=== PATIENT | female | born 1940 | race Caucasian/White ===

== ENCOUNTER 2017-09-30 07:48 | Day surgery (SDC) | payer OTHER ==
[2017-09-27 15:43] VITALS: BMI 27.0
[2017-09-30] MEDS ORDERED: MIDAZOLAM HCL 2 MG/2 ML SINGLE DOSE VIAL ONE (09:36)
[2017-09-30] MEDS ORDERED: ceFAZolin SODIUM 1 GM VIAL IVPB ONE (09:51)
[2017-09-30] MEDS ORDERED: ONABOTULINUMTOXINA 200 UNIT/VIAL VIAL IM ONE (10:00)
[2017-09-30] MEDS ORDERED: ACETAMINOPHEN 325 MG TABLET (FP) PO PRN (10:14)
[2017-09-30] MEDS ORDERED: OXYBUTYNIN CHLORIDE 5 MG TABLET PO ONE (10:15)
[2017-09-30] MEDS ORDERED: PHENAZOPYRIDINE HCL 100 MG TABLET (FP) PO ONE (10:17)
--- NOTE | 2017-09-30 10:23 | OP ---
Operative Note - Note: Operative Date: 09/30/17 Pre-Operative Diagnosis: oob.uretharel stricture, trab. bladder,atrophic vaginitis Operation: cysto, dil. of urethra bladder botox injection Findings: trabeculated bladder, urethral stricture,rectocele Post-Operative Diagnosis: Same as Pre-op Surgeon: Diego Conde Anesthesia: General, Peribulbar Specimens Removed: urine Estimated Blood Loss (mls): 0 Drains & Tubes with Location: none Drains, Volume Out (mls): 0 Blood Volume Replaced (mls): 0 Fluid Volume Replaced (mls): 0 Operative Report Dictated: Yes
[2017-09-30] MEDS ORDERED: ACETAMINOPHEN INJECTION 100 ML IVPB ONE (10:32)
[2017-09-30] MEDS ORDERED: ACETAMINOPHEN 1000 MG/100 ML VIAL (NON FORMULARY) IVPB ONE ×2 (10:35→10:57)
[2017-09-30] MEDS ORDERED: PHENAZOPYRIDINE HCL 100 MG TABLET (FP) ONE (10:44)
[2017-09-30 11:00] VITALS: TEMP 97.5
--- NOTE | 2017-09-30 11:15 | OP ---
DATE OF OPERATION: 09/30/2017 PREOPERATIVE DIAGNOSIS: Overactive bladder, urgency, incontinence. POSTOPERATIVE DIAGNOSIS: Overactive bladder, urgency, incontinence, with urethral stricture disease. OPERATIVE PROCEDURE: Cystourethroscopy, calibration dilation of meatus, Botox injection in bladder. ANESTHESIA: General. DESCRIPTION OF PROCEDURE: Under above stated anesthesia, patient was prepped and draped in the usual sterile manner. She was placed in the dorsal lithotomy position. Inspection of the external genitalia revealed atrophic vaginitis. There was a grade 1-2 rectocele. Pelvic examination revealed an atrophic uterus with no pelvic masses. The meatus appeared to be scarred and dried. Therefore, it was calibrated to 18-Lithuanian and dilated to 26-Lithuanian with Angela sounds without difficulty or bleeding. Cystoscopy was then performed. Urine was collected for culture and sensitivity. Inspection of the bladder revealed a grade 3 trabeculation throughout the bladder. Ureteral orifices were within normal limits with efflux of clear urine. No lesions were noted. No calculi were seen. Then, 200 units of Botox and 20 mL of a solute was mixed, and 1 mL injections were made in rows of 5, 1 cm above the right ureteral orifice, moving across to the left lateral wall of the bladder. A 2nd row of 5 individual mL was performed. A 3rd and a 4th row were also performed. No active bleeding was noted. No extravasation was seen. The bladder was emptied. The scope was removed. The patient tolerated the procedure well. She returned to the recovery room in good condition. Shawanda [id number]
[2017-09-30] MEDS ORDERED: ONDANSETRON 4 MG/2 ML VIAL IVPUSH PRN (11:20)
[2017-09-30] MEDS ORDERED: LACTATED RINGERS SOLUTION 1,000 ML IV SCH (11:30)
[2017-09-30 12:58] VITALS: BP 143/56; PULSE 84
--- NOTE | 2017-10-04 10:29 | HP ---
DATE OF ADMISSION: 09/30/2017 DATE OF PROCEDURE: 09/30/2017 HISTORY OF PRESENT ILLNESS: Patient is a 76-year-old female with a long history of overactive bladder including urgency, frequency, hesitancy, nocturia q.30 minutes. Patient had undergone a Botox injection 1 year earlier and had minimal improvement. She also has history of diabetes and high blood pressure. ALLERGIES: She is allergic to ASPIRIN. 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 PAST MEDICAL HISTORY: She has history of cataract and is planning to undergo cataract removal. URODYNAMIC EVALUATION: Revealed a hyperactive bladder with no evidence of sphincteric insufficiency. PHYSICAL EXAMINATION: General: Revealed a middle-aged female in no apparent distress. Abdomen: Soft. Pelvic: Is atrophic. Meatus appears dry and atrophic. Extremities: Show full range of motion with no cyanosis, clubbing, or edema. IMPRESSION: Overactive bladder. PLAN: Botox bladder injection. Shawanda [id number]
== END 2017-09-30 13:01 | disposition home or self-care (01) ==
LOC: JASU-SURG 07:48
PROVIDERS: ATTEND Urology
PROC: 0T7D8ZZ Dilation of Urethra, Via Natural or Artificial Opening Endoscopic (ICD-10-PCS; principal; 2017-09-30 09:30)
PROC: 3E0K8GC Introduction of Other Therapeutic Substance into Genitourinary Tract, Via Natural or Artificial Opening Endoscopic (ICD-10-PCS; 2017-09-30 09:30)
DX: N32.81 Overactive bladder (principal); N39.41 Urge incontinence; N35.8 Other urethral stricture
CPT/HCPCS: 52287; J0585; 87086; 94760

== ENCOUNTER 2018-11-18 12:28 | Inpatient (IN) | payer OTHER ==
--- NOTE | 2018-11-18 13:04 | PDOC ---
History of Present Illness - General Chief Complaint: Shortness of Breath Stated Complaint: CHEST PAIN Time Seen by Provider: 11/18/18 13:03 - History of Present Illness Initial Comments: 78 yo F with PMH of HTN, DM brought in by EMS presenting with shortness of breath that started this morning. Patient endorses leg swelling as well. History -taking proved to be difficult as patient is irish-speaking and hard of hearing. PCP: Dr. Dieter Quintero Past History - Past Medical History Allergies/Adverse Reactions: Allergies Allergy/AdvReac Type Severity Reaction Status Date / Time aspirin Allergy Severe Swelling Verified 07/19/17 17:29 Home Medications: Ambulatory Orders Rosuvastatin Calcium [Crestor] 10 mg PO HS 08/05/16 Acetaminophen [Tylenol .Regular Strength -] 650 mg PO Q6H PRN #0 tablet Valsartan [Diovan] 160 mg PO DAILY tablet 08/12/16 Clopidogrel Bisulfate [Plavix -] 75 mg PO HS 07/19/17 Glimepiride [Amaryl] 4 mg PO DAILY 07/19/17 Anemia: No Asthma: No Cancer: No Cardiac Disorders: No CVA: No COPD: No CHF: No Dementia: No Diabetes: Yes GI Disorders: No Disorders: No HTN: Yes Hypercholesterolemia: No Liver Disease: No Seizures: No Thyroid Disease: No - Suicide/Smoking/Psychosocial Hx Smoking History: Unknown if ever smoked Have you smoked in the past 12 months: No Hx Alcohol Use: No Drug/Substance Use Hx: No Substance Use Type: None Hx Substance Use Treatment: No Review of Systems - Review of Systems Able to Perform ROS?: No *Physical Exam - Vital Signs Last Vital Signs Temp Pulse Resp BP Pulse Ox 65 22 H 139/80 97 11/18/18 12:30 11/18/18 12:30 11/18/18 12:30 11/18/18 12:30 - Physical Exam Comments: General: Awake, alert, and fully oriented, in no acute distress Head: No signs of trauma Eyes: EOMI, sclera anicteric ENT: Dry mucus membranes Neck: Normal ROM, supple Lungs: Decreased breath sounds at the bases Cardio: Regular rhythm, S1 and S2 present Abdomen: Soft, nontender. No guarding, no rebound, no masses Extremities: Normal range of motion, Distal pulses present, 2+ pitting edema BLE SKIN: Warm, Dry, normal turgor Neurologic: Cranial nerves II through XII grossly intact. Normal speech Moderate Sedation - Procedure Monitoring Vital Signs: Procedure Monitoring Vital Signs Temperature Pulse Rate 65 11/18/18 12:30 Respiratory Rate 22 H 11/18/18 12:30 Blood Pressure 139/80 11/18/18 12:30 O2 Sat by Pulse Oximetry (%) 97 11/18/18 12:30 ED Treatment Course - LABORATORY CBC & Chemistry Diagram: 11/18/18 13:38 11/18/18 13:38 Medical Decision Making - Medical Decision Making 78 yo F with PMH of HTN, DM presenting with shortness of breath. Patient is a difficult historian: she is irish-speaking and hard of hearing. Patient endorses leg swelling. VS significant for respiratory rate of 22, patient [place] [address].8 No anemia or leukocytosis, Tpn 0.05 CXR shows new congestive changes Given 40 lasix Presentation consistent with CHF. EKG: rate 101, QTc 490, sinus tachy with premature atrial complexes with aberrant conduction Plan to admit 11/18/18 17:51 Discussed case with inpatient team who accepted patient for admission under Dr. Guallpa. *DC/Admit/Observation/Transfer Diagnosis at time of Disposition: CHF (congestive heart failure) - Discharge Dispostion Condition at time of disposition: Guarded Decision to Admit order: Yes - Referrals - Patient Instructions - Post Discharge Activity
--- NOTE | 2018-11-18 14:57 | PDOC ---
Attending Attestation - Resident Resident Name: Dariana Jay - ED Attending Attestation I have performed the following: I have examined & evaluated the patient, The case was reviewed & discussed with the resident, I agree w/resident's findings & plan, Exceptions are as noted - HPI HPI: 11/18/18 14:55 The patient is a 78 year old female, with a significant past medical history of HTN and diabetes who presents to the emergency department with chest pain and SOB, via EMS. As per EMT, the patients claimed to have called 911 by accident, but when the EMT arrived on scene he witnessed the patient clutching her chest, and brought her to the ED. The complains of chest pressure and difficulty with breathing currently. Endorses leg swelling. No recent travel/ immobilization. She denies recent fever or chills. She denies recent nausea, vomit, diarrhea or constipation. She denies recent dysuria, frequency, urgency or hematuria. Allergies: aspirin Primary Care Physician: Dr. Eddie Olivo, Phone# [phone] - Physicial Exam PE: 11/18/18 14:56 "GENERAL: Awake, alert, and fully oriented, in no acute distress. HEAD: No signs of trauma EYES: PERRLA, EOMI, sclera anicteric, conjunctiva clear ENT: Auricles normal inspection, hearing grossly normal, nares patent, oropharynx clear without exudates. Moist mucosa NECK: Nontender, no stepoffs, Normal ROM, supple, no lymphadenopathy, JVD, or masses LUNGS: Breath sounds equal, clear to auscultation bilaterally. No wheezes, and no crackles HEART: Regular rate and rhythm, normal S1 and S2, no murmurs, rubs or gallops ABDOMEN: Soft, nontender, normoactive bowel sounds. No guarding, no rebound. No masses EXTREMITIES: + PE BLE, Normal range of motion, No clubbing or cyanosis. No cords, erythema, or tenderness NEUROLOGICAL: Cranial nerves II through XII intact. 5/5 strength and sensation in all extremities, Normal speech, normal gait, normal cerebellar function SKIN: Warm, Dry, normal turgor, no rashes or lesions noted. - Medical Decision Making 11/18/18 14:56 78 F with CP and SOB. Clinically concerning for volume overload/CHF. EKG with Q waves in septal leads, otherwise no acute ischemic changes. - Labs, BNP, Trop - CXR - Lasix - Admit tele
[2018-11-18 15:04] LABS: EOS % 0.5 % (0-4.5); HEMATOCRIT 36.7 % (32.4-45.2); HEMOGLOBIN 12.3 GM/dL (10.7-15.3); LYMPH % 21.4 % (8-40); MCH 27.9 pg (25.7-33.7); MCHC 33.4 g/dl (32.0-36.0); MEAN CELL VOLUME 83.7 fl (80-96); MEAN PLT VOLUME 8.6 fl (7.5-11.1); MONO % 6.2 % (3.8-10.2); NEUT % 70.9 % (42.8-82.8); PLATELET COUNT 221 K/MM3 (134-434); RBC 4.39 M/mm3 (3.60-5.2); RDW 15.9 % (11.6-15.6); WHITE BLOOD COUNT 7.1 K/mm3 (4.0-10.0)
[2018-11-18 15:22] LABS: URINE APPEARANCE SLCLOUDY; URINE BILIRUBIN NEGATIVE (<2.0 mg/dL); URINE COLOR YELLOW; URINE GLUCOSE (UA) NEGATIVE (NEGATIVE); URINE KETONE NEGATIVE (NEGATIVE); URINE LEUK ESTERASE NEGATIVE (NEGATIVE); URINE NITRITE NEGATIVE (NEGATIVE); URINE PROTEIN 2+ (NEGATIVE); URINE UROBILINOGEN NEGATIVE mg/dL (0.2-1.0)
[2018-11-18 15:27] LABS: INR 1.29 (0.83-1.09); PROTHROMBIN TIME (PATIENT) 15.3 SEC (9.7-13.0)
[2018-11-18 15:30] LABS: ACTIVATED PTT 27.4 SECONDS (25.2-36.5)
[2018-11-18 15:38] LABS: EPI CELLS RARE /HPF (FEW)
[2018-11-18 15:46] LABS: ALBUMIN 3.8 g/dl (3.4-5.0); ALK PHOS 83 U/L (45-117); ANION GAP 7 MMOL/L (8-16); BILIRUBIN,TOTAL 0.5 mg/dL (0.2-1); BLOOD UREA NITROGEN 29 mg/dL (7-18); CALCIUM 8.8 mg/dL (8.5-10.1); CHLORIDE 107 mmol/L (98-107); CO2 26 mmol/L (21-32); CREATININE 0.9 mg/dL (0.55-1.3); GLUCOSE,RANDOM 120 mg/dL (74-106); N-TERMINAL BNP 13865.8 pg/ml (5-450); POTASSIUM 4.6 mmol/L (3.5-5.1); SGOT/AST 44 U/L (15-37); SGPT/ALT 31 U/L (13-61); SODIUM 140 mmol/L (136-145); TOT PROT 7.4 g/dl (6.4-8.2)
[2018-11-18] MEDS ORDERED: FUROSEMIDE 40 MG/4 ML INJECTABLE VIAL IVPUSH ONE (16:06)
[2018-11-18] MEDS ORDERED: FUROSEMIDE 40 MG/4 ML INJECTABLE VIAL ONE (16:59)
--- NOTE | 2018-11-18 20:30 | HP ---
Admitting History and Physical - Primary Care Physician PCP: Dieter Quintero S - Admission Chief Complaint: Chest Pain, SOB History of Present Illness: This is a 78 y/o woman with a past medical history of HTN, DM, [place]. Who presents to the ED with family for chest pain, and SOB. Patient is Persian speaking unable to provide HPI. My [employer] line used #[id number]. Due to patient's hearing loss, limited info obtained. Per ED records: As per EMT, the patients claimed to have called 911 by accident, but when the EMT arrived on scene he witnessed the patient clutching her chest, and brought her to the ED. The complains of chest pressure and difficulty with breathing currently. Endorses leg swelling. No recent travel/immobilization. She denies recent fever or chills. She denies recent nausea, vomit, diarrhea or constipation. She denies recent dysuria, frequency, urgency or hematuria. History Source: Patient, Family Member, Medical Record Limitations to Obtaining History: Language Barrier (Persian) - Past Medical History Cardiovascular: Yes: HTN, Murmur Gastrointestinal: Yes: Gastritis, GERD Renal/: Yes: Neurogenic Bladder, UTI Endocrine: Yes: Diabetes Mellitus - Smoking History Smoking history: Unknown if ever smoked Have you smoked in the past 12 months: No - Alcohol/Substance Use Hx Alcohol Use: No - Social History Usual Living Arrangement: Yes: With Spouse ADL: Independent History of Recent Travel: No Home Medications - Allergies Allergies/Adverse Reactions: Allergies Allergy/AdvReac Type Severity Reaction Status Date / Time aspirin Allergy Severe Swelling Verified 07/19/17 17:29 - Home Medications Home Medications: Ambulatory Orders Rosuvastatin Calcium [Crestor] 10 mg PO HS 08/05/16 Acetaminophen [Tylenol .Regular Strength -] 650 mg PO Q6H PRN #0 tablet Valsartan [Diovan] 160 mg PO DAILY tablet 08/12/16 Clopidogrel Bisulfate [Plavix -] 75 mg PO HS 07/19/17 Glimepiride [Amaryl] 4 mg PO DAILY 07/19/17 Family Disease History - Family Disease History Family Disease History: Diabetes: Brother Review of Systems - Review of Systems Constitutional: reports: No Symptoms Eyes: reports: No Symptoms HENT: reports: No Symptoms Neck: reports: No Symptoms Cardiovascular: reports: Chest Pain, Edema, Shortness of Breath Respiratory: reports: SOB, SOB on Exertion Gastrointestinal: reports: No Symptoms Genitourinary: reports: No Symptoms Breasts: reports: No Symptoms Reported Musculoskeletal: reports: No Symptoms Integumentary: reports: No Symptoms Neurological: reports: No Symptoms Endocrine: reports: No Symptoms Hematology/Lymphatic: reports: No Symptoms Psychiatric: reports: No Symptoms Physical Examination Vital Signs: Vital Signs Temperature Pulse Rate 68 11/18/18 18:30 Respiratory Rate 20 11/18/18 18:30 Blood Pressure 160/75 11/18/18 18:30 O2 Sat by Pulse Oximetry (%) 96 11/18/18 18:30 Constitutional: Yes: Well Nourished, Mild Distress, Obese Eyes: Yes: WNL, Conjunctiva Clear, EOM Intact, PERRL HENT: Yes: WNL, Atraumatic, Normocephalic Neck: Yes: WNL, Supple, Trachea Midline Cardiovascular: Yes: Tachycardia, Murmur, S1, S2 Respiratory: Yes: Diminished, On Nasal O2, Rales, SOB Gastrointestinal: Yes: WNL, Normal Bowel Sounds, Soft, Abdomen, Obese ...Rectal Exam: Yes: Deferred Renal/: Yes: WNL Breast(s): Yes: WNL Musculoskeletal: Yes: WNL Extremities: Yes: WNL Edema: Yes Edema: LLE: 3+, RLE: 2+ Peripheral Pulses WNL: Yes Neurological: Yes: WNL, Alert, Oriented, Cran Nerves II-XII Intact ...Motor Strength: WNL Psychiatric: Yes: WNL, Alert, Oriented Labs: CBC, BMP 11/18/18 13:38 11/18/18 13:38 Troponin, BNP 11/18/18 11/18/18 13:38 21:10 Troponin I 0.05 0.07 H B-Natriuretic Peptide 89656.8 H Intake & Output 11/16/18 11/17/18 11/18/18 11/19/18 23:59 23:59 23:59 23:59 Weight 74.843 kg Imaging - Results Chest X-ray: Report Reviewed, Image Reviewed EKG: Image Reviewed Problem List - Problems (1) New onset of congestive heart failure Assessment/Plan: Cardiac monitoring BNP 75543 Chest Xray- new congestive changes Lasix given in ED, will continue Appreciate Cardiology consult Serial Enzymes neg x1, will trend Daily weights Strict INOs EKG- ST 101 with PACs Echo O2 Code(s): I50.9 - HEART FAILURE, UNSPECIFIED (2) HTN (hypertension) Assessment/Plan: Stable Monitor BP Will continue home meds- pending verification Monitor renal function Low Na Diet Code(s): I10 - ESSENTIAL (PRIMARY) HYPERTENSION Qualifiers: Hypertension type: essential hypertension Qualified Code(s): I10 - Essential (primary) hypertension (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 Plan: See Problem List FEN Fluid Restriction 1L Replete lytes prn Low Na, Diabetic Diet DVT ppx OOB TEDs Heparin SQ Dispo: Requires Inpatient Care Visit type - Emergency Visit Emergency Visit: Yes ED Registration Date: 11/18/18 Care time: The patient presented to the Emergency Department on the above date and was hospitalized for further evaluation of their emergent condition. - New Patient This patient is new to me today: Yes Date on this admission: 11/18/18 - Critical Care Critical Care patient: No
[2018-11-18] MEDS ORDERED: HEPARIN NA (PORCINE) 5,000 UNITS/ML 1ML VIAL ONE (21:18)
[2018-11-18] MEDS: HEPARIN NA (PORCINE) 5,000 UNITS/ML 1ML VIAL SQ SCH (21:35)
[2018-11-19] MEDS ORDERED: FUROSEMIDE 40 MG/4 ML INJECTABLE VIAL ONE ×2 (03:45→14:28)
[2018-11-19] MEDS: FUROSEMIDE 40 MG/4 ML INJECTABLE VIAL IVPUSH SCH ×2 (06:33→15:00)
[2018-11-19 07:17] LABS: CHOLESTEROL 113 mg/dL (50-200); HDL CHOLESTEROL 43 mg/dL (40-60); TRIGLYCERIDES 82 mg/dL (0-150)
[2018-11-19 08:47] LABS: BASO % 0.5 % (0-2.0); EOS % 0.7 % (0-4.5); HEMATOCRIT 34.7 % (32.4-45.2); HEMOGLOBIN 11.6 GM/dL (10.7-15.3); LYMPH % 19.1 % (8-40); MCH 27.8 pg (25.7-33.7); MCHC 33.3 g/dl (32.0-36.0); MEAN CELL VOLUME 83.3 fl (80-96); MEAN PLT VOLUME 8.9 fl (7.5-11.1); MONO % 5.2 % (3.8-10.2); NEUT % 74.5 % (42.8-82.8); PLATELET COUNT 207 K/MM3 (134-434); RBC 4.17 M/mm3 (3.60-5.2); RDW 16.3 % (11.6-15.6); WHITE BLOOD COUNT 7.8 K/mm3 (4.0-10.0)
[2018-11-19 09:23] LABS: ANION GAP 8 MMOL/L (8-16); BLOOD UREA NITROGEN 25 mg/dL (7-18); CALCIUM 8.7 mg/dL (8.5-10.1); CHLORIDE 105 mmol/L (98-107); CO2 26 mmol/L (21-32); CREATININE 0.8 mg/dL (0.55-1.3); GLUCOSE,RANDOM 122 mg/dL (74-106); POTASSIUM 3.9 mmol/L (3.5-5.1); SODIUM 139 mmol/L (136-145)
[2018-11-19] MEDS: HEPARIN NA (PORCINE) 5,000 UNITS/ML 1ML VIAL SQ SCH ×2 (10:01→23:12)
[2018-11-19] MEDS: INSULIN SLIDING SCALE (NOVOLOG) 1 VIAL SQ SCH ×4 (10:11→23:13)
--- NOTE | 2018-11-19 12:57 | EKG ---
Test Reason : Blood Pressure : / mmHG Vent. Rate : 101 BPM Atrial Rate : 101 BPM P-R Int : 148 ms QRS Dur : 086 ms QT Int : 378 ms P-R-T Axes : 084 020 060 degrees QTc Int : 490 ms POOR DATA QUALITY, INTERPRETATION MAY BE ADVERSELY AFFECTED SINUS TACHYCARDIA WITH PREMATURE ATRIAL COMPLEXES WITH ABERRANT CONDUCTION ABNORMAL ECG WHEN COMPARED WITH ECG OF 04-AUG-2016 17:07, ABERRANT CONDUCTION IS NOW PRESENT NONSPECIFIC T WAVE ABNORMALITY, WORSE IN LATERAL LEADS QT HAS LENGTHENED Confirmed by LEE HERRING, LORENA ([id number]) on 11/19/2018 12:56:50 PM Referred By: Confirmed By:LORENA HOWARD MD
--- NOTE | 2018-11-19 16:02 | CON.CARD ---
Consult Consult Specialty:: Cardiology Reason for Consultation:: SÁNCHEZ. Lower extremity - History of Present Illness Chief Complaint: SÁNCHEZ. Lower extremity edema History of Present Illness: This is a 78 year old female with a PMH of HTN and diabetes. LV function was normal with LVH on an echocardiogram in 2014. She presents now with progressive SÁNCHEZ and worsening LE edema. - Past Medical History Cardio/Vascular: Yes: HTN, Murmur Gastrointestinal: Yes: Gastritis, GERD Renal/: Yes: Neurogenic Bladder, UTI Endocrine: Yes: Diabetes Mellitus - Alcohol/Substance Use Hx Alcohol Use: No - Smoking History Smoking history: Unknown if ever smoked Have you smoked in the past 12 months: No - Social History Usual Living Arrangement: With Spouse ADL: Independent History of Recent Travel: No Home Medications - Allergies Allergies/Adverse Reactions: Allergies Allergy/AdvReac Type Severity Reaction Status Date / Time aspirin Allergy Severe Swelling Verified 07/19/17 17:29 - Home Medications Home Medications: Ambulatory Orders Rosuvastatin Calcium [Crestor] 10 mg PO HS 08/05/16 Acetaminophen [Tylenol .Regular Strength -] 650 mg PO Q6H PRN #0 tablet Valsartan [Diovan] 160 mg PO DAILY tablet 08/12/16 Clopidogrel Bisulfate [Plavix -] 75 mg PO HS 07/19/17 Glimepiride [Amaryl] 4 mg PO DAILY 07/19/17 Family Disease History - Family Disease History Family Disease History: Diabetes: Brother Vital Signs: Vital Signs Temperature 98.3 F 11/19/18 08:05 Pulse Rate 90 11/19/18 08:05 Respiratory Rate 20 11/19/18 08:05 Blood Pressure 144/89 11/19/18 08:05 O2 Sat by Pulse Oximetry (%) 100 11/19/18 08:05 Constitutional: Yes: No Distress HENT: Yes: WNL Neck: Yes: WNL (Positive JVD) Respiratory: Yes: Rales (Ralesn 1/3 up bilaterally) Gastrointestinal: Yes: Normal Bowel Sounds Cardiovascular: Yes: Regular Rate and Rhythm (NL S1S2 no MRHG) JVD: Yes Edema: LLE: 1+, RLE: 1+ Neurological: Yes: Alert, Oriented - Other Data Labs, Other Data: CBC, BMP 11/19/18 06:10 11/19/18 06:10 INR, PTT INR 1.29 (0.83-1.09) H 11/18/18 13:38 Troponin, BNP 11/18/18 11/19/18 21:10 03:48 Troponin I 0.07 H 0.10 H Troponin, BNP 11/18/18 11/19/18 21:10 03:48 Troponin I 0.07 H 0.10 H Assessment/Plan 78 year old female with a PMH of HTN and diabetes. LV function was normal with LVH on an echocardiogram in 2014. She presents now with progressive SÁNCHEZ and worsening LE edema. EKG NSR without acute changes CXR consistent with CHF CHF Lasix 40 mg IVSS BID Daily I's/O's/Wt's/Lytes Obtain a repear Echocardiogram Troponin 0.10, follow trends Would benefit from a low dose beta mena Obtain a BNP level Will follow with you
[2018-11-19] MEDS ORDERED: INSULIN (NOVOLOG) ASPART 100 UNITS/ML 10ML VIAL ONE (17:38)
--- NOTE | 2018-11-19 19:26 | PN ---
Progress Note, Physician Chief Complaint: Chest pain History of Present Illness: Previous notes and events reviewed awake and alert NAD complain of mid chest pain - Current Medication List Current Medications: Active Medications Furosemide (Lasix Injection -) 40 mg IVPUSH BID@0600,1400 [facility] Last Admin: 11/19/18 15:00 Dose: 40 mg Heparin Sodium (Porcine) (Heparin -) 5,000 unit SQ BID [facility] Last Admin: 11/19/18 10:01 Dose: 5,000 unit Insulin Aspart (Novolog Vial Sliding Scale -) 1 vial SQ [facility]; Protocol Last Admin: 11/19/18 16:58 Dose: 2 units - Objective Vital Signs: Vital Signs Temperature 98.4 F 11/19/18 18:00 Pulse Rate 78 11/19/18 18:00 Respiratory Rate 18 11/19/18 18:00 Blood Pressure 128/78 11/19/18 18:00 O2 Sat by Pulse Oximetry (%) 99 11/19/18 18:00 Constitutional: Yes: Calm, Mild Distress Eyes: Yes: Conjunctiva Clear HENT: Yes: Atraumatic Neck: Yes: Supple Cardiovascular: Yes: Regular Rate and Rhythm Respiratory: Yes: Regular, On Nasal O2, Rales Gastrointestinal: Yes: Normal Bowel Sounds, Soft Musculoskeletal: Yes: Muscle Weakness Extremities: Yes: WNL Edema: Yes Edema: LLE: 1+, RLE: 1+ Neurological: Yes: Alert, Oriented Psychiatric: Yes: Alert, Oriented Labs: CBC, BMP 11/19/18 06:10 11/19/18 06:10 INR, PTT INR 1.29 (0.83-1.09) H 11/18/18 13:38 Troponin, BNP 11/18/18 11/19/18 21:10 03:48 Troponin I 0.07 H 0.10 H Problem List - Problems (1) CHF (congestive heart failure) Assessment/Plan: -cardiology on board -troponon 0.07, 0.10--repeat trop ordered -lasix IVP BID -pending echo -tele monitoring -BNP 34998.8--will monitor for down trend -daily weights -1L fluid restriction, I&Os -pulmonary consult -B/L LE edema-vascular US done R/O DVT, pending results Code(s): I50.9 - HEART FAILURE, UNSPECIFIED (2) HTN (hypertension) Assessment/Plan: -low Na diet -lasix IVP BID--monitor renal function Code(s): I10 - ESSENTIAL (PRIMARY) HYPERTENSION Qualifiers: Hypertension type: essential hypertension Qualified Code(s): I10 - Essential (primary) hypertension (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
--- NOTE | 2018-11-19 21:43 | CONSULT ---
Consult Consult Specialty:: endocrine Referred by:: lois PETERSON Reason for Consultation:: dm 2 - History of Present Illness Chief Complaint: weakness and difficulty breathing History of Present Illness: 78 y/o woman with a past medical history of DM2,HTN, [place]. Who presents to the ED with family for chest pain, and SOB. patient has had shortness of breath, chest pain,and difficulty breathing pain was severe and unrelieved with rest, she has noted legs were swollen and has been taking her water pills but swelling has gotten worse recently,she denies fever cough,nausea or vomitingt, but when the EMT arrived on scene he witnessed the patient clutching her chest, and brought her to the ED. - Past Medical History Cardio/Vascular: Yes: HTN, Murmur Gastrointestinal: Yes: Gastritis, GERD Renal/: Yes: Neurogenic Bladder, UTI Endocrine: Yes: Diabetes Mellitus - Alcohol/Substance Use Hx Alcohol Use: No - Smoking History Smoking history: Unknown if ever smoked Have you smoked in the past 12 months: No - Social History Usual Living Arrangement: With Spouse ADL: Independent History of Recent Travel: No Home Medications - Allergies Allergies/Adverse Reactions: Allergies Allergy/AdvReac Type Severity Reaction Status Date / Time aspirin Allergy Severe Swelling Verified 07/19/17 17:29 - Home Medications Home Medications: Ambulatory Orders Rosuvastatin Calcium [Crestor] 10 mg PO HS 08/05/16 Acetaminophen [Tylenol .Regular Strength -] 650 mg PO Q6H PRN #0 tablet Valsartan [Diovan] 160 mg PO DAILY tablet 08/12/16 Clopidogrel Bisulfate [Plavix -] 75 mg PO HS 07/19/17 Glimepiride [Amaryl] 4 mg PO DAILY 07/19/17 Family Disease History - Family Disease History Family Disease History: Diabetes: Brother Review of Systems - Review of Systems Constitutional: reports: Lethargy, Weakness Eyes: reports: Blurred Vision HENT: reports: No Symptoms Neck: reports: No Symptoms Cardiovascular: reports: Shortness of Breath Respiratory: reports: Exercise Intolerance, Orthopnea, SOB on Exertion Gastrointestinal: reports: Constipation Genitourinary: reports: No Symptoms Breasts: reports: No Symptoms Reported Musculoskeletal: reports: Joint Pain, Muscle Weakness Endocrine: reports: Unexplained Weight Gain Physical Exam Vital Signs: Vital Signs Temperature 98.4 F 11/19/18 18:00 Pulse Rate 78 11/19/18 18:00 Respiratory Rate 18 11/19/18 18:00 Blood Pressure 128/78 11/19/18 18:00 O2 Sat by Pulse Oximetry (%) 99 11/19/18 18:00 Constitutional: Yes: Anxious Eyes: Yes: EOM Intact HENT: Yes: Normocephalic Neck: Yes: Trachea Midline Cardiovascular: Yes: Tachycardia Respiratory: Yes: On Nasal O2, Rales, SOB Gastrointestinal: Yes: Abdomen, Obese ...Rectal Exam: Yes: Deferred Renal/: Yes: WNL Breast(s): Yes: WNL Musculoskeletal: Yes: Joint Swelling, Muscle Pain, Muscle Weakness Edema: LLE: 2+, RLE: 2+ Neurological: Yes: Alert, Oriented Labs: CBC, BMP 11/19/18 06:10 11/19/18 06:10 Problem List - Problems (1) Diabetes mellitus Code(s): E11.9 - TYPE 2 DIABETES MELLITUS WITHOUT COMPLICATIONS Qualifiers: Diabetes mellitus complication status: with circulatory complication (2) CHF (congestive heart failure) Code(s): I50.9 - HEART FAILURE, UNSPECIFIED (3) New onset of congestive heart failure Code(s): I50.9 - HEART FAILURE, UNSPECIFIED (4) COPD (chronic obstructive pulmonary disease) Code(s): J44.9 - CHRONIC OBSTRUCTIVE PULMONARY DISEASE, UNSPECIFIED (5) Change in mental state Code(s): R41.82 - ALTERED MENTAL STATUS, UNSPECIFIED (6) Compression fracture Code(s): T14.8 - OTHER INJURY OF UNSPECIFIED BODY REGION * DO NOT USE * (7) Constipation Code(s): K59.00 - CONSTIPATION, UNSPECIFIED (8) Dehydration Code(s): E86.0 - DEHYDRATION Assessment/Plan Current Active Problems CHF (congestive heart failure) (Acute) New onset of congestive heart failure (Acute) dm 2 with neuropathy htn ashd hyperlipidemia cad angina Abnormal Lab Results 11/18/18 11/19/18 11/19/18 21:10 03:48 06:10 RDW BUN 25 H Random Glucose 122 H Hemoglobin A1c % Troponin I 0.07 H 0.10 H 11/19/18 11/19/18 11/19/18 06:10 06:10 20:30 RDW 16.3 H BUN Random Glucose Hemoglobin A1c % 7.2 H Troponin I 0.08 H Laboratory Results - last 24 hr 11/18/18 11/19/18 11/19/18 21:10 03:48 06:10 WBC RBC Hgb Hct MCV MCH MCHC RDW Plt Count MPV Absolute Neuts (auto) Neutrophils % Lymphocytes % Monocytes % Eosinophils % Basophils % Nucleated RBC % Sodium 139 Potassium 3.9 Chloride 105 Carbon Dioxide 26 Anion Gap 8 BUN 25 H Creatinine 0.8 Creat Clearance w eGFR > 60 POC Glucometer Random Glucose 122 H Hemoglobin A1c % Calcium 8.7 Troponin I 0.07 H 0.10 H Triglycerides 82 Cholesterol 113 Total LDL Cholesterol 61 HDL Cholesterol 43 11/19/18 11/19/18 11/19/18 06:10 06:10 09:23 WBC 7.8 RBC 4.17 Hgb 11.6 Hct 34.7 MCV 83.3 MCH 27.8 MCHC 33.3 RDW 16.3 H Plt Count 207 MPV 8.9 Absolute Neuts (auto) 5.8 Neutrophils % 74.5 Lymphocytes % 19.1 Monocytes % 5.2 Eosinophils % 0.7 Basophils % 0.5 Nucleated RBC % 0 Sodium Potassium Chloride Carbon Dioxide Anion Gap BUN Creatinine Creat Clearance w eGFR POC Glucometer 119 Random Glucose Hemoglobin A1c % 7.2 H Calcium Troponin I Triglycerides Cholesterol Total LDL Cholesterol HDL Cholesterol 11/19/18 11/19/18 16:55 20:30 WBC RBC Hgb Hct MCV MCH MCHC RDW Plt Count MPV Absolute Neuts (auto) Neutrophils % Lymphocytes % Monocytes % Eosinophils % Basophils % Nucleated RBC % Sodium Potassium Chloride Carbon Dioxide Anion Gap BUN Creatinine Creat Clearance w eGFR POC Glucometer 173 Random Glucose Hemoglobin A1c % Calcium Troponin I 0.08 H Triglycerides Cholesterol Total LDL Cholesterol HDL Cholesterol plan bgm qid novolog insulin metformin 500mg bid cardiac monitoring atorvastatin /asa
[2018-11-19] MEDS ORDERED: INSULIN (NOVOLOG) ASPART 100 UNITS/ML 10ML VIAL SQ SCH (22:00)
[2018-11-19] MEDS ORDERED: ATORVASTATIN CA 40 MG TABLET (FP) ONE (23:06)
[2018-11-19] MEDS ORDERED: HEPARIN NA (PORCINE) 5,000 UNITS/ML 1ML VIAL ONE (23:06)
[2018-11-19] MEDS: ATORVASTATIN CA 40 MG TABLET (FP) PO SCH (23:12)
[2018-11-20 02:12] VITALS: BMI 26.3
[2018-11-20] MEDS: INSULIN SLIDING SCALE (NOVOLOG) 1 VIAL SQ SCH ×4 (06:27→22:31)
[2018-11-20] MEDS: FUROSEMIDE 40 MG/4 ML INJECTABLE VIAL IVPUSH SCH ×2 (06:28→13:31)
[2018-11-20 07:43] LABS: HEMATOCRIT 35.2 % (32.4-45.2); HEMOGLOBIN 11.4 GM/dL (10.7-15.3); MCH 26.8 pg (25.7-33.7); MCHC 32.4 g/dl (32.0-36.0); MEAN CELL VOLUME 82.6 fl (80-96); MEAN PLT VOLUME 8.7 fl (7.5-11.1); PLATELET COUNT 232 K/MM3 (134-434); RBC 4.27 M/mm3 (3.60-5.2); RDW 15.9 % (11.6-15.6); WHITE BLOOD COUNT 8.6 K/mm3 (4.0-10.0)
[2018-11-20 08:39] LABS: ALBUMIN 3.3 g/dl (3.4-5.0); ALK PHOS 76 U/L (45-117); ANION GAP 7 MMOL/L (8-16); BILIRUBIN,TOTAL 0.6 mg/dL (0.2-1); BLOOD UREA NITROGEN 27 mg/dL (7-18); CALCIUM 8.4 mg/dL (8.5-10.1); CHLORIDE 104 mmol/L (98-107); CO2 32 mmol/L (21-32); GLUCOSE,RANDOM 104 mg/dL (74-106); N-TERMINAL BNP 16032.1 pg/ml (5-450); POTASSIUM 3.6 mmol/L (3.5-5.1); SGOT/AST 27 U/L (15-37); SGPT/ALT 24 U/L (13-61); SODIUM 143 mmol/L (136-145); TOT PROT 6.4 g/dl (6.4-8.2)
--- NOTE | 2018-11-20 09:55 | PN ---
Progress Note, Physician - Current Medication List Current Medications: Active Medications Atorvastatin Calcium (Lipitor -) 40 mg PO HS [facility] Last Admin: 11/19/18 23:12 Dose: 40 mg Clopidogrel Bisulfate (Plavix -) 75 mg PO DAILY [facility] Furosemide (Lasix Injection -) 40 mg IVPUSH BID@0600,1400 [facility] Last Admin: 11/20/18 06:28 Dose: 40 mg Heparin Sodium (Porcine) (Heparin -) 5,000 unit SQ BID [facility] Last Admin: 11/19/18 23:12 Dose: 5,000 unit Insulin Aspart (Novolog Vial Sliding Scale -) 1 vial SQ ACHS [facility]; Protocol Last Admin: 11/20/18 06:27 Dose: Not Given - Objective Vital Signs: Vital Signs Temperature 98.2 F 11/20/18 05:00 Pulse Rate 97 H 11/20/18 05:00 Respiratory Rate 22 H 11/20/18 05:00 Blood Pressure 134/74 11/20/18 05:00 O2 Sat by Pulse Oximetry (%) 99 11/19/18 21:13 Labs: CBC, BMP 11/20/18 05:25 11/20/18 05:25 INR, PTT INR 1.29 (0.83-1.09) H 11/18/18 13:38 Problem List - Problems (1) CHF (congestive heart failure) Assessment/Plan: -cardiology on board -troponon 0.07, 0.10 -lasix IVP BID -pending echo -tele monitoring -BNP 42988.8--will monitor for down trend -daily weights -1L fluid restriction, I&Os -pulmonary consult -B/L LE edema-vascular US done R/O DVT, pending results Code(s): I50.9 - HEART FAILURE, UNSPECIFIED (2) Acute hypoxemic respiratory failure Code(s): J96.01 - ACUTE RESPIRATORY FAILURE WITH HYPOXIA (3) COPD (chronic obstructive pulmonary disease) Code(s): J44.9 - CHRONIC OBSTRUCTIVE PULMONARY DISEASE, UNSPECIFIED (4) Diabetes mellitus Assessment/Plan: -HgA1c 7.2% -diabetic diet -BGM ACHS, ISS -endo consult Code(s): E11.9 - TYPE 2 DIABETES MELLITUS WITHOUT COMPLICATIONS Qualifiers: Diabetes mellitus complication status: with circulatory complication (5) HTN (hypertension) Assessment/Plan: -low Na diet -lasix IVP BID--monitor renal function Code(s): I10 - ESSENTIAL (PRIMARY) HYPERTENSION Qualifiers: Hypertension type: essential hypertension Qualified Code(s): I10 - Essential (primary) hypertension
[2018-11-20] MEDS: HEPARIN NA (PORCINE) 5,000 UNITS/ML 1ML VIAL SQ SCH ×2 (09:57→21:24)
[2018-11-20] MEDS: CLOPIDOGREL BISULFATE 75 MG TABLET (FP) PO SCH (09:58)
--- NOTE | 2018-11-20 11:14 | PN ---
Progress Note (short form) - Note Progress Note: PULMONARY CONSULTATION DICTATED 11/20/18 IMP ACUTE HYPOXEMIC RESPIRATORY FAILURE ACUTE CHF + TROPONIN HTN DM PLAN IV LASIX O2 CHEST CT ECHO TREND TROPONIN F/U CHEST X-RAYS DAILY WT DR PENA Problem List - Problems (1) Diabetes Code(s): E11.9 - TYPE 2 DIABETES MELLITUS WITHOUT COMPLICATIONS (2) CHF (congestive heart failure) Code(s): I50.9 - HEART FAILURE, UNSPECIFIED (3) Diabetes mellitus Code(s): E11.9 - TYPE 2 DIABETES MELLITUS WITHOUT COMPLICATIONS Qualifiers: Diabetes mellitus complication status: with circulatory complication (4) New onset of congestive heart failure Code(s): I50.9 - HEART FAILURE, UNSPECIFIED (5) HTN (hypertension) Code(s): I10 - ESSENTIAL (PRIMARY) HYPERTENSION Qualifiers: Hypertension type: essential hypertension Qualified Code(s): I10 - Essential (primary) hypertension (6) Acute hypoxemic respiratory failure Code(s): J96.01 - ACUTE RESPIRATORY FAILURE WITH HYPOXIA (7) Troponin I above reference range Code(s): R74.8 - ABNORMAL LEVELS OF OTHER SERUM ENZYMES
--- NOTE | 2018-11-20 12:00 | CONS ---
DATE OF CONSULTATION: 11/20/2018 PULMONARY CONSULTATION REFERRING PHYSICIAN: Bernadette Guallpa MD Patient is a 78-year-old white female with a past medical history of hypertension, diabetes, nonsmoker, admitted to [facility] with complaints of shortness of breath and chest pain. Apparently, according to the EMT, patient's called 911 by accident, but when the EMT arrived, they noted that the patient was clutching her chest and complaining of shortness of breath. Pt was note to be hypoxemic by EMS,placed on O2 and give lasix iv In the emergency room, she was noted to be in CHF. She was started on Lasix with some improvement. She also complained of lower extremity edema. She denies any history of COPD or asthma in the past. There is no history of cardiac disease. Of note, according to the patient, for the past month or so she started noticing increasing shortness of breath and dyspnea on exertion. There is no fevers, weight loss, night sweats, no chronic cough, or hemoptysis. PAST MEDICAL HISTORY: Again includes hypertension, diabetes. SOCIAL HISTORY: Born in [place], moved to the [facility] many years ago. No occupational exposures. Nonsmoker. CURRENT MEDICATIONS: Include Lasix 40 IV, Plavix, Lipitor, and heparin. REVIEW OF SYSTEMS: Positive for orthopnea. Positive dyspnea. Positive chest pressure. No chest pain. No palpitations. No nausea. No vomiting. No diaphoresis. Positive lower extremity edema. PHYSICAL EXAMINATION: General: Patient is an elderly, white female, wide awake, alert, in no acute distress. Vital Signs: She is afebrile, blood pressure is 105/52, respiratory rate is 20 , and O2 saturation is 95% on 2 L. HEENT: Exam is normocephalic, atraumatic. Neck: Supple. Heart: Regular, S1, S2. Chest: Bilateral crackles. Abdomen: Soft. Bowel sounds positive. Extremities: Bilateral lower extremities edema. LABORATORIES: BUN 27, creatinine 1.0. Troponin 0.08. BNP is 16,032. WBC is 8.6, hemoglobin 11.4, hematocrit 35.2, platelet count 232,000. INR is 1.29. Chest x -ray had cardiomegaly with pulmonary vascular congestion. Duplex lower extremities no DVT noted. IMPRESSION: Acute hypoxemic respiratory failure secondary to: 1. Acute congestive heart failure. 2. Positive troponins. 3. Hypertension. 4. Diabetes. PLAN: IV Lasix. Supplemental O2. Obtain echo, CT scan of the chest. Trend troponin. Followup chest x-rays and daily weight. KATHARINE PENA M.D. MAKENNA/[id number] MTDD
--- NOTE | 2018-11-20 14:33 | PN ---
Progress Note, Physician Chief Complaint: SOB History of Present Illness: 78 year old female with a PMH of HTN and diabetes. LV function was normal with LVH on an echocardiogram in 2014. She presents now with progressive SÁNCHEZ and worsening LE edema. EKG NSR without acute changes CXR consistent with CHF - Current Medication List Current Medications: Active Medications Atorvastatin Calcium (Lipitor -) 40 mg PO HS [facility] Last Admin: 11/19/18 23:12 Dose: 40 mg Clopidogrel Bisulfate (Plavix -) 75 mg PO DAILY [facility] Last Admin: 11/20/18 09:58 Dose: 75 mg Furosemide (Lasix Injection -) 40 mg IVPUSH BID@0600,1400 [facility] Last Admin: 11/20/18 13:31 Dose: 40 mg Heparin Sodium (Porcine) (Heparin -) 5,000 unit SQ BID [facility] Last Admin: 11/20/18 09:57 Dose: 5,000 unit Insulin Aspart (Novolog Vial Sliding Scale -) 1 vial SQ [facility]; Protocol Last Admin: 11/20/18 11:37 Dose: 2 units - Objective Vital Signs: Vital Signs Temperature 98 F 11/20/18 13:59 Pulse Rate 74 11/20/18 13:59 Respiratory Rate 20 11/20/18 13:59 Blood Pressure 132/57 L 11/20/18 13:59 O2 Sat by Pulse Oximetry (%) 95 11/20/18 09:00 Constitutional: Yes: No Distress Neck: Yes: Supple Cardiovascular: Yes: Regular Rate and Rhythm, JVD, S1, S2. No: Murmur Respiratory: Yes: Rales (bibasilar) Gastrointestinal: Yes: Soft Edema: LLE: 1+, RLE: 1+ Labs: CBC, BMP 11/20/18 05:25 11/20/18 05:25 INR, PTT INR 1.29 (0.83-1.09) H 11/18/18 13:38 Assessment/Plan 78 year old female with a PMH of HTN and diabetes. LV function was normal with LVH on an echocardiogram in 2014. She presents now with progressive SÁNCHEZ and worsening LE edema. EKG NSR without acute changes CXR consistent with CHF Elevated BNP CHF Lasix 40 mg IVSS BID Daily I's/O's/Wt's/Lytes Obtain an echocardiogram Troponin 0.10 to 0.8 with normal CK likely in setting of CHF Would start low dose beta mena metoprolol 12.5mg q12. Tele sinus with frequent atrial ectopy and occasional few atrial beats in a row. Monitor for afib on tele.
[2018-11-20] MEDS: ATORVASTATIN CA 40 MG TABLET (FP) PO SCH (21:25)
[2018-11-20] MEDS: METOPROLOL TARTRATE 25 MG TABLET (FP) PO SCH (21:25)
[2018-11-21] MEDS: FUROSEMIDE 40 MG/4 ML INJECTABLE VIAL IVPUSH SCH ×2 (06:07→13:21)
[2018-11-21] MEDS: INSULIN SLIDING SCALE (NOVOLOG) 1 VIAL SQ SCH ×4 (06:24→22:01)
--- NOTE | 2018-11-21 08:38 | PN ---
Progress Note, Physician - Current Medication List Current Medications: Active Medications Atorvastatin Calcium (Lipitor -) 40 mg PO HS [facility] Last Admin: 11/20/18 21:25 Dose: 40 mg Clopidogrel Bisulfate (Plavix -) 75 mg PO DAILY [facility] Last Admin: 11/20/18 09:58 Dose: 75 mg Furosemide (Lasix Injection -) 40 mg IVPUSH BID@0600,1400 [facility] Last Admin: 11/21/18 06:07 Dose: 40 mg Heparin Sodium (Porcine) (Heparin -) 5,000 unit SQ BID [facility] Last Admin: 11/20/18 21:24 Dose: 5,000 unit Insulin Aspart (Novolog Vial Sliding Scale -) 1 vial SQ [facility]; Protocol Last Admin: 11/21/18 06:24 Dose: Not Given Metoprolol Tartrate (Lopressor -) 12.5 mg PO BID [facility] Last Admin: 11/20/18 21:25 Dose: 12.5 mg - Objective Vital Signs: Vital Signs Temperature 97.6 F 11/21/18 05:00 Pulse Rate 96 H 11/21/18 05:00 Respiratory Rate 20 11/21/18 05:00 Blood Pressure 102/45 L 11/21/18 05:00 O2 Sat by Pulse Oximetry (%) 95 11/20/18 20:45 Labs: CBC, BMP 11/20/18 05:25 11/20/18 05:25 INR, PTT INR 1.29 (0.83-1.09) H 11/18/18 13:38 Problem List - Problems (1) CHF (congestive heart failure) Code(s): I50.9 - HEART FAILURE, UNSPECIFIED (2) Acute hypoxemic respiratory failure Code(s): J96.01 - ACUTE RESPIRATORY FAILURE WITH HYPOXIA (3) COPD (chronic obstructive pulmonary disease) Code(s): J44.9 - CHRONIC OBSTRUCTIVE PULMONARY DISEASE, UNSPECIFIED (4) Diabetes mellitus Code(s): E11.9 - TYPE 2 DIABETES MELLITUS WITHOUT COMPLICATIONS Qualifiers: Diabetes mellitus complication status: with circulatory complication (5) HTN (hypertension) Code(s): I10 - ESSENTIAL (PRIMARY) HYPERTENSION Qualifiers: Hypertension type: essential hypertension Qualified Code(s): I10 - Essential (primary) hypertension
--- NOTE | 2018-11-21 10:00 | PN ---
Progress Note, Physician History of Present Illness: PULMONARY ALERT,COMFORTABLE,OOB-CHAIR,LESS DYSPNEIC,-CP - Current Medication List Current Medications: Active Medications Atorvastatin Calcium (Lipitor -) 40 mg PO HS [facility] Last Admin: 11/20/18 21:25 Dose: 40 mg Clopidogrel Bisulfate (Plavix -) 75 mg PO DAILY [facility] Last Admin: 11/20/18 09:58 Dose: 75 mg Furosemide (Lasix Injection -) 40 mg IVPUSH BID@0600,1400 [facility] Last Admin: 11/21/18 06:07 Dose: 40 mg Heparin Sodium (Porcine) (Heparin -) 5,000 unit SQ BID [facility] Last Admin: 11/20/18 21:24 Dose: 5,000 unit Insulin Aspart (Novolog Vial Sliding Scale -) 1 vial SQ [facility]; Protocol Last Admin: 11/21/18 06:24 Dose: Not Given Metoprolol Tartrate (Lopressor -) 12.5 mg PO BID [facility] Last Admin: 11/20/18 21:25 Dose: 12.5 mg - Objective Vital Signs: Vital Signs Temperature 97.6 F 11/21/18 05:00 Pulse Rate 96 H 11/21/18 05:00 Respiratory Rate 20 11/21/18 05:00 Blood Pressure 102/45 L 11/21/18 05:00 O2 Sat by Pulse Oximetry (%) 95 11/20/18 20:45 Constitutional: Yes: Well Nourished, Calm Eyes: Yes: WNL HENT: Yes: WNL Neck: Yes: WNL Cardiovascular: Yes: Regular Rate and Rhythm, S1, S2 Respiratory: Yes: Rales (BIBASILAR RALES) Gastrointestinal: Yes: Normal Bowel Sounds, Soft Extremities: Yes: WNL Edema: Yes Labs: CBC, BMP Problem List - Problems (1) Diabetes Code(s): E11.9 - TYPE 2 DIABETES MELLITUS WITHOUT COMPLICATIONS (2) CHF (congestive heart failure) Code(s): I50.9 - HEART FAILURE, UNSPECIFIED (3) Diabetes mellitus Code(s): E11.9 - TYPE 2 DIABETES MELLITUS WITHOUT COMPLICATIONS Qualifiers: Diabetes mellitus complication status: with circulatory complication (4) New onset of congestive heart failure Code(s): I50.9 - HEART FAILURE, UNSPECIFIED (5) HTN (hypertension) Code(s): I10 - ESSENTIAL (PRIMARY) HYPERTENSION Qualifiers: Hypertension type: essential hypertension Qualified Code(s): I10 - Essential (primary) hypertension (6) Acute hypoxemic respiratory failure Code(s): J96.01 - ACUTE RESPIRATORY FAILURE WITH HYPOXIA (7) Troponin I above reference range Code(s): R74.8 - ABNORMAL LEVELS OF OTHER SERUM ENZYMES Assessment/Plan IMP ACUTE HYPOXEMIC RESPIRATORY FAILURE IMPROVING ACUTE CHF + TROPONIN HTN DM PLAN IV LASIX O2 CHEST CT ECHO PENDING TREND TROPONIN F/U CHEST X-RAYS DAILY WT DR PENA Problem List - Problems (1) Diabetes Code(s): E11.9 - TYPE 2 DIABETES MELLITUS WITHOUT COMPLICATIONS (2) CHF (congestive heart failure) Code(s): I50.9 - HEART FAILURE, UNSPECIFIED (3) Diabetes mellitus Code(s): E11.9 - TYPE 2 DIABETES MELLITUS WITHOUT COMPLICATIONS Qualifiers: Diabetes mellitus complication status: with circulatory complication (4) New onset of congestive heart failure Code(s): I50.9 - HEART FAILURE, UNSPECIFIED (5) HTN (hypertension) Code(s): I10 - ESSENTIAL (PRIMARY) HYPERTENSION Qualifiers: Hypertension type: essential hypertension Qualified Code(s): I10 - Essential (primary) hypertension (6) Acute hypoxemic respiratory failure Code(s): J96.01 - ACUTE RESPIRATORY FAILURE WITH HYPOXIA (7) Troponin I above reference range Code(s): R74.8 - ABNORMAL LEVELS OF OTHER SERUM ENZYMES
[2018-11-21] MEDS: METOPROLOL TARTRATE 25 MG TABLET (FP) PO SCH ×2 (10:07→21:59)
[2018-11-21] MEDS: HEPARIN NA (PORCINE) 5,000 UNITS/ML 1ML VIAL SQ SCH ×2 (10:07→21:58)
[2018-11-21] MEDS: CLOPIDOGREL BISULFATE 75 MG TABLET (FP) PO SCH (10:07)
--- NOTE | 2018-11-21 10:07 | PN ---
Progress Note, Physician - Current Medication List Current Medications: Active Medications Atorvastatin Calcium (Lipitor -) 40 mg PO HS [facility] Last Admin: 11/20/18 21:25 Dose: 40 mg Clopidogrel Bisulfate (Plavix -) 75 mg PO DAILY [facility] Last Admin: 11/20/18 09:58 Dose: 75 mg Furosemide (Lasix Injection -) 40 mg IVPUSH BID@0600,1400 [facility] Last Admin: 11/21/18 06:07 Dose: 40 mg Heparin Sodium (Porcine) (Heparin -) 5,000 unit SQ BID [facility] Last Admin: 11/20/18 21:24 Dose: 5,000 unit Insulin Aspart (Novolog Vial Sliding Scale -) 1 vial SQ [facility]; Protocol Last Admin: 11/21/18 06:24 Dose: Not Given Metoprolol Tartrate (Lopressor -) 12.5 mg PO BID [facility] Last Admin: 11/20/18 21:25 Dose: 12.5 mg - Objective Vital Signs: Vital Signs Temperature 97.6 F 11/21/18 05:00 Pulse Rate 96 H 11/21/18 05:00 Respiratory Rate 20 11/21/18 05:00 Blood Pressure 102/45 L 11/21/18 05:00 O2 Sat by Pulse Oximetry (%) 95 11/20/18 20:45 Cardiovascular: Yes: Regular Rate and Rhythm Respiratory: Yes: Regular, CTA Bilaterally Gastrointestinal: Yes: Normal Bowel Sounds, Soft Labs: CBC, BMP 11/20/18 05:25 11/20/18 05:25 INR, PTT INR 1.29 (0.83-1.09) H 11/18/18 13:38 Problem List - Problems (1) CHF (congestive heart failure) Assessment/Plan: -cardiology on board -troponon 0.07, 0.10 -lasix IVP BID -pending echo -tele monitoring -BNP 55933.8--will monitor for down trend -daily weights -1L fluid restriction, I&Os -pulmonary consult -B/L LE edema-vascular US done R/O DVT, pending results Code(s): I50.9 - HEART FAILURE, UNSPECIFIED (2) Acute hypoxemic respiratory failure Code(s): J96.01 - ACUTE RESPIRATORY FAILURE WITH HYPOXIA (3) COPD (chronic obstructive pulmonary disease) Code(s): J44.9 - CHRONIC OBSTRUCTIVE PULMONARY DISEASE, UNSPECIFIED (4) Diabetes mellitus Assessment/Plan: -HgA1c 7.2% -diabetic diet -BGM ACHS, ISS -endo consult Code(s): E11.9 - TYPE 2 DIABETES MELLITUS WITHOUT COMPLICATIONS Qualifiers: Diabetes mellitus complication status: with circulatory complication (5) HTN (hypertension) Assessment/Plan: -low Na diet -lasix IVP BID--monitor renal function Code(s): I10 - ESSENTIAL (PRIMARY) HYPERTENSION Qualifiers: Hypertension type: essential hypertension Qualified Code(s): I10 - Essential (primary) hypertension (6) Back pain Assessment/Plan: lidoderm pt Code(s): M54.9 - DORSALGIA, UNSPECIFIED
--- NOTE | 2018-11-21 10:11 | PN ---
Progress Note, Physician Chief Complaint: The patient appears weak and complains of occasional SOB at rest. Telemetry shows baseline sinus bradycardia with runs of atrial tachycardia, MAT , possible afib and NSVT. History of Present Illness: 78 year old woman with a PMHx of HTN and diabetes. LV function was normal with LVH on an echocardiogram in 2014. She presents now with progressive SÁNCHEZ and worsening LE edema. EKG NSR without acute changes. But Telemetry shows atrial arrhythmia, possible paroxysmal atrial fibrillation. CXR consistent with CHF Elevated BNP. - Current Medication List Current Medications: Active Medications Atorvastatin Calcium (Lipitor -) 40 mg PO HS [facility] Last Admin: 11/20/18 21:25 Dose: 40 mg Clopidogrel Bisulfate (Plavix -) 75 mg PO DAILY [facility] Last Admin: 11/20/18 09:58 Dose: 75 mg Furosemide (Lasix Injection -) 40 mg IVPUSH BID@0600,1400 [facility] Last Admin: 11/21/18 06:07 Dose: 40 mg Heparin Sodium (Porcine) (Heparin -) 5,000 unit SQ BID [facility] Last Admin: 11/20/18 21:24 Dose: 5,000 unit Insulin Aspart (Novolog Vial Sliding Scale -) 1 vial SQ [facility]; Protocol Last Admin: 11/21/18 06:24 Dose: Not Given Lidocaine (Lidoderm Patch -) 1 patch TP DAILY [facility] Metoprolol Tartrate (Lopressor -) 12.5 mg PO BID [facility] Last Admin: 11/20/18 21:25 Dose: 12.5 mg Miscellaneous (Lidoderm Patch Removal) 1 each MC DAILY@2200 [facility] Neomycin/Polymyxin/Bacitracin (Neosporin Eye Ointment -) 1 applic OD Q4HWA [facility] - Objective Vital Signs: Vital Signs Temperature 97.6 F 11/21/18 05:00 Pulse Rate 96 H 11/21/18 05:00 Respiratory Rate 20 11/21/18 05:00 Blood Pressure 102/45 L 11/21/18 05:00 O2 Sat by Pulse Oximetry (%) 95 11/20/18 20:45 General: Well developed. Chronic ill. No acute distress. Head: Normocephalic. Atraumatic, Eyes: PERRLA, EOMI. Sclerae anicteric. Conjunctivae clear. Neck: Supple. No JVD. No bruits. Heart: Normal S1, S2: Regularly irregular rhythm and rate. No murmur. No gallop or rub. Lungs: Symmetrical poor air entry. No crackles. No wheezing or rhonchi. Abdomen: Soft. Bowel sound positive. Non tender. No masses. Extremities: No edema. No clubbing or cyanosis. PD 2+, equal bilaterally. . Labs: CBC, BMP 11/20/18 05:25 11/20/18 05:25 INR, PTT INR 1.29 (0.83-1.09) H 11/18/18 13:38 Assessment/Plan 78 year old woman with a PMHx of HTN and diabetes. LV function was normal with LVH on an echocardiogram in 2014. She presents now with progressive SÁNCHEZ and worsening LE edema. EKG NSR without acute changes. But Telemetry shows atrial arrhythmia, possible paroxysmal atrial fibrillation. CXR consistent with CHF Elevated BNP. 1) CHF: possible acute diastolic Continue Lasix 40 mg IVSS BID Daily I's/O's/Wt's/Lytes Obtain a repeat echocardiogram Troponin 0.10 to 0.8 with normal CK likely in setting of CHF Continue metoprolol 12.5mg q12. 2) Atrial and ventricular arrhythmia. Telemetry shows baseline sinus bradycardia with runs of atrial tachycardia, possible MAT, possible afib and NSVT. Pafib should be monitored closely and AC should be initiated if pafib can be confirmed.
[2018-11-21] MEDS: LIDOCAINE 5% TOPICAL PATCH TP SCH (12:38)
[2018-11-21] MEDS: NEOMY SULF/BACITRA/POLYMYXIN B OPHTHALMIC OINTMENT 3.5 GM OD SCH ×3 (13:21→21:59)
[2018-11-21] MEDS: ATORVASTATIN CA 40 MG TABLET (FP) PO SCH (21:58)
[2018-11-21] MEDS: LIDOCAINE PATCH REMOVAL MC SCH (22:05)
--- NOTE | 2018-11-21 23:38 | PN ---
Progress Note, Physician Chief Complaint: resting comfortable,no cp - Current Medication List Current Medications: Active Medications Atorvastatin Calcium (Lipitor -) 40 mg PO HS [facility] Last Admin: 11/21/18 21:58 Dose: 40 mg Clopidogrel Bisulfate (Plavix -) 75 mg PO DAILY [facility] Last Admin: 11/21/18 10:07 Dose: 75 mg Furosemide (Lasix Injection -) 40 mg IVPUSH BID@0600,1400 [facility] Last Admin: 11/21/18 13:21 Dose: 40 mg Heparin Sodium (Porcine) (Heparin -) 5,000 unit SQ BID [facility] Last Admin: 11/21/18 21:58 Dose: 5,000 unit Insulin Aspart (Novolog Vial Sliding Scale -) 1 vial SQ ACHS [facility]; Protocol Last Admin: 11/21/18 22:01 Dose: 2 units Lidocaine (Lidoderm Patch -) 1 patch TP DAILY [facility] Last Admin: 11/21/18 12:38 Dose: 1 patch Metoprolol Tartrate (Lopressor -) 25 mg PO BID [facility] Last Admin: 11/21/18 21:59 Dose: 25 mg Miscellaneous (Lidoderm Patch Removal) 1 each MC DAILY@2200 [facility] Last Admin: 11/21/18 22:05 Dose: 1 each Neomycin/Polymyxin/Bacitracin (Neosporin Eye Ointment -) 1 applic OD Q4HWA [facility] Last Admin: 11/21/18 21:59 Dose: 1 applic - Objective Vital Signs: Vital Signs Temperature 98.3 F 11/21/18 22:00 Pulse Rate 90 11/21/18 22:00 Respiratory Rate 18 11/21/18 22:00 Blood Pressure 111/56 L 11/21/18 22:00 O2 Sat by Pulse Oximetry (%) 100 11/21/18 21:00 Constitutional: Yes: Calm Eyes: Yes: EOM Intact HENT: Yes: Normocephalic Neck: Yes: Trachea Midline Cardiovascular: Yes: Regular Rate and Rhythm Respiratory: Yes: CTA Bilaterally Gastrointestinal: Yes: Normal Bowel Sounds ...Rectal Exam: Yes: Deferred Genitourinary: Yes: WNL Breast(s): Yes: WNL Musculoskeletal: Yes: WNL Extremities: Yes: WNL Edema: LLE: Trace, RLE: Trace Neurological: Yes: Alert, Oriented Labs: CBC, BMP 11/20/18 05:25 11/20/18 05:25 INR, PTT INR 1.29 (0.83-1.09) H 11/18/18 13:38 Problem List - Problems (1) Diabetes mellitus Code(s): E11.9 - TYPE 2 DIABETES MELLITUS WITHOUT COMPLICATIONS Qualifiers: Diabetes mellitus complication status: with circulatory complication Diabetes mellitus complication detail: with peripheral angiopathy with gangrene (2) CHF (congestive heart failure) Code(s): I50.9 - HEART FAILURE, UNSPECIFIED (3) New onset of congestive heart failure Code(s): I50.9 - HEART FAILURE, UNSPECIFIED (4) COPD (chronic obstructive pulmonary disease) Code(s): J44.9 - CHRONIC OBSTRUCTIVE PULMONARY DISEASE, UNSPECIFIED (5) Change in mental state Code(s): R41.82 - ALTERED MENTAL STATUS, UNSPECIFIED (6) Compression fracture Code(s): T14.8 - OTHER INJURY OF UNSPECIFIED BODY REGION * DO NOT USE * (7) Constipation Code(s): K59.00 - CONSTIPATION, UNSPECIFIED (8) Dehydration Code(s): E86.0 - DEHYDRATION Assessment/Plan Current Active Problems Acute hypoxemic respiratory failure (Acute) Back pain (Acute) CHF (congestive heart failure) (Acute) Diabetes (Acute) Diabetes mellitus (Acute) New onset of congestive heart failure (Acute) Troponin I above reference range (Acute) Laboratory Results - last 24 hr 11/21/18 11/21/18 11/21/18 06:17 12:25 17:07 POC Glucometer 146 158 178 11/21/18 22:00 POC Glucometer 200 plan; ck tsh free t4 continue bgm coverage metformin 500mg bid
[2018-11-22] MEDS: FUROSEMIDE 40 MG/4 ML INJECTABLE VIAL IVPUSH SCH (06:32)
[2018-11-22] MEDS: INSULIN SLIDING SCALE (NOVOLOG) 1 VIAL SQ SCH ×4 (06:32→21:29)
[2018-11-22] MEDS: NEOMY SULF/BACITRA/POLYMYXIN B OPHTHALMIC OINTMENT 3.5 GM OD SCH ×5 (06:34→21:27)
[2018-11-22] MEDS: metFORMIN HCL 500 MG TABLET (FP) PO SCH ×2 (06:34→16:56)
[2018-11-22 07:20] LABS: BASO % 0.5 % (0-2.0); EOS % 1.9 % (0-4.5); HEMATOCRIT 34.5 % (32.4-45.2); HEMOGLOBIN 11.4 GM/dL (10.7-15.3); LYMPH % 27.9 % (8-40); MCH 27.1 pg (25.7-33.7); MCHC 32.9 g/dl (32.0-36.0); MEAN CELL VOLUME 82.4 fl (80-96); MEAN PLT VOLUME 8.6 fl (7.5-11.1); MONO % 6.6 % (3.8-10.2); NEUT % 63.1 % (42.8-82.8); PLATELET COUNT 218 K/MM3 (134-434); RBC 4.19 M/mm3 (3.60-5.2); RDW 16.2 % (11.6-15.6); WHITE BLOOD COUNT 6.8 K/mm3 (4.0-10.0)
[2018-11-22 08:01] LABS: ALBUMIN 3.2 g/dl (3.4-5.0); ALK PHOS 66 U/L (45-117); ANION GAP 6 MMOL/L (8-16); BILIRUBIN,TOTAL 0.5 mg/dL (0.2-1); BLOOD UREA NITROGEN 38 mg/dL (7-18); CALCIUM 8.6 mg/dL (8.5-10.1); CHLORIDE 99 mmol/L (98-107); CO2 36 mmol/L (21-32); CREATININE 0.9 mg/dL (0.55-1.3); GLUCOSE,RANDOM 103 mg/dL (74-106); POTASSIUM 3.5 mmol/L (3.5-5.1); SGOT/AST 23 U/L (15-37); SGPT/ALT 23 U/L (13-61); SODIUM 140 mmol/L (136-145); TOT PROT 6.3 g/dl (6.4-8.2)
[2018-11-22] MEDS: HEPARIN NA (PORCINE) 5,000 UNITS/ML 1ML VIAL SQ SCH (09:47)
[2018-11-22] MEDS: METOPROLOL TARTRATE 25 MG TABLET (FP) PO SCH ×2 (09:47→21:26)
[2018-11-22] MEDS: LIDOCAINE 5% TOPICAL PATCH TP SCH (09:48)
[2018-11-22] MEDS: CLOPIDOGREL BISULFATE 75 MG TABLET (FP) PO SCH (09:48)
--- NOTE | 2018-11-22 11:49 | PN ---
Progress Note, Physician - Current Medication List Current Medications: Active Medications Atorvastatin Calcium (Lipitor -) 40 mg PO HS [facility] Last Admin: 11/21/18 21:58 Dose: 40 mg Clopidogrel Bisulfate (Plavix -) 75 mg PO DAILY [facility] Last Admin: 11/22/18 09:48 Dose: 75 mg Furosemide (Lasix -) 40 mg PO BID@0600,1400 [facility] Heparin Sodium (Porcine) (Heparin -) 5,000 unit SQ BID [facility] Last Admin: 11/22/18 09:47 Dose: 5,000 unit Insulin Aspart (Novolog Vial Sliding Scale -) 1 vial SQ ACHS [facility]; Protocol Last Admin: 11/22/18 11:47 Dose: 2 units Lidocaine (Lidoderm Patch -) 1 patch TP DAILY [facility] Last Admin: 11/22/18 09:48 Dose: 1 patch Metformin HCl (Glucophage -) 500 mg PO BID@0700,1630 [facility] Last Admin: 11/22/18 06:34 Dose: 500 mg Metoprolol Tartrate (Lopressor -) 25 mg PO BID [facility] Last Admin: 11/22/18 09:47 Dose: 25 mg Miscellaneous (Lidoderm Patch Removal) 1 each MC DAILY@2200 [facility] Last Admin: 11/21/18 22:05 Dose: 1 each Neomycin/Polymyxin/Bacitracin (Neosporin Eye Ointment -) 1 applic OD Q4HWA [facility] Last Admin: 11/22/18 09:48 Dose: 1 applic - Objective Vital Signs: Vital Signs Temperature 97.8 F 11/22/18 05:00 Pulse Rate 78 11/22/18 05:00 Respiratory Rate 18 11/22/18 05:00 Blood Pressure 102/48 L 11/22/18 05:00 O2 Sat by Pulse Oximetry (%) 100 11/21/18 21:00 Cardiovascular: Yes: Tachycardia, S1, S2 Respiratory: Yes: Regular, CTA Bilaterally Gastrointestinal: Yes: Normal Bowel Sounds, Soft Edema: LLE: Trace, RLE: Trace Labs: CBC, BMP 11/22/18 05:30 11/22/18 05:30 INR, PTT INR 1.29 (0.83-1.09) H 11/18/18 13:38 Problem List - Problems (1) CHF (congestive heart failure) Assessment/Plan: -cardiology on board -troponon 0.07, 0.10 -lasix IVP BID--to po -pending echo -tele monitoring -BNP 83196.8--will monitor for down trend -daily weights -1L fluid restriction, I&Os -pulmonary consult -B/L LE edema-vascular US done R/O DVT, pending results Code(s): I50.9 - HEART FAILURE, UNSPECIFIED (2) Acute hypoxemic respiratory failure Code(s): J96.01 - ACUTE RESPIRATORY FAILURE WITH HYPOXIA (3) COPD (chronic obstructive pulmonary disease) Code(s): J44.9 - CHRONIC OBSTRUCTIVE PULMONARY DISEASE, UNSPECIFIED (4) Diabetes mellitus Assessment/Plan: -HgA1c 7.2% -diabetic diet -BGM ACHS, ISS -endo consult Code(s): E11.9 - TYPE 2 DIABETES MELLITUS WITHOUT COMPLICATIONS Qualifiers: Diabetes mellitus complication status: with circulatory complication Diabetes mellitus complication detail: with peripheral angiopathy with gangrene (5) HTN (hypertension) Assessment/Plan: -low Na diet -lasix IVP BID--monitor renal function Code(s): I10 - ESSENTIAL (PRIMARY) HYPERTENSION Qualifiers: Hypertension type: essential hypertension Qualified Code(s): I10 - Essential (primary) hypertension (6) Back pain Assessment/Plan: lidoderm pt Code(s): M54.9 - DORSALGIA, UNSPECIFIED
--- NOTE | 2018-11-22 13:22 | PN ---
Progress Note, Physician History of Present Illness: pulmonary alert,oob-chair,less dyspneic - Current Medication List Current Medications: Active Medications Atorvastatin Calcium (Lipitor -) 40 mg PO HS [facility] Last Admin: 11/21/18 21:58 Dose: 40 mg Clopidogrel Bisulfate (Plavix -) 75 mg PO DAILY [facility] Last Admin: 11/22/18 09:48 Dose: 75 mg Furosemide (Lasix -) 40 mg PO BID@0600,1400 [facility] Heparin Sodium (Porcine) (Heparin -) 5,000 unit SQ BID [facility] Last Admin: 11/22/18 09:47 Dose: 5,000 unit Insulin Aspart (Novolog Vial Sliding Scale -) 1 vial SQ ACHS [facility]; Protocol Last Admin: 11/22/18 11:47 Dose: 2 units Lidocaine (Lidoderm Patch -) 1 patch TP DAILY [facility] Last Admin: 11/22/18 09:48 Dose: 1 patch Metformin HCl (Glucophage -) 500 mg PO BID@0700,1630 [facility] Last Admin: 11/22/18 06:34 Dose: 500 mg Metoprolol Tartrate (Lopressor -) 25 mg PO BID [facility] Last Admin: 11/22/18 09:47 Dose: 25 mg Miscellaneous (Lidoderm Patch Removal) 1 each MC DAILY@2200 [facility] Last Admin: 11/21/18 22:05 Dose: 1 each Neomycin/Polymyxin/Bacitracin (Neosporin Eye Ointment -) 1 applic OD Q4HWA [facility] Last Admin: 11/22/18 09:48 Dose: 1 applic - Objective Vital Signs: Vital Signs Temperature 97.8 F 11/22/18 09:00 Pulse Rate 89 11/22/18 09:00 Respiratory Rate 20 11/22/18 09:00 Blood Pressure 110/50 L 11/22/18 09:00 O2 Sat by Pulse Oximetry (%) 100 11/21/18 21:00 Constitutional: Yes: Well Nourished, Calm Eyes: Yes: WNL HENT: Yes: WNL, Tonsillar Exudate Cardiovascular: Yes: Regular Rate and Rhythm, S1, S2 Respiratory: Yes: Rales (bibasilar rales) Gastrointestinal: Yes: Normal Bowel Sounds, Soft Extremities: Yes: WNL Edema: No Labs: CBC, BMP 11/22/18 05:30 11/22/18 05:30 INR, PTT INR 1.29 (0.83-1.09) H 11/18/18 13:38 - ....Imaging Chest X-ray: Report Reviewed, Image Reviewed (improving congestion) Problem List - Problems (1) Diabetes Code(s): E11.9 - TYPE 2 DIABETES MELLITUS WITHOUT COMPLICATIONS (2) CHF (congestive heart failure) Code(s): I50.9 - HEART FAILURE, UNSPECIFIED (3) Diabetes mellitus Code(s): E11.9 - TYPE 2 DIABETES MELLITUS WITHOUT COMPLICATIONS Qualifiers: Diabetes mellitus complication status: with circulatory complication Diabetes mellitus complication detail: with peripheral angiopathy with gangrene (4) New onset of congestive heart failure Code(s): I50.9 - HEART FAILURE, UNSPECIFIED (5) HTN (hypertension) Code(s): I10 - ESSENTIAL (PRIMARY) HYPERTENSION Qualifiers: Hypertension type: essential hypertension Qualified Code(s): I10 - Essential (primary) hypertension (6) Acute hypoxemic respiratory failure Code(s): J96.01 - ACUTE RESPIRATORY FAILURE WITH HYPOXIA (7) Troponin I above reference range Code(s): R74.8 - ABNORMAL LEVELS OF OTHER SERUM ENZYMES Assessment/Plan IMP ACUTE HYPOXEMIC RESPIRATORY FAILURE IMPROVING ACUTE CHF improving + TROPONIN HTN DM PLAN LASIX O2 DAILY WT DR PENA Problem List - Problems (1) Diabetes Code(s): E11.9 - TYPE 2 DIABETES MELLITUS WITHOUT COMPLICATIONS (2) CHF (congestive heart failure) Code(s): I50.9 - HEART FAILURE, UNSPECIFIED (3) Diabetes mellitus Code(s): E11.9 - TYPE 2 DIABETES MELLITUS WITHOUT COMPLICATIONS Qualifiers: Diabetes mellitus complication status: with circulatory complication (4) New onset of congestive heart failure Code(s): I50.9 - HEART FAILURE, UNSPECIFIED (5) HTN (hypertension) Code(s): I10 - ESSENTIAL (PRIMARY) HYPERTENSION Qualifiers: Hypertension type: essential hypertension Qualified Code(s): I10 - Essential (primary) hypertension (6) Acute hypoxemic respiratory failure Code(s): J96.01 - ACUTE RESPIRATORY FAILURE WITH HYPOXIA (7) Troponin I above reference range Code(s): R74.8 - ABNORMAL LEVELS OF OTHER SERUM ENZYMES
--- NOTE | 2018-11-22 14:11 | PN ---
Progress Note, Physician Chief Complaint: LE edema improving Still with bibasilar crackles Afib on tele rate controlled with NSVT History of Present Illness: 78 year old woman with a PMHx of HTN and diabetes. LV function was normal with LVH on an echocardiogram in 2014. She presents now with progressive SÁNCHEZ and worsening LE edema. CXR consistent with CHF Elevated BNP. - Current Medication List Current Medications: Active Medications Atorvastatin Calcium (Lipitor -) 40 mg PO HS [facility] Last Admin: 11/21/18 21:58 Dose: 40 mg Clopidogrel Bisulfate (Plavix -) 75 mg PO DAILY [facility] Last Admin: 11/22/18 09:48 Dose: 75 mg Furosemide (Lasix -) 40 mg PO BID@0600,1400 [facility] Heparin Sodium (Porcine) (Heparin -) 5,000 unit SQ BID [facility] Last Admin: 11/22/18 09:47 Dose: 5,000 unit Insulin Aspart (Novolog Vial Sliding Scale -) 1 vial SQ [facility]; Protocol Last Admin: 11/22/18 11:47 Dose: 2 units Lidocaine (Lidoderm Patch -) 1 patch TP DAILY [facility] Last Admin: 11/22/18 09:48 Dose: 1 patch Metformin HCl (Glucophage -) 500 mg PO BID@0700,1630 [facility] Last Admin: 11/22/18 06:34 Dose: 500 mg Metoprolol Tartrate (Lopressor -) 25 mg PO BID [facility] Last Admin: 11/22/18 09:47 Dose: 25 mg Miscellaneous (Lidoderm Patch Removal) 1 each MC DAILY@2200 [facility] Last Admin: 11/21/18 22:05 Dose: 1 each Neomycin/Polymyxin/Bacitracin (Neosporin Eye Ointment -) 1 applic OD Q4HWA [facility] Last Admin: 11/22/18 09:48 Dose: 1 applic - Objective Vital Signs: Vital Signs Temperature 97.8 F 11/22/18 09:00 Pulse Rate 89 11/22/18 09:00 Respiratory Rate 20 11/22/18 09:00 Blood Pressure 110/50 L 11/22/18 09:00 O2 Sat by Pulse Oximetry (%) 100 11/21/18 21:00 Constitutional: Yes: No Distress Neck: Yes: Supple Cardiovascular: Yes: Pulse Irregular, JVD, S1, S2 Respiratory: Yes: Rales (bibasilar rales) Gastrointestinal: Yes: Soft Edema: LLE: Trace, RLE: Trace Labs: CBC, BMP 11/22/18 05:30 11/22/18 05:30 INR, PTT INR 1.29 (0.83-1.09) H 11/18/18 13:38 Problem List - Problems (1) Paroxysmal A-fib Code(s): I48.0 - PAROXYSMAL ATRIAL FIBRILLATION (2) CHF (congestive heart failure) Code(s): I50.9 - HEART FAILURE, UNSPECIFIED Assessment/Plan 78 year old woman with a PMHx of HTN and diabetes. LV function was normal with LVH on an echocardiogram in 2014. She presents now with progressive SÁNCHEZ and worsening LE edema. CXR consistent with CHF Elevated BNP. 1) CHF: acute exacerbation Continue Lasix 40 mg IVSS BID Daily I's/O's/Wt's/Lytes Obtain a repeat echocardiogram Troponin 0.10 to 0.8 with normal CK likely in setting of CHF Continue metoprolol. Will likely plan for an ischemia work up given CHF, SÁNCHEZ, NSVT but will first see echo results and will wait till patient better from volume standpoint. 2) Atrial fibrillation on tele Rate controlled on tele on low dose metoprolol Would recommend anticoagulation if no contraindication as per primary team. Consider apixaban. Unclear reason patient is on plavix. Would be helpful to know from primary team if placing on anticoagulation.
[2018-11-22] MEDS: FUROSEMIDE 40 MG TABLET (FP) PO SCH (14:13)
[2018-11-22] MEDS: APIXABAN 5 MG TABLET PO SCH (21:26)
[2018-11-22] MEDS: ATORVASTATIN CA 40 MG TABLET (FP) PO SCH (21:26)
[2018-11-22] MEDS: LIDOCAINE PATCH REMOVAL MC SCH (21:33)
--- NOTE | 2018-11-22 23:24 | ECHO ---
Version: 1 Name: LUIS PEACOCK Exam: Adult Echocardiogram Study Date: 11/22/2018, 10:52 AM Age: 78 Years MMode/2D Measurements & Calculations IVSd: 0.92 cm LVIDs: 4.1 cm LVIDd: 5.4 cm LVPWd: 0.85 cm LAV (MOD-bp): 63.4 ml LVOT diam: 1.97 cm Ao root diam: 2.46 cm LA dimension: 3.6 cm Doppler Measurements & Calculations MV E max isrrael: 127.0 cm/sec Med E/e': 29.9 MV A max isrrael: 41.2 cm/sec Med Peak E' Isrrael: 4.2 cm/sec MV E/A: 3.1 Lat E/e': 20.1 Lat Peak E' Isrrael: 6.3 cm/sec MR max P.6 mmHg AI P1/2t: 516.4 msec TR max isrrael: 306.3 cm/sec TR max P.7 mmHg Left Ventricle The left ventricle is mildly dilated. Left ventricular systolic function is severely reduced. Ejecti on Fraction = 25%. There is severe global hypokinesis of the left ventricle. Atria The left atrium is moderately dilated. The right atrium is mild to moderately dilated. Mitral Valve There is mild mitral annular calcification. There is moderate mitral valve thickening. There is wendy re mitral regurgitation. Tricuspid Valve There is moderate to severe tricuspid regurgitation. Right ventricular systolic pressure is elevated at 40- 50mmHg. There is moderate pulmonary hypertension. Aortic Valve There is moderate to severe aortic valve thickening. Moderate aortic regurgitation. Pulmonic Valve Mild to moderate pulmonic valvular regurgitation. Great Vessels The aortic root is normal size. Pericardium/Pleura There is no pericardial effusion. Summary Statements The left ventricle is mildly dilated. Left ventricular systolic function is severely reduced. Ejection Fraction = 25%. There is severe global hypokinesis of the left ventricle. The left atrium is moderately dilated. The right atrium is mild to moderately dilated. There is mild mitral annular calcification. There is moderate mitral valve thickening. There is severe mitral regurgitation. There is moderate to severe tricuspid regurgitation. Right ventricular systolic pressure is elevated at 40-50mmHg. There is moderate pulmonary hypertension. There is moderate to severe aortic valve thickening. Moderate aortic regurgitation. Mild to moderate pulmonic valvular regurgitation. The aortic root is normal size. There is no pericardial effusion. Reymundo Stanley MD 11/22/2018, 11:24 PM Ordering Physician: Radha Leonardo Performed By: Ro Greene
[2018-11-23] MEDS: metFORMIN HCL 500 MG TABLET (FP) PO SCH (06:09)
[2018-11-23] MEDS: FUROSEMIDE 40 MG TABLET (FP) PO SCH (06:09)
[2018-11-23] MEDS: NEOMY SULF/BACITRA/POLYMYXIN B OPHTHALMIC OINTMENT 3.5 GM OD SCH ×3 (06:10→13:11)
[2018-11-23] MEDS: INSULIN SLIDING SCALE (NOVOLOG) 1 VIAL SQ SCH ×2 (06:11→12:44)
[2018-11-23] MEDS ORDERED: PT OWN MED DRAWER 7, Y5N ONE ×2 (08:55→09:59)
[2018-11-23] MEDS: APIXABAN 5 MG TABLET PO SCH (09:06)
[2018-11-23] MEDS: CLOPIDOGREL BISULFATE 75 MG TABLET (FP) PO SCH (09:06)
[2018-11-23] MEDS: METOPROLOL TARTRATE 25 MG TABLET (FP) PO SCH (09:06)
[2018-11-23] MEDS: LIDOCAINE 5% TOPICAL PATCH TP SCH (09:56)
--- NOTE | 2018-11-23 10:43 | PN ---
Progress Note, Physician History of Present Illness: pulmonary alert,oob-chair,-resp distress,appears comfortable - Current Medication List Current Medications: Active Medications Apixaban (Eliquis -) 5 mg PO BID [facility] Last Admin: 11/23/18 09:06 Dose: 5 mg Atorvastatin Calcium (Lipitor -) 40 mg PO HS [facility] Last Admin: 11/22/18 21:26 Dose: 40 mg Clopidogrel Bisulfate (Plavix -) 75 mg PO DAILY [facility] Last Admin: 11/23/18 09:06 Dose: 75 mg Furosemide (Lasix -) 40 mg PO BID@0600,1400 [facility] Last Admin: 11/23/18 06:09 Dose: 40 mg Insulin Aspart (Novolog Vial Sliding Scale -) 1 vial SQ ACHS [facility]; Protocol Last Admin: 11/23/18 06:11 Dose: Not Given Lidocaine (Lidoderm Patch -) 1 patch TP DAILY [facility] Last Admin: 11/23/18 09:56 Dose: 1 patch Metformin HCl (Glucophage -) 500 mg PO BID@0700,1630 [facility] Last Admin: 11/23/18 06:09 Dose: 500 mg Metoprolol Tartrate (Lopressor -) 25 mg PO BID [facility] Last Admin: 11/23/18 09:06 Dose: 25 mg Miscellaneous (Lidoderm Patch Removal) 1 each MC DAILY@2200 [facility] Last Admin: 11/22/18 21:33 Dose: 1 each Neomycin/Polymyxin/Bacitracin (Neosporin Eye Ointment -) 1 applic OD Q4HWA [facility] Last Admin: 11/23/18 09:07 Dose: 1 applic - Objective Vital Signs: Vital Signs Temperature 97.3 F L 11/23/18 10:00 Pulse Rate 73 11/23/18 10:00 Respiratory Rate 18 11/23/18 10:00 Blood Pressure 124/56 L 11/23/18 10:00 O2 Sat by Pulse Oximetry (%) 100 11/22/18 21:00 Constitutional: Yes: Well Nourished, Calm Eyes: Yes: WNL HENT: Yes: WNL Neck: Yes: WNL Cardiovascular: Yes: Pulse Irregular, S1, S2 Respiratory: Yes: Diminished Gastrointestinal: Yes: Normal Bowel Sounds, Soft Extremities: Yes: WNL Edema: Yes Edema: LLE: Trace, RLE: Trace Labs: CBC, INR, PTT Problem List - Problems (1) Diabetes Code(s): E11.9 - TYPE 2 DIABETES MELLITUS WITHOUT COMPLICATIONS (2) CHF (congestive heart failure) Code(s): I50.9 - HEART FAILURE, UNSPECIFIED (3) Diabetes mellitus Code(s): E11.9 - TYPE 2 DIABETES MELLITUS WITHOUT COMPLICATIONS Qualifiers: Diabetes mellitus complication status: with circulatory complication Diabetes mellitus complication detail: with peripheral angiopathy with gangrene (4) New onset of congestive heart failure Code(s): I50.9 - HEART FAILURE, UNSPECIFIED (5) HTN (hypertension) Code(s): I10 - ESSENTIAL (PRIMARY) HYPERTENSION Qualifiers: Hypertension type: essential hypertension Qualified Code(s): I10 - Essential (primary) hypertension (6) Acute hypoxemic respiratory failure Code(s): J96.01 - ACUTE RESPIRATORY FAILURE WITH HYPOXIA (7) Troponin I above reference range Code(s): R74.8 - ABNORMAL LEVELS OF OTHER SERUM ENZYMES Assessment/Plan IMP ACUTE HYPOXEMIC RESPIRATORY FAILURE IMPROVING ACUTE CHF improving + TROPONIN HTN DM AFIB PLAN LASIX O2 DAILY WT ESTHELA PENA Problem List - Problems (1) Diabetes Code(s): E11.9 - TYPE 2 DIABETES MELLITUS WITHOUT COMPLICATIONS (2) CHF (congestive heart failure) Code(s): I50.9 - HEART FAILURE, UNSPECIFIED (3) Diabetes mellitus Code(s): E11.9 - TYPE 2 DIABETES MELLITUS WITHOUT COMPLICATIONS Qualifiers: Diabetes mellitus complication status: with circulatory complication (4) New onset of congestive heart failure Code(s): I50.9 - HEART FAILURE, UNSPECIFIED (5) HTN (hypertension) Code(s): I10 - ESSENTIAL (PRIMARY) HYPERTENSION Qualifiers: Hypertension type: essential hypertension Qualified Code(s): I10 - Essential (primary) hypertension (6) Acute hypoxemic respiratory failure Code(s): J96.01 - ACUTE RESPIRATORY FAILURE WITH HYPOXIA (7) Troponin I above reference range Code(s): R74.8 - ABNORMAL LEVELS OF OTHER SERUM ENZYMES
--- NOTE | 2018-11-23 12:20 | PN ---
Progress Note, Physician Chief Complaint: SOB Volume overloaded Afib with NSVT History of Present Illness: 78 year old woman with a PMHx of HTN and diabetes. LV function was normal with LVH on an echocardiogram in 2015. She presents now with progressive SÁNCHEZ and worsening LE edema. CXR consistent with CHF Elevated BNP. - Current Medication List Current Medications: Active Medications Apixaban (Eliquis -) 5 mg PO BID [facility] Last Admin: 11/23/18 09:06 Dose: 5 mg Atorvastatin Calcium (Lipitor -) 40 mg PO HS [facility] Last Admin: 11/22/18 21:26 Dose: 40 mg Clopidogrel Bisulfate (Plavix -) 75 mg PO DAILY [facility] Last Admin: 11/23/18 09:06 Dose: 75 mg Furosemide (Lasix -) 40 mg PO BID@0600,1400 [facility] Last Admin: 11/23/18 06:09 Dose: 40 mg Insulin Aspart (Novolog Vial Sliding Scale -) 1 vial SQ [facility]; Protocol Last Admin: 11/23/18 06:11 Dose: Not Given Lidocaine (Lidoderm Patch -) 1 patch TP DAILY [facility] Last Admin: 11/23/18 09:56 Dose: 1 patch Metformin HCl (Glucophage -) 500 mg PO BID@0700,1630 [facility] Last Admin: 11/23/18 06:09 Dose: 500 mg Metoprolol Tartrate (Lopressor -) 25 mg PO BID [facility] Last Admin: 11/23/18 09:06 Dose: 25 mg Miscellaneous (Lidoderm Patch Removal) 1 each MC DAILY@2200 [facility] Last Admin: 11/22/18 21:33 Dose: 1 each Neomycin/Polymyxin/Bacitracin (Neosporin Eye Ointment -) 1 applic OD Q4HWA [facility] Last Admin: 11/23/18 09:07 Dose: 1 applic - Objective Vital Signs: Vital Signs Temperature 97.3 F L 11/23/18 10:00 Pulse Rate 73 11/23/18 10:00 Respiratory Rate 18 11/23/18 10:00 Blood Pressure 124/56 L 11/23/18 10:00 O2 Sat by Pulse Oximetry (%) 96 11/23/18 09:00 Constitutional: Yes: Mild Distress Cardiovascular: Yes: Pulse Irregular, JVD, Murmur, S1, S2 Respiratory: Yes: Rales (b/l crackles 1/[address] way up) Gastrointestinal: Yes: Soft Edema: LLE: Trace, RLE: Trace Labs: CBC, BMP 11/22/18 05:30 11/22/18 05:30 INR, PTT INR 1.29 (0.83-1.09) H 11/18/18 13:38 Problem List - Problems (1) Paroxysmal A-fib Code(s): I48.0 - PAROXYSMAL ATRIAL FIBRILLATION (2) CHF (congestive heart failure) Code(s): I50.9 - HEART FAILURE, UNSPECIFIED Assessment/Plan 78 year old woman with a PMHx of HTN and diabetes. LV function was normal with LVH on an echocardiogram in 2014. She presents now with progressive SÁNCHEZ and worsening LE edema. CXR consistent with CHF Elevated BNP. 1) CHF: acute exacerbation Continue Lasix 40 mg IVSS BID Daily I's/O's/Wt's/Lytes Obtain a repeat echocardiogram Troponin 0.10 to 0.8 with normal CK likely in setting of CHF Continue metoprolol. Echo with severely decreased LVEF 25% and sev MR. Patient is still volume overloaded as with significant crackles and jvd. Please do no switch to PO diuretics. Plan to transfer to [facility] for CHF management and eventual R/L heart cath. Transfer today 2) Atrial fibrillation on tele Rate controlled on tele on low dose metoprolol On apixaban for now. Will transfer to [facility] will stop apixaban given severe valvular disease on echo and plan for IV heparin or fragmin at that time at [facility]. Unclear reason patient is on plavix please find out from patients primary team.
--- NOTE | 2018-11-23 12:57 | DS ---
Physical Examination Vital Signs: Vital Signs Temperature 97.3 F L 11/23/18 10:00 Pulse Rate 73 11/23/18 10:00 Respiratory Rate 18 11/23/18 10:00 Blood Pressure 124/56 L 11/23/18 10:00 O2 Sat by Pulse Oximetry (%) 96 11/23/18 09:00 Constitutional: Yes: Calm Cardiovascular: Yes: Regular Rate and Rhythm, S1, S2 Respiratory: Yes: Other (rales) Gastrointestinal: Yes: Normal Bowel Sounds, Soft Edema: Yes Neurological: Yes: Alert Labs: CBC, BMP 11/22/18 05:30 11/22/18 05:30 Discharge Summary Reason For Visit: CONGESTIVE HEART FAILURE Current Active Problems Acute hypoxemic respiratory failure (Acute) Back pain (Acute) CHF (congestive heart failure) (Acute) Diabetes (Acute) Diabetes mellitus (Acute) New onset of congestive heart failure (Acute) Paroxysmal A-fib (Acute) Troponin I above reference range (Acute) Hospital Course: This is a 78 y/o woman with a past medical history of HTN, DM, NUIQSUT. Who presents to the ED with family for chest pain, and SOB. Patient is Georgian speaking unable to provide HPI. [facility] line used #[id number]. Due to patient's hearing loss, limited info obtained. Per ED records: As per EMT, the patients claimed to have called 911 by accident, but when the EMT arrived on scene he witnessed the patient clutching her chest, and brought her to the ED. The complains of chest pressure and difficulty with breathing currently. Endorses leg swelling. No recent travel/immobilization. She denies recent fever or chills. She denies recent nausea, vomit, diarrhea or constipation. She denies recent dysuria, frequency, urgency or hematuria. patient getting lasix plan to trasnfer to [facility] for chf managment and cardiac cath echo severly decrease ejection fraction- syslotic heart failuire afibo n low dose metroprolol and eliquis Condition: Guarded - Instructions Diet, Activity, Other Instructions: transfer to [facility] for cardiac cath Referrals: Eddie Olivo MD [Primary Care Provider] - Disposition: TRANSFER ACUTE CARE/OTHER HOSP - Home Medications Comprehensive Discharge Medication List: Ambulatory Orders Rosuvastatin Calcium [Crestor] 10 mg PO HS 08/05/16 Acetaminophen [Tylenol .Regular Strength -] 650 mg PO Q6H PRN #0 tablet Valsartan [Diovan] 160 mg PO DAILY tablet 08/12/16 Clopidogrel Bisulfate [Plavix -] 75 mg PO HS 07/19/17 Glimepiride [Amaryl] 4 mg PO DAILY 07/19/17
[2018-11-23 13:59] VITALS: TEMP 97.9
[2018-11-23 14:00] VITALS: BP 122/67; PULSE 77
[2018-11-23] MEDS ORDERED: FUROSEMIDE 40 MG/4 ML INJECTABLE VIAL IVPUSH SCH (14:00)
== END 2018-11-23 15:31 | disposition short-term general hospital (02) | DRG 291 ==
LOC: JER 12:28 → JERBED 17:50 → J4W 11-20 00:10
PROVIDERS: ADMIT Family Medicine; ATTEND Family Medicine
DX: I11.0 Hypertensive heart disease with heart failure (principal); J96.01 Acute respiratory failure with hypoxia; I50.31 Acute diastolic (congestive) heart failure; I47.1 Supraventricular tachycardia; E11.9 Type 2 diabetes mellitus without complications; K21.9 Gastro-esophageal reflux disease without esophagitis; K29.70 Gastritis, unspecified, without bleeding; N31.9 Neuromuscular dysfunction of bladder, unspecified; H91.90 Unspecified hearing loss, unspecified ear; E11.618 Type 2 diabetes mellitus with other diabetic arthropathy; R01.1 Cardiac murmur, unspecified; K59.00 Constipation, unspecified; E86.0 Dehydration; R41.82 Altered mental status, unspecified; J44.9 Chronic obstructive pulmonary disease, unspecified; E11.40 Type 2 diabetes mellitus with diabetic neuropathy, unspecified; I25.10 Atherosclerotic heart disease of native coronary artery without angina pectoris; R74.8 Abnormal levels of other serum enzymes; M54.9 Dorsalgia, unspecified; I48.0 Paroxysmal atrial fibrillation; E66.9 Obesity, unspecified; Z68.26 Body mass index [BMI] 26.0-26.9, adult
CPT/HCPCS: 36415; 71045-TC-FY; 72100-TC-FY; 80048; 80053; 80061; 81003; 81015; 82550; 82962; 83036; 83721; 83880; 84439; 84443; 84484; 85025; 85027; 85610; 85730; 87086; 93005; 93010; 93306-TC; 93970-TC; 97116-GP; 97161-GP; 99285-25; J1644

== ENCOUNTER 2018-12-18 13:14 | Inpatient (IN) | payer OTHER ==
--- NOTE | 2018-12-18 14:38 | PDOC ---
History of Present Illness - General Chief Complaint: Chest Pain Stated Complaint: CHEST DISCOMFORT Time Seen by Provider: 12/18/18 13:49 History Source: Patient, Half-Way Records Exam Limitations: Language Barrier - History of Present Illness Initial Comments: 12/18/18 14:37 *Pt is a poor historian Pt is a 78yo F with PMH of CAD, CHF, MR, Afib, DM, COPD, HTN, HLD BIBA from [facility] for chest pain. Pt states that she has been having chest pain for one week with shortness of breath. She states she saw the club car attendant today and said that her "heart was bad". Per CO, family was insisting pt come to the hospital. Also per [place] Dr. Dawn saw pt 12/14 and everything was fine. PMD: PMH: see hpi Meds: Plavix, lasix, metoprolol, atorvastatin Allergies: ASA (swelling) Past History - Past Medical History Allergies/Adverse Reactions: Allergies Allergy/AdvReac Type Severity Reaction Status Date / Time aspirin Allergy Severe Swelling Verified 12/18/18 13:34 Home Medications: Ambulatory Orders Rosuvastatin Calcium [Crestor] 10 mg PO HS 08/05/16 Clopidogrel Bisulfate [Plavix -] 75 mg PO HS 07/19/17 Glimepiride [Amaryl] 4 mg PO DAILY 07/19/17 Furosemide [Lasix] 40 mg PO DAILY 12/18/18 Metoprolol Succinate 25 mg PO DAILY 12/18/18 Anemia: No Asthma: No Cancer: No Cardiac Disorders: Yes CVA: No COPD: No CHF: No Dementia: No Diabetes: Yes GI Disorders: Yes (GERD, gastritis) Disorders: Yes (UTI, neurogenic bladder) HTN: Yes Hypercholesterolemia: No Liver Disease: No Seizures: No Thyroid Disease: No - Immunization History Immunization Up to Date: (Unknown) - Suicide/Smoking/Psychosocial Hx Smoking History: Never smoked Have you smoked in the past 12 months: No Information on smoking cessation initiated: No Hx Alcohol Use: No Drug/Substance Use Hx: No Substance Use Type: None Hx Substance Use Treatment: No Review of Systems - Review of Systems Constitutional: No: Chills, Fever HEENTM: No: Symptoms Reported Respiratory: Yes: Shortness of Breath Cardiac (ROS): Yes: Chest Pain ABD/GI: No: Symptoms Reported Musculoskeletal: No: Symptoms Reported Integumentary: No: Symptoms Reported Neurological: No: Symptoms reported *Physical Exam - Vital Signs Last Vital Signs Temp Pulse Resp BP Pulse Ox 98.6 F 63 18 134/43 L 100 12/18/18 13:35 12/18/18 13:35 12/18/18 13:35 12/18/18 13:35 12/18/18 13:35 - Physical Exam General Appearance: Yes: Nourished, Appropriately Dressed. No: Apparent Distress HEENT: positive: EOMI, CIELO, Normal ENT Inspection Neck: positive: Trachea midline, Supple Respiratory/Chest: positive: Lungs Clear, Normal Breath Sounds Cardiovascular: positive: Regular Rhythm, Regular Rate, S1, S2. negative: Edema , JVD, Murmur Vascular Pulses: Carotid (R): 2+, Carotid (L): 2+, Dorsalis-Pedis (R): 2+, Doralis-Pedis (L): 2+ Gastrointestinal/Abdominal: positive: Normal Bowel Sounds, Soft. negative: Tender Musculoskeletal: negative: CVA Tenderness Extremity: positive: Normal Capillary Refill, Other (L calf appears larger than R calf). negative: Pedal Edema, Swelling, Calf Tenderness Integumentary: positive: Normal Color, Dry, Warm Neurologic: positive: mobile lab technician II-XII NML intact, Fully Oriented, Alert, Normal Mood/ Affect, Normal Response, Motor Strength 5/5 Moderate Sedation - Procedure Monitoring Vital Signs: Procedure Monitoring Vital Signs Temperature 98.6 F 12/18/18 13:35 Pulse Rate 63 12/18/18 13:35 Respiratory Rate 18 12/18/18 13:35 Blood Pressure 134/43 L 12/18/18 13:35 O2 Sat by Pulse Oximetry (%) 100 12/18/18 13:35 Heart Score/ECG Review - History History: Slightly suspicious - Electrocardiogram EKG: Non specific repolarization disturbance - Age Age: >/= 65 - Risk Factors Risk Factors Heart Score: Yes Hx Hypercholesterolemia, Yes Hx Hypertension, Yes Hx Diabetes Based on the list above the patient has:: >/=3 risk factors or Hx atherosclerotic disease - Troponin Troponin: </= normal limit - Score Heart Score - Total: 5 ED Treatment Course - LABORATORY CBC & Chemistry Diagram: 12/18/18 13:58 12/18/18 13:58 Medical Decision Making - Medical Decision Making 12/18/18 14:59 Pt is a 78yo F with PMH of CAD, CHF, MR, Afib, DM, COPD, HTN, HLD BIBA from [facility] for chest pain Called CO, stated that family insisted on having pt come to hospital. Stated that pt was not complaining of chest pain or having active cp. Was seen by Dr. Dawn 12/14 and everything was fine at the time ddx includes but not limited to ACS, COPD exacerbation, pe, dissection, pna, ptx , carditis, pneumonitis -cbc,cmp, trop, coag -ekg, cxr, doppler 12/19/18 00:36 Labs wnl. CXR unremarkable. EKG negative for KILEY or depressions, Afib rate controlled Pt having chest pain, unable to give ASA. Will give tylenol DVT study negative. Pt admitted obs for chest pain (HEART 4-6) 12/19/18 00:39 *DC/Admit/Observation/Transfer Diagnosis at time of Disposition: Chest pain Qualifiers: Chest pain type: unspecified Qualified Code(s): R07.9 - Chest pain, unspecified - Discharge Dispostion Decision to Admit order: Yes - Referrals - Patient Instructions - Post Discharge Activity
[2018-12-18 14:41] LABS: BASO % 1.1 % (0-2.0); EOS % 2.1 % (0-4.5); HEMATOCRIT 36.4 % (32.4-45.2); HEMOGLOBIN 12.3 GM/dL (10.7-15.3); LYMPH % 28.3 % (8-40); MCH 27.9 pg (25.7-33.7); MCHC 33.8 g/dl (32.0-36.0); MEAN CELL VOLUME 82.4 fl (80-96); MEAN PLT VOLUME 9.1 fl (7.5-11.1); MONO % 4.8 % (3.8-10.2); NEUT % 63.7 % (42.8-82.8); PLATELET COUNT 183 K/MM3 (134-434); RBC 4.42 M/mm3 (3.60-5.2); RDW 17.1 % (11.6-15.6); WHITE BLOOD COUNT 8.1 K/mm3 (4.0-10.0)
[2018-12-18 15:16] LABS: MAGNESIUM 2.4 mg/dL (1.8-2.4)
[2018-12-18 15:20] LABS: ALBUMIN 3.3 g/dl (3.4-5.0); ALK PHOS 97 U/L (45-117); ANION GAP 6 MMOL/L (8-16); BILIRUBIN,TOTAL 0.5 mg/dL (0.2-1); BLOOD UREA NITROGEN 42 mg/dL (7-18); CALCIUM 8.7 mg/dL (8.5-10.1); CHLORIDE 102 mmol/L (98-107); CO2 29 mmol/L (21-32); GLUCOSE,RANDOM 180 mg/dL (74-106); N-TERMINAL BNP 5811.5 pg/ml (5-450); POTASSIUM 5.2 mmol/L (3.5-5.1); SGOT/AST 62 U/L (15-37); SGPT/ALT 33 U/L (13-61); SODIUM 137 mmol/L (136-145); TOT PROT 7.3 g/dl (6.4-8.2)
--- NOTE | 2018-12-18 15:34 | PDOC ---
Attending Attestation - Resident Resident Name: Isadora Foreman - ED Attending Attestation I have performed the following: I have examined & evaluated the patient, The case was reviewed & discussed with the resident, I agree w/resident's findings & plan, Exceptions are as noted - HPI HPI: 12/18/18 17:41 The patient is a 78 year old female, with a significant past medical history of CAD, CHF, mitral regurgitation, Afib, DM, COPD, HTN, HLD, who presents to the emergency department via EMS with [facility], 4 weeks of chest pain and urinary frequency worsened at night. Patient notes to have seen a Dr. Dawn, heavy cleaner, today who told her she had a weak heart and to report to the ED prompting her arrival. She denies recent fevers, chills, headache or dizziness. She denies recent nausea, vomit, diarrhea or constipation. She denies recent dysuria or hematuria. She denies recent palpitations or shortness of breath. Allergies: Aspirin. Primary Care Physician: Dr. Olivo - Physicial Exam PE: 12/18/18 17:41 GENERAL: Awake, alert, and fully oriented, in no acute distress. Very pleasant HEAD: No signs of trauma EYES: PERRLA, EOMI, sclera anicteric, conjunctiva clear ENT: Oropharynx clear without exudates. Moist mucosa NECK: Normal ROM, supple, no lymphadenopathy, JVD, or masses LUNGS: Breath sounds equal, clear to auscultation bilaterally. No wheezes, and no crackles HEART: Regular rate and rhythm, normal S1 and S2, no murmurs, rubs or gallops ABDOMEN: Soft, nontender, normoactive bowel sounds. No guarding, no rebound. No masses EXTREMITIES: +Trace blt LE edema L>R. Normal range of motion. No cords, erythema , or tenderness BACK: No midline spinal tenderness in cervical/thoracic/lumbar region NEUROLOGICAL: Normal speech, cranial nerves intact, equal strength and sensation b/l SKIN: Warm, Dry, normal turgor, no rashes or lesions noted - Medical Decision Making 12/18/18 17:00 78yo F with MMP including CAD, CHF, AFib presents to the ED with CP. Vitals unremarkable. Exam with L >R calf edema. US neg for DVT. Labs unremarkable other than elevated BNP which is non specific as pt does not appear frankly fluid overloaded. Plan to admit for ACS r/o
[2018-12-18] MEDS ORDERED: ACETAMINOPHEN 500 MG TABLET (FP) PO ONE (17:11)
--- NOTE | 2018-12-18 19:34 | HP ---
Admitting History and Physical - Primary Care Physician PCP: Eddie Olivo - Admission Chief Complaint: Chest Pain History of Present Illness: This is a 78 y/o woman from [facility] with a significant medical history of CAD, CHF, Mitral Regurgitation, Afib, DM, COPD, HTN, HLD, Recent admission at [facility] 11/29/18. Who presents to the ED via EMS with 1 week of chest pain, SOB and urinary frequency worsened at night. Patient speaks Wolof, [employer] line used #[id number]. Patient describes the chest pain as an "ache" worse on inspiration. She states she saw the forder operator today and said that her "heart was bad". Per MT, family was insisting patient come to the hospital. Also per MT, Dr. Dawn saw patient 12/14 and everything was fine. Patient denies fever, chills, cough, dizziness, palpitations, AP, N/V/D, constipation. History Source: Patient, Medical Record, Transfer Record Limitations to Obtaining History: Language Barrier - Past Medical History MARKET ANALYST: Yes: Syncope, Other (AMS) Cardiovascular: Yes: CHF, HTN, Hyperlipdemia, Murmur Pulmonary: Yes: COPD, Other (Acute Respiratory Failure with Hypoxia) Gastrointestinal: Yes: Gastritis, GERD Renal/: Yes: Neurogenic Bladder, UTI Musculoskeletal: Yes: Other (Spinal Stenosis) Endocrine: Yes: Diabetes Mellitus - Smoking History Smoking history: Never smoked Have you smoked in the past 12 months: No - Alcohol/Substance Use Hx Alcohol Use: No History of Substance Use: reports: None - Social History Usual Living Arrangement: Yes: Half-Way ADL: Support Services History of Recent Travel: No Home Medications - Allergies Allergies/Adverse Reactions: Allergies Allergy/AdvReac Type Severity Reaction Status Date / Time aspirin Allergy Severe Swelling Verified 12/18/18 13:34 - Home Medications Home Medications: Ambulatory Orders Rosuvastatin Calcium [Crestor] 10 mg PO HS 08/05/16 Clopidogrel Bisulfate [Plavix -] 75 mg PO HS 07/19/17 Glimepiride [Amaryl] 4 mg PO DAILY 07/19/17 Furosemide [Lasix] 40 mg PO DAILY 12/18/18 Metoprolol Succinate 25 mg PO DAILY 12/18/18 Family Disease History - Family Disease History Family Disease History: Diabetes: Brother Review of Systems - Review of Systems Constitutional: reports: No Symptoms Eyes: reports: No Symptoms HENT: reports: No Symptoms Neck: reports: No Symptoms Cardiovascular: reports: Chest Pain Respiratory: reports: Cough, SOB Gastrointestinal: reports: No Symptoms Genitourinary: reports: No Symptoms Breasts: reports: No Symptoms Reported Musculoskeletal: reports: Joint Pain (knee pain) Integumentary: reports: No Symptoms Neurological: reports: No Symptoms Endocrine: reports: No Symptoms Hematology/Lymphatic: reports: No Symptoms Psychiatric: reports: No Symptoms Pain Intensity: 4 Physical Examination Vital Signs: Vital Signs Temperature 98.6 F 12/18/18 13:35 Pulse Rate 63 12/18/18 13:35 Respiratory Rate 18 12/18/18 13:35 Blood Pressure 134/43 L 12/18/18 13:35 O2 Sat by Pulse Oximetry (%) 100 12/18/18 13:35 Constitutional: Yes: No Distress, Calm Eyes: Yes: WNL, Conjunctiva Clear, EOM Intact, PERRL HENT: Yes: WNL, Atraumatic, Normocephalic Neck: Yes: WNL, Supple, Trachea Midline Cardiovascular: Yes: Pulse Irregular, Murmur, Other (reproducible on palpation) Respiratory: Yes: WNL, Regular, CTA Bilaterally, Cough (non-productive), On Nasal O2 Gastrointestinal: Yes: WNL, Normal Bowel Sounds, Soft ...Rectal Exam: Yes: Deferred Renal/: Yes: WNL Breast(s): Yes: WNL Musculoskeletal: Yes: WNL Extremities: Yes: WNL Edema: Yes Edema: LLE: Trace, RLE: Trace Peripheral Pulses WNL: Yes Neurological: Yes: WNL, Alert, Oriented, Cran Nerves II-XII Intact ...Motor Strength: WNL Psychiatric: Yes: WNL, Alert, Oriented Labs: CBC, BMP 12/18/18 13:58 12/18/18 13:58 Laboratory Results - last 24 hr 12/18/18 12/18/18 12/18/18 13:58 13:58 13:58 WBC 8.1 RBC 4.42 Hgb 12.3 Hct 36.4 MCV 82.4 MCH 27.9 MCHC 33.8 RDW 17.1 H Plt Count 183 MPV 9.1 Absolute Neuts (auto) 5.2 Neutrophils % 63.7 Lymphocytes % 28.3 Monocytes % 4.8 Eosinophils % 2.1 Basophils % 1.1 Nucleated RBC % 0 PTT (Actin FS) 27.9 Sodium 137 Potassium 5.2 H Chloride 102 Carbon Dioxide 29 Anion Gap 6 L BUN 42 H Creatinine 1.0 Creat Clearance w eGFR 53.48 Random Glucose 180 H Calcium 8.7 Magnesium Total Bilirubin 0.5 AST 62 H ALT 33 Alkaline Phosphatase 97 Creatine Kinase Troponin I B-Natriuretic Peptide 5811.5 H Total Protein 7.3 Albumin 3.3 L 12/18/18 12/18/18 13:58 20:00 WBC RBC Hgb Hct MCV MCH MCHC RDW Plt Count MPV Absolute Neuts (auto) Neutrophils % Lymphocytes % Monocytes % Eosinophils % Basophils % Nucleated RBC % PTT (Actin FS) Sodium Potassium Chloride Carbon Dioxide Anion Gap BUN Creatinine Creat Clearance w eGFR Random Glucose Calcium Magnesium 2.4 Total Bilirubin AST ALT Alkaline Phosphatase Creatine Kinase 40 Troponin I 0.02 0.03 B-Natriuretic Peptide Total Protein Albumin Current Medications Generic Name Dose Route Start Last Admin Trade Name Freq PRN Reason Stop Dose Admin Clopidogrel Bisulfate 75 mg 12/19/18 22:00 Plavix - PO HS CARMELINA Furosemide 40 mg 12/19/18 10:00 Lasix - PO DAILY CARMELINA Glimepiride 4 mg 12/19/18 10:00 Amaryl - PO DAILY CARMELINA Metoprolol Succinate 25 mg 12/19/18 10:00 Toprol Xl - PO DAILY CARMELINA Rosuvastatin Calcium 10 mg 12/19/18 22:00 Crestor - PO HS CARMELINA Intake & Output 12/16/18 12/17/18 12/18/18 12/19/18 23:59 23:59 23:59 23:59 Weight 53.07 kg Imaging - Results Chest X-ray: Report Reviewed (cardiomegaly, lungs clear. no acute process), Image Reviewed Ultrasound: Report Reviewed (neg DVT both legs), Image Reviewed EKG: Report Reviewed, Image Reviewed (Atrial Flutter 60bpm ST & T wave abnormality I, AVL, V5, V6) Problem List - Problems (1) Chest pain Assessment/Plan: r/o ACS Cardiac Monitoring Serial Enzymes Cardiac Consult Echo (11/22/18)- LV mildly dilated, severely reduced LVSF, EF 25% Continue Metoprolol Succinate, Plavix, Crestor Monitor CBC, BMP Code(s): R07.9 - CHEST PAIN, UNSPECIFIED Qualifiers: Chest pain type: unspecified Qualified Code(s): R07.9 - Chest pain, unspecified (2) CHF (congestive heart failure) Assessment/Plan: stable Chest Xray report- cardiomegaly, lungs clear no acute process Continue Lasix Strict INOs Daily weights Code(s): I50.9 - HEART FAILURE, UNSPECIFIED (3) COPD (chronic obstructive pulmonary disease) Assessment/Plan: stable Duonebs prn Code(s): J44.9 - CHRONIC OBSTRUCTIVE PULMONARY DISEASE, UNSPECIFIED (4) Diabetes mellitus Assessment/Plan: stable BGMs ISS Continue Glimepiride Code(s): E11.9 - TYPE 2 DIABETES MELLITUS WITHOUT COMPLICATIONS (5) HTN (hypertension) Assessment/Plan: stable Monitor BP Continue Metoprolol Succinate with parameters Monitor renal function Code(s): I10 - ESSENTIAL (PRIMARY) HYPERTENSION Qualifiers: (6) Paroxysmal A-fib Assessment/Plan: stable EKG- Aflutter rate control [id number] Continue Metoprolol Code(s): I48.0 - PAROXYSMAL ATRIAL FIBRILLATION Assessment/Plan This is a 78 y/o woman with a PMHx of: CHF, HTN, HLD, DM, Syncope, COPD, Acute Respiratory Failure with Hypoxia, AMS, Spinal Stenosis. Placed in Telemetry Observation for Chest Pain r/o ACS for further evaluation for their emergent medical condition. Plan: Will admit to Tele Obs Cardiac Monitoring Appreciate Cardiology consult Serial Enzymes neg x2, 3rd pending EKG- Atrial flutter with ST & T wave abnormality, change compared to last study Chest Xray report reviewed- cardiomegaly, lungs clear. no acute process Echo 11/22/18- LV mildly dilated, LVSF severely reduced, EF 25%, severe MR, mod- severe TR, mod pulm HTN Continue home meds O2 FEN- Fluid restriction 1L, Replete lytes prn, Low Na, Diabetic Diet DVT ppx- OOB, SCDs, Consider AC if LOS > 48hrs Code Status: Full Code Dispo: Tele Observation Visit type - Emergency Visit Emergency Visit: Yes ED Registration Date: 12/18/18 Care time: The patient presented to the Emergency Department on the above date and was hospitalized for further evaluation of their emergent condition. - New Patient This patient is new to me today: Yes Date on this admission: 12/18/18 - Critical Care Critical Care patient: No
--- NOTE | 2018-12-18 22:43 | EKG ---
Test Reason : Blood Pressure : / mmHG Vent. Rate : 060 BPM Atrial Rate : 388 BPM P-R Int : 000 ms QRS Dur : 080 ms QT Int : 448 ms P-R-T Axes : 000 -11 164 degrees QTc Int : 448 ms ATRIAL FIBRILLATION MINIMAL VOLTAGE CRITERIA FOR LVH, MAY BE NORMAL VARIANT ABNORMAL ECG WHEN COMPARED WITH ECG OF 18-NOV-2018 12:46, ATRIAL FIBRILLATION HAS REPLACED SINUS RHYTHM VENT. RATE HAS DECREASED BY 41 BPM T WAVE INVERSION NOW EVIDENT IN LATERAL LEADS Confirmed by KATY PAZ MD ([id number]) on 12/18/2018 10:43:23 PM Referred By: Confirmed By:KATY PAZ MD
[2018-12-19 06:03] LABS: BASO % 0.8 % (0-2.0); EOS % 2.5 % (0-4.5); HEMATOCRIT 35.2 % (32.4-45.2); HEMOGLOBIN 11.5 GM/dL (10.7-15.3); LYMPH % 31.4 % (8-40); MCH 27.1 pg (25.7-33.7); MCHC 32.7 g/dl (32.0-36.0); MEAN CELL VOLUME 82.7 fl (80-96); MEAN PLT VOLUME 8.8 fl (7.5-11.1); NEUT % 60.3 % (42.8-82.8); PLATELET COUNT 158 K/MM3 (134-434); RBC 4.26 M/mm3 (3.60-5.2); RDW 17.2 % (11.6-15.6)
[2018-12-19 06:29] LABS: ANION GAP 6 MMOL/L (8-16); BLOOD UREA NITROGEN 36 mg/dL (7-18); CALCIUM 8.9 mg/dL (8.5-10.1); CHLORIDE 107 mmol/L (98-107); CO2 29 mmol/L (21-32); CREATININE 0.9 mg/dL (0.55-1.3); GLUCOSE,RANDOM 121 mg/dL (74-106); SODIUM 142 mmol/L (136-145)
[2018-12-19] MEDS: GLIMEPIRIDE 4 MG TABLET (FP) PO SCH (08:47)
--- NOTE | 2018-12-19 09:35 | PN ---
Progress Note, Physician - Current Medication List Current Medications: Active Medications Clopidogrel Bisulfate (Plavix -) 75 mg PO HS CARMELINA Furosemide (Lasix -) 40 mg PO DAILY CARMELINA Glimepiride (Amaryl -) 4 mg PO DAILY@0700 CARMELINA Metoprolol Succinate (Toprol Xl -) 25 mg PO DAILY CARMELINA Rosuvastatin Calcium (Crestor -) 10 mg PO HS CARMELINA - Objective Vital Signs: Vital Signs Temperature 97.2 F L 12/19/18 06:40 Pulse Rate 80 12/19/18 06:40 Respiratory Rate 18 12/18/18 20:50 Blood Pressure 118/58 L 12/19/18 06:40 O2 Sat by Pulse Oximetry (%) 95 12/19/18 06:40 Cardiovascular: Yes: Pulse Irregular, S1, S2 Respiratory: Yes: On Nasal O2, Rales (at the bases) Edema: Yes Labs: CBC, BMP 12/19/18 05:30 12/19/18 06:00 Assessment/Plan - Problems (1) Chest pain Assessment/Plan: r/o ACS--had cath single vessel ds d/w dr moya Cardiac Monitoring Serial Enzymes Cardiac Consult Echo (11/22/18)- LV mildly dilated, severely reduced LVSF, EF 25% Continue Metoprolol Succinate, Plavix, Crestor Monitor CBC, BMP Code(s): R07.9 - CHEST PAIN, UNSPECIFIED Qualifiers: Chest pain type: unspecified Qualified Code(s): R07.9 - Chest pain, unspecified (2) CHF (congestive heart failure) Assessment/Plan: stable Chest Xray report- cardiomegaly, lungs clear no acute process Continue Lasix Strict INOs Daily weights Code(s): I50.9 - HEART FAILURE, UNSPECIFIED (3) COPD (chronic obstructive pulmonary disease) Assessment/Plan: stable Duonebs prn Code(s): J44.9 - CHRONIC OBSTRUCTIVE PULMONARY DISEASE, UNSPECIFIED (4) Diabetes mellitus Assessment/Plan: stable BGMs ISS Continue Glimepiride Code(s): E11.9 - TYPE 2 DIABETES MELLITUS WITHOUT COMPLICATIONS (5) HTN (hypertension) Assessment/Plan: stable Monitor BP Continue Metoprolol Succinate with parameters Monitor renal function Code(s): I10 - ESSENTIAL (PRIMARY) HYPERTENSION Qualifiers: (6) Paroxysmal A-fib Assessment/Plan: stable EKG- Aflutter rate control [id number] 6 Continue Metoprolol Code(s): I48.0 - PAROXYSMAL ATRIAL FIBRILLATION
[2018-12-19] MEDS ORDERED: FUROSEMIDE 40 MG TABLET (FP) PO SCH (10:00)
--- NOTE | 2018-12-19 10:33 | CON.CARD ---
Consult Consult Specialty:: Cardiology Referred by:: Cisco Reason for Consultation:: CHF - History of Present Illness Chief Complaint: SOB History of Present Illness: (hx taken with Dr Peck as interventional pain physician) She is a 78 year old woman history of HTN, chol, NIDDM, PAF, chronic systolic CHF due to nonischemic cardiomyopathy recently admitted to [facility] for CHF found with EF 25% and severe MR, PAP 40-50, transferred to [facility] for cath 11/29/17 showing severe mid RCA disease otherwise nonobstructive. MR was only mild to moderate after diuresis. Now presents with SÁNCHEZ and orthopnea, chest heaviness. No palpitations, dizziness or syncope. 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) Cardio/Vascular: Yes: CHF, HTN, Hyperlipdemia, Murmur Pulmonary: Yes: COPD, Other (Acute Respiratory Failure with Hypoxia) Gastrointestinal: Yes: Gastritis, GERD Renal/: Yes: Neurogenic Bladder, UTI Musculoskeletal: Yes: Other (Spinal Stenosis) Endocrine: Yes: Diabetes Mellitus - Alcohol/Substance Use Hx Alcohol Use: No History of Substance Use: reports: None - Smoking History Smoking history: Never smoked Have you smoked in the past 12 months: No - Social History Usual Living Arrangement: With Spouse ADL: Support Services History of Recent Travel: No Home Medications - Allergies Allergies/Adverse Reactions: Allergies Allergy/AdvReac Type Severity Reaction Status Date / Time aspirin Allergy Severe Swelling Verified 12/18/18 13:34 - Home Medications Home Medications: Ambulatory Orders Rosuvastatin Calcium [Crestor] 10 mg PO HS 08/05/16 Clopidogrel Bisulfate [Plavix -] 75 mg PO HS 07/19/17 Glimepiride [Amaryl] 4 mg PO DAILY 07/19/17 Furosemide [Lasix] 40 mg PO DAILY 12/18/18 Metoprolol Succinate 25 mg PO DAILY 12/18/18 Family Disease History - Family Disease History Family Disease History: Diabetes: Brother Vital Signs: Vital Signs Temperature 97.2 F L 12/19/18 06:40 Pulse Rate 80 12/19/18 06:40 Respiratory Rate 18 12/18/18 20:50 Blood Pressure 118/58 L 12/19/18 06:40 O2 Sat by Pulse Oximetry (%) 95 12/19/18 06:40 Constitutional: Yes: No Distress, Calm Eyes: Yes: Conjunctiva Clear, EOM Intact HENT: Yes: Normocephalic Neck: Yes: Trachea Midline Respiratory: Yes: Rales (bilat bases) Gastrointestinal: Yes: Normal Bowel Sounds, Soft Cardiovascular: Yes: Regular Rate and Rhythm JVD: Yes Carotid Bruit: No PMI: Displaced Heart Sounds: Yes: S1, S2 Murmur: Yes: Systolic Murmur (soft hsm) Edema: No Peripheral Pulses WNL: Yes - Other Data Labs, Other Data: CBC, BMP 12/19/18 05:30 12/19/18 06:00 Troponin, BNP 12/18/18 12/18/18 12/18/18 13:58 13:58 20:00 Troponin I 0.02 0.03 B-Natriuretic Peptide 5811.5 H Troponin, BNP 12/18/18 12/18/18 12/18/18 13:58 13:58 20:00 Troponin I 0.02 0.03 B-Natriuretic Peptide 5811.5 H Imaging - Results Chest X-ray: Report Reviewed EKG: Report Reviewed Assessment/Plan She is a 78 year old woman history of HTN, chol, NIDDM, PAF, chronic systolic CHF due to nonischemic cardiomyopathy recently admitted to [facility] for CHF found with EF 25% and severe MR, PAP 40-50, transferred to [facility] for cath 11/29/17 showing severe mid RCA disease otherwise nonobstructive. MR was only mild to moderate after diuresis. Now presents with SÁNCHEZ and orthopnea, chest heaviness. No palpitations, dizziness or syncope. Echo 11/27/18 [facility] diffuse LVHK mild to moderate MR. Acute on chronic systolic CHF -needs IV lasix for diuresis -2gm NA, 2 liter fluid restriction -daily weights. PAF -seen on telemetry at last admission -would start AC with Eliquis 5 mg bid if no contraindications. -tele x 1 day. -stop plavix. no role in afib stroke prevention. CAD -severe mid RCA disease, medical management.
[2018-12-19] MEDS: metoPROLOL SUCCINATE 25 MG TAB.SR.24H (FP) PO SCH (10:47)
[2018-12-19] MEDS ORDERED: APIXABAN 5 MG TABLET PO ONE ×2 (10:51→22:08)
[2018-12-19] MEDS: FUROSEMIDE 40 MG/4 ML INJECTABLE VIAL IVPUSH SCH (11:09)
[2018-12-19] MEDS: APIXABAN 5 MG TABLET PO SCH ×2 (11:09→22:11)
--- NOTE | 2018-12-19 21:50 | CONSULT ---
Consult Consult Specialty:: endocrine Referred by:: dr.annabi fraser Reason for Consultation:: diabetes mellitus type2 - History of Present Illness Chief Complaint: weak difficulty breathing History of Present Illness: 78 y/o woman from [facility] with a significant medical history ofdm2, CAD, CHF, Mitral Regurgitation, Afib, COPD, HTN, HLD, Recent admission at [facility] 11/29/18. Who presents to the ED with shortness of breath at rest, chest heaviness,cough,weakness,no fever chills nausea or vomiting. 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) Cardio/Vascular: Yes: CHF, HTN, Hyperlipdemia, Murmur Pulmonary: Yes: COPD, Other (Acute Respiratory Failure with Hypoxia) Gastrointestinal: Yes: Gastritis, GERD Renal/: Yes: Neurogenic Bladder, UTI Musculoskeletal: Yes: Other (Spinal Stenosis) Endocrine: Yes: Diabetes Mellitus - Alcohol/Substance Use Hx Alcohol Use: No History of Substance Use: reports: None - Smoking History Smoking history: Never smoked Have you smoked in the past 12 months: No - Social History Usual Living Arrangement: With Spouse ADL: Support Services History of Recent Travel: No Home Medications - Allergies Allergies/Adverse Reactions: Allergies Allergy/AdvReac Type Severity Reaction Status Date / Time aspirin Allergy Severe Swelling Verified 12/18/18 13:34 - Home Medications Home Medications: Ambulatory Orders Rosuvastatin Calcium [Crestor] 10 mg PO HS 08/05/16 Clopidogrel Bisulfate [Plavix -] 75 mg PO HS 07/19/17 Glimepiride [Amaryl] 4 mg PO DAILY 07/19/17 Furosemide [Lasix] 40 mg PO DAILY 12/18/18 Metoprolol Succinate 25 mg PO DAILY 12/18/18 Family Disease History - Family Disease History Family Disease History: Diabetes: Brother Review of Systems - Review of Systems Constitutional: reports: Lethargy Eyes: reports: No Symptoms HENT: reports: No Symptoms Neck: reports: No Symptoms Cardiovascular: reports: Palpitations, Shortness of Breath Respiratory: reports: Exercise Intolerance, Orthopnea, SOB on Exertion Gastrointestinal: reports: Constipation, Indigestion Genitourinary: reports: No Symptoms Breasts: reports: No Symptoms Reported Musculoskeletal: reports: Decreased ROM, Muscle Cramps Integumentary: reports: No Symptoms Neurological: reports: Unsteady Gait, Weakness Endocrine: reports: Unexplained Weight Gain Physical Exam Vital Signs: Vital Signs Temperature 74 F L 12/19/18 18:00 Pulse Rate 80 12/19/18 14:00 Respiratory Rate 17 12/19/18 18:00 Blood Pressure 138/79 12/19/18 18:00 O2 Sat by Pulse Oximetry (%) 95 12/19/18 06:40 Constitutional: Yes: Calm Eyes: Yes: EOM Intact HENT: Yes: Normocephalic Neck: Yes: Trachea Midline Cardiovascular: Yes: Tachycardia, S3 Respiratory: Yes: Rales, SOB on Exertion Gastrointestinal: Yes: Normal Bowel Sounds ...Rectal Exam: Yes: Deferred Renal/: Yes: WNL Musculoskeletal: Yes: Back Pain, Muscle Pain, Muscle Weakness Extremities: Yes: WNL Edema: No Peripheral Pulses WNL: Yes Neurological: Yes: Alert, Oriented Labs: CBC, BMP 12/19/18 05:30 12/19/18 06:00 Problem List - Problems (1) Acute hypoxemic respiratory failure Code(s): J96.01 - ACUTE RESPIRATORY FAILURE WITH HYPOXIA (2) Back pain Code(s): M54.9 - DORSALGIA, UNSPECIFIED (3) CHF (congestive heart failure) Code(s): I50.9 - HEART FAILURE, UNSPECIFIED (4) COPD (chronic obstructive pulmonary disease) Code(s): J44.9 - CHRONIC OBSTRUCTIVE PULMONARY DISEASE, UNSPECIFIED (5) Change in mental state Code(s): R41.82 - ALTERED MENTAL STATUS, UNSPECIFIED (6) Constipation Code(s): K59.00 - CONSTIPATION, UNSPECIFIED (7) Diabetes 1.5, managed as type 2 Code(s): E13.9 - OTHER SPECIFIED DIABETES MELLITUS WITHOUT COMPLICATIONS Assessment/Plan Current Active Problems Chest pain (Acute) Diabetes 1.5, managed as type 2 (Acute) chf,cad ashd, hyperlipidemia Abnormal Lab Results 12/19/18 12/19/18 05:30 06:00 RDW 17.2 H Anion Gap 6 L BUN 36 H Random Glucose 121 H Laboratory Results - last 24 hr 12/19/18 12/19/18 12/19/18 05:30 06:00 11:07 WBC 8.0 RBC 4.26 Hgb 11.5 Hct 35.2 MCV 82.7 MCH 27.1 MCHC 32.7 RDW 17.2 H Plt Count 158 MPV 8.8 Absolute Neuts (auto) 4.8 Neutrophils % 60.3 Lymphocytes % 31.4 Monocytes % 5.0 Eosinophils % 2.5 Basophils % 0.8 Nucleated RBC % 0 Sodium 142 Potassium 4.0 Chloride 107 Carbon Dioxide 29 Anion Gap 6 L BUN 36 H Creatinine 0.9 Creat Clearance w eGFR 60.40 POC Glucometer 99 Random Glucose 121 H Calcium 8.9 plan; bgm achs novolog scale ck hbaic tsh,free t4
[2018-12-19] MEDS ORDERED: CLOPIDOGREL BISULFATE 75 MG TABLET (FP) PO SCH (22:00)
[2018-12-19] MEDS: ROSUVASTATIN CA 10 MG TABLET (FP) PO SCH (22:11)
[2018-12-20] MEDS: GLIMEPIRIDE 4 MG TABLET (FP) PO SCH (06:11)
[2018-12-20] MEDS: APIXABAN 5 MG TABLET PO SCH ×2 (11:15→21:13)
[2018-12-20] MEDS: FUROSEMIDE 40 MG/4 ML INJECTABLE VIAL IVPUSH SCH (11:15)
[2018-12-20] MEDS: metoPROLOL SUCCINATE 25 MG TAB.SR.24H (FP) PO SCH (11:15)
[2018-12-20] MEDS ORDERED: ALBUTEROL SO4 2.5/IPRATROPIUM 0.5 INH SOL 3 ML VIAL.NEB. NEB PRN (11:53)
--- NOTE | 2018-12-20 11:55 | PN ---
Progress Note, Physician Chief Complaint: Chest pain History of Present Illness: Seen by cardiology trops negative Echo 11/27/18 [facility] diffuse LVHK mild to moderate MR, EF-25% with moderate MR NAD sitting in chair - Current Medication List Current Medications: Active Medications Apixaban (Eliquis -) 5 mg PO BID [facility] Last Admin: 12/20/18 11:15 Dose: 5 mg Furosemide (Lasix Injection -) 40 mg IVPUSH DAILY [facility] Last Admin: 12/20/18 11:15 Dose: 40 mg Glimepiride (Amaryl -) 4 mg PO DAILY@0700 [facility] Last Admin: 12/20/18 06:11 Dose: 4 mg Metoprolol Succinate (Toprol Xl -) 25 mg PO DAILY [facility] Last Admin: 12/20/18 11:15 Dose: 25 mg Rosuvastatin Calcium (Crestor -) 10 mg PO HS [facility] Last Admin: 12/19/18 22:11 Dose: Not Given - Objective Vital Signs: Vital Signs Temperature 97.9 F 12/20/18 06:00 Pulse Rate 76 12/20/18 06:00 Respiratory Rate 20 12/20/18 06:00 Blood Pressure 127/51 L 12/20/18 06:00 O2 Sat by Pulse Oximetry (%) 96 12/20/18 03:00 Constitutional: Yes: Well Nourished, No Distress, Calm, Obese Cardiovascular: Yes: Regular Rate and Rhythm Respiratory: Yes: Regular Gastrointestinal: Yes: WNL Musculoskeletal: Yes: WNL Extremities: Yes: WNL Edema: No Peripheral Pulses WNL: Yes Neurological: Yes: Alert, Oriented Psychiatric: Yes: Alert, Oriented Labs: CBC, BMP 12/19/18 05:30 12/19/18 06:00 Problem List - Problems (1) Chest pain Assessment/Plan: -cardiology consult appreciated -Tele monitor -Serial Trops negative -Echo 11/27/18 [facility] diffuse LVHK mild to moderate MR, EF-25% with severe MR -CP resolved -On IV furosemide Code(s): R07.9 - CHEST PAIN, UNSPECIFIED Qualifiers: Chest pain type: unspecified Qualified Code(s): R07.9 - Chest pain, unspecified (2) CHF (congestive heart failure) Assessment/Plan: -cardiology consult appreciated -Tele monitor -Serial Trops negative -Echo 11/27/18 [facility] diffuse LVHK mild to moderate MR, EF-25% with severe MR -CP resolved -On IV furosemide Code(s): I50.9 - HEART FAILURE, UNSPECIFIED (3) COPD (chronic obstructive pulmonary disease) Assessment/Plan: -Nasal O2 PRN -Bronchodilators PRN Code(s): J44.9 - CHRONIC OBSTRUCTIVE PULMONARY DISEASE, UNSPECIFIED (4) Diabetes mellitus Assessment/Plan: -Last A1c in 11/2018-7.2% -BGM AC HS -Diabetic low sodium diet -On glimepiride-would continue -RD consult Code(s): E11.9 - TYPE 2 DIABETES MELLITUS WITHOUT COMPLICATIONS (5) Paroxysmal A-fib Assessment/Plan: -On Eliquis 5 mg po bid -Seen by cardiology -Tele monitor Code(s): I48.0 - PAROXYSMAL ATRIAL FIBRILLATION Assessment/Plan see problem list Physical therapy
--- NOTE | 2018-12-20 12:09 | EKG ---
Test Reason : Blood Pressure : / mmHG Vent. Rate : 075 BPM Atrial Rate : 050 BPM P-R Int : 000 ms QRS Dur : 086 ms QT Int : 414 ms P-R-T Axes : 000 -09 142 degrees QTc Int : 462 ms ATRIAL FIBRILLATION NONSPECIFIC T WAVE ABNORMALITY ABNORMAL ECG WHEN COMPARED WITH ECG OF 18-DEC-2018 13:18, ATRIAL FIBRILLATION HAS REPLACED ATRIAL FLUTTER Confirmed by CHUN HERRING, GRACE ([id number]) on 12/20/2018 12:08:50 PM Referred By: Confirmed By:GRACE MCCOLLUM MD
--- NOTE | 2018-12-20 17:16 | PN ---
Progress Note, Physician History of Present Illness: seen and examined today in [facility]. states she is feeling better, still sob at times. - Current Medication List Current Medications: Active Medications Albuterol/Ipratropium (Duoneb -) 1 amp NEB Q6H PRN PRN Reason: SHORT OF BREATH/WHEEZING Apixaban (Eliquis -) 5 mg PO BID [facility] Last Admin: 12/20/18 11:15 Dose: 5 mg Furosemide (Lasix Injection -) 40 mg IVPUSH DAILY [facility] Last Admin: 12/20/18 11:15 Dose: 40 mg Glimepiride (Amaryl -) 4 mg PO DAILY@0700 [facility] Last Admin: 12/20/18 06:11 Dose: 4 mg Metoprolol Succinate (Toprol Xl -) 25 mg PO DAILY [facility] Last Admin: 12/20/18 11:15 Dose: 25 mg Rosuvastatin Calcium (Crestor -) 10 mg PO HS [facility] Last Admin: 12/19/18 22:11 Dose: Not Given - Objective Vital Signs: Vital Signs Temperature 98.1 F 12/20/18 14:00 Pulse Rate 77 12/20/18 14:00 Respiratory Rate 18 12/20/18 10:00 Blood Pressure 110/60 12/20/18 14:00 O2 Sat by Pulse Oximetry (%) 96 12/20/18 03:00 Constitutional: Yes: No Distress, Calm Eyes: Yes: Conjunctiva Clear, EOM Intact HENT: Yes: Atraumatic, Normocephalic Neck: Yes: Supple, Trachea Midline Cardiovascular: Yes: Regular Rate and Rhythm. No: Bradycardia, Tachycardia Respiratory: Yes: Regular, Diminished. No: Rales, Rhonchi, Wheezes Gastrointestinal: Yes: Normal Bowel Sounds, Soft Extremities: Yes: WNL Neurological: Yes: Alert Psychiatric: Yes: Alert Labs: CBC, BMP 12/19/18 05:30 12/19/18 06:00 - ....Imaging Chest X-ray: Report Reviewed, Image Reviewed EKG: Report Reviewed, Image Reviewed Other: Report Reviewed, Image Reviewed (tele-AF hr adequate, pvcs) Assessment/Plan She is a 78 year old woman history of HTN, chol, NIDDM, PAF, chronic systolic CHF due to nonischemic cardiomyopathy recently admitted to [facility] for CHF found with EF 25% and severe MR, PAP 40-50, transferred to [facility] for cath 2/27/18 showing severe mid RCA disease otherwise nonobstructive. MR was only mild to moderate after diuresis. Now presents with SÁNCHEZ and orthopnea, chest heaviness. No palpitations, dizziness or syncope. Echo 11/27/18 [facility] diffuse LVHK mild to moderate MR. Acute on chronic systolic CHF -improving -cont IV lasix -2gm NA, 2 liter fluid restriction -daily weights. PAF -seen on telemetry at last admission -on toprol -now on Eliquis 5 mg bid cont if no contraindications. -ok to dc tele CAD -severe mid RCA disease, medical management.
[2018-12-20] MEDS: ROSUVASTATIN CA 10 MG TABLET (FP) PO SCH (21:12)
[2018-12-21] MEDS: GLIMEPIRIDE 4 MG TABLET (FP) PO SCH (06:08)
[2018-12-21] MEDS: FUROSEMIDE 40 MG/4 ML INJECTABLE VIAL IVPUSH SCH (09:00)
[2018-12-21] MEDS: APIXABAN 5 MG TABLET PO SCH ×2 (09:00→22:03)
[2018-12-21] MEDS: metoPROLOL SUCCINATE 25 MG TAB.SR.24H (FP) PO SCH (09:00)
--- NOTE | 2018-12-21 12:02 | PN ---
Progress Note, Physician Chief Complaint: Chest pain History of Present Illness: Seen by cardiology trops negative Echo 11/27/18 [facility] diffuse LVHK mild to moderate MR, EF-25% with moderate MR NAD - Current Medication List Current Medications: Active Medications Albuterol/Ipratropium (Duoneb -) 1 amp NEB Q6H PRN PRN Reason: SHORT OF BREATH/WHEEZING Apixaban (Eliquis -) 5 mg PO BID [facility] Last Admin: 12/21/18 09:00 Dose: 5 mg Furosemide (Lasix Injection -) 40 mg IVPUSH DAILY [facility] Last Admin: 12/21/18 09:00 Dose: 40 mg Glimepiride (Amaryl -) 4 mg PO DAILY@0700 [facility] Last Admin: 12/21/18 06:08 Dose: 4 mg Metoprolol Succinate (Toprol Xl -) 25 mg PO DAILY [facility] Last Admin: 12/21/18 09:00 Dose: 25 mg Rosuvastatin Calcium (Crestor -) 10 mg PO HS [facility] Last Admin: 12/20/18 21:12 Dose: 10 mg - Objective Vital Signs: Vital Signs Temperature 98 F 12/21/18 10:00 Pulse Rate 65 12/21/18 10:00 Respiratory Rate 20 12/21/18 10:00 Blood Pressure 124/55 L 12/21/18 10:00 O2 Sat by Pulse Oximetry (%) 94 L 12/21/18 11:00 Constitutional: Yes: Well Nourished, No Distress, Calm Cardiovascular: Yes: Regular Rate and Rhythm Respiratory: Yes: Regular Gastrointestinal: Yes: Normal Bowel Sounds, Soft Genitourinary: Yes: WNL Musculoskeletal: Yes: Muscle Weakness Extremities: Yes: WNL Edema: No Peripheral Pulses WNL: Yes Neurological: Yes: Alert, Oriented Psychiatric: Yes: Alert, Oriented Labs: CBC, BMP 12/19/18 05:30 12/19/18 06:00 Problem List - Problems (1) Chest pain Assessment/Plan: -cardiology consult appreciated -DC Tele monitor -Serial Trops negative -Echo 11/27/18 [facility] diffuse LVHK mild to moderate MR, EF-25% with severe MR -CP resolved -On IV furosemide Code(s): R07.9 - CHEST PAIN, UNSPECIFIED Qualifiers: Chest pain type: unspecified Qualified Code(s): R07.9 - Chest pain, unspecified (2) CHF (congestive heart failure) Assessment/Plan: -cardiology consult appreciated -DC Tele monitor -Serial Trops negative -Echo 11/27/18 [facility] diffuse LVHK mild to moderate MR, EF-25% with severe MR -CP resolved -On IV furosemide Code(s): I50.9 - HEART FAILURE, UNSPECIFIED (3) COPD (chronic obstructive pulmonary disease) Assessment/Plan: -Nasal O2 PRN -Bronchodilators PRN Code(s): J44.9 - CHRONIC OBSTRUCTIVE PULMONARY DISEASE, UNSPECIFIED (4) Diabetes mellitus Assessment/Plan: -Last A1c in 11/2018-7.2% -BGM AC HS -Diabetic low sodium diet -On glimepiride-would continue -RD consult Code(s): E11.9 - TYPE 2 DIABETES MELLITUS WITHOUT COMPLICATIONS (5) Paroxysmal A-fib Assessment/Plan: -On Eliquis 5 mg po bid -rate controlled -Seen by cardiology -DC Tele monitor Code(s): I48.0 - PAROXYSMAL ATRIAL FIBRILLATION Assessment/Plan see problem list Physical therapy
[2018-12-21 16:20] VITALS: BMI 35.1
--- NOTE | 2018-12-21 17:02 | PN ---
Progress Note, Physician History of Present Illness: seen and examined today sitting in chair in [facility]. states she is feeling better. no new complaints. - Current Medication List Current Medications: Active Medications Albuterol/Ipratropium (Duoneb -) 1 amp NEB Q6H PRN PRN Reason: SHORT OF BREATH/WHEEZING Apixaban (Eliquis -) 5 mg PO BID [facility] Last Admin: 12/21/18 09:00 Dose: 5 mg Furosemide (Lasix Injection -) 40 mg IVPUSH DAILY [facility] Last Admin: 12/21/18 09:00 Dose: 40 mg Glimepiride (Amaryl -) 4 mg PO DAILY@0700 [facility] Last Admin: 12/21/18 06:08 Dose: 4 mg Metoprolol Succinate (Toprol Xl -) 25 mg PO DAILY [facility] Last Admin: 12/21/18 09:00 Dose: 25 mg Rosuvastatin Calcium (Crestor -) 10 mg PO HS [facility] Last Admin: 12/20/18 21:12 Dose: 10 mg - Objective Vital Signs: Vital Signs Temperature 97.5 F L 12/21/18 14:09 Pulse Rate 75 12/21/18 14:09 Respiratory Rate 20 12/21/18 16:21 Blood Pressure 116/53 L 12/21/18 14:09 O2 Sat by Pulse Oximetry (%) 94 L 12/21/18 16:21 Constitutional: Yes: No Distress, Calm HENT: Yes: Atraumatic, Normocephalic Neck: Yes: Supple, Trachea Midline Cardiovascular: Yes: Pulse Irregular, Murmur, S1, S2. No: Regular Rate and Rhythm, Bradycardia, Tachycardia, Bruit, JVD, Gallop, Rub, S3, S4, Other Respiratory: Yes: Regular, Diminished. No: Rales, Rhonchi, SOB, Wheezes Gastrointestinal: Yes: Normal Bowel Sounds Labs: CBC, BMP 12/19/18 05:30 12/19/18 06:00 - ....Imaging Chest X-ray: Report Reviewed, Image Reviewed EKG: Report Reviewed, Image Reviewed Other: Report Reviewed, Image Reviewed Assessment/Plan She is a 78 year old woman history of HTN, chol, NIDDM, PAF, chronic systolic CHF due to nonischemic cardiomyopathy recently admitted to [facility] for CHF found with EF 25% and severe MR, PAP 40-50, transferred to [facility] for cath 11/29/17 showing severe mid RCA disease otherwise nonobstructive. MR was only mild to moderate after diuresis. Now presents with SÁNCHEZ and orthopnea, chest heaviness. No palpitations, dizziness or syncope. Echo 11/27/18 [facility] diffuse LVHK mild to moderate MR. Acute on chronic systolic CHF -improving -change lasix to po -2gm NA, 2 liter fluid restriction -daily weights. -check labs PAF -on toprol -now on Eliquis 5 mg bid cont if no contraindications. -dc tele CAD -severe mid RCA disease - medical management. No further inpatient cardiac work up planned at this time. Please call with any additional questions.
[2018-12-21] MEDS ORDERED: ALBUTEROL SO4 2.5/IPRATROPIUM 0.5 INH SOL 3 ML VIAL.NEB. NEB PRN (17:40)
[2018-12-21] MEDS ORDERED: ROSUVASTATIN CA 10 MG TABLET (FP) PO SCH (22:00)
[2018-12-22] MEDS ORDERED: GLIMEPIRIDE 4 MG TABLET (FP) PO SCH (07:00)
[2018-12-22] MEDS ORDERED: PT OWN MED DRAWER 7, Y5N ONE (09:04)
[2018-12-22] MEDS: APIXABAN 5 MG TABLET PO SCH (09:17)
[2018-12-22] MEDS ORDERED: metoPROLOL SUCCINATE 25 MG TAB.SR.24H (FP) PO SCH (10:00)
[2018-12-22] MEDS ORDERED: FUROSEMIDE 40 MG/4 ML INJECTABLE VIAL IVPUSH SCH (10:00)
--- NOTE | 2018-12-22 15:15 | DS ---
Physical Examination Vital Signs: Vital Signs Temperature 98.1 F 12/22/18 10:00 Pulse Rate 66 12/22/18 10:00 Respiratory Rate 18 12/22/18 11:00 Blood Pressure 128/69 12/22/18 10:00 O2 Sat by Pulse Oximetry (%) 94 L 12/22/18 11:00 Constitutional: Yes: No Distress Eyes: Yes: WNL HENT: Yes: WNL Neck: Yes: WNL Cardiovascular: Yes: Pulse Irregular Respiratory: Yes: On Nasal O2 Gastrointestinal: Yes: WNL Renal/: Yes: WNL Musculoskeletal: Yes: Muscle Weakness Extremities: Yes: WNL Labs: CBC, BMP 12/19/18 05:30 12/19/18 06:00 Discharge Summary Reason For Visit: CHEST PAIN Current Active Problems Chest pain (Acute) Diabetes 1.5, managed as type 2 (Acute) Procedures: Principal: echoct Hospital Course: admitted for systolic heart failure, sob, needing diuresis with iv lasix and cardiac workup Condition: Good - Instructions Diet, Activity, Other Instructions: weekly bmp/cbc daily weights respiratory consult CHF protocol Disposition: [facility] - Home Medications Comprehensive Discharge Medication List: Ambulatory Orders Rosuvastatin Calcium [Crestor] 10 mg PO HS 08/05/16 Clopidogrel Bisulfate [Plavix -] 75 mg PO HS 07/19/17 Glimepiride [Amaryl] 4 mg PO DAILY 07/19/17 Furosemide [Lasix] 40 mg PO DAILY 12/18/18 Metoprolol Succinate 25 mg PO DAILY 12/18/18 Albuterol 2.5/Ipratropium 0.5 [Duoneb -] 1 amp NEB Q6H PRN amp 12/22/18 Apixaban [Eliquis -] 5 mg PO BID tablet 12/22/18
[2018-12-22 15:25] VITALS: BP 117/61; PULSE 64; TEMP 97.3
== END 2018-12-22 17:43 | DRG 292 ==
LOC: SUPCPDRO 13:14 → JER 13:14 → JERBED 17:11 → J4W 12-20 00:36 → OBSVTOIN 12-20 12:41 → J7W 12-21 18:00
PROVIDERS: ADMIT Family Medicine; ATTEND Family Medicine
DX: I11.0 Hypertensive heart disease with heart failure (principal); I48.92 Unspecified atrial flutter; I50.23 Acute on chronic systolic (congestive) heart failure; I42.9 Cardiomyopathy, unspecified; I34.0 Nonrheumatic mitral (valve) insufficiency; J44.9 Chronic obstructive pulmonary disease, unspecified; I48.0 Paroxysmal atrial fibrillation; I25.10 Atherosclerotic heart disease of native coronary artery without angina pectoris; E66.9 Obesity, unspecified; Z68.35 Body mass index [BMI] 35.0-35.9, adult; E78.5 Hyperlipidemia, unspecified; R07.9 Chest pain, unspecified; E11.9 Type 2 diabetes mellitus without complications
CPT/HCPCS: 36415; 71045-TC-FY; 80048; 80053; 82550; 82962; 83735; 83880; 84484; 85025; 85730; 93005; 93010; 93971-TC; 97116-GP; 97161-GP; 99284-25; G0378

== ENCOUNTER 2019-12-04 17:27 | Inpatient (IN) | payer OTHER ==
[2019-12-04 17:32] VITALS: BMI 27.3
--- NOTE | 2019-12-04 17:36 | PDOC ---
History of Present Illness - General Chief Complaint: Rectal Bleed Stated Complaint: RECTAL BLEED Time Seen by Provider: 12/04/19 17:35 History Source: Patient - History of Present Illness Initial Comments: 12/04/19 19:02 Ms. Quintero is an 79 y/o Uzbek speaking woman w/hx HTN, HLD, CHF, DM p/w two weeks of brbpr that worsened today. She reports that for the last two weeks she has noted bright red blood alongside diarrhea. Over the last two days she reports clots with the rectal bleeding. Today she reports changing 7x diapers soaked with blood. She denies active bleeding at this time. She endorses mild diffuse abdominal pain. She denies prior surgery, nor history of constipation. Past History - Past Medical History Allergies/Adverse Reactions: Allergies Allergy/AdvReac Type Severity Reaction Status Date / Time aspirin Allergy Severe Swelling Verified 12/04/19 17:30 Home Medications: Ambulatory Orders Glimepiride [Amaryl] 4 mg PO DAILY 07/19/17 Furosemide [Lasix] 40 mg PO DAILY 12/18/18 Carvedilol 6.25 mg PO DAILY 12/04/19 Hydralazine HCl 25 mg PO TID 12/04/19 Isosorbide Mononitrate [Isosorbide Mononitrate ER] 30 mg PO DAILY 12/04/19 Mirabegron [Myrbetriq] 50 mg PO DAILY 12/04/19 Pantoprazole Sodium 40 mg PO DAILY 12/04/19 Simvastatin 20 mg PO DAILY 12/04/19 Spironolactone 25 mg PO DAILY 12/04/19 Trospium Chloride [Trospium Chloride ER] 20 mg PO BID 12/04/19 Anemia: No Asthma: No Cancer: No Cardiac Disorders: Yes (PAF, NON ISCHEMIC CARDIOMYOPATHY) CVA: No COPD: Yes CHF: Yes Dementia: No Diabetes: Yes GI Disorders: Yes (GERD, gastritis) Disorders: Yes (UTI, neurogenic bladder) HTN: Yes Hypercholesterolemia: Yes Liver Disease: No Seizures: No Thyroid Disease: No - Surgical History Orthopedic Surgery: Yes (SHOULDER) - Immunization History Immunization Up to Date: (Unknown) - Psycho Social/Smoking Cessation Hx Smoking History: Never smoked Have you smoked in the past 12 months: No Information on smoking cessation initiated: No Hx Alcohol Use: No Drug/Substance Use Hx: No Substance Use Type: None Hx Substance Use Treatment: No Review of Systems - Review of Systems Able to Perform ROS?: Yes Comments:: 12/04/19 21:23 ROS: GENERAL/CONSTITUTIONAL: No fever or chills. No weakness. HEAD, EYES, EARS, NOSE AND THROAT: No change in vision. No ear pain or discharge. No sore throat. CARDIOVASCULAR: No chest pain or shortness of breath RESPIRATORY: No cough, wheezing, or hemoptysis. GASTROINTESTINAL: Diarrhea, hematochezia. No nausea, vomiting, or constipation. GENITOURINARY: No dysuria, frequency, or change in urination. MUSCULOSKELETAL: No joint or muscle swelling or pain. No neck or back pain. SKIN: No rash NEUROLOGIC: No headache, vertigo, loss of consciousness, or change in strength/ sensation. ENDOCRINE: No increased thirst. No abnormal weight change HEMATOLOGIC/LYMPHATIC: No anemia, easy bleeding, or history of blood clots. ALLERGIC/IMMUNOLOGIC: No hives or skin allergy. *Physical Exam - Vital Signs Last Vital Signs Temp Pulse Resp BP Pulse Ox 97.9 F 76 18 132/66 99 12/04/19 17:30 12/04/19 17:30 12/04/19 17:30 12/04/19 17:30 12/04/19 17:30 - Physical Exam 12/04/19 21:25 PE: GENERAL: Awake, alert, and fully oriented, in no acute distress HEAD: No signs of trauma, normocephalic, atraumatic EYES: PERRLA, EOMI, sclera anicteric, conjunctiva clear ENT: Auricles normal inspection, hearing grossly normal, nares patent, oropharynx clear without exudates. Moist mucosa NECK: Normal ROM, supple, no lymphadenopathy, JVD, or masses LUNGS: No distress, speaks full sentences, clear to auscultation bilaterally HEART: Regular rate and rhythm, normal S1 and S2, no murmurs, rubs or gallops, peripheral pulses normal and equal bilaterally. ABDOMEN: Diffuse mild tenderness. Soft, normoactive bowel sounds. No guarding, no rebound. No masses EXTREMITIES : Normal inspection, Normal range of motion, no edema. No clubbing or cyanosis NEUROLOGICAL: Cranial nerves II through XII grossly intact. Normal speech, normal gait, no focal sensorimotor deficits SKIN: Warm, Dry, normal turgor, no rashes or lesions noted Rectal: Skin tags. No external lesions or ulcerations, no active bleeding, no external hemorrhoids appreciated. ED Treatment Course - LABORATORY CBC & Chemistry Diagram: 12/04/19 18:10 12/04/19 18:10 Medical Decision Making - Medical Decision Making 12/04/19 21:26 79F w/hx HTN, HLD, DM, CHF p/w two weeks of brbpr, worse today. Ddx includes diverticulosis, hemorrhoids, CA. Plan: CBC CMP EKG CXR Cardiac profile Type and screen PT/INR and APTT FOBT C Diff UA Urine culture Dispo: Admit --- Cr - 1.5 1L LR ordered for SHAW Troponin - negative CBC - wnl CMP - wnl FOBT - positive --- Dispo pending CT read 12/04/19 22:42 CT abdomen/pelvis - no acute process. Diverticulosis. Chronic compression fractures. Plan for admission for SHAW. Discharge - Discharge Information Problems reviewed: Yes Clinical Impression/Diagnosis: Rectal bleeding, SHAW (acute kidney injury) Condition: Stable - Admission Yes - Follow up/Referral Referrals: Dieter Quintero MD [Primary Care Provider] - - Patient Discharge Instructions - Post Discharge Activity
[2019-12-04 18:58] LABS: BASO % 0.4 % (0-2.0); EOS % 1.3 % (0-4.5); HEMATOCRIT 39.8 % (32.4-45.2); HEMOGLOBIN 12.7 GM/dL (10.7-15.3); LYMPH % 26.5 % (8-40); MCH 28.9 pg (25.7-33.7); MEAN CELL VOLUME 90.4 fl (80-96); MEAN PLT VOLUME 9.3 fl (7.5-11.1); MONO % 6.4 % (3.8-10.2); NEUT % 65.4 % (42.8-82.8); PLATELET COUNT 213 K/MM3 (134-434); WHITE BLOOD COUNT 8.1 K/mm3 (4.0-10.0)
--- NOTE | 2019-12-04 19:06 | PDOC ---
Documentation entered by Shaylee Eduardo SCRIBE, acting as scribe for Radha River MD. Radha River MD: This documentation has been prepared by the Jayce thompson Xhesika, SCRIBE, under my direction and personally reviewed by me in its entirety. I confirm that the documentation accurately reflects all work, treatment, procedures, and medical decision making performed by me. Attending Attestation - Resident Resident Name: Armando Enamorado - ED Attending Attestation I have performed the following: I have examined & evaluated the patient, The case was reviewed & discussed with the resident, I agree w/resident's findings & plan, Exceptions are as noted - HPI HPI: 12/04/19 18:09 The patient is a 78 year old female, with a significant past medical history of CAD, CHF, mitral regurgitation, Afib, DM, COPD, HTN, HLD, who presents to the emergency department via EMS with home health aide for loose stools x 6 episodes per day since the end of November. Pt states as of recently, her stools have been with blood, persistently all day. pt reports generalized abdominal cramping. She denies recent fevers, chills, headache or dizziness. She denies recent nausea, vomit, or constipation. She denies recent dysuria or hematuria. She denies recent palpitations or shortness of breath. Allergies: Aspirin. Primary Care Physician: Dr. Olivo - Physicial Exam PE: 12/04/19 18:13 GENERAL: Awake, alert, and oriented, in no acute distress HEAD: No signs of trauma NECK: Normal ROM, supple, no lymphadenopathy, JVD, or masses LUNGS: Breath sounds equal, clear to auscultation bilaterally. No wheezes, and no crackles HEART: Regular rate and rhythm, normal S1 and S2, no murmurs, rubs or gallops ABDOMEN: +lower quadrant tenderness to palpation. Soft, normoactive bowel sounds. No guarding, no rebound. No masses RECTAL: done by Dr. Enamorado, please refer to his chart. EXTREMITIES: Normal range of motion, no edema. No clubbing or cyanosis. No cords, erythema, or tenderness SKIN: Warm, Dry, normal turgor, no rashes or lesions noted. - Medical Decision Making 12/04/19 19:05 Concern for C. difficile, diverticulitis, colitis, Plan stool cultures for C. difficile, CAT scan to rule out diverticulitis colitis, CBC, chemistries, reassess 12/04/19 20:27 Hemoccult positive from below CBC does not show any significant anemia BUN and creatinine are slightly elevated creatinine 1.5 12/04/19 22:19 Patient has SHAW, positive Hemoccult CAT scan of the abdomen pelvis did not show any evidence of colitis or diverticulitis There is a chronic calcified splenic artery aneurysm
[2019-12-04 19:09] LABS: INR 1.1 (0.83-1.09)
[2019-12-04 19:26] LABS: ALBUMIN 3.8 g/dl (3.4-5.0); BILIRUBIN,TOTAL 0.3 mg/dL (0.2-1); BLOOD UREA NITROGEN 53.8 mg/dL (7-18); CALCIUM 8.9 mg/dL (8.5-10.1); CREATININE 1.5 mg/dL (0.55-1.3); TOT PROT 7.7 g/dl (6.4-8.2)
[2019-12-04] MEDS ORDERED: PANTOPRAZOLE SODIUM 40 MG VIAL IVPUSH ONE (19:47)
[2019-12-04] MEDS ORDERED: LACTATED RINGERS SOLUTION 1000 ML INFUS.BAG IV ONE (19:47)
[2019-12-04] MEDS ORDERED: PANTOPRAZOLE SODIUM 40 MG VIAL ONE (19:50)
[2019-12-04 22:46] LABS: EPI CELLS 0.9 /HPF (0-5/HPF); HYALINE CASTS 3 /lpf (0-8); URINE APPEARANCE CLEAR; URINE BILIRUBIN NEGATIVE (NEGATIVE); URINE COLOR YELLOW; URINE GLUCOSE (UA) NEGATIVE (NEGATIVE); URINE KETONE NEGATIVE (NEGATIVE); URINE LEUK ESTERASE TRACE (NEGATIVE); URINE NITRITE NEGATIVE (NEGATIVE); URINE PROTEIN NEGATIVE (NEGATIVE); URINE RBC 1 /hpf (0-4); URINE UROBILINOGEN 0.2 mg/dL (0.2-1.0); URINE WBC 1 /hpf (0-5)
--- NOTE | 2019-12-04 23:52 | HP ---
Admitting History and Physical - Admission Chief Complaint: Diarrhea, Blood in Stool History of Present Illness: This is an 79 y/o female with a PMHx of HTN, HLD, CHF, DM. Who presents to the ED with two weeks of brbpr that worsened today. [place] [employer] used - limited info- hearing impairment w/hearing aids. Per ED records: She reports that for the last two weeks she has noted bright red blood alongside diarrhea. Over the last two days she reports clots with the rectal bleeding. Today she reports changing 7x diapers soaked with blood. She denies active bleeding at this time. She endorses mild diffuse abdominal pain. She denies prior surgery, nor history of constipation. 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) Cardiovascular: Yes: CHF, HTN, Hyperlipdemia, Murmur Pulmonary: Yes: COPD, Other (Acute Respiratory Failure with Hypoxia) Gastrointestinal: Yes: Gastritis, GERD Renal/: Yes: Neurogenic Bladder, UTI Musculoskeletal: Yes: Other (Spinal Stenosis) Endocrine: Yes: Diabetes Mellitus - Smoking History Smoking history: Never smoked Have you smoked in the past 12 months: No - Alcohol/Substance Use Hx Alcohol Use: No History of Substance Use: reports: None - Social History Usual Living Arrangement: Yes: With Spouse ADL: Support Services (HOUSETRAIL[employer]IC[employer]) History of Recent Travel: No Home Medications - Allergies Allergies/Adverse Reactions: Allergies Allergy/AdvReac Type Severity Reaction Status Date / Time aspirin Allergy Severe Swelling Verified 12/04/19 17:30 - Home Medications Home Medications: Ambulatory Orders Glimepiride [Amaryl] 4 mg PO DAILY 07/19/17 Furosemide [Lasix] 40 mg PO DAILY 12/18/18 Carvedilol 6.25 mg PO DAILY 12/04/19 Hydralazine HCl 25 mg PO TID 12/04/19 Isosorbide Mononitrate [Isosorbide Mononitrate ER] 30 mg PO DAILY 12/04/19 Mirabegron [Myrbetriq] 50 mg PO DAILY 12/04/19 Pantoprazole Sodium 40 mg PO DAILY 12/04/19 Simvastatin 20 mg PO DAILY 12/04/19 Spironolactone 25 mg PO DAILY 12/04/19 Trospium Chloride [Trospium Chloride ER] 20 mg PO BID 12/04/19 Family Medical History Family History: Unable to Obtain Review of Systems - Review of Systems Constitutional: reports: No Symptoms Eyes: reports: No Symptoms HENT: reports: No Symptoms Neck: reports: No Symptoms Cardiovascular: reports: No Symptoms Respiratory: reports: No Symptoms Gastrointestinal: reports: Rectal Bleeding Genitourinary: reports: No Symptoms Breasts: reports: No Symptoms Reported Musculoskeletal: reports: No Symptoms Integumentary: reports: No Symptoms Neurological: reports: No Symptoms Endocrine: reports: No Symptoms Hematology/Lymphatic: reports: No Symptoms Psychiatric: reports: No Symptoms Physical Examination Vital Signs: Vital Signs Temperature 98 F 12/04/19 18:00 Pulse Rate 84 12/04/19 19:30 Respiratory Rate 18 12/04/19 19:30 Blood Pressure 138/70 12/04/19 19:30 O2 Sat by Pulse Oximetry (%) 98 12/04/19 19:30 Constitutional: Yes: Anxious, Mild Distress Eyes: Yes: WNL, Conjunctiva Clear, EOM Intact, PERRL HENT: Yes: WNL, Atraumatic, Normocephalic Neck: Yes: WNL, Supple, Trachea Midline Cardiovascular: Yes: Regular Rate and Rhythm, S1, S2 Respiratory: Yes: WNL, Regular, CTA Bilaterally Gastrointestinal: Yes: Soft, Rectal Bleeding, Tenderness ...Rectal Exam: Yes: Guaiac Positive, Sphincter Tone Normal Renal/: Yes: Valle Present (yellow urine in tubing, drainage bag) Breast(s): Yes: WNL Musculoskeletal: Yes: WNL Extremities: Yes: WNL Edema: No Peripheral Pulses WNL: Yes Integumentary: Yes: WNL Neurological: Yes: WNL, Alert, Oriented, Cran Nerves II-XII Intact ...Motor Strength: WNL Psychiatric: Yes: WNL, Alert, Oriented Labs: CBC, BMP 12/04/19 18:10 12/04/19 18:10 Laboratory Results - last 24 hr 12/04/19 12/04/19 12/04/19 18:00 18:10 18:10 WBC RBC Hgb Hct MCV MCH MCHC RDW Plt Count MPV Absolute Neuts (auto) Neutrophils % Lymphocytes % Monocytes % Eosinophils % Basophils % Nucleated RBC % PT with INR 13.00 INR 1.10 H PTT (Actin FS) 30.0 Sodium Potassium Chloride Carbon Dioxide Anion Gap BUN Creatinine Est GFR (CKD-EPI)AfAm Est GFR (CKD-EPI)NonAf Random Glucose Calcium Total Bilirubin AST ALT Alkaline Phosphatase Creatine Kinase 54 Troponin I < 0.02 Total Protein Albumin Urine Color Urine Appearance Urine pH Ur Specific Cade Urine Protein Urine Glucose (UA) Urine Ketones Urine Blood Urine Nitrite Urine Bilirubin Urine Urobilinogen Ur Leukocyte Esterase Urine WBC (Auto) Urine RBC (Auto) Urine Casts (Auto) U Epithel Cells (Auto) Urine Bacteria (Auto) Stool Occult Blood Positive Blood Type Antibody Screen 12/04/19 12/04/19 12/04/19 18:10 18:10 18:10 WBC 8.1 RBC 4.40 Hgb 12.7 Hct 39.8 MCV 90.4 MCH 28.9 MCHC 32.0 RDW 14.0 D Plt Count 213 D MPV 9.3 Absolute Neuts (auto) 5.3 Neutrophils % 65.4 Lymphocytes % 26.5 Monocytes % 6.4 Eosinophils % 1.3 Basophils % 0.4 Nucleated RBC % 0 PT with INR INR PTT (Actin FS) Sodium 138 Potassium 5.0 Chloride 102 Carbon Dioxide 27 Anion Gap 8 BUN 53.8 H Creatinine 1.5 H Est GFR (CKD-EPI)AfAm 37.74 Est GFR (CKD-EPI)NonAf 32.56 Random Glucose 183 H Calcium 8.9 Total Bilirubin 0.3 AST 24 ALT 21 Alkaline Phosphatase 111 Creatine Kinase Troponin I Total Protein 7.7 Albumin 3.8 Urine Color Urine Appearance Urine pH Ur Specific Cade Urine Protein Urine Glucose (UA) Urine Ketones Urine Blood Urine Nitrite Urine Bilirubin Urine Urobilinogen Ur Leukocyte Esterase Urine WBC (Auto) Urine RBC (Auto) Urine Casts (Auto) U Epithel Cells (Auto) Urine Bacteria (Auto) Stool Occult Blood Blood Type O POSITIVE Antibody Screen Negative 12/04/19 21:15 WBC RBC Hgb Hct MCV MCH MCHC RDW Plt Count MPV Absolute Neuts (auto) Neutrophils % Lymphocytes % Monocytes % Eosinophils % Basophils % Nucleated RBC % PT with INR INR PTT (Actin FS) Sodium Potassium Chloride Carbon Dioxide Anion Gap BUN Creatinine Est GFR (CKD-EPI)AfAm Est GFR (CKD-EPI)NonAf Random Glucose Calcium Total Bilirubin AST ALT Alkaline Phosphatase Creatine Kinase Troponin I Total Protein Albumin Urine Color Yellow Urine Appearance Clear Urine pH 5.0 Ur Specific Cade 1.010 Urine Protein Negative Urine Glucose (UA) Negative Urine Ketones Negative Urine Blood Negative Urine Nitrite Negative Urine Bilirubin Negative Urine Urobilinogen 0.2 Ur Leukocyte Esterase Trace Urine WBC (Auto) 1 Urine RBC (Auto) 1 Urine Casts (Auto) 3 U Epithel Cells (Auto) 0.9 Urine Bacteria (Auto) 15.0 Stool Occult Blood Blood Type Antibody Screen Intake & Output 12/02/19 12/03/19 12/04/19 12/05/19 23:59 23:59 23:59 23:59 Weight 63.503 kg Current Medications Generic Name Dose Route Start Last Admin Trade Name Freq PRN Reason Stop Dose Admin Dextrose/Sodium Chloride 1,000 mls @ 60 mls/hr 12/05/19 03:45 D5-1/2ns - IV ASDIR CARMELINA Pantoprazole Sodium 40 mg 12/05/19 10:00 Protonix Iv IVPUSH DAILY CARMELINA Imaging - Results Chest X-ray: Image Reviewed Cat Scan: Report Reviewed, Image Reviewed Problem List - Problems (1) Rectal bleeding Code(s): K62.5 - HEMORRHAGE OF ANUS AND RECTUM (2) SHAW (acute kidney injury) Code(s): N17.9 - ACUTE KIDNEY FAILURE, UNSPECIFIED (3) Diabetes mellitus Code(s): E11.9 - TYPE 2 DIABETES MELLITUS WITHOUT COMPLICATIONS (4) HTN (hypertension) Code(s): I10 - ESSENTIAL (PRIMARY) HYPERTENSION Qualifiers: (5) IBS (irritable bowel syndrome) Code(s): K58.9 - IRRITABLE BOWEL SYNDROME WITHOUT DIARRHEA (6) Paroxysmal A-fib Code(s): I48.0 - PAROXYSMAL ATRIAL FIBRILLATION (7) Spinal stenosis Code(s): M48.00 - SPINAL STENOSIS, SITE UNSPECIFIED Assessment/Plan This is an 79 y/o female with a PMHx of HTN, HLD, CHF, DM. Admitted to Telemetry for GI Bleed, SHAW for further evaluation of their emergent condition. Plan: Admit Cardiac monitoring Appreciate GI consult Appreciate Nephrology consult NPO Monitor CBC, BMP Maintain MAP > 65 Continue gentle IVF Neurochecks Fall Precautions PPI FEN- replete lytes DVT ppx- SCDs, Hold ACs secondary to GIB Dispo: Requires Inpatient Care Visit type - Emergency Visit Emergency Visit: Yes ED Registration Date: 12/04/19 Care time: The patient presented to the Emergency Department on the above date and was hospitalized for further evaluation of their emergent condition. - New Patient This patient is new to me today: Yes Date on this admission: 12/04/19 - Critical Care Critical Care patient: No
[2019-12-05] MEDS ORDERED: DEXTROSE 5%-0.45% SALINE 1,000 ML IV SCH (03:45)
[2019-12-05 06:43] LABS: BASO % 0.5 % (0-2.0); EOS % 1.9 % (0-4.5); HEMOGLOBIN 11.5 GM/dL (10.7-15.3); LYMPH % 26.3 % (8-40); MCH 29.8 pg (25.7-33.7); MCHC 33.7 g/dl (32.0-36.0); MEAN CELL VOLUME 88.2 fl (80-96); MEAN PLT VOLUME 8.8 fl (7.5-11.1); NEUT % 65.3 % (42.8-82.8); PLATELET COUNT 182 K/MM3 (134-434); RBC 3.85 M/mm3 (3.60-5.2); RDW 13.2 % (11.6-15.6); WHITE BLOOD COUNT 8.8 K/mm3 (4.0-10.0)
[2019-12-05 07:12] LABS: ALBUMIN 3.3 g/dl (3.4-5.0); BILIRUBIN,TOTAL 0.3 mg/dL (0.2-1); BLOOD UREA NITROGEN 43.1 mg/dL (7-18); CALCIUM 8.5 mg/dL (8.5-10.1); CREATININE 1.4 mg/dL (0.55-1.3); POTASSIUM 4.1 mmol/L (3.5-5.1); TOT PROT 6.7 g/dl (6.4-8.2)
--- NOTE | 2019-12-05 08:44 | EKG ---
Test Reason : Blood Pressure : / mmHG Vent. Rate : 079 BPM Atrial Rate : 300 BPM P-R Int : 000 ms QRS Dur : 084 ms QT Int : 412 ms P-R-T Axes : 000 -02 071 degrees QTc Int : 472 ms ATRIAL FIBRILLATION WITH PREMATURE VENTRICULAR OR ABERRANTLY CONDUCTED COMPLEXES ABNORMAL ECG WHEN COMPARED WITH ECG OF 19-DEC-2018 14:54, NONSPECIFIC T WAVE ABNORMALITY HAS REPLACED INVERTED T WAVES IN LATERAL LEADS Confirmed by MD ANTONELLA, JONNATHAN ([id number]) on 12/05/2019 8:44:01 AM Referred By: Confirmed By:JONNATHAN BERMAN MD
--- NOTE | 2019-12-05 09:13 | CON.GI ---
Consult Consult Specialty:: GI Referred by:: Radha Leonardo NP Reason for Consultation:: GI bleed - History of Present Illness History of Present Illness: Patient is an 79 y/o female with past medical history of CHF, HTN, HLD, DM. Consult was placed for GI bleed. She states having bright red blood per rectum accompanied with diarrhea and diffuse abdominal pain x 2 weeks. SHe states vomiting 3 days ago but no further episodes. On admission labs show stable Hg 11.5 but positive Stool OB. Her last Colonoscopy was in 2005 which showed normal colon and EGD in 2007 which showed chronic gastritis. 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) Cardio/Vascular: Yes: CHF, HTN, Hyperlipdemia, Murmur Pulmonary: Yes: COPD, Other (Acute Respiratory Failure with Hypoxia) Gastrointestinal: Yes: Gastritis, GERD Renal/: Yes: Neurogenic Bladder, UTI Musculoskeletal: Yes: Other (Spinal Stenosis) Endocrine: Yes: Diabetes Mellitus - Alcohol/Substance Use Hx Alcohol Use: No History of Substance Use: reports: None - Smoking History Smoking history: Never smoked Have you smoked in the past 12 months: No - Social History Usual Living Arrangement: With Spouse ADL: Support Services History of Recent Travel: No Home Medications - Allergies Allergies/Adverse Reactions: Allergies Allergy/AdvReac Type Severity Reaction Status Date / Time aspirin Allergy Severe Swelling Verified 12/04/19 17:30 - Home Medications Home Medications: Ambulatory Orders Glimepiride [Amaryl] 4 mg PO DAILY 07/19/17 Furosemide [Lasix] 40 mg PO DAILY 12/18/18 Carvedilol 6.25 mg PO DAILY 12/04/19 Hydralazine HCl 25 mg PO TID 12/04/19 Isosorbide Mononitrate [Isosorbide Mononitrate ER] 30 mg PO DAILY 12/04/19 Mirabegron [Myrbetriq] 50 mg PO DAILY 12/04/19 Pantoprazole Sodium 40 mg PO DAILY 12/04/19 Simvastatin 20 mg PO DAILY 12/04/19 Spironolactone 25 mg PO DAILY 12/04/19 Trospium Chloride [Trospium Chloride ER] 20 mg PO BID 12/04/19 Review of Systems - Review of Systems Constitutional: reports: No Symptoms Eyes: reports: No Symptoms HENT: reports: No Symptoms Neck: reports: No Symptoms Cardiovascular: reports: No Symptoms Respiratory: reports: No Symptoms Gastrointestinal: reports: Abdominal Pain, Diarrhea, Rectal Bleeding, Vomiting Genitourinary: reports: No Symptoms Breasts: reports: No Symptoms Reported Musculoskeletal: reports: No Symptoms Integumentary: reports: No Symptoms Neurological: reports: No Symptoms Endocrine: reports: No Symptoms Hematology/Lymphatic: reports: No Symptoms Psychiatric: reports: No Symptoms Physical Exam-GI Vital Signs: Vital Signs Temperature 97.8 F 12/05/19 02:02 Pulse Rate 82 12/05/19 06:54 Respiratory Rate 18 12/05/19 06:54 Blood Pressure 122/91 12/05/19 06:54 O2 Sat by Pulse Oximetry (%) 97 12/05/19 06:54 Constitutional: Yes: No Distress, Calm Eyes: Yes: Conjunctiva Clear HENT: Yes: Atraumatic Cardiovascular: Yes: Pulse Irregular Respiratory: Yes: Regular, CTA Bilaterally Gastrointestinal Inspection: Yes: WNL. No: Ascites, Distention, Hernia, Scars, Other ...Auscultate: Yes: Normoactive Bowel Sounds. No: Hyperactive Bowel Sounds, Hypoactive Bowel Sounds, No Bowel Sounds, Other ...Palpate: Yes: Soft, Tenderness (diffuse). No: Firm/Rigid, Guarding, Hepatomegaly, Mass, Pulsatile Mass, Splenomegaly, Tenderness, Epigastium, Tenderness, Rebound, Other ...Percussion: Yes: Tympanitic. No: Dullness, Fluid Wave, Other Neurological: Yes: Alert, Oriented Psychiatric: Yes: Alert, Oriented Labs: CBC, BMP 12/05/19 06:10 12/05/19 06:10 INR, PTT INR 1.10 (0.83-1.09) H 12/04/19 18:10 Active Medications Generic Name Dose Route Start Last Admin Trade Name Freq PRN Reason Stop Dose Admin Dextrose/Sodium Chloride 1,000 mls @ 60 mls/hr 12/05/19 03:45 12/05/19 05:43 D5-1/2ns - IV 60 mls/hr ASDIR CARMELINA Administration Pantoprazole Sodium 40 mg 12/05/19 10:00 Protonix Iv IVPUSH DAILY CARMELINA Problem List - Problems (1) Bloody diarrhea Assessment/Plan: Possibly infectious vs secondary to ischemia R>IV hydration Ceftriaxone 1g IVPB qd and Flagyl 500mg IVPB q8h Stool culture, O&P, Calpoprectin, WBC, C-diff clear liquid diet, advance to low fiber, lactose free diet if tolerated Code(s): R19.7 - DIARRHEA, UNSPECIFIED
[2019-12-05] MEDS: PANTOPRAZOLE SODIUM 40 MG VIAL IVPUSH SCH (09:29)
[2019-12-05] MEDS ORDERED: PANTOPRAZOLE SODIUM 40 MG/100 ML BAG IVPB ONE (09:30)
[2019-12-05] MEDS: CEFTRIAXONE 1 GM in DEXTROSE 5%-WATER - 100 ML IVPB SCH (10:58)
[2019-12-05] MEDS ORDERED: CEFTRIAXONE 1 GM/50 ML BAG ONE (10:59)
--- NOTE | 2019-12-05 13:01 | CONSULT ---
Consult Consult Specialty:: Nephrology Reason for Consultation:: SHAW - History of Present Illness Chief Complaint: blood per rectum History of Present Illness: Pt is an 79 year old female with pmhx of htn, hld, chf, and dm who presents to the ER with blood per rectum. She has had these symptoms for the last few weeks. She denies abdominal pain. SHe denies having constipation and complains of loose stools. 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 She. denies hematuria or dysuria. She denies shortness of breath. 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 [employer] PRODUCTION: Yes: Syncope, Other (AMS) Cardio/Vascular: Yes: CHF, HTN, Hyperlipdemia, Murmur Pulmonary: Yes: COPD, Other (Acute Respiratory Failure with Hypoxia) Gastrointestinal: Yes: Gastritis, GERD Renal/: Yes: Neurogenic Bladder, UTI Musculoskeletal: Yes: Other (Spinal Stenosis) Endocrine: Yes: Diabetes Mellitus - Alcohol/Substance Use Hx Alcohol Use: No History of Substance Use: reports: None - Smoking History Smoking history: Never smoked Have you smoked in the past 12 months: No - Social History Usual Living Arrangement: With Spouse ADL: Support Services ([facility]) History of Recent Travel: No Home Medications - Allergies Allergies/Adverse Reactions: Allergies Allergy/AdvReac Type Severity Reaction Status Date / Time aspirin Allergy Severe Swelling Verified 12/04/19 17:30 - Home Medications Home Medications: Ambulatory Orders Glimepiride [Amaryl] 4 mg PO DAILY 07/19/17 Furosemide [Lasix] 40 mg PO DAILY 12/18/18 Carvedilol 6.25 mg PO DAILY 12/04/19 Hydralazine HCl 25 mg PO TID 12/04/19 Isosorbide Mononitrate [Isosorbide Mononitrate ER] 30 mg PO DAILY 12/04/19 Mirabegron [Myrbetriq] 50 mg PO DAILY 12/04/19 Pantoprazole Sodium 40 mg PO DAILY 12/04/19 Simvastatin 20 mg PO DAILY 12/04/19 Spironolactone 25 mg PO DAILY 12/04/19 Trospium Chloride [Trospium Chloride ER] 20 mg PO BID 12/04/19 Family Medical History Family History: Denies Review of Systems - Review of Systems Constitutional: reports: Malaise Eyes: reports: No Symptoms HENT: reports: No Symptoms Neck: reports: No Symptoms Cardiovascular: reports: No Symptoms Respiratory: reports: No Symptoms Gastrointestinal: reports: Diarrhea, Rectal Bleeding Genitourinary: reports: No Symptoms Musculoskeletal: reports: Joint Pain Integumentary: reports: No Symptoms Neurological: reports: No Symptoms Endocrine: reports: No Symptoms Hematology/Lymphatic: reports: No Symptoms Psychiatric: reports: No Symptoms Physical Exam Vital Signs: Vital Signs Temperature 97.8 F 12/05/19 02:02 Pulse Rate 82 12/05/19 06:54 Respiratory Rate 18 12/05/19 06:54 Blood Pressure 122/91 12/05/19 06:54 O2 Sat by Pulse Oximetry (%) 97 12/05/19 06:54 Constitutional: Yes: Calm Eyes: Yes: Conjunctiva Clear HENT: Yes: Atraumatic Neck: Yes: Supple Cardiovascular: Yes: S1, S2 Respiratory: Yes: CTA Bilaterally Gastrointestinal: Yes: Soft Renal/: Yes: WNL Musculoskeletal: Yes: WNL Edema: LLE: Trace, RLE: Trace Neurological: Yes: Oriented Psychiatric: Yes: Oriented Labs: CBC, BMP 12/05/19 06:10 12/05/19 06:10 Laboratory Tests 12/19/18 12/04/19 12/05/19 06:00 18:10 06:10 Hgb 11.5 Creatinine 0.9 1.5 H 12/05/19 06:10 Hgb Creatinine 1.4 H Imaging - Results Cat Scan: Report Reviewed Problem List - Problems (1) SHAW (acute kidney injury) Code(s): N17.9 - ACUTE KIDNEY FAILURE, UNSPECIFIED (2) Bloody diarrhea Code(s): R19.7 - DIARRHEA, UNSPECIFIED (3) Rectal bleeding Code(s): K62.5 - HEMORRHAGE OF ANUS AND RECTUM Assessment/Plan Current Medications Generic Name Dose Route Start Last Admin Trade Name Freq PRN Reason Stop Dose Admin Dextrose/Sodium Chloride 1,000 mls @ 60 mls/hr 12/05/19 03:45 12/05/19 05:43 D5-1/2ns - IV 60 mls/hr ASDIR CARMELINA Administration Ceftriaxone Sodium 1 gm/ 100 mls @ 200 mls/hr 12/05/19 10:00 12/05/19 10:58 Dextrose IVPB 200 mls/hr DAILY CARMELINA Administration Protocol Metronidazole 500 mg in 100 mls @ 100 mls/hr 12/05/19 10:00 12/05/19 10:58 Flagyl 500mg Premixed Ivpb - IVPB 100 mls/hr Q8H-IV CARM[facility]INA Administration Pantoprazole Sodium 40 mg 12/05/19 10:00 12/05/19 09:29 Protonix Iv IVPUSH 40 mg DAILY CARMELINA Administration Impression 1. SHAW 2. rectal bleeding 3. chf 4. htn 5. hld 6. 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
--- NOTE | 2019-12-05 14:51 | PN ---
Progress Note, Physician Chief Complaint: BRBPR History of Present Illness: 79 year old upper sorbian speaking female with PMH HTN, HLD, CHF, DM, LAC COURTE OREILLES presents to the ED with multiple episodes of BRBPR x2 weeks, she has been evaluated by GI and nephrology. - Current Medication List Current Medications: Active Medications Carvedilol (Coreg -) 6.25 mg PO DAILY [facility] Hydralazine HCl (Apresoline -) 25 mg PO TID CARMELINA Dextrose/Sodium Chloride (D5-1/2ns -) 1,000 mls @ 60 mls/hr IV ASDIR CARMELINA Last Admin: 12/05/19 05:43 Dose: 60 mls/hr Ceftriaxone Sodium 1 gm/ (Dextrose) 100 mls @ 200 mls/hr IVPB DAILY [facility]; Protocol Last Admin: 12/05/19 10:58 Dose: 200 mls/hr Metronidazole (Flagyl 500mg Premixed Ivpb -) 500 mg in 100 mls @ 100 mls/hr IVPB Q8H-IV [facility] Last Admin: 12/05/19 10:58 Dose: 100 mls/hr Isosorbide Mononitrate (Imdur -) 30 mg PO DAILY [facility] Non-Formulary Medication (Mirabegron [Myrbetriq]) 50 mg PO DAILY [facility] Non-Formulary Medication (Simvastatin [Simvastatin]) 20 mg PO DAILY [facility] Non-Formulary Medication (Trospium Chloride [Trospium Chloride Er]) 20 mg PO BID [facility] Pantoprazole Sodium (Protonix Iv) 40 mg IVPUSH DAILY [facility] Last Admin: 12/05/19 09:29 Dose: 40 mg Spironolactone (Aldactone -) 25 mg PO DAILY [facility] - Objective Vital Signs: Vital Signs Temperature 97.8 F 12/05/19 02:02 Pulse Rate 82 12/05/19 06:54 Respiratory Rate 18 12/05/19 06:54 Blood Pressure 122/91 12/05/19 06:54 O2 Sat by Pulse Oximetry (%) 97 12/05/19 06:54 Constitutional: Yes: Well Nourished HENT: Yes: Atraumatic, Normocephalic Neck: Yes: Supple Cardiovascular: Yes: Regular Rate and Rhythm Respiratory: Yes: Regular, CTA Bilaterally Gastrointestinal: Yes: Normal Bowel Sounds, Soft, Rectal Bleeding Genitourinary: Yes: WNL Musculoskeletal: Yes: WNL Extremities: Yes: WNL Integumentary: Yes: WNL Neurological: Yes: Alert, Oriented Labs: CBC, BMP 12/05/19 06:10 12/05/19 06:10 INR, PTT INR 1.10 (0.83-1.09) H 12/04/19 18:10 Problem List - Problems (1) Bloody diarrhea Assessment/Plan: GI eval IV antbx IVF check stool occult, o&p, wbc, c.diff advance to clear liquids monitor stools Code(s): R19.7 - DIARRHEA, UNSPECIFIED (2) Urinary retention Assessment/Plan: johnson placed monitor output continue home myrbeq Code(s): R33.9 - RETENTION OF URINE, UNSPECIFIED (3) SHAW (acute kidney injury) Assessment/Plan: nephrology eval monitor bun/creat Code(s): N17.9 - ACUTE KIDNEY FAILURE, UNSPECIFIED (4) CHF (congestive heart failure) Assessment/Plan: continue home meds tomorrow hold lasix, risk for dehydration Code(s): I50.9 - HEART FAILURE, UNSPECIFIED (5) Diabetes Assessment/Plan: monitor sugars IVF d5 @ 60, maintain while on clear liquids. when eating dc monitor glucose hold glimperide Code(s): E11.9 - TYPE 2 DIABETES MELLITUS WITHOUT COMPLICATIONS (6) HTN (hypertension) Assessment/Plan: cont home meds hold for sbp <120 Code(s): I10 - ESSENTIAL (PRIMARY) HYPERTENSION Qualifiers:
[2019-12-05 19:16] LABS: EPI CELLS 0.3 /HPF (0-5/HPF); HYALINE CASTS 0 /lpf (0-8); URINE APPEARANCE CLEAR; URINE BACTERIA 0 /hpf (NEGATIVE); URINE BILIRUBIN NEGATIVE (NEGATIVE); URINE COLOR YELLOW; URINE GLUCOSE (UA) NEGATIVE (NEGATIVE); URINE KETONE NEGATIVE (NEGATIVE); URINE LEUK ESTERASE NEGATIVE (NEGATIVE); URINE NITRITE NEGATIVE (NEGATIVE); URINE PROTEIN NEGATIVE (NEGATIVE); URINE RBC 2 /hpf (0-4); URINE UROBILINOGEN 0.2 mg/dL (0.2-1.0); URINE WBC 1 /hpf (0-5)
[2019-12-05 20:26] LABS: BASO % 0.5 % (0-2.0); EOS % 2.3 % (0-4.5); HEMATOCRIT 36.9 % (32.4-45.2); HEMOGLOBIN 12.2 GM/dL (10.7-15.3); MCH 29.4 pg (25.7-33.7); MCHC 33.1 g/dl (32.0-36.0); MEAN CELL VOLUME 88.7 fl (80-96); MEAN PLT VOLUME 8.9 fl (7.5-11.1); MONO % 5.7 % (3.8-10.2); NEUT % 68.5 % (42.8-82.8); PLATELET COUNT 186 K/MM3 (134-434); RBC 4.16 M/mm3 (3.60-5.2); RDW 13.6 % (11.6-15.6)
[2019-12-05] MEDS: hydrALAZINE HCL 25 MG TABLET (FP) PO SCH (23:29)
[2019-12-05] MEDS: ATORVASTATIN CA 10 MG TABLET (FP) PO SCH (23:29)
[2019-12-06 07:07] LABS: ALBUMIN 3.2 g/dl (3.4-5.0); BILIRUBIN,TOTAL 0.7 mg/dL (0.2-1); CALCIUM 8.6 mg/dL (8.5-10.1); POTASSIUM 3.9 mmol/L (3.5-5.1); TOT PROT 6.3 g/dl (6.4-8.2)
--- NOTE | 2019-12-06 07:12 | PN ---
Progress Note, Physician - Current Medication List Current Medications: Active Medications Atorvastatin Calcium (Lipitor -) 10 mg PO HS [facility] Last Admin: 12/05/19 23:29 Dose: 10 mg Documented by: Carvedilol (Coreg -) 6.25 mg PO DAILY [facility] Hydralazine HCl (Apresoline -) 25 mg PO TID [facility] Last Admin: 12/05/19 23:29 Dose: 25 mg Documented by: Ceftriaxone Sodium 1 gm/ (Dextrose) 100 mls @ 200 mls/hr IVPB DAILY [facility]; Protocol Last Admin: 12/05/19 10:58 Dose: 200 mls/hr Documented by: Metronidazole (Flagyl 500mg Premixed Ivpb -) 500 mg in 100 mls @ 100 mls/hr IVPB Q8H-IV [facility] Last Admin: 12/06/19 01:32 Dose: 100 mls/hr Documented by: Influenza Virus Vaccine Quadrival (Flulaval Quad [id number]) 60 mcg IM .ONCE ONE Stop: 12/05/19 23:29 Isosorbide Mononitrate (Imdur -) 30 mg PO DAILY [facility] Non-Formulary Medication (Mirabegron [Myrbetriq]) 50 mg PO DAILY [facility] Non-Formulary Medication (Trospium Chloride [Trospium Chloride Er]) 20 mg PO BID [facility] Pantoprazole Sodium (Protonix Iv) 40 mg IVPUSH DAILY [facility] Last Admin: 12/05/19 09:29 Dose: 40 mg Documented by: Pneumococcal 13-Valent Conj Vacc (Prevnar 13 Syringe -) 0.5 ml IM .ONCE ONE Stop: 12/05/19 23:29 - Objective Vital Signs: Vital Signs Temperature 98.2 F 12/06/19 02:00 Pulse Rate 97 H 12/06/19 02:00 Respiratory Rate 19 12/06/19 02:00 Blood Pressure 115/51 L 12/06/19 02:00 O2 Sat by Pulse Oximetry (%) 98 12/05/19 22:11 Cardiovascular: Yes: Tachycardia, Pulse Irregular, S1, S2 Respiratory: Yes: CTA Bilaterally Gastrointestinal: Yes: Normal Bowel Sounds, Soft, Tenderness (mild) Labs: CBC, BMP 12/05/19 19:45 12/05/19 06:10 INR, PTT INR 1.10 (0.83-1.09) H 12/04/19 18:10 Assessment/Plan - Problems (1) Bloody diarrhea Assessment/Plan: GI eval IV antbx IVF check stool occult, o&p, wbc, c.diff advance to clear liquids monitor stools Code(s): R19.7 - DIARRHEA, UNSPECIFIED (2) Urinary retention Assessment/Plan: johnson placed monitor output continue home myrbeq Code(s): R33.9 - RETENTION OF URINE, UNSPECIFIED (3) SHAW (acute kidney injury) Assessment/Plan: nephrology eval monitor bun/creat Code(s): N17.9 - ACUTE KIDNEY FAILURE, UNSPECIFIED (4) CHF (congestive heart failure) Assessment/Plan: continue home meds tomorrow hold lasix, risk for dehydration Code(s): I50.9 - HEART FAILURE, UNSPECIFIED (5) Diabetes Assessment/Plan: monitor sugars IVF d5 @ 60, maintain while on clear liquids. when eating dc monitor glucose hold glimperide Code(s): E11.9 - TYPE 2 DIABETES MELLITUS WITHOUT COMPLICATIONS (6) HTN (hypertension) Assessment/Plan: cont home meds hold for sbp <120 Code(s): I10 - ESSENTIAL (PRIMARY) HYPERTENSION Qualifiers: (7) Afib Assessment/Plan: check previous work up no on ac
--- NOTE | 2019-12-06 09:05 | PN.GI ---
GI Progress Note Subjective: Patient states having 2 episodes of bloody diarrhea during the night, no reports of abdominal pain. Hg is stable at 12.2. Denies nausea, vomiting, abdominal pain, diarrhea, constipation. - Objective Vital Signs: Vital Signs Temperature 98.2 F 12/06/19 02:00 Pulse Rate 97 H 12/06/19 02:00 Respiratory Rate 19 12/06/19 02:00 Blood Pressure 115/51 L 12/06/19 02:00 O2 Sat by Pulse Oximetry (%) 98 12/05/19 22:11 Constitutional: No Distress, Calm, Obese Eyes: Yes: Conjunctiva Clear HENT: Yes: Atraumatic Cardiovascular: Yes: Pulse Irregular Respiratory: Yes: Regular, Diminished Gastrointestinal Inspection: Yes: WNL. No: Ascites, Distention, Hernia, Scars, Other ...Auscultate: Yes: Normoactive Bowel Sounds. No: Hyperactive Bowel Sounds, Hypoactive Bowel Sounds, No Bowel Sounds, Other ...Palpate: Yes: Soft. No: Firm/Rigid, Guarding, Hepatomegaly, Mass, Pulsatile Mass, Splenomegaly, Tenderness, Tenderness, Epigastium, Tenderness, Rebound, Other ...Percussion: Yes: Tympanitic. No: Dullness, Fluid Wave, Other Neurological: Yes: Alert Psychiatric: Yes: Alert Labs: CBC, BMP 12/05/19 19:45 12/06/19 06:00 INR, PTT INR 1.10 (0.83-1.09) H 12/04/19 18:10 Active Medications Generic Name Dose Route Start Last Admin Trade Name Freq PRN Reason Stop Dose Admin Atorvastatin Calcium 10 mg 12/05/19 22:00 12/05/19 23:29 Lipitor - PO 10 mg HS CARMELINA Administration Carvedilol 6.25 mg 12/06/19 10:00 Coreg - PO DAILY [facility] Hydralazine HCl 25 mg 12/05/19 22:00 12/05/19 23:29 Apresoline - PO 25 mg TID CARMELINA Administration Ceftriaxone Sodium 1 gm/ 100 mls @ 200 mls/hr 12/05/19 10:00 12/05/19 10:58 Dextrose IVPB 200 mls/hr DAILY [facility] Administration Protocol Metronidazole 500 mg in 100 mls @ 100 mls/hr 12/05/19 10:00 12/06/19 01:32 Flagyl 500mg Premixed Ivpb - IVPB 100 mls/hr Q8H-IV [facility] Administration Influenza Virus Vaccine Quadrival 60 mcg 12/06/19 10:00 Flulaval Quad [id number] IM 12/06/19 10:01 .ONCE ONE Isosorbide Mononitrate 30 mg 12/06/19 10:00 Imdur - PO DAILY [facility] Non-Formulary Medication 50 mg 12/06/19 10:00 Mirabegron [Myrbetriq] PO DAILY [facility] Non-Formulary Medication 20 mg 12/05/19 22:00 Trospium Chloride [Trospium Chloride Er] PO BID [facility] Pantoprazole Sodium 40 mg 12/05/19 10:00 12/05/19 09:29 Protonix Iv IVPUSH 40 mg DAILY [facility] Administration Pneumococcal 13-Valent Conj Vacc 0.5 ml 12/06/19 10:00 Prevnar 13 Syringe - IM 12/06/19 10:01 .ONCE ONE Problem List - Problems (1) Bloody diarrhea Assessment/Plan: r. await stool culture and calpoprectin advance diet as tolerated Code(s): R19.7 - DIARRHEA, UNSPECIFIED
[2019-12-06] MEDS ORDERED: PNEUMOC 13-VAL CONJ-DIP CRM/PF 0.5 ML DISP.SYRIN IM ONE (10:00)
[2019-12-06] MEDS ORDERED: SPIRONOLACTONE 25 MG TABLET (FP) PO SCH (10:00)
[2019-12-06] MEDS ORDERED: PATIENT'S OWN MEDICATION (NON-FORMULARY) (Mirabegron [Myrbetriq] 50 MG) PO SCH (10:00)
[2019-12-06] MEDS ORDERED: FLU VACCINE QUAD 60 MCG/0.5 ML (MDV 19-20) IM ONE (10:00)
[2019-12-06] MEDS ORDERED: CARVEDILOL 6.25 MG TABLET (FP) PO SCH (10:00)
[2019-12-06] MEDS: PANTOPRAZOLE SODIUM 40 MG VIAL IVPUSH SCH (10:05)
[2019-12-06] MEDS: ISOSORBIDE MONONITRATE 30 MG TAB.SR.24H (FP) PO SCH (10:05)
[2019-12-06] MEDS ORDERED: PT OWN MED DRAWER 7, Y5N ONE (10:08)
[2019-12-06] MEDS: CEFTRIAXONE 1 GM in DEXTROSE 5%-WATER - 100 ML IVPB SCH (10:30)
[2019-12-06 10:43] LABS: BASO % 0.9 % (0-2.0); EOS % 2.9 % (0-4.5); HEMATOCRIT 36.7 % (32.4-45.2); HEMOGLOBIN 12.1 GM/dL (10.7-15.3); LYMPH % 25.2 % (8-40); MCH 29.6 pg (25.7-33.7); MEAN CELL VOLUME 89.7 fl (80-96); MEAN PLT VOLUME 9.5 fl (7.5-11.1); MONO % 6.7 % (3.8-10.2); NEUT % 64.3 % (42.8-82.8); PLATELET COUNT 184 K/MM3 (134-434); RBC 4.09 M/mm3 (3.60-5.2); WHITE BLOOD COUNT 10.4 K/mm3 (4.0-10.0)
[2019-12-06 11:20] LABS: PLATELET ESTIMATE ADEQUATE
[2019-12-06] MEDS ORDERED: cefTRIAXone SODIUM 1 GM VIAL ONE (11:49)
[2019-12-06] MEDS ORDERED: DEXTROSE 5%-WATER - 50 ML IVPB ONE (11:49)
--- NOTE | 2019-12-06 13:54 | PN ---
Progress Note, Physician History of Present Illness: Pt seen and examined at bedside. She is awake and alert. She denies shortness of breath. - Current Medication List Current Medications: Active Medications Atorvastatin Calcium (Lipitor -) 10 mg PO HS [facility] Last Admin: 12/05/19 23:29 Dose: 10 mg Documented by: Carvedilol (Coreg -) 6.25 mg PO DAILY [facility] Last Admin: 12/06/19 10:05 Dose: 6.25 mg Documented by: Hydralazine HCl (Apresoline -) 25 mg PO TID [facility] Last Admin: 12/05/19 23:29 Dose: 25 mg Documented by: Metronidazole (Flagyl 500mg Premixed Ivpb -) 500 mg in 100 mls @ 100 mls/hr IVPB Q8H-IV [facility] Last Admin: 12/06/19 10:06 Dose: 100 mls/hr Documented by: Ceftriaxone Sodium 1 gm/ (Dextrose) 50 mls @ 200 mls/hr IVPB DAILY [facility]; Protocol Isosorbide Mononitrate (Imdur -) 30 mg PO DAILY [facility] Last Admin: 12/06/19 10:05 Dose: 30 mg Documented by: Non-Formulary Medication (Mirabegron [Myrbetriq]) 50 mg PO DAILY [facility] Non-Formulary Medication (Trospium Chloride [Trospium Chloride Er]) 20 mg PO BID [facility] Pantoprazole Sodium (Protonix Iv) 40 mg IVPUSH DAILY [facility] Last Admin: 12/06/19 10:05 Dose: 40 mg Documented by: - Objective Vital Signs: Vital Signs Temperature 98.4 F 12/06/19 10:00 Pulse Rate 82 12/06/19 10:00 Respiratory Rate 16 12/06/19 10:00 Blood Pressure 129/50 L 12/06/19 10:00 O2 Sat by Pulse Oximetry (%) 98 12/06/19 09:00 Constitutional: Yes: Calm Eyes: Yes: Conjunctiva Clear HENT: Yes: Atraumatic Neck: Yes: Supple Cardiovascular: Yes: S1, S2 Gastrointestinal: Yes: Normal Bowel Sounds, Soft Genitourinary: Yes: WNL Musculoskeletal: Yes: WNL Edema: No Integumentary: Yes: WNL Neurological: Yes: Oriented Psychiatric: Yes: Oriented Labs: CBC, BMP 12/06/19 05:20 12/06/19 06:00 INR, PTT INR 1.10 (0.83-1.09) H 12/04/19 18:10 Problem List - Problems (1) SHAW (acute kidney injury) Code(s): N17.9 - ACUTE KIDNEY FAILURE, UNSPECIFIED (2) Bloody diarrhea Code(s): R19.7 - DIARRHEA, UNSPECIFIED (3) Rectal bleeding Code(s): K62.5 - HEMORRHAGE OF ANUS AND RECTUM Assessment/Plan Current Medications Generic Name Dose Route Start Last Admin Trade Name Edita PRN Reason Stop Dose Admin Atorvastatin Calcium 10 mg 12/05/19 22:00 12/05/19 23:29 Lipitor - PO 10 mg HS [facility] Administration Carvedilol 6.25 mg 12/06/19 10:00 12/06/19 10:05 Coreg - PO 6.25 mg DAILY [facility] Administration Hydralazine HCl 25 mg 12/05/19 22:00 12/05/19 23:29 Apresoline - PO 25 mg TID [facility] Administration Metronidazole 500 mg in 100 mls @ 100 mls/hr 12/05/19 10:00 12/06/19 10:06 Flagyl 500mg Premixed Ivpb - IVPB 100 mls/hr Q8H-IV [facility] Administration Ceftriaxone Sodium 1 gm/ 50 mls @ 200 mls/hr 12/06/19 11:19 Dextrose IVPB DAILY [facility] Protocol Isosorbide Mononitrate 30 mg 12/06/19 10:00 12/06/19 10:05 Imdur - PO 30 mg DAILY [facility] Administration Non-Formulary Medication 50 mg 12/06/19 10:00 Mirabegron [Myrbetriq] PO DAILY [facility] Non-Formulary Medication 20 mg 12/05/19 22:00 Trospium Chloride [Trospium Chloride Er] PO BID [facility] Pantoprazole Sodium 40 mg 12/05/19 10:00 12/06/19 10:05 Protonix Iv IVPUSH 40 mg DAILY [facility] Administration Impression 1. SHAW 2. rectal bleeding 3. chf 4. htn 5. hld 6. dm Plan - renal function is improved - stable off of fluids - lasix on hold for now - monitor volume status - GI follow up - SHAW likely from prerenal disease as she did respond to fluids
[2019-12-06] MEDS: hydrALAZINE HCL 25 MG TABLET (FP) PO SCH ×3 (15:29→21:20)
[2019-12-06] MEDS: ATORVASTATIN CA 10 MG TABLET (FP) PO SCH (21:20)
[2019-12-07] MEDS: hydrALAZINE HCL 25 MG TABLET (FP) PO SCH ×3 (06:56→21:03)
--- NOTE | 2019-12-07 08:22 | DS ---
Physical Examination Vital Signs: Vital Signs Temperature 98.9 F 12/07/19 06:00 Pulse Rate 77 12/07/19 06:00 Respiratory Rate 20 12/07/19 06:00 Blood Pressure 105/46 L 12/07/19 06:00 O2 Sat by Pulse Oximetry (%) 99 12/06/19 21:00 Cardiovascular: Yes: Pulse Irregular, S1, S2 Respiratory: Yes: Regular, CTA Bilaterally Gastrointestinal: Yes: Normal Bowel Sounds, Soft Labs: CBC, BMP 12/06/19 05:20 12/06/19 06:00 Discharge Summary Problems reviewed: Yes Reason For Visit: RECTAL BLEEDACUTE KIDNEY INJURY Current Active Problems SHAW (acute kidney injury) (Acute) Bloody diarrhea (Acute) Rectal bleeding (Acute) Urinary retention (Acute) Hospital Course: - Problems (1) Bloody diarrhea Assessment/Plan: no blood in stool per pt GI eval noted IV antbx--ID consult IVF check stool occult, o&p, wbc, c.diff advance to regular monitor stools Code(s): R19.7 - DIARRHEA, UNSPECIFIED (2) Urinary retention Assessment/Plan: johnson placed monitor output continue home myrbeq Code(s): R33.9 - RETENTION OF URINE, UNSPECIFIED (3) SHAW (acute kidney injury) Assessment/Plan: nephrology eval monitor bun/creat Code(s): N17.9 - ACUTE KIDNEY FAILURE, UNSPECIFIED (4) CHF (congestive heart failure) Assessment/Plan: continue home meds tomorrow hold lasix, risk for dehydration Code(s): I50.9 - HEART FAILURE, UNSPECIFIED (5) Diabetes Assessment/Plan: monitor sugars IVF d5 @ 60, maintain while on clear liquids. when eating dc monitor glucose hold glimperide Code(s): E11.9 - TYPE 2 DIABETES MELLITUS WITHOUT COMPLICATIONS (6) HTN (hypertension) Assessment/Plan: cont home meds hold for sbp <120 Code(s): I10 - ESSENTIAL (PRIMARY) HYPERTENSION Qualifiers: (7) Afib Assessment/Plan: check previous work up no on ac cardio consult PT EVALUATION IF TOLERATING DIET AND CLEARED BY GI AND ID WILL CONSIDER DC HOME Condition: Stable - Instructions Referrals: Dieter Quintero MD [Primary Care Provider] - Disposition: HOME - Home Medications Comprehensive Discharge Medication List: Ambulatory Orders Glimepiride [Amaryl] 4 mg PO DAILY 07/19/17 Furosemide [Lasix] 40 mg PO DAILY 12/18/18 Carvedilol 6.25 mg PO DAILY 12/04/19 Hydralazine HCl 25 mg PO TID 12/04/19 Isosorbide Mononitrate [Isosorbide Mononitrate ER] 30 mg PO DAILY 12/04/19 Mirabegron [Myrbetriq] 50 mg PO DAILY 12/04/19 Pantoprazole Sodium 40 mg PO DAILY 12/04/19 Simvastatin 20 mg PO DAILY 12/04/19 Spironolactone 25 mg PO DAILY 12/04/19 Trospium Chloride [Trospium Chloride ER] 20 mg PO BID 12/04/19
[2019-12-07] MEDS ORDERED: DEXTROSE 5%-WATER - 50 ML IVPB ONE (08:35)
[2019-12-07] MEDS ORDERED: cefTRIAXone SODIUM 1 GM VIAL ONE (08:35)
[2019-12-07] MEDS: CEFTRIAXONE 1 GM in DEXTROSE 5%-WATER - 50 ML IVPB SCH (09:24)
[2019-12-07] MEDS: ISOSORBIDE MONONITRATE 30 MG TAB.SR.24H (FP) PO SCH (09:25)
[2019-12-07] MEDS: PANTOPRAZOLE SODIUM 40 MG VIAL IVPUSH SCH (09:25)
[2019-12-07 09:45] LABS: BASO % 0.3 % (0-2.0); EOS % 2.1 % (0-4.5); HEMATOCRIT 36.1 % (32.4-45.2); HEMOGLOBIN 12.1 GM/dL (10.7-15.3); LYMPH % 18.6 % (8-40); MCH 29.4 pg (25.7-33.7); MCHC 33.6 g/dl (32.0-36.0); MEAN CELL VOLUME 87.7 fl (80-96); MEAN PLT VOLUME 8.6 fl (7.5-11.1); MONO % 5.4 % (3.8-10.2); NEUT % 73.6 % (42.8-82.8); PLATELET COUNT 186 K/MM3 (134-434); RBC 4.12 M/mm3 (3.60-5.2); RDW 13.6 % (11.6-15.6); WHITE BLOOD COUNT 9.8 K/mm3 (4.0-10.0)
--- NOTE | 2019-12-07 09:49 | PN ---
Progress Note (short form) - Note Progress Note: ID consult dictated imp/reccd 79 yo female admitted with 2 weeks of BRBPR no fevers, +abdominal pain ?afib on EKG CAD with nonobstructive RCA disease she was admitted on 12/03 ct scan no acute changes noted suspect ischemic colitis as stool studies are unremarkable and she is afebrile with normal WBC making infectious colitis unlikely still had blood on toilet paper yesterday still with some bilateral LQ pain on exam would continue ceftriaxone and flagyl will f/u cultures (negative at 24 hours) further management per GI cardiology evaluation
[2019-12-07] MEDS ORDERED: PATIENT'S OWN MEDICATION (NON-FORMULARY) (Simvastatin [Simvastatin] 20 MG) PO SCH (10:00)
[2019-12-07] MEDS: CARVEDILOL 6.25 MG TABLET (FP) PO SCH ×2 (10:00→21:03)
[2019-12-07 10:09] LABS: ALBUMIN 3.1 g/dl (3.4-5.0); BILIRUBIN,TOTAL 0.5 mg/dL (0.2-1); BLOOD UREA NITROGEN 21.7 mg/dL (7-18); CALCIUM 8.8 mg/dL (8.5-10.1); CREATININE 1.3 mg/dL (0.55-1.3); POTASSIUM 4.2 mmol/L (3.5-5.1); TOT PROT 6.3 g/dl (6.4-8.2)
[2019-12-07] MEDS: TOLTERODINE TARTRATE LA 4 MG CAP.SR.24H (FP) PO SCH (11:00)
--- NOTE | 2019-12-07 11:02 | EKG ---
Test Reason : Blood Pressure : / mmHG Vent. Rate : 091 BPM Atrial Rate : 092 BPM P-R Int : 000 ms QRS Dur : 084 ms QT Int : 396 ms P-R-T Axes : 000 -11 059 degrees QTc Int : 487 ms ATRIAL FIBRILLATION WITH PREMATURE VENTRICULAR OR ABERRANTLY CONDUCTED COMPLEXES NONSPECIFIC ST AND T WAVE ABNORMALITY ABNORMAL ECG WHEN COMPARED WITH ECG OF 04-DEC-2019 18:31, NO SIGNIFICANT CHANGE WAS FOUND Confirmed by LORENA HOWARD MD ([id number]) on 12/07/2019 11:02:34 AM Referred By: ARIAN QUINTANA Confirmed By:LORENA HOWARD MD
--- NOTE | 2019-12-07 13:53 | PN ---
Progress Note, Physician History of Present Illness: Pt seen and examined at bedside. She is awake and alert. She denies diarrhea today. - Current Medication List Current Medications: Active Medications Atorvastatin Calcium (Lipitor -) 10 mg PO HS [facility] Last Admin: 12/06/19 21:20 Dose: 10 mg Documented by: Carvedilol (Coreg -) 6.25 mg PO BID [facility] Last Admin: 12/07/19 10:00 Dose: Not Given Documented by: Hydralazine HCl (Apresoline -) 25 mg PO TID [facility] Last Admin: 12/07/19 06:56 Dose: 25 mg Documented by: Metronidazole (Flagyl 500mg Premixed Ivpb -) 500 mg in 100 mls @ 100 mls/hr IVPB Q8H-IV [facility] Last Admin: 12/07/19 09:24 Dose: 100 mls/hr Documented by: Ceftriaxone Sodium 1 gm/ (Dextrose) 50 mls @ 200 mls/hr IVPB DAILY [facility]; Protocol Last Admin: 12/07/19 09:24 Dose: 200 mls/hr Documented by: Isosorbide Mononitrate (Imdur -) 30 mg PO DAILY [facility] Last Admin: 12/07/19 09:25 Dose: 30 mg Documented by: Non-Formulary Medication (Mirabegron [Myrbetriq]) 50 mg PO DAILY [facility] Pantoprazole Sodium (Protonix Iv) 40 mg IVPUSH DAILY [facility] Last Admin: 12/07/19 09:25 Dose: 40 mg Documented by: Tolterodine Tartrate (Detrol La -) 4 mg PO DAILY [facility] - Objective Vital Signs: Vital Signs Temperature 98.6 F 12/07/19 13:04 Pulse Rate 76 12/07/19 13:04 Respiratory Rate 20 12/07/19 13:04 Blood Pressure 96/45 L 12/07/19 13:04 O2 Sat by Pulse Oximetry (%) 99 12/07/19 09:00 Constitutional: Yes: Calm Eyes: Yes: Conjunctiva Clear HENT: Yes: Atraumatic Neck: Yes: Supple Cardiovascular: Yes: S1, S2 Respiratory: Yes: CTA Bilaterally Gastrointestinal: Yes: Soft Genitourinary: Yes: WNL Musculoskeletal: Yes: WNL Edema: No Integumentary: Yes: WNL Neurological: Yes: Oriented Psychiatric: Yes: Oriented Labs: CBC, BMP 12/07/19 09:19 12/07/19 09:19 INR, PTT INR 1.10 (0.83-1.09) H 12/04/19 18:10 Problem List - Problems (1) SHAW (acute kidney injury) Code(s): N17.9 - ACUTE KIDNEY FAILURE, UNSPECIFIED (2) Bloody diarrhea Code(s): R19.7 - DIARRHEA, UNSPECIFIED (3) Rectal bleeding Code(s): K62.5 - HEMORRHAGE OF ANUS AND RECTUM Assessment/Plan Current Medications Generic Name Dose Route Start Last Admin Trade Name Edita PRN Reason Stop Dose Admin Atorvastatin Calcium 10 mg 12/05/19 22:00 12/06/19 21:20 Lipitor - PO 10 mg HS [facility] Administration Carvedilol 6.25 mg 12/07/19 10:00 12/07/19 10:00 Coreg - PO Not Given BID [facility] Hydralazine HCl 25 mg 12/05/19 22:00 12/07/19 06:56 Apresoline - PO 25 mg TID [facility] Administration Metronidazole 500 mg in 100 mls @ 100 mls/hr 12/05/19 10:00 12/07/19 09:24 Flagyl 500mg Premixed Ivpb - IVPB 100 mls/hr Q8H-IV [facility] Administration Ceftriaxone Sodium 1 gm/ 50 mls @ 200 mls/hr 12/06/19 11:19 12/07/19 09:24 Dextrose IVPB 200 mls/hr DAILY [facility] Administration Protocol Isosorbide Mononitrate 30 mg 12/06/19 10:00 12/07/19 09:25 Imdur - PO 30 mg DAILY [facility] Administration Non-Formulary Medication 50 mg 12/06/19 10:00 Mirabegron [Myrbetriq] PO DAILY [facility] Pantoprazole Sodium 40 mg 12/05/19 10:00 12/07/19 09:25 Protonix Iv IVPUSH 40 mg DAILY [facility] Administration Tolterodine Tartrate 4 mg 12/07/19 10:00 Detrol La - PO DAILY [facility] Impression 1. SHAW 2. rectal bleeding 3. chf 4. htn 5. hld 6. dm Plan - monitor renal function - encourage po intake - avoid nsaids - pt tolerating diet - stable off of fluids - lasix on hold for now - monitor volume status
--- NOTE | 2019-12-07 14:22 | CON.CARD ---
Consult Consult Specialty:: Cardiology Referred by:: Dr. Peck Reason for Consultation:: Persistent atrial fibrillation. 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 Seen by GI. H+H stable. ECG shows atrial fibrillation with controlled VR (79-91 BPM). Tele reveals atrial fibrillation with single VPCs at rate 85-95 BPM. Echo 11/27/2018: Mild LV dilatation with severe global LV systolic dysfunction. LVEF 25%. Moderate LA and RA dilatation. Severe MR. Moderate to severe TR. Moderate pulm HTN. 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, Other (AMS) Cardio/Vascular: Yes: CHF, HTN, Hyperlipdemia, Murmur Pulmonary: Yes: COPD, Other (Acute Respiratory Failure with Hypoxia) Gastrointestinal: Yes: Gastritis, GERD Renal/: Yes: Neurogenic Bladder, UTI ...: No Musculoskeletal: Yes: Other (Spinal Stenosis) Endocrine: Yes: Diabetes Mellitus - Alcohol/Substance Use Hx Alcohol Use: No History of Substance Use: reports: None - Smoking History Smoking history: Never smoked Have you smoked in the past 12 months: No - Social History Usual Living Arrangement: With Spouse ADL: Support Services History of Recent Travel: No Home Medications - Allergies Allergies/Adverse Reactions: Allergies Allergy/AdvReac Type Severity Reaction Status Date / Time aspirin Allergy Severe Swelling Verified 12/04/19 17:30 - Home Medications Home Medications: Ambulatory Orders Glimepiride [Amaryl] 4 mg PO DAILY 07/19/17 Furosemide [Lasix] 40 mg PO DAILY 12/18/18 Carvedilol 6.25 mg PO DAILY 12/04/19 Hydralazine HCl 25 mg PO TID 12/04/19 Isosorbide Mononitrate [Isosorbide Mononitrate ER] 30 mg PO DAILY 12/04/19 Mirabegron [Myrbetriq] 50 mg PO DAILY 12/04/19 Pantoprazole Sodium 40 mg PO DAILY 12/04/19 Simvastatin 20 mg PO DAILY 12/04/19 Spironolactone 25 mg PO DAILY 12/04/19 Trospium Chloride [Trospium Chloride ER] 20 mg PO BID 12/04/19 Vital Signs: Vital Signs Temperature 98.6 F 12/07/19 13:04 Pulse Rate 76 12/07/19 13:04 Respiratory Rate 20 12/07/19 13:04 Blood Pressure 96/45 L 12/07/19 13:04 O2 Sat by Pulse Oximetry (%) 99 12/07/19 09:00 General: Well developed. Well nourished. No acute distress. Head: Normocephalic. Atraumatic, Eyes: PERRLA, EOMI. Sclerae anicteric. Conjunctivae clear. Neck: Supple. (+-)JVD. Irregular rhythm and rate. No murmur. No gallop or rub. Lungs: Symmetrical air entry. Clear to auscultation. No crackles. No wheezing or rhonchi. Abdomen: Soft. Bowel sound positive. Non tender. No masses. Extremities: No edema. No clubbing or cyanosis. - Other Data Labs, Other Data: CBC, BMP 12/07/19 09:19 12/07/19 09:19 INR, PTT INR 1.10 (0.83-1.09) H 12/04/19 18:10 Assessment/Plan 79 year-old woman with a PMHx of HTN, DM, HLD, chronic systolic CHF, LVEF 25%, # from echocardiogram on 11/04/18, 1V-CAD (RCA) without intervention, persistent atrial fibrillation admitted 12/04/19 with two weeks of diarrhea and brbpr. Seen by GI. H+H stable. ECG shows atrial fibrillation with controlled VR (79-91 BPM). Tele reveals atrial fibrillation with single VPCs at rate 85-95 BPM. Echo 11/27/2018: Mild LV dilatation with severe global LV systolic dysfunction. LVEF 25%. Moderate LA and RA dilatation. Severe MR. Moderate to severe TR. Moderate pulm HTN. 1) Long standing persistent atrial fibrillation with controlled VR. Continue carvidelol 6.25 mg BID for VR control. Not on AC due to frequent falls and current GI bleeding. 2) Chronic systolic CHF: Compensated and euvolemic. Continue carvedilol, imdur and hydralazine. 3) Single vessel CAD. No active angina. Should be on low dose aspirin if possible. Continue atorvastatin and carvedilol. Please do not hesitate to call us for reconsult at any time if any further questions or additional issue arises regarding this patient.
--- NOTE | 2019-12-07 17:01 | PN.GI ---
GI Progress Note Subjective: no abdominal pain, no vomiting. no diarrhea. no rectal bleeding - Objective Vital Signs: Vital Signs Temperature 98.6 F 12/07/19 14:00 Pulse Rate 76 12/07/19 14:00 Respiratory Rate 20 12/07/19 14:00 Blood Pressure 96/45 L 12/07/19 14:00 O2 Sat by Pulse Oximetry (%) 99 12/07/19 09:00 Constitutional: Well Nourished Eyes: Yes: Conjunctiva Clear HENT: Yes: Atraumatic Neck: Yes: Supple Cardiovascular: Yes: Regular Rate and Rhythm Respiratory: Yes: CTA Bilaterally ...Palpate: Yes: Soft. No: Firm/Rigid, Guarding, Hepatomegaly, Mass, Pulsatile Mass, Splenomegaly, Tenderness Labs: CBC, BMP 12/07/19 09:19 12/07/19 09:19 INR, PTT INR 1.10 (0.83-1.09) H 12/04/19 18:10 Problem List - Problems (1) Bloody diarrhea Assessment/Plan: resolved R> will schedule for colonoscopy once medically cleared Code(s): R19.7 - DIARRHEA, UNSPECIFIED
--- NOTE | 2019-12-07 17:04 | CONS ---
DATE OF CONSULTATION: DATE OF DICTATION: 12/07/2019 INFECTIOUS DISEASE CONSULTATION HISTORY OF PRESENT ILLNESS: This is an 79-year-old woman with a history of hypertension, hyperlipidemia, congestive heart failure. She presented to the emergency room on December 03 with complaints of bright red blood per rectum which has been going on for the last 2 weeks as well as abdominal pain. She denied any history of vomiting. There were no sick contacts. There was no travel. She denied any dysuria, and she had no fevers. Upon admission, she had a CAT scan of her abdomen and pelvis that was notable for diverticulosis. No evidence of any colitis. She was treated with ceftriaxone and Flagyl. She reports her stools have decreased in frequency. She had 1 stool yesterday which she noted that the toilet paper still had blood, and her abdominal pain has somewhat improved, though still present, and she is hungry. PAST MEDICAL HISTORY: Notable for a history of CHF, hypertension, hyperlipidemia. She has had respiratory failure with hypoxia, gastritis and GERD, neurogenic bladder, UTI, spinal stenosis, and diabetes. She has a history as well of chronic systolic heart failure secondary to nonischemic cardiomyopathy. She has an ejection fraction of 25%, severe mitral regurgitation. She had a recent catheterization in 2018 at [facility] that showed severe mid RCA disease that was nonobstructive. As well she has a history of paroxysmal atrial fibrillation. ALLERGIES: She is allergic to ASPIRIN. MEDICATION: Her medications at the time of admission included spironolactone, simvastatin, pantoprazole, Myrbetriq, isosorbide, hydralazine, Amaryl, Lasix, and Coreg. SOCIAL HISTORY: She lives with her family at home. There have been no sick contacts or travel. REVIEW OF SYSTEMS: As per HPI. She denies any shortness of breath or chest pain. No fevers or chills. PHYSICAL EXAMINATION: Vital Signs: She had been afebrile since admission. Temperature is 98.4, pulse is 65, blood pressure 96/45, respiratory rate is 20. She is saturating 99% on room air. HEENT: Normocephalic. Eyes are anicteric. Neck: Supple. Lungs: Clear to auscultation. Heart: Irregularly irregular. Abdomen: Soft. She has lower abdominal discomfort to palpation, left and right lower quadrant. She has a Valle in place draining clear urine. Extremities: Without edema. SURGICAL HISTORY: She denies any surgical history. IMPRESSION: 1. In summary, this is an 79-year-old woman admitted with bright red blood per rectum. I suspect ischemic colitis, as her stool studies are unremarkable, and she is afebrile with normal white count, making infectious colitis less likely. She still has blood on the toilet paper from yesterday and still has some abdominal discomfort. Would continue ceftriaxone and Flagyl as ordered. Will follow up cultures which are now negative at 24 hours. Further management per Gastrointestinal. 2. History of paroxysmal atrial fibrillation and nonischemic cardiomyopathy. Would suggest cardiology evaluation. MACHO VICTOR M.D. [id number]
[2019-12-07] MEDS: ATORVASTATIN CA 10 MG TABLET (FP) PO SCH (21:02)
[2019-12-08] MEDS: hydrALAZINE HCL 25 MG TABLET (FP) PO SCH ×3 (05:51→21:00)
--- NOTE | 2019-12-08 07:43 | PN ---
Progress Note, Physician - Current Medication List Current Medications: Active Medications Atorvastatin Calcium (Lipitor -) 10 mg PO HS [facility] Last Admin: 12/07/19 21:02 Dose: 10 mg Documented by: Carvedilol (Coreg -) 6.25 mg PO BID [facility] Last Admin: 12/07/19 21:03 Dose: Not Given Documented by: Hydralazine HCl (Apresoline -) 25 mg PO TID [facility] Last Admin: 12/08/19 05:51 Dose: Not Given Documented by: Metronidazole (Flagyl 500mg Premixed Ivpb -) 500 mg in 100 mls @ 100 mls/hr IVPB Q8H-IV [facility] Last Admin: 12/08/19 01:04 Dose: 100 mls/hr Documented by: Ceftriaxone Sodium 1 gm/ (Dextrose) 50 mls @ 200 mls/hr IVPB DAILY [facility]; Protocol Last Admin: 12/07/19 09:24 Dose: 200 mls/hr Documented by: Isosorbide Mononitrate (Imdur -) 30 mg PO DAILY [facility] Last Admin: 12/07/19 09:25 Dose: 30 mg Documented by: Non-Formulary Medication (Mirabegron [Myrbetriq]) 50 mg PO DAILY [facility] Pantoprazole Sodium (Protonix Iv) 40 mg IVPUSH DAILY [facility] Last Admin: 12/07/19 09:25 Dose: 40 mg Documented by: Polyethylene Glycol (Miralax (For Bowel Prep) -) 255 gm PO ONCE ONE Stop: 12/09/19 08:01 Sodium Phosphate (Fleet Adult Rectal Enema -) 133 ml RC ONCE ONE Stop: 12/10/19 04:01 Tolterodine Tartrate (Detrol La -) 4 mg PO DAILY [facility] Last Admin: 12/07/19 11:00 Dose: 4 mg Documented by: - Objective Vital Signs: Vital Signs Temperature 98.5 F 12/08/19 05:44 Pulse Rate 77 12/08/19 05:44 Respiratory Rate 20 12/08/19 05:44 Blood Pressure 116/52 L 12/08/19 05:44 O2 Sat by Pulse Oximetry (%) 97 12/07/19 21:00 Cardiovascular: Yes: S1, S2 Respiratory: Yes: Regular, CTA Bilaterally Gastrointestinal: Yes: Normal Bowel Sounds, Soft Labs: CBC, BMP 12/07/19 09:19 12/07/19 09:19 INR, PTT INR 1.10 (0.83-1.09) H 12/04/19 18:10 Assessment/Plan - Problems (1) Bloody diarrhea-Colitis Assessment/Plan: GI eval noted IV antbx per ID IVF check stool occult, o&p, wbc, c.diff advance to clear liquids monitor stools colonoscopy Tuesday Code(s): R19.7 - DIARRHEA, UNSPECIFIED (2) Urinary retention Assessment/Plan: johnson placed monitor output continue home myrbeq Code(s): R33.9 - RETENTION OF URINE, UNSPECIFIED (3) SHAW (acute kidney injury) Assessment/Plan: nephrology eval monitor bun/creat Code(s): N17.9 - ACUTE KIDNEY FAILURE, UNSPECIFIED (4) CHF (congestive heart failure) Assessment/Plan: continue home meds tomorrow hold lasix, risk for dehydration Code(s): I50.9 - HEART FAILURE, UNSPECIFIED (5) Diabetes Assessment/Plan: monitor sugars IVF d5 @ 60, maintain while on clear liquids. when eating dc monitor glucose hold glimperide Code(s): E11.9 - TYPE 2 DIABETES MELLITUS WITHOUT COMPLICATIONS (6) HTN (hypertension) Assessment/Plan: cont home meds hold for sbp <120 Code(s): I10 - ESSENTIAL (PRIMARY) HYPERTENSION Qualifiers: (7) Afib Assessment/Plan: check previous work up not on ac --fall risk and bleeding cardio noted
[2019-12-08] MEDS ORDERED: cefTRIAXone SODIUM 1 GM VIAL ONE (08:35)
[2019-12-08] MEDS ORDERED: DEXTROSE 5%-WATER - 50 ML IVPB ONE (08:36)
[2019-12-08] MEDS: TOLTERODINE TARTRATE LA 4 MG CAP.SR.24H (FP) PO SCH (09:44)
[2019-12-08] MEDS: CARVEDILOL 6.25 MG TABLET (FP) PO SCH ×2 (09:44→21:00)
[2019-12-08] MEDS: ISOSORBIDE MONONITRATE 30 MG TAB.SR.24H (FP) PO SCH (09:44)
[2019-12-08] MEDS: PANTOPRAZOLE SODIUM 40 MG VIAL IVPUSH SCH (09:45)
--- NOTE | 2019-12-08 10:31 | PN ---
Progress Note, Physician History of Present Illness: Pt seen and examined at bedside. She is awake and alert. She denies shortness of breath. - Current Medication List Current Medications: Active Medications Atorvastatin Calcium (Lipitor -) 10 mg PO HS [facility] Last Admin: 12/07/19 21:02 Dose: 10 mg Documented by: Carvedilol (Coreg -) 6.25 mg PO BID [facility] Last Admin: 12/08/19 09:44 Dose: 6.25 mg Documented by: Hydralazine HCl (Apresoline -) 25 mg PO TID [facility] Last Admin: 12/08/19 05:51 Dose: Not Given Documented by: Metronidazole (Flagyl 500mg Premixed Ivpb -) 500 mg in 100 mls @ 100 mls/hr IVPB Q8H-IV [facility] Last Admin: 12/08/19 09:45 Dose: 100 mls/hr Documented by: Ceftriaxone Sodium 1 gm/ (Dextrose) 50 mls @ 200 mls/hr IVPB DAILY [facility]; Protocol Last Admin: 12/07/19 09:24 Dose: 200 mls/hr Documented by: Isosorbide Mononitrate (Imdur -) 30 mg PO DAILY [facility] Last Admin: 12/08/19 09:44 Dose: 30 mg Documented by: Non-Formulary Medication (Mirabegron [Myrbetriq]) 50 mg PO DAILY [facility] Pantoprazole Sodium (Protonix Iv) 40 mg IVPUSH DAILY [facility] Last Admin: 12/08/19 09:45 Dose: 40 mg Documented by: Polyethylene Glycol (Miralax (For Bowel Prep) -) 255 gm PO ONCE ONE Stop: 12/09/19 08:01 Sodium Phosphate (Fleet Adult Rectal Enema -) 133 ml RC ONCE ONE Stop: 12/10/19 04:01 Tolterodine Tartrate (Detrol La -) 4 mg PO DAILY [facility] Last Admin: 12/08/19 09:44 Dose: 4 mg Documented by: - Objective Vital Signs: Vital Signs Temperature 97.6 F 12/08/19 09:28 Pulse Rate 89 12/08/19 09:28 Respiratory Rate 20 12/08/19 09:28 Blood Pressure 117/64 12/08/19 09:28 O2 Sat by Pulse Oximetry (%) 97 12/08/19 09:00 Constitutional: Yes: Calm Eyes: Yes: Conjunctiva Clear HENT: Yes: Atraumatic Neck: Yes: Supple Cardiovascular: Yes: S1, S2 Respiratory: Yes: CTA Bilaterally Gastrointestinal: Yes: Normal Bowel Sounds, Soft Musculoskeletal: Yes: WNL Edema: No Neurological: Yes: Oriented Psychiatric: Yes: Oriented Labs: CBC, BMP 12/07/19 09:19 12/07/19 09:19 INR, PTT INR 1.10 (0.83-1.09) H 12/04/19 18:10 Problem List - Problems (1) SHAW (acute kidney injury) Code(s): N17.9 - ACUTE KIDNEY FAILURE, UNSPECIFIED (2) Bloody diarrhea Code(s): R19.7 - DIARRHEA, UNSPECIFIED (3) Rectal bleeding Code(s): K62.5 - HEMORRHAGE OF ANUS AND RECTUM Assessment/Plan Current Medications Generic Name Dose Route Start Last Admin Trade Name Freq PRN Reason Stop Dose Admin Atorvastatin Calcium 10 mg 12/05/19 22:00 12/07/19 21:02 Lipitor - PO 10 mg HS CARMELINA Administration Carvedilol 6.25 mg 12/07/19 10:00 12/08/19 09:44 Coreg - PO 6.25 mg BID CARMELINA Administration Hydralazine HCl 25 mg 12/05/19 22:00 12/08/19 05:51 Apresoline - PO Not Given TID CARMELINA Metronidazole 500 mg in 100 mls @ 100 mls/hr 12/05/19 10:00 12/08/19 09:45 Flagyl 500mg Premixed Ivpb - IVPB 100 mls/hr Q8H-IV [facility] Administration Ceftriaxone Sodium 1 gm/ 50 mls @ 200 mls/hr 12/06/19 11:19 12/07/19 09:24 Dextrose IVPB 200 mls/hr DAILY CARMELINA Administration Protocol Isosorbide Mononitrate 30 mg 12/06/19 10:00 12/08/19 09:44 Imdur - PO 30 mg DAILY CARMELINA Administration Non-Formulary Medication 50 mg 12/06/19 10:00 Mirabegron [Myrbetriq] PO DAILY [facility] Pantoprazole Sodium 40 mg 12/05/19 10:00 12/08/19 09:45 Protonix Iv IVPUSH 40 mg DAILY [facility]MELINA Administration Polyethylene Glycol 255 gm 12/09/19 08:00 Miralax (For Bowel Prep) - PO 12/09/19 08:01 ONCE ONE Sodium Phosphate 133 ml 12/10/19 04:00 Fleet Adult Rectal Enema - RC 12/10/19 04:01 ONCE ONE Tolterodine Tartrate 4 mg 12/07/19 10:00 12/08/19 09:44 Detrol La - PO 4 mg DAILY CARMELINA Administration Impression 1. SHAW 2. rectal bleeding 3. chf 4. htn 5. hld 6. dm Plan - monitor renal function - GI workup in progress - repeat labs in am - avoid nsaids - pt tolerating diet - stable off of fluids - lasix on hold for now
[2019-12-08] MEDS: CEFTRIAXONE 1 GM in DEXTROSE 5%-WATER - 50 ML IVPB SCH (11:00)
--- NOTE | 2019-12-08 11:13 | PN ---
Progress Note (short form) - Note Progress Note: still some abdominal discomfort nurse reports no blood in stools Vital Signs Period Temp Pulse Resp BP Sys/Gray Pulse Ox Last 24 Hr 97.6 F-98.6 F 76-89 18-25 96-130/45-67 97-97 cor-rrr lungs decreased bs at bases abd soft,mild bilateral lower quadrant tenderness to palpation CBC, BMP 12/07/19 09:19 12/07/19 09:19 Microbiology 12/05/19 18:25 Stool Salmonella/Shigella Culture - Preliminary 12/05/19 18:25 Stool Campylobacter Culture - Final NO GROWTH OF CAMPYLOBACTER SPECIES OBTAINED 12/05/19 18:25 Stool Yersinia Culture - Final NO GROWTH OF YERSINIA SPECIES OBTAINED 12/05/19 18:25 Stool Vibrio Culture - Final NO GROWTH OF VIBRIO SPECIES OBTAINED 12/05/19 18:25 Stool Escherichia coli 0157 Culture - Final NO GROWTH OF E COLI 0157 OBTAINED 12/05/19 23:15 Stool Gram Stain - Final 12/05/19 23:15 Stool Clostridioides difficile Antigen - Final 12/05/19 23:15 Stool Clostridioides difficile Toxin Assay - Final 12/04/19 21:15 Urine - Urine Clean Catch Urine Culture - Final Streptococcus Viridans imp/reccd 79 yo female admitted with 2 weeks of BRBPR suspect ischemic colitis as stool studies are unremarkable and she is afebrile with normal WBC making infectious colitis unlikely still had blood on toilet paper yesterday still with some bilateral LQ pain on exam would continue ceftriaxone and flagyl further management per GI hitroy of afib/cardiomyopathy/CAD
[2019-12-08] MEDS: ATORVASTATIN CA 10 MG TABLET (FP) PO SCH (20:59)
[2019-12-09] MEDS: hydrALAZINE HCL 25 MG TABLET (FP) PO SCH ×3 (05:42→21:34)
[2019-12-09] MEDS ORDERED: POLYETHYLENE GLYCOL 3350 255 GM BTL PO ONE (08:00)
--- NOTE | 2019-12-09 10:01 | PN ---
Progress Note, Physician - Current Medication List Current Medications: Active Medications Atorvastatin Calcium (Lipitor -) 10 mg PO HS [facility] Last Admin: 12/08/19 20:59 Dose: 10 mg Documented by: Carvedilol (Coreg -) 6.25 mg PO BID [facility] Last Admin: 12/08/19 21:00 Dose: Not Given Documented by: Hydralazine HCl (Apresoline -) 25 mg PO TID [facility] Last Admin: 12/09/19 05:42 Dose: Not Given Documented by: Metronidazole (Flagyl 500mg Premixed Ivpb -) 500 mg in 100 mls @ 100 mls/hr IVPB Q8H-IV [facility] Last Admin: 12/09/19 01:06 Dose: 100 mls/hr Documented by: Ceftriaxone Sodium 1 gm/ (Dextrose) 50 mls @ 200 mls/hr IVPB DAILY [facility]; Protocol Last Admin: 12/08/19 11:00 Dose: 200 mls/hr Documented by: Isosorbide Mononitrate (Imdur -) 30 mg PO DAILY [facility] Last Admin: 12/08/19 09:44 Dose: 30 mg Documented by: Non-Formulary Medication (Mirabegron [Myrbetriq]) 50 mg PO DAILY [facility] Pantoprazole Sodium (Protonix Iv) 40 mg IVPUSH DAILY [facility] Last Admin: 12/08/19 09:45 Dose: 40 mg Documented by: Sodium Phosphate (Fleet Adult Rectal Enema -) 133 ml RC ONCE ONE Stop: 12/10/19 04:01 Tolterodine Tartrate (Detrol La -) 4 mg PO DAILY [facility] Last Admin: 12/08/19 09:44 Dose: 4 mg Documented by: - Objective Vital Signs: Vital Signs Temperature 98.2 F 12/09/19 06:00 Pulse Rate 86 12/09/19 06:00 Respiratory Rate 24 H 12/09/19 06:00 Blood Pressure 112/28 L 12/09/19 06:00 O2 Sat by Pulse Oximetry (%) 97 12/08/19 21:00 Cardiovascular: Yes: Regular Rate and Rhythm Respiratory: Yes: Regular, CTA Bilaterally Gastrointestinal: Yes: Normal Bowel Sounds, Soft Labs: CBC, BMP 12/07/19 09:19 12/07/19 09:19 INR, PTT INR 1.10 (0.83-1.09) H 12/04/19 18:10 Assessment/Plan - Problems (1) Bloody diarrhea-Colitis Assessment/Plan: GI eval noted IV antbx per ID IVF check stool occult, o&p, wbc, c.diff advance to clear liquids monitor stools colonoscopy Tuesday Code(s): R19.7 - DIARRHEA, UNSPECIFIED (2) Urinary retention Assessment/Plan: johnson placed monitor output continue home myrbeq Code(s): R33.9 - RETENTION OF URINE, UNSPECIFIED (3) SHAW (acute kidney injury) Assessment/Plan: nephrology eval monitor bun/creat Code(s): N17.9 - ACUTE KIDNEY FAILURE, UNSPECIFIED (4) CHF (congestive heart failure) Assessment/Plan: continue home meds tomorrow hold lasix, risk for dehydration Code(s): I50.9 - HEART FAILURE, UNSPECIFIED (5) Diabetes Assessment/Plan: monitor sugars IVF d5 @ 60, maintain while on clear liquids. when eating dc monitor glucose hold glimperide Code(s): E11.9 - TYPE 2 DIABETES MELLITUS WITHOUT COMPLICATIONS (6) HTN (hypertension) Assessment/Plan: cont home meds hold for sbp <120 Code(s): I10 - ESSENTIAL (PRIMARY) HYPERTENSION Qualifiers: (7) Afib Assessment/Plan: check previous work up not on ac --fall risk and bleeding cardio noted
[2019-12-09] MEDS ORDERED: cefTRIAXone SODIUM 1 GM VIAL ONE (10:08)
[2019-12-09] MEDS ORDERED: DEXTROSE 5%-WATER - 50 ML IVPB ONE (10:09)
[2019-12-09] MEDS: ISOSORBIDE MONONITRATE 30 MG TAB.SR.24H (FP) PO SCH (10:12)
[2019-12-09] MEDS: CARVEDILOL 6.25 MG TABLET (FP) PO SCH ×2 (10:12→21:34)
[2019-12-09] MEDS: CEFTRIAXONE 1 GM in DEXTROSE 5%-WATER - 50 ML IVPB SCH (10:13)
[2019-12-09] MEDS: PANTOPRAZOLE SODIUM 40 MG VIAL IVPUSH SCH (10:13)
[2019-12-09] MEDS ORDERED: PT OWN MED DRAWER 7, Y5N ONE (10:48)
[2019-12-09] MEDS: TOLTERODINE TARTRATE LA 4 MG CAP.SR.24H (FP) PO SCH (11:48)
--- NOTE | 2019-12-09 15:44 | PN ---
Progress Note, Physician History of Present Illness: Pt seen and examined at bedside. She denies abdominal pain. - Current Medication List Current Medications: Active Medications Atorvastatin Calcium (Lipitor -) 10 mg PO HS [facility] Last Admin: 12/08/19 20:59 Dose: 10 mg Documented by: Carvedilol (Coreg -) 6.25 mg PO BID [facility] Last Admin: 12/09/19 10:12 Dose: 6.25 mg Documented by: Hydralazine HCl (Apresoline -) 25 mg PO TID [facility] Last Admin: 12/09/19 15:30 Dose: 25 mg Documented by: Metronidazole (Flagyl 500mg Premixed Ivpb -) 500 mg in 100 mls @ 100 mls/hr IVPB Q8H-IV [facility] Last Admin: 12/09/19 10:48 Dose: 100 mls/hr Documented by: Ceftriaxone Sodium 1 gm/ (Dextrose) 50 mls @ 200 mls/hr IVPB DAILY [facility]; Protocol Last Admin: 12/09/19 10:13 Dose: 200 mls/hr Documented by: Isosorbide Mononitrate (Imdur -) 30 mg PO DAILY [facility] Last Admin: 12/09/19 10:12 Dose: 30 mg Documented by: Non-Formulary Medication (Mirabegron [Myrbetriq]) 50 mg PO DAILY [facility] Pantoprazole Sodium (Protonix Iv) 40 mg IVPUSH DAILY [facility] Last Admin: 12/09/19 10:13 Dose: 40 mg Documented by: Sodium Phosphate (Fleet Adult Rectal Enema -) 133 ml RC ONCE ONE Stop: 12/10/19 04:01 Tolterodine Tartrate (Detrol La -) 4 mg PO DAILY [facility] Last Admin: 12/09/19 11:48 Dose: 4 mg Documented by: - Objective Vital Signs: Vital Signs Temperature 98.9 F 12/09/19 10:00 Pulse Rate 91 H 12/09/19 10:00 Respiratory Rate 24 H 12/09/19 10:00 Blood Pressure 140/76 12/09/19 10:00 O2 Sat by Pulse Oximetry (%) 97 12/09/19 09:00 Constitutional: Yes: Calm Eyes: Yes: Conjunctiva Clear HENT: Yes: Atraumatic Neck: Yes: Supple Cardiovascular: Yes: S1, S2 Respiratory: Yes: CTA Bilaterally Gastrointestinal: Yes: Soft Genitourinary: Yes: WNL Musculoskeletal: Yes: WNL Edema: No Neurological: Yes: Oriented Psychiatric: Yes: Oriented Labs: CBC, BMP 12/07/19 09:19 12/07/19 09:19 INR, PTT INR 1.10 (0.83-1.09) H 12/04/19 18:10 Problem List - Problems (1) SHAW (acute kidney injury) Code(s): N17.9 - ACUTE KIDNEY FAILURE, UNSPECIFIED (2) Bloody diarrhea Code(s): R19.7 - DIARRHEA, UNSPECIFIED (3) Rectal bleeding Code(s): K62.5 - HEMORRHAGE OF ANUS AND RECTUM Assessment/Plan Current Medications Generic Name Dose Route Start Last Admin Trade Name Freq PRN Reason Stop Dose Admin Atorvastatin Calcium 10 mg 12/05/19 22:00 12/08/19 20:59 Lipitor - PO 10 mg HS CARMELINA Administration Carvedilol 6.25 mg 12/07/19 10:00 12/09/19 10:12 Coreg - PO 6.25 mg BID CARMELINA Administration Hydralazine HCl 25 mg 12/05/19 22:00 12/09/19 15:30 Apresoline - PO 25 mg TID CARMELINA Administration Metronidazole 500 mg in 100 mls @ 100 mls/hr 12/05/19 10:00 12/09/19 10:48 Flagyl 500mg Premixed Ivpb - IVPB 100 mls/hr Q8H-IV [facility] Administration Ceftriaxone Sodium 1 gm/ 50 mls @ 200 mls/hr 12/06/19 11:19 12/09/19 10:13 Dextrose IVPB 200 mls/hr DAILY CARMELINA Administration Protocol Isosorbide Mononitrate 30 mg 12/06/19 10:00 12/09/19 10:12 Imdur - PO 30 mg DAILY [facility] Administration Non-Formulary Medication 50 mg 12/06/19 10:00 Mirabegron [Myrbetriq] PO DAILY [facility] Pantoprazole Sodium 40 mg 12/05/19 10:00 12/09/19 10:13 Protonix Iv IVPUSH 40 mg DAILY [facility] Administration Sodium Phosphate 133 ml 12/10/19 04:00 Fleet Adult Rectal Enema - RC 12/10/19 04:01 ONCE ONE Tolterodine Tartrate 4 mg 12/07/19 10:00 12/09/19 11:48 Detrol La - PO 4 mg DAILY [facility] Administration Impression 1. SHAW 2. rectal bleeding 3. chf 4. htn 5. hld 6. dm Plan - check cmp - GI workup in progress - avoid nsaids - pt tolerating diet - lasix on hold for now
[2019-12-09] MEDS ORDERED: ONDANSETRON 4 MG/2 ML VIAL IVPUSH ONE (19:16)
[2019-12-09] MEDS: ATORVASTATIN CA 10 MG TABLET (FP) PO SCH (21:34)
[2019-12-10] MEDS ORDERED: SODIUM PHOSPHATE/NA BIPHOS 133 ML ENEMA RC ONE (04:00)
[2019-12-10] MEDS: hydrALAZINE HCL 25 MG TABLET (FP) PO SCH ×3 (06:12→21:48)
[2019-12-10 07:55] LABS: BILIRUBIN,TOTAL 0.5 mg/dL (0.2-1); BLOOD UREA NITROGEN 22.7 mg/dL (7-18); CALCIUM 8.1 mg/dL (8.5-10.1); CREATININE 1.1 mg/dL (0.55-1.3); POTASSIUM 4.2 mmol/L (3.5-5.1); TOT PROT 6.1 g/dl (6.4-8.2)
--- NOTE | 2019-12-10 08:22 | DS ---
Physical Examination Vital Signs: Vital Signs Temperature 98.6 F 12/10/19 06:00 Pulse Rate 73 12/10/19 06:00 Respiratory Rate 18 12/10/19 08:13 Blood Pressure 128/67 12/10/19 06:00 O2 Sat by Pulse Oximetry (%) 97 12/10/19 08:13 Cardiovascular: Yes: S1, S2 Respiratory: Yes: Regular, CTA Bilaterally Gastrointestinal: Yes: Normal Bowel Sounds, Soft Labs: CBC, BMP 12/07/19 09:19 12/10/19 06:01 Discharge Summary Problems reviewed: Yes Reason For Visit: RECTAL BLEEDACUTE KIDNEY INJURY Current Active Problems SHAW (acute kidney injury) (Acute) Bloody diarrhea (Acute) Rectal bleeding (Acute) Urinary retention (Acute) Hospital Course: - Problems (1) Bloody diarrhea Assessment/Plan: no blood in stool per pt GI eval noted IV antbx--ID consult IVF check stool occult, o&p, wbc, c.diff advance to regular monitor stools Code(s): R19.7 - DIARRHEA, UNSPECIFIED (2) Urinary retention Assessment/Plan: johnson placed monitor output continue home myrbeq Code(s): R33.9 - RETENTION OF URINE, UNSPECIFIED (3) SHAW (acute kidney injury) Assessment/Plan: nephrology eval monitor bun/creat Code(s): N17.9 - ACUTE KIDNEY FAILURE, UNSPECIFIED (4) CHF (congestive heart failure) Assessment/Plan: continue home meds tomorrow hold lasix, risk for dehydration Code(s): I50.9 - HEART FAILURE, UNSPECIFIED (5) Diabetes Assessment/Plan: monitor sugars IVF d5 @ 60, maintain while on clear liquids. when eating dc monitor glucose hold glimperide Code(s): E11.9 - TYPE 2 DIABETES MELLITUS WITHOUT COMPLICATIONS (6) HTN (hypertension) Assessment/Plan: cont home meds hold for sbp <120 Code(s): I10 - ESSENTIAL (PRIMARY) HYPERTENSION Qualifiers: (7) Afib Assessment/Plan: check previous work up no on ac cardio consult PT EVALUATION IF CLEARED BY GI DC HOME AFTER COLONOSCOPY Condition: Stable - Instructions Referrals: Dieter Quintero MD [Primary Care Provider] - Disposition: HOME - Home Medications Comprehensive Discharge Medication List: Ambulatory Orders Glimepiride [Amaryl] 4 mg PO DAILY 07/19/17 Furosemide [Lasix] 40 mg PO DAILY 12/18/18 Carvedilol 6.25 mg PO DAILY 12/04/19 Hydralazine HCl 25 mg PO TID 12/04/19 Isosorbide Mononitrate [Isosorbide Mononitrate ER] 30 mg PO DAILY 12/04/19 Mirabegron [Myrbetriq] 50 mg PO DAILY 12/04/19 Pantoprazole Sodium 40 mg PO DAILY 12/04/19 Simvastatin 20 mg PO DAILY 12/04/19 Spironolactone 25 mg PO DAILY 12/04/19 Trospium Chloride [Trospium Chloride ER] 20 mg PO BID 12/04/19
[2019-12-10] MEDS ORDERED: DEXTROSE 5%-WATER - 50 ML IVPB ONE (09:45)
[2019-12-10] MEDS ORDERED: cefTRIAXone SODIUM 1 GM VIAL ONE (09:45)
--- NOTE | 2019-12-10 09:50 | PN ---
Progress Note (short form) - Note Progress Note: still some abdominal discomfort nurse reports no blood in her stools, she didn prep for endoscopy today Vital Signs Period Temp Pulse Resp BP Sys/Gray Pulse Ox Last 24 Hr 98.4 F-98.9 F 73-108 16-24 112-140/49-101 94-97 cor-rrr lungs clear abd soft,mild bilateral LQ discomfort to deep palpation ext no edema CBC, BMP 12/07/19 09:19 12/10/19 06:01 Microbiology 12/05/19 18:25 Stool Salmonella/Shigella Culture - Final 12/05/19 18:25 Stool Campylobacter Culture - Final NO GROWTH OF CAMPYLOBACTER SPECIES OBTAINED 12/05/19 18:25 Stool Yersinia Culture - Final NO GROWTH OF YERSINIA SPECIES OBTAINED 12/05/19 18:25 Stool Vibrio Culture - Final NO GROWTH OF VIBRIO SPECIES OBTAINED 12/05/19 18:25 Stool Escherichia coli 0157 Culture - Final NO GROWTH OF E COLI 0157 OBTAINED 12/05/19 23:15 Stool Gram Stain - Final 12/05/19 23:15 Stool Clostridioides difficile Antigen - Final 12/05/19 23:15 Stool Clostridioides difficile Toxin Assay - Final 12/04/19 21:15 Urine - Urine Clean Catch Urine Culture - Final Streptococcus Viridans imp/reccd 79 yo female admitted with 2 weeks of BRBPR suspect ischemic colitis as stool studies are unremarkable and she is afebrile with normal WBC making infectious colitis unlikely would continue ceftriaxone and flagyl further management per GI-for endoscopy today further decisions regarding her management to be made after endoscopy today hitory of afib/cardiomyopathy/CAD d/w dr castellano
[2019-12-10] MEDS: CEFTRIAXONE 1 GM in DEXTROSE 5%-WATER - 50 ML IVPB SCH (09:55)
[2019-12-10] MEDS: PANTOPRAZOLE SODIUM 40 MG VIAL IVPUSH SCH (09:55)
[2019-12-10] MEDS: TOLTERODINE TARTRATE LA 4 MG CAP.SR.24H (FP) PO SCH (10:23)
[2019-12-10] MEDS: ISOSORBIDE MONONITRATE 30 MG TAB.SR.24H (FP) PO SCH (10:23)
[2019-12-10] MEDS: CARVEDILOL 6.25 MG TABLET (FP) PO SCH ×2 (10:24→21:48)
--- NOTE | 2019-12-10 15:34 | PN ---
Progress Note, Physician History of Present Illness: Pt seen and examined at bedside. She is awake and alert. She denies shortness of breath. - Current Medication List Current Medications: Active Medications Atorvastatin Calcium (Lipitor -) 10 mg PO HS [facility] Last Admin: 12/09/19 21:34 Dose: 10 mg Documented by: Carvedilol (Coreg -) 6.25 mg PO BID [facility] Last Admin: 12/10/19 10:24 Dose: 6.25 mg Documented by: Hydralazine HCl (Apresoline -) 25 mg PO TID [facility] Last Admin: 12/10/19 06:12 Dose: Not Given Documented by: Metronidazole (Flagyl 500mg Premixed Ivpb -) 500 mg in 100 mls @ 100 mls/hr IVPB Q8H-IV [facility] Last Admin: 12/10/19 09:55 Dose: 100 mls/hr Documented by: Ceftriaxone Sodium 1 gm/ (Dextrose) 50 mls @ 200 mls/hr IVPB DAILY [facility]; Protocol Last Admin: 12/10/19 09:55 Dose: 200 mls/hr Documented by: Isosorbide Mononitrate (Imdur -) 30 mg PO DAILY [facility] Last Admin: 12/10/19 10:23 Dose: 30 mg Documented by: Non-Formulary Medication (Mirabegron [Myrbetriq]) 50 mg PO DAILY [facility] Pantoprazole Sodium (Protonix Iv) 40 mg IVPUSH DAILY [facility] Last Admin: 12/10/19 09:55 Dose: 40 mg Documented by: Tolterodine Tartrate (Detrol La -) 4 mg PO DAILY [facility] Last Admin: 12/10/19 10:23 Dose: 4 mg Documented by: - Objective Vital Signs: Vital Signs Temperature 98.3 F 12/10/19 14:00 Pulse Rate 70 12/10/19 14:32 Respiratory Rate 16 12/10/19 14:32 Blood Pressure 130/61 12/10/19 14:32 O2 Sat by Pulse Oximetry (%) 96 12/10/19 14:32 Constitutional: Yes: Calm Eyes: Yes: Conjunctiva Clear HENT: Yes: Atraumatic Neck: Yes: Supple Cardiovascular: Yes: S1, S2 Respiratory: Yes: CTA Bilaterally Gastrointestinal: Yes: Normal Bowel Sounds, Soft Genitourinary: Yes: WNL Musculoskeletal: Yes: WNL Edema: No Neurological: Yes: Oriented Psychiatric: Yes: Oriented Labs: CBC, BMP 12/07/19 09:19 12/10/19 06:01 INR, PTT INR 1.10 (0.83-1.09) H 12/04/19 18:10 Problem List - Problems (1) SHAW (acute kidney injury) Code(s): N17.9 - ACUTE KIDNEY FAILURE, UNSPECIFIED (2) Bloody diarrhea Code(s): R19.7 - DIARRHEA, UNSPECIFIED (3) Rectal bleeding Code(s): K62.5 - HEMORRHAGE OF ANUS AND RECTUM Assessment/Plan Current Medications Generic Name Dose Route Start Last Admin Trade Name Freq PRN Reason Stop Dose Admin Atorvastatin Calcium 10 mg 12/05/19 22:00 12/09/19 21:34 Lipitor - PO 10 mg HS CARMELINA Administration Carvedilol 6.25 mg 12/07/19 10:00 12/10/19 10:24 Coreg - PO 6.25 mg BID CARMELINA Administration Hydralazine HCl 25 mg 12/05/19 22:00 12/10/19 06:12 Apresoline - PO Not Given TID CARMELINA Metronidazole 500 mg in 100 mls @ 100 mls/hr 12/05/19 10:00 12/10/19 09:55 Flagyl 500mg Premixed Ivpb - IVPB 100 mls/hr Q8H-IV CARMELINA Administration Ceftriaxone Sodium 1 gm/ 50 mls @ 200 mls/hr 12/06/19 11:19 12/10/19 09:55 Dextrose IVPB 200 mls/hr DAILY CARMELINA Administration Protocol Isosorbide Mononitrate 30 mg 12/06/19 10:00 12/10/19 10:23 Imdur - PO 30 mg DAILY CARMELINA Administration Non-Formulary Medication 50 mg 12/06/19 10:00 Mirabegron [Myrbetriq] PO DAILY CARMELINA Pantoprazole Sodium 40 mg 12/05/19 10:00 12/10/19 09:55 Protonix Iv IVPUSH 40 mg DAILY CARMELINA Administration Tolterodine Tartrate 4 mg 12/07/19 10:00 12/10/19 10:23 Detrol La - PO 4 mg DAILY CARMELINA Administration Impression 1. SHAW 2. rectal bleeding 3. chf 4. htn 5. hld 6. dm Plan - renal function stabilizing - will keep lasix on hold for now - outpt follow up - endoscopy report reviewed - avoid nsaids
[2019-12-10] MEDS: ATORVASTATIN CA 10 MG TABLET (FP) PO SCH (21:48)
[2019-12-11] MEDS: hydrALAZINE HCL 25 MG TABLET (FP) PO SCH (06:29)
[2019-12-11 07:18] VITALS: TEMP 97.2
[2019-12-11 08:23] VITALS: BP 130/58; PULSE 66
--- NOTE | 2019-12-11 08:33 | DS ---
Physical Examination Vital Signs: Vital Signs Temperature 97.2 F L 12/11/19 06:00 Pulse Rate 66 12/11/19 08:22 Respiratory Rate 24 H 12/11/19 08:22 Blood Pressure 130/58 L 12/11/19 08:22 O2 Sat by Pulse Oximetry (%) 94 L 12/11/19 08:17 Cardiovascular: Yes: Regular Rate and Rhythm Respiratory: Yes: Regular, CTA Bilaterally Gastrointestinal: Yes: Normal Bowel Sounds, Soft Labs: CBC, BMP 12/07/19 09:19 12/10/19 06:01 Discharge Summary Problems reviewed: Yes Reason For Visit: RECTAL BLEEDACUTE KIDNEY INJURY Current Active Problems SHAW (acute kidney injury) (Acute) Bloody diarrhea (Acute) Rectal bleeding (Acute) Urinary retention (Acute) Hospital Course: - Problems (1) Bloody diarrhea Assessment/Plan: no blood in stool per pt GI eval noted--colon done results noted IV antbx--ID consult--po flagyl per gi tolerating regular monitor stools Code(s): R19.7 - DIARRHEA, UNSPECIFIED (2) Urinary retention Assessment/Plan: monitor output continue home myrbeq Code(s): R33.9 - RETENTION OF URINE, UNSPECIFIED (3) SHAW (acute kidney injury) Assessment/Plan: nephrology eval monitor bun/creat Code(s): N17.9 - ACUTE KIDNEY FAILURE, UNSPECIFIED (4) CHF (congestive heart failure) Assessment/Plan: continue home meds tomorrow hold lasix, risk for dehydration Code(s): I50.9 - HEART FAILURE, UNSPECIFIED (5) Diabetes Assessment/Plan: monitor glucose Code(s): E11.9 - TYPE 2 DIABETES MELLITUS WITHOUT COMPLICATIONS (6) HTN (hypertension) Assessment/Plan: cont home meds hold for sbp <120 Code(s): I10 - ESSENTIAL (PRIMARY) HYPERTENSION Qualifiers: (7) Afib Assessment/Plan: check previous work up no on ac cardio consult PT EVALUATION IF CLEARED BY GI DC HOME AFTER COLONOSCOPY Condition: Stable - Instructions Referrals: Dieter Quintero MD [Primary Care Provider] - Disposition: HOME - Home Medications Comprehensive Discharge Medication List: Ambulatory Orders Glimepiride [Amaryl] 4 mg PO DAILY 07/19/17 Furosemide [Lasix] 40 mg PO DAILY 03/18/19 Carvedilol 6.25 mg PO DAILY 12/04/19 Hydralazine HCl 25 mg PO TID 12/04/19 Isosorbide Mononitrate [Isosorbide Mononitrate ER] 30 mg PO DAILY 12/04/19 Mirabegron [Myrbetriq] 50 mg PO DAILY 12/04/19 Pantoprazole Sodium 40 mg PO DAILY 12/04/19 Simvastatin 20 mg PO DAILY 12/04/19 Spironolactone 25 mg PO DAILY 12/04/19 Trospium Chloride [Trospium Chloride ER] 20 mg PO BID 12/04/19 metroNIDAZOLE [Flagyl -] 250 mg PO TID #42 tablet 12/11/19
--- NOTE | 2019-12-11 08:35 | PN.GI ---
GI Progress Note Subjective: Patient is s/p colonoscopy and no active bleeding diverticulosis, however large internal hemorrhoids seen. She has mild RLQ tenderness on palpation. Denies nausea, vomiting, diarrhea, constipation, rectal bleeding, or melena. There is no contraindication from GI perspective for discharge. - Objective Vital Signs: Vital Signs Temperature 97.2 F L 12/11/19 06:00 Pulse Rate 66 12/11/19 08:22 Respiratory Rate 24 H 12/11/19 08:22 Blood Pressure 130/58 L 12/11/19 08:22 O2 Sat by Pulse Oximetry (%) 94 L 12/11/19 08:17 Constitutional: No Distress, Calm Eyes: Yes: Conjunctiva Clear HENT: Yes: Atraumatic Cardiovascular: Yes: Regular Rate and Rhythm Respiratory: Yes: Regular, CTA Bilaterally Gastrointestinal Inspection: Yes: WNL. No: Ascites, Distention, Hernia, Scars, Other ...Auscultate: Yes: Normoactive Bowel Sounds. No: Hyperactive Bowel Sounds, Hypoactive Bowel Sounds, No Bowel Sounds, Other ...Palpate: Yes: Soft, Tenderness (rlq). No: Firm/Rigid, Guarding, Hepatomegaly, Mass, Pulsatile Mass, Splenomegaly, Tenderness, Epigastium, Tend erness, Rebound, Other ...Percussion: Yes: Tympanitic. No: Dullness, Fluid Wave, Other Neurological: Yes: Alert, Oriented Psychiatric: Yes: Alert, Oriented Labs: CBC, BMP 12/07/19 09:19 12/10/19 06:01 INR, PTT INR 1.10 (0.83-1.09) H 12/04/19 18:10 Active Medications Generic Name Dose Route Start Last Admin Trade Name Freq PRN Reason Stop Dose Admin Atorvastatin Calcium 10 mg 12/05/19 22:00 12/10/19 21:48 Lipitor - PO 10 mg HS CARMELINA Administration Carvedilol 6.25 mg 12/07/19 10:00 12/10/19 21:48 Coreg - PO 6.25 mg BID CARMELINA Administration Hydralazine HCl 25 mg 12/05/19 22:00 12/11/19 06:29 Apresoline - PO 25 mg TID CARMELINA Administration Isosorbide Mononitrate 30 mg 12/06/19 10:00 12/10/19 10:23 Imdur - PO 30 mg DAILY CARMELINA Administration Metronidazole 250 mg 12/11/19 14:00 Flagyl - PO TID CARMELINA Non-Formulary Medication 50 mg 12/06/19 10:00 Mirabegron [Myrbetriq] PO DAILY CARMELINA Pantoprazole Sodium 40 mg 12/11/19 10:00 Protonix - PO DAILY CARMELINA Tolterodine Tartrate 4 mg 12/07/19 10:00 12/10/19 10:23 Detrol La - PO 4 mg DAILY CARMELINA Administration Problem List - Problems (1) Bloody diarrhea Assessment/Plan: resolved R> colonoscopy shows no bleeding diverticulosis, large internal hemorrhoids Code(s): R19.7 - DIARRHEA, UNSPECIFIED (2) Internal hemorrhoids Assessment/Plan: R>Miralax 17g daily Hydrocortisone Supp QHS x 7d instructed to follow up in office as outpatient in 1 week from discharge~sami mmend Flagyl 250mg TIDAC x 14d for mild RLQ tenderness Code(s): K64.8 - OTHER HEMORRHOIDS
[2019-12-11] MEDS ORDERED: PANTOPRAZOLE 40 MG TABLET PO SCH (10:00)
[2019-12-11] MEDS: CARVEDILOL 6.25 MG TABLET (FP) PO SCH (10:28)
[2019-12-11] MEDS: ISOSORBIDE MONONITRATE 30 MG TAB.SR.24H (FP) PO SCH (10:29)
[2019-12-11] MEDS: TOLTERODINE TARTRATE LA 4 MG CAP.SR.24H (FP) PO SCH (10:29)
[2019-12-11] MEDS ORDERED: metroNIDAZOLE 250 MG TABLET PO SCH (14:00)
[2019-12-11] MEDS ORDERED: DOCUSATE SODIUM 100 MG CAPSULE (FP) PO PRN (14:06)
--- NOTE | 2019-12-11 14:06 | PN ---
Progress Note, Physician History of Present Illness: Pt seen and examined at bedside. She is awake and alert. She denies shortness of breath. - Current Medication List Current Medications: Active Medications Atorvastatin Calcium (Lipitor -) 10 mg PO HS [facility] Last Admin: 12/10/19 21:48 Dose: 10 mg Documented by: Carvedilol (Coreg -) 6.25 mg PO BID [facility] Last Admin: 12/11/19 10:28 Dose: 6.25 mg Documented by: Hydralazine HCl (Apresoline -) 25 mg PO TID [facility] Last Admin: 12/11/19 06:29 Dose: 25 mg Documented by: Isosorbide Mononitrate (Imdur -) 30 mg PO DAILY [facility] Last Admin: 12/11/19 10:29 Dose: 30 mg Documented by: Metronidazole (Flagyl -) 250 mg PO TID [facility] Non-Formulary Medication (Mirabegron [Myrbetriq]) 50 mg PO DAILY [facility] Pantoprazole Sodium (Protonix -) 40 mg PO DAILY [facility] Last Admin: 12/11/19 10:28 Dose: 40 mg Documented by: Tolterodine Tartrate (Detrol La -) 4 mg PO DAILY [facility] Last Admin: 12/11/19 10:29 Dose: 4 mg Documented by: - Objective Vital Signs: Vital Signs Temperature 97.2 F L 12/11/19 06:00 Pulse Rate 66 12/11/19 08:22 Respiratory Rate 24 H 12/11/19 08:22 Blood Pressure 130/58 L 12/11/19 08:22 O2 Sat by Pulse Oximetry (%) 94 L 12/11/19 08:17 Constitutional: Yes: Calm Eyes: Yes: Conjunctiva Clear HENT: Yes: Atraumatic Neck: Yes: Supple Cardiovascular: Yes: S1, S2 Respiratory: Yes: CTA Bilaterally Gastrointestinal: Yes: Normal Bowel Sounds, Soft Genitourinary: Yes: WNL Musculoskeletal: Yes: WNL Edema: No Neurological: Yes: Oriented Psychiatric: Yes: Oriented Labs: CBC, BMP 12/07/19 09:19 12/10/19 06:01 INR, PTT INR 1.10 (0.83-1.09) H 12/04/19 18:10 Problem List - Problems (1) SHAW (acute kidney injury) Code(s): N17.9 - ACUTE KIDNEY FAILURE, UNSPECIFIED (2) Bloody diarrhea Code(s): R19.7 - DIARRHEA, UNSPECIFIED (3) Rectal bleeding Code(s): K62.5 - HEMORRHAGE OF ANUS AND RECTUM Assessment/Plan Current Medications Generic Name Dose Route Start Last Admin Trade Name Freq PRN Reason Stop Dose Admin Atorvastatin Calcium 10 mg 12/05/19 22:00 12/10/19 21:48 Lipitor - PO 10 mg HS CARMELINA Administration Carvedilol 6.25 mg 12/07/19 10:00 12/11/19 10:28 Coreg - PO 6.25 mg BID CARMELINA Administration Hydralazine HCl 25 mg 12/05/19 22:00 12/11/19 06:29 Apresoline - PO 25 mg TID CARMELINA Administration Isosorbide Mononitrate 30 mg 12/06/19 10:00 12/11/19 10:29 Imdur - PO 30 mg DAILY CARMELINA Administration Metronidazole 250 mg 12/11/19 14:00 Flagyl - PO TID CARMELINA Non-Formulary Medication 50 mg 12/06/19 10:00 Mirabegron [Myrbetriq] PO DAILY CARMELINA Pantoprazole Sodium 40 mg 12/11/19 10:00 12/11/19 10:28 Protonix - PO 40 mg DAILY CARMELINA Administration Tolterodine Tartrate 4 mg 12/07/19 10:00 12/11/19 10:29 Detrol La - PO 4 mg DAILY CARMELINA Administration Impression 1. SHAW 2. rectal bleeding 3. chf 4. htn 5. hld 6. dm Plan - no new labs - volume status stable - can d/c off of lasix for now - will see in office - avoid constipation
== END 2019-12-11 13:45 | disposition home or self-care (01) | DRG 378 ==
LOC: JER 17:27 → JERBED 19:30 → J2W 12-05 21:05
PROVIDERS: ADMIT Internal Medicine; ATTEND Family Medicine
PROC: 0DJD8ZZ Inspection of Lower Intestinal Tract, Via Natural or Artificial Opening Endoscopic (ICD-10-PCS; principal; 2019-12-10 12:00)
DX: K62.5 Hemorrhage of anus and rectum (principal); K55.9 Vascular disorder of intestine, unspecified; I42.8 Other cardiomyopathies; N17.9 Acute kidney failure, unspecified; I50.22 Chronic systolic (congestive) heart failure; E78.5 Hyperlipidemia, unspecified; E11.9 Type 2 diabetes mellitus without complications; I48.0 Paroxysmal atrial fibrillation; K21.9 Gastro-esophageal reflux disease without esophagitis; N31.9 Neuromuscular dysfunction of bladder, unspecified; E78.00 Pure hypercholesterolemia, unspecified; K58.9 Irritable bowel syndrome, unspecified; M48.00 Spinal stenosis, site unspecified; I11.0 Hypertensive heart disease with heart failure; R33.9 Retention of urine, unspecified; K64.8 Other hemorrhoids; I25.10 Atherosclerotic heart disease of native coronary artery without angina pectoris; I27.20 Pulmonary hypertension, unspecified; I08.1 Rheumatic disorders of both mitral and tricuspid valves; K57.90 Diverticulosis of intestine, part unspecified, without perforation or abscess without bleeding
CPT/HCPCS: 36415; 71045-TC-FY; 74177-TC; 80048; 80053; 81003; 82272; 82436; 82550; 82565; 82962; 83993; 84133; 84300; 84484; 85025; 85610; 85730; 86850; 86900; 86901; 87045; 87046; 87077; 87086; 87177; 87205; 87209; 87324; 87449; 93005; 93010; 97116-GP; 97161-GP; 99285-25; Q2036; Q9967

== ENCOUNTER 2020-05-17 16:42 | Inpatient (IN) | payer OTHER ==
[2020-05-17 17:47] LABS: BASO % 0.4 % (0-2.0); HEMATOCRIT 40.8 % (32.4-45.2); HEMOGLOBIN 13.6 GM/dL (10.7-15.3); LYMPH % 22.2 % (8-40); MCH 29.6 pg (25.7-33.7); MCHC 33.3 g/dl (32.0-36.0); MEAN CELL VOLUME 88.6 fl (80-96); MEAN PLT VOLUME 9.4 fl (7.5-11.1); NEUT % 69.4 % (42.8-82.8); PLATELET COUNT 188 K/MM3 (134-434); RBC 4.61 M/mm3 (3.60-5.2); RDW 13.9 % (11.6-15.6); WHITE BLOOD COUNT 9.8 K/mm3 (4.0-10.0)
--- NOTE | 2020-05-17 18:05 | PDOC ---
History of Present Illness - General Stated Complaint: AMS, DIFFICULTY WALKING Time Seen by Provider: 05/17/20 17:38 - History of Present Illness Initial Comments: 05/17/20 18:01 79 y/o female with a PMHx of HTN, HLD, CHF, DM Who presents to the ED with BIBA from home for AMS. According to family member, patient has become altered, wasn't herself. She had syncope, fell a couple times. No LOC. Normally, she walks with a walker, but unable to walk for the past few days. When she tries to , she fell to the ground. Denies N/V/F/C/no chest pain/no abdominal pain While she is here, She was AOx1 and in no acute distress. PMHX: as in HPI Meds: UNCLEAR. Allergies: aspirin PCP: Beader Tender: Nurse Monae who spoke slovak. ROS: hard to assess GENERAL/CONSTITUTIONAL: No fever or chills. No weakness. HEAD, EYES, EARS, NOSE AND THROAT: No change in vision. No ear pain or discharge. No sore throat. CARDIOVASCULAR: No chest pain or shortness of breath RESPIRATORY: No cough, wheezing, or hemoptysis. GASTROINTESTINAL: No nausea, vomiting, diarrhea or constipation. GENITOURINARY: No dysuria, frequency, or change in urination. MUSCULOSKELETAL: No joint or muscle swelling or pain. No neck or back pain. SKIN: No rash NEUROLOGIC: No headache, +Syncope, no loss of consciousness, or change in strength/sensation. ENDOCRINE: No increased thirst. No abnormal weight change HEMATOLOGIC/LYMPHATIC: No anemia, easy bleeding, or history of blood clots. ALLERGIC/IMMUNOLOGIC: No hives or skin allergy. PE GENERAL: AOx1 in no acute distress, breathing comfortably. Respond to Welsh. HEAD: No signs of trauma, normocephalic, atraumatic EYES: PERRLA, EOMI, sclera anicteric, conjunctiva clear ENT: Auricles normal inspection, hearing grossly normal, nares patent, oropharynx clear without exudates. Moist mucosa NECK: Normal ROM, supple, no lymphadenopathy, JVD, or masses. NO NECK TENDERNESS. LUNGS: No distress, speaks full sentences, clear to auscultation bilaterally HEART: Regular rate and rhythm, normal S1 and S2, no murmurs, rubs or gallops, peripheral pulses normal and equal bilaterally. ABDOMEN: Soft, nontender, normoactive bowel sounds. No guarding, no rebound. No masses EXTREMITIES : Normal inspection, Normal range of motion, no edema. No clubbing or cyanosis. Normal strength, moving in command. NEUROLOGICAL: Cranial nerves II through XII grossly intact. Normal speech, no focal sensorimotor deficits SKIN: Warm, Dry, normal turgor, no rashes or lesions noted 05/17/20 18:05 05/17/20 18:06 05/17/20 18:44 Past History - Medical History Allergies/Adverse Reactions: Allergies Allergy/AdvReac Type Severity Reaction Status Date / Time aspirin Allergy Severe Swelling Verified 05/18/20 03:58 Home Medications: Ambulatory Orders Glimepiride [Amaryl] 4 mg PO DAILY 07/19/17 Furosemide [Lasix] 40 mg PO DAILY 12/18/18 Carvedilol 6.25 mg PO DAILY 12/04/19 Hydralazine HCl 25 mg PO TID 12/04/19 Isosorbide Mononitrate [Isosorbide Mononitrate ER] 30 mg PO DAILY 12/04/19 Mirabegron [Myrbetriq] 50 mg PO DAILY 12/04/19 Pantoprazole Sodium 40 mg PO DAILY 12/04/19 Simvastatin 20 mg PO DAILY 12/04/19 Spironolactone 25 mg PO DAILY 12/04/19 Trospium Chloride [Trospium Chloride ER] 20 mg PO BID 12/04/19 Anemia: No Asthma: No Cancer: No Cardiac Disorders: Yes (PAF, NON ISCHEMIC CARDIOMYOPATHY) CVA: No COPD: Yes CHF: Yes Dementia: No Diabetes: Yes GI Disorders: Yes (GERD, gastritis) Disorders: Yes (UTI, neurogenic bladder) HTN: Yes Hypercholesterolemia: Yes Liver Disease: No Seizures: No Thyroid Disease: No - Surgical History Orthopedic Surgery: Yes (Right SHOULDER) - Immunization History Immunization Up to Date: No (Unknown) - Psycho-Social/Smoking History Smoking History: Never smoked Have you smoked in the past 12 months: No - Substance Abuse Hx (Audit-C & DAST Scrn) How often the patient has a drink containing alcohol: Never Score: In Men: 4 or > Positive; In Women: 3 or > Positive: 0 Screen Result (Pos requires Nsg. Audit-10AR): Negative *Physical Exam - Vital Signs Last Vital Signs Temp Pulse Resp BP Pulse Ox 97.5 F L 76 18 120/39 L 98 05/17/20 16:45 05/17/20 16:45 05/17/20 16:45 05/17/20 16:45 05/17/20 16:45 ED Treatment Course - LABORATORY CBC & Chemistry Diagram: 05/18/20 09:20 05/21/20 07:45 - ADDITIONAL ORDERS Additional order review: 05/17/20 16:55 RBC 4.61 MCV 88.6 MCHC 33.3 RDW 13.9 MPV 9.4 Neutrophils % 69.4 Lymphocytes % 22.2 Monocytes % 6.0 Eosinophils % 2.0 Basophils % 0.4 Medical Decision Making - Medical Decision Making 05/17/20 18:07 79 y/o female with a PMHx of HTN, HLD, CHF, DM BIBA from home for AMS+syncope plan to admit for ACS vs syncope. Doing a AMS workup on her. 05/17/20 18:47 Lab showed SHAW and UTI. EKG showed issac rate 72, A.fib , nonspecific ST and T waves abnormalities. Awaiting: CT head, neck, Pelvic Xray---> admit for syncope vs UTI Due to high epithelial cells, will redo UA after 500cc of fluid. Discharge - Discharge Information Problems reviewed: Yes Clinical Impression/Diagnosis: SHAW (acute kidney injury) Altered mental status Qualifiers: Altered mental status type: unspecified Qualified Code(s): R41.82 - Altered mental status, unspecified Condition: Improved [facility] - Follow up/Referral - Patient Discharge Instructions - Post Discharge Activity
--- NOTE | 2020-05-17 18:14 | PDOC ---
Documentation entered by Shaylee Eduardo SCRIBE, acting as scribe for Marco Palmer MD. Marco Palmer MD: This documentation has been prepared by the Jayce thompson Xhesika, SCRIBE, under my direction and personally reviewed by me in its entirety. I confirm that the documentation accurately reflects all work, treatment, procedures, and medical decision making performed by me. Attending Attestation - Resident Resident Name: Aidan Vanessa - ED Attending Attestation I have performed the following: I have examined & evaluated the patient, The case was reviewed & discussed with the resident, I agree w/resident's findings & plan, Exceptions are as noted - HPI HPI: 05/17/20 17:26 The patient is a 78 year old female, with a significant past medical history of CAD, CHF, mitral regurgitation, Afib, DM, COPD, HTN, HLD, who presents to the emergency department BIBA for AMS and multiple falls. Family reports that patient has been unlike her self and altered for the past 2 days. Allergies: Aspirin. Primary Care Physician: Ingrid Carmona - Physicial Exam PE: EXAMINATION CONSTITUTIONAL: Awake, alert, oriented to self only; follows commands, in no apparent distress HEAD: Normocephalic; atraumatic EYES: PERRL; EOM intact ENMT: External appears normal; normal oropharynx NECK: Supple; non-tender; no jvd CARD: Irregularly irregular; no murmurs, rubs, or gallops RESP: Normal chest excursion with respiration; + mild ronchi b/l ABD: Soft, non-distended; non-tender; no palpable organomegaly, no palpable hernias PELVIS:stable EXT: Normal ROM in all four extremities; non-tender to palpation; distal pulses intact SKIN: Warm, dry, no petechiae NEURO:alert, follows commands, no pronaiton drift - Medical Decision Making 05/17/20 18:17 Patient is 79-year-old Hebrew speaking female with multiple comorbidities who presents to the ER from home with history of frequent falls and increased confusion. In the ER, patient is awake, oriented to self only. Patient follows commands. Patient is afebrile and nontoxic hearing. There is no evidence of meningismus. Minimal bilateral rhonchi noted on auscultation, irregularly irregular heart rhythm is appreciated; pelvis is stable. There is no obvious extremity deformity. Differential diagnosis includes mechanical fall versus syncope versus ACS versus acute infection . will obtain CT of head and cervical spine; will obtain CBC/CMP/cardiac profile/UA/urine culture. Will obtain pelvic x-ray to rule out fracture. Will reassess. Likely admission. Discharge - Discharge Information Problems reviewed: Yes Clinical Impression/Diagnosis: SHAW (acute kidney injury) Altered mental status Qualifiers: Altered mental status type: unspecified Qualified Code(s): R41.82 - Altered mental status, unspecified - Follow up/Referral - Patient Discharge Instructions - Post Discharge Activity
[2020-05-17 18:28] LABS: ALBUMIN 3.9 g/dl (3.4-5.0); ALK PHOS 97 U/L (45-117); ANION GAP 13 MMOL/L (8-16); BILIRUBIN,TOTAL 0.5 mg/dL (0.2-1); BLOOD UREA NITROGEN 39.3 mg/dL (7-18); CALCIUM 9.1 mg/dL (8.5-10.1); CHLORIDE 99 mmol/L (98-107); CO2 24 mmol/L (21-32); CREATININE 2.7 mg/dL (0.55-1.3); GLUCOSE,RANDOM 180 mg/dL (74-106); SGOT/AST 19 U/L (15-37); SGPT/ALT 14 U/L (13-61); SODIUM 136 mmol/L (136-145); TOT PROT 7.7 g/dl (6.4-8.2)
[2020-05-17 18:32] LABS: EPI CELLS >36 /uL (0-25.1); HYALINE CASTS 47 /uL (0-3.1); URINE APPEARANCE Error; URINE BACTERIA 54 /uL (0-1359); URINE BILIRUBIN NEGATIVE (NEGATIVE); URINE COLOR YELLOW; URINE GLUCOSE (UA) NEGATIVE (NEGATIVE); URINE KETONE NEGATIVE (NEGATIVE); URINE LEUK ESTERASE 3+ (NEGATIVE); URINE NITRITE NEGATIVE (NEGATIVE); URINE PROTEIN 1+ (NEGATIVE); URINE WBC 26270 /uL (0-25.8); YEAST REVIEW (NEGATIVE)
[2020-05-17] MEDS ORDERED: CEFTRIAXONE 1,000 MG in DEXTROSE 5%-WATER - 50 ML IVPB ONE (18:42)
[2020-05-17] MEDS ORDERED: LACTATED RINGERS SOLUTION 1000 ML INFUS.BAG IV ONE ×2 (18:46)
--- NOTE | 2020-05-17 19:03 | PDOC ---
*Physical Exam - Vital Signs Last Vital Signs Temp Pulse Resp BP Pulse Ox 97.5 F L 73 18 105/49 L 97 05/17/20 16:45 05/17/20 18:00 05/17/20 18:00 05/17/20 18:00 05/17/20 18:00 ED Treatment Course - LABORATORY CBC & Chemistry Diagram: 05/17/20 16:55 05/17/20 16:55 - ADDITIONAL ORDERS Additional order review: Laboratory Results 05/17/20 05/17/20 17:15 16:55 Sodium 136 Potassium 5.0 Chloride 99 Carbon Dioxide 24 Anion Gap 13 BUN 39.3 H Creatinine 2.7 H Est GFR (CKD-EPI)AfAm 18.54 Est GFR (CKD-EPI)NonAf 16.00 Random Glucose 180 H Calcium 9.1 Total Bilirubin 0.5 AST 19 ALT 14 Alkaline Phosphatase 97 Troponin I < 0.02 Total Protein 7.7 Albumin 3.9 Urine Color Yellow Urine Appearance Error Urine pH 5.0 Ur Specific [place] 1.013 Urine Protein 1+ H Urine Glucose (UA) Negative Urine Ketones Negative Urine Blood 2+ H Urine Nitrite Negative Urine Bilirubin Negative Urine Urobilinogen 1.0 Ur Leukocyte Esterase 3+ H Urine WBC (Auto) 56674 Urine Casts (Auto) 47 U Epithel Cells (Auto) >36 Urine Bacteria (Auto) 54 05/17/20 16:55 RBC 4.61 MCV 88.6 MCHC 33.3 RDW 13.9 MPV 9.4 Neutrophils % 69.4 Lymphocytes % 22.2 Monocytes % 6.0 Eosinophils % 2.0 Basophils % 0.4 - Medications Given in the ED: ED Medications Discontinued Medications Generic Name Dose Route Start Last Admin Trade Name Freq PRN Reason Stop Dose Admin Ceftriaxone Sodium 1,000 mg/ 50 mls @ 100 mls/hr 05/17/20 18:42 05/17/20 18:49 Dextrose IVPB 05/17/20 19:11 Not Given ONCE ONE Lactated Ringer's 500 ml 05/17/20 18:46 05/17/20 18:49 Lactated Ringers Solution IV 05/17/20 18:47 500 ml ONCE ONE Administration Medical Decision Making - Medical Decision Making 05/17/20 19:01 s/o from day team: 79F with complaints of AMS, falls, cant walk reported LE pain w/o TTP on exam. dirty UA - possibly contaminated, will recheck rcvd 500 LR [] CTH, C-spine, Pelvic XR [] rpt UA / straight cath [] consider abx [] admit 05/17/20 23:00 IOC IMPRESSION: EXAM: CT head without contrast IMAGES: 234 DATE OF EXAM: 2020-05-17 20:57:14 REASON FOR EXAM: Fall COMPARISON: August 04, 2016. FINDINGS: There is cerebral atrophy. Chronic microvascular ischemic changes are noted. Cavum septum pellucidum and vergae variant again noted. No acute intracranial hemorrhage or acute infarction. The visualized aspect of the paranasal sinuses and mastoid air cells are unremarkable. No acute fracture. One or more of the following dose reduction techniques were used: automated exposure control, adjustment of the mA and/or kV according to patient size, use of iterative reconstructive technique. THIS DOCUMENT HAS BEEN ELECTRONICALLY SIGNED Destin Daugherty MD 05/17/2020 21:50 EST M.D. Please call Imaging Strategy Intern [phone] with questions. INTERPRETING RADIOLOGIST: Destin Daugherty MD Electronically Signed: May 17, 2020 09:51PM EDT EXAM: CT cervical spine without contrast HISTORY:FALL COMPARISON: None. FINDINGS: Cervical spine demonstrates normal alignment. Moderate degenerative changes noted. No acute cervical spine fracture or dislocation. Mildly depressed right posterior zygomatic arch fracture, appearing chronic. Right thyroid nodules with calcifications. One or more of the following dose reduction techniques were used: automated exposure control, adjustment of the mA and/or kV according to patient size, use of iterative reconstructive technique. THIS DOCUMENT HAS BEEN ELECTRONICALLY SIGNED Destin Daugherty MD 05/17/2020 22:33 EST M.D. Please call Imaging Strategy Intern [phone] with questions. INTERPRETING RADIOLOGIST: Destin Daugherty MD Electronically Signed: May 17, 2020 10:35PM EDT rpt UA reviewed and concerning for infection CTX for UTI endorsed to hospitalist [employer] for admission 05/18/20 01:10 informed by RN that patient fell out of bed attending was made aware; repeat CT head ordered 05/18/20 01:30 informed by RN that patient was uncooperative and refused repeat CT Spoke to patient and she is accepting repeat CT. 05/18/20 06:57 EKG 1722 HR 72 afib, poor baseline 05/18/20 06:59 [facility] IMPRESSION: EXAM: HEAD CT WITHOUT CONTRAST HISTORY: Trauma COMPARISON: 05/17/20 FINDINGS: The ventricular system is midline and nondilated. Cavum septum pellucidum is noted. There is moderate cortical atrophy and chronic small vessel ischemic disease. There is no bleed, mass, extra-axial fluid collection or mass effect. No skull fracture or skull lesion is identified. The visualized paranasal sinuses and mastoid air cells are clear. IMPRESSION: No evidence of acute pathology. ne or more of the following dose reduction techniques were used: automated exposure control, adjustment of the mA and/or kV according to patient size, use of iterative reconstructive technique. THIS DOCUMENT HAS BEEN ELECTRONICALLY SIGNED Fermin Worthy MD 05/18/2020 02:09 [place] Please call Imaging Strategy Intern [phone] with questions. INTERPRETING RADIOLOGIST: Roby Worthy MD Electronically Signed: May 18, 2020 02:10AM EDT Discharge - Discharge Information Problems reviewed: Yes Clinical Impression/Diagnosis: SHAW (acute kidney injury) Altered mental status Qualifiers: Altered mental status type: unspecified Qualified Code(s): R41.82 - Altered mental status, unspecified Condition: Guarded - Admission Yes - Follow up/Referral - Patient Discharge Instructions - Post Discharge Activity
[2020-05-17 19:18] LABS: URINE RBC 18.3 /uL (0-23.9)
[2020-05-17 22:02] LABS: EPI CELLS 8 /uL (0-25.1); HYALINE CASTS 1 /uL (0-3.1); URINE APPEARANCE CLEAR; URINE BACTERIA 122 /uL (0-1359); URINE BILIRUBIN NEGATIVE (NEGATIVE); URINE COLOR YELLOW; URINE GLUCOSE (UA) NEGATIVE (NEGATIVE); URINE KETONE NEGATIVE (NEGATIVE); URINE LEUK ESTERASE 2+ (NEGATIVE); URINE NITRITE NEGATIVE (NEGATIVE); URINE PROTEIN TRACE (NEGATIVE); URINE RBC 258 /uL (0-23.9); URINE WBC 142 /uL (0-25.8)
[2020-05-17] MEDS ORDERED: CEFTRIAXONE 1 GM in DEXTROSE 5%-WATER - 100 ML IVPB ONE (22:17)
--- NOTE | 2020-05-17 23:09 | HP ---
Admitting History and Physical - Primary Care Physician PCP: Dieter Quintero S - Admission Chief Complaint: AMS, Frequent Falls History of Present Illness: The patient is a 78 year old female with a significant past medical history of CAD, CHF, Mitral Regurgitation, Afib, DM, COPD, HTN, HLD. Who presents to the ED via ambulance for AMS and multiple falls. Per ED records: Family reports that patient has been unlike her self and altered for the past 2 days. Patient speaks Hungarian, ED staff translated in Hungarian. Patient denies headache blurred vision, dizziness, fever, chills, cough, SOB, CP, palpitations, AP, N/V/D, constipation, dysuria. 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 (AMS) Cardiovascular: Yes: CHF, HTN, Hyperlipdemia, Murmur Pulmonary: Yes: COPD, Other (Acute Respiratory Failure with Hypoxia) Gastrointestinal: Yes: Gastritis, GERD Renal/: Yes: Neurogenic Bladder, UTI Musculoskeletal: Yes: Other (Spinal Stenosis) Endocrine: Yes: Diabetes Mellitus - Smoking History Smoking history: Never smoked Have you smoked in the past 12 months: No - Alcohol/Substance Use Hx Alcohol Use: No History of Substance Use: reports: None - Social History Usual Living Arrangement: Yes: With Child ADL: Support Services History of Recent Travel: No Home Medications - Allergies Allergies/Adverse Reactions: Allergies Allergy/AdvReac Type Severity Reaction Status Date / Time aspirin Allergy Severe Swelling Verified 05/18/20 03:58 - Home Medications Home Medications: Ambulatory Orders Glimepiride [Amaryl] 4 mg PO DAILY 07/19/17 Furosemide [Lasix] 40 mg PO DAILY 12/18/18 Carvedilol 6.25 mg PO DAILY 12/04/19 Hydralazine HCl 25 mg PO TID 12/04/19 Isosorbide Mononitrate [Isosorbide Mononitrate ER] 30 mg PO DAILY 12/04/19 Mirabegron [Myrbetriq] 50 mg PO DAILY 12/04/19 Pantoprazole Sodium 40 mg PO DAILY 12/04/19 Simvastatin 20 mg PO DAILY 12/04/19 Spironolactone 25 mg PO DAILY 12/04/19 Trospium Chloride [Trospium Chloride ER] 20 mg PO BID 12/04/19 Family Medical History Family History: Unable to Obtain Review of Systems Unable to obtain ROS, reason: Clincial Condition Physical Examination Vital Signs: Vital Signs Temperature 97.5 F L 05/17/20 16:45 Pulse Rate 51 L 05/17/20 20:06 Respiratory Rate 18 05/17/20 20:06 Blood Pressure 125/42 L 05/17/20 20:06 O2 Sat by Pulse Oximetry (%) 98 05/17/20 20:06 Constitutional: Yes: Anxious, Mild Distress, Obese Eyes: Yes: Conjunctiva Clear, EOM Intact, PERRL HENT: Yes: Atraumatic, Normocephalic, Other (TTP Occipital) Neck: Yes: Supple, Trachea Midline Cardiovascular: Yes: Pulse Irregular, S1, S2 Respiratory: Yes: Regular, CTA Bilaterally Gastrointestinal: Yes: Normal Bowel Sounds, Soft, Abdomen, Obese ...Rectal Exam: Yes: Deferred Renal/: Yes: WNL Breast(s): Yes: WNL Musculoskeletal: Yes: Muscle Weakness Extremities: Yes: WNL Edema: No Peripheral Pulses WNL: Yes Neurological: Yes: Oriented, Confusion, Cran Nerves II-XII Intact, Unsteady Gait ...Motor Strength: WNL Psychiatric: Yes: Alert Labs: CBC, BMP 05/17/20 16:55 05/17/20 16:55 Laboratory Results - last 24 hr 05/17/20 05/17/20 05/17/20 16:55 16:55 17:15 WBC 9.8 RBC 4.61 Hgb 13.6 Hct 40.8 MCV 88.6 MCH 29.6 MCHC 33.3 RDW 13.9 Plt Count 188 MPV 9.4 Absolute Neuts (auto) 6.8 Neutrophils % 69.4 Lymphocytes % 22.2 Monocytes % 6.0 Eosinophils % 2.0 Basophils % 0.4 Nucleated RBC % 0 Sodium 136 Potassium 5.0 Chloride 99 Carbon Dioxide 24 Anion Gap 13 BUN 39.3 H Creatinine 2.7 H Est GFR (CKD-EPI)AfAm 18.54 Est GFR (CKD-EPI)NonAf 16.00 Random Glucose 180 H Calcium 9.1 Total Bilirubin 0.5 AST 19 ALT 14 Alkaline Phosphatase 97 Troponin I < 0.02 Total Protein 7.7 Albumin 3.9 Urine Color Yellow Urine Appearance Error Urine pH 5.0 Ur Specific [place] 1.013 Urine Protein 1+ H Urine Glucose (UA) Negative Urine Ketones Negative Urine Blood 2+ H Urine Nitrite Negative Urine Bilirubin Negative Urine Urobilinogen 1.0 Ur Leukocyte Esterase 3+ H Urine WBC (Auto) 43301 Urine RBC (Auto) 18.3 Urine Casts (Auto) 47 U Pathogenic Cast Auto Review A* U Epithel Cells (Auto) >36 Urine Bacteria (Auto) 54 Urine Yeast (Auto) Review A* 05/17/20 20:01 WBC RBC Hgb Hct MCV MCH MCHC RDW Plt Count MPV Absolute Neuts (auto) Neutrophils % Lymphocytes % Monocytes % Eosinophils % Basophils % Nucleated RBC % Sodium Potassium Chloride Carbon Dioxide Anion Gap BUN Creatinine Est GFR (CKD-EPI)AfAm Est GFR (CKD-EPI)NonAf Random Glucose Calcium Total Bilirubin AST ALT Alkaline Phosphatase Troponin I Total Protein Albumin Urine Color Yellow Urine Appearance Clear Urine pH 5.0 Ur Specific [place] 1.010 Urine Protein Trace Urine Glucose (UA) Negative Urine Ketones Negative Urine Blood 1+ H Urine Nitrite Negative Urine Bilirubin Negative Urine Urobilinogen 1.0 Ur Leukocyte Esterase 2+ H Urine WBC (Auto) 142 Urine RBC (Auto) 258 Urine Casts (Auto) 1 U Pathogenic Cast Auto U Epithel Cells (Auto) 8 Urine Bacteria (Auto) 122 Urine Yeast (Auto) Intake & Output 05/15/20 05/16/20 05/17/20 05/18/20 23:59 23:59 23:59 23:59 Weight 72.121 kg Current Medications Generic Name Dose Route Start Last Admin Trade Name Freq PRN Reason Stop Dose Admin Atorvastatin Calcium 10 mg 05/18/20 22:00 Lipitor - PO [facility] Ceftriaxone Sodium 1 gm/ 50 mls @ 100 mls/hr 05/18/20 10:00 Dextrose IVPB DAILY [facility] Protocol Pantoprazole Sodium 40 mg 05/18/20 07:00 Protonix - PO ACBK [facility] Imaging - Results Chest X-ray: Image Reviewed X-ray: Image Reviewed Cat Scan: Image Reviewed EKG: Image Reviewed Problem List - Problems (1) Syncope Code(s): R55 - SYNCOPE AND COLLAPSE (2) Acute metabolic encephalopathy Code(s): G93.41 - METABOLIC ENCEPHALOPATHY (3) UTI (urinary tract infection) Code(s): N39.0 - URINARY TRACT INFECTION, SITE NOT SPECIFIED (4) Falls frequently Code(s): R29.6 - REPEATED FALLS (5) CAD (coronary artery disease) Code(s): I25.10 - ATHSCL HEART DISEASE OF [place] CORONARY ARTERY W/O ANG PCTRS (6) CHF (congestive heart failure) Code(s): I50.9 - HEART FAILURE, UNSPECIFIED (7) COPD (chronic obstructive pulmonary disease) Code(s): J44.9 - CHRONIC OBSTRUCTIVE PULMONARY DISEASE, UNSPECIFIED (8) Diabetes mellitus Code(s): E11.9 - TYPE 2 DIABETES MELLITUS WITHOUT COMPLICATIONS (9) HTN (hypertension) Code(s): I10 - ESSENTIAL (PRIMARY) HYPERTENSION Qualifiers: Assessment/Plan The patient is a 78 year old female with a significant past medical history of CAD, CHF, mitral regurgitation, Afib, DM, COPD, HTN, HLD. Admitted to Telemetry for Syncope, Acute Metabolic Encephalopathy, UTI Frequent Falls, Unsteady Gait for further evaluation of their emergent condition. Plan: Likely due to Arrhythmia vs UTI vs Dehydration Admit Telemetry Serial Enzymes Appreciate Cardiology consult Appreciate Neurology consult Neuro checks Fall Precautions Monitor CBC, CMP, TSH, Mg Head CT- reviewed Spine CT- reviewed Chest Xray image reviewed EKG- reviewed UA- +1 blood, +2 leukocyte esterase, 142 WBC, 122 Bacteria Urine Culture-pending Blood Cultures-pending Rocephin given in ED, will continue PT eval Consider STR Continue home meds when verified FEN- Fluid restriction 1L, Replete lytes prn, Low Na, Diabetic Diet DVT ppx- SCDs, Heparin SQ Dispo: Requires Inpatient Care Visit type - Medication Review Med list reviewed for High Risk Meds patients 65 and older: No (Family not at bedside to verify medications) - Emergency Visit Emergency Visit: Yes ED Registration Date: 05/17/20 Care time: The patient presented to the Emergency Department on the above date and was hospitalized for further evaluation of their emergent condition. - New Patient This patient is new to me today: Yes Date on this admission: 05/17/20 - Critical Care Critical Care patient: No
[2020-05-18] MEDS ORDERED: LACTATED RINGERS SOLUTION 1000 ML INFUS.BAG IV SCH (07:16)
--- NOTE | 2020-05-18 07:24 | PN ---
Progress Note, Physician Chief Complaint: UTI AMS Metabolic encephalopthy SHAW History of Present Illness: NAD pleasantly confused - Current Medication List Current Medications: Active Medications Atorvastatin Calcium (Lipitor -) 10 mg PO HS [facility] Carvedilol (Coreg -) 6.25 mg PO DAILY [facility] Glimepiride (Amaryl -) 4 mg PO DAILY [facility] Heparin Sodium (Porcine) (Heparin -) 5,000 unit SQ BID [facility] Hydralazine HCl (Apresoline -) 25 mg PO TID [facility] Ceftriaxone Sodium 1 gm/ (Dextrose) 50 mls @ 100 mls/hr IVPB DAILY [facility]; Protocol Isosorbide Mononitrate (Imdur -) 30 mg PO DAILY [facility] Lactated Ringer's (Lactated Ringers Solution) 50 ml IV DAILY [facility] Pantoprazole Sodium (Protonix -) 40 mg PO ACBK [facility] - Objective Vital Signs: Vital Signs Temperature 97.9 F 05/18/20 06:03 Pulse Rate 78 05/18/20 06:03 Respiratory Rate 16 05/18/20 06:03 Blood Pressure 141/59 L 05/18/20 06:03 O2 Sat by Pulse Oximetry (%) 99 05/18/20 06:03 Constitutional: Yes: Well Nourished, No Distress, Calm Cardiovascular: Yes: Regular Rate and Rhythm Respiratory: Yes: Regular, CTA Bilaterally Gastrointestinal: Yes: Normal Bowel Sounds, Soft Genitourinary: Yes: Incontinence Musculoskeletal: Yes: Muscle Weakness Extremities: Yes: WNL Edema: No Peripheral Pulses WNL: Yes Neurological: Yes: Alert, Confusion Psychiatric: Yes: Alert Labs: CBC, BMP 05/17/20 16:55 05/17/20 16:55 Problem List - Problems (1) SHAW (acute kidney injury) Assessment/Plan: likely 2/2 to UTI -Nephrology consult -Continue IVF -Monitor trend Problems reviewed: Yes Code(s): N17.9 - ACUTE KIDNEY FAILURE, UNSPECIFIED (2) Acute metabolic encephalopathy Problems reviewed: Yes Code(s): G93.41 - METABOLIC ENCEPHALOPATHY (3) Change in mental state Assessment/Plan: -CT head unremarkable -Fall precautions Problems reviewed: Yes Code(s): R41.82 - ALTERED MENTAL STATUS, UNSPECIFIED Qualifiers: Altered mental status type: unspecified Qualified Code(s): R41.82 - Altered mental status, unspecified (4) Diabetes mellitus Assessment/Plan: -Recheck A1c -Continue Glimeperide -BGM AC HS -ISS -Diabetic low sodium diet Problems reviewed: Yes Code(s): E11.9 - TYPE 2 DIABETES MELLITUS WITHOUT COMPLICATIONS (5) Falls frequently Assessment/Plan: -CT head unremarkable -Fall precautions -PT -Eval for SNF Problems reviewed: Yes Code(s): R29.6 - REPEATED FALLS (6) Paroxysmal A-fib Assessment/Plan: -Chronic -rate controlled -Not on AC 2/2 to frequent falls -Cardiology consult Problems reviewed: Yes Code(s): I48.0 - PAROXYSMAL ATRIAL FIBRILLATION (7) UTI (urinary tract infection) Assessment/Plan: -Received IV rocephin, continue -UA/UC -ID consult -afebrile -no leukocytosis Problems reviewed: Yes Code(s): N39.0 - URINARY TRACT INFECTION, SITE NOT SPECIFIED Assessment/Plan see problem list
[2020-05-18] MEDS: GLIMEPIRIDE 4 MG TABLET PO SCH (08:20)
[2020-05-18 09:59] LABS: BASO % 0.7 % (0-2.0); EOS % 1.8 % (0-4.5); HEMATOCRIT 37.9 % (32.4-45.2); HEMOGLOBIN 12.5 GM/dL (10.7-15.3); LYMPH % 23.2 % (8-40); MCH 28.9 pg (25.7-33.7); MEAN CELL VOLUME 87.6 fl (80-96); MEAN PLT VOLUME 8.8 fl (7.5-11.1); MONO % 4.7 % (3.8-10.2); NEUT % 69.6 % (42.8-82.8); PLATELET COUNT 174 K/MM3 (134-434); RBC 4.33 M/mm3 (3.60-5.2); RDW 13.9 % (11.6-15.6); WHITE BLOOD COUNT 8.8 K/mm3 (4.0-10.0)
[2020-05-18] MEDS ORDERED: CARVEDILOL 6.25 MG TABLET (FP) PO SCH (10:00)
[2020-05-18] MEDS ORDERED: PATIENT'S OWN MEDICATION (NON-FORMULARY) (Simvastatin [Simvastatin] 20 MG) PO SCH (10:00)
[2020-05-18] MEDS ORDERED: HEPARIN NA (PORCINE) 5,000 UNITS/ML 1ML VIAL ONE ×2 (10:16→22:05)
[2020-05-18] MEDS ORDERED: PANTOPRAZOLE 40 MG TABLET ONE (10:16)
[2020-05-18] MEDS ORDERED: CEFTRIAXONE 1 GM/50 ML BAG ONE (10:16)
[2020-05-18] MEDS ORDERED: CARVEDILOL 3.125 MG TABLET (FP) ONE ×2 (10:16→22:05)
[2020-05-18] MEDS: PANTOPRAZOLE 40 MG TABLET PO SCH (10:35)
[2020-05-18] MEDS: LACTATED RINGERS SOLUTION 1,000 ML IV SCH (10:36)
[2020-05-18] MEDS: HEPARIN NA (PORCINE) 5,000 UNITS/ML 1ML VIAL SQ SCH ×2 (10:36→22:10)
[2020-05-18] MEDS: ISOSORBIDE MONONITRATE 30 MG TAB.SR.24H (FP) PO SCH (10:37)
[2020-05-18] MEDS: CEFTRIAXONE 1 GM in DEXTROSE 5%-WATER - 50 ML IVPB SCH (10:37)
[2020-05-18 11:42] LABS: ALBUMIN 3.4 g/dl (3.4-5.0); BILIRUBIN,TOTAL 0.4 mg/dL (0.2-1); BLOOD UREA NITROGEN 34.2 mg/dL (7-18); CALCIUM 8.9 mg/dL (8.5-10.1); CREATININE 1.8 mg/dL (0.55-1.3); MAGNESIUM 2.3 mg/dL (1.8-2.4); POTASSIUM 4.6 mmol/L (3.5-5.1); TOT PROT 6.6 g/dl (6.4-8.2)
[2020-05-18] MEDS: INSULIN (NOVOLOG) ASPART 100 UNITS/ML 10ML VIAL SQ SCH ×2 (12:28→17:18)
--- NOTE | 2020-05-18 12:33 | CON.CARD ---
Consult Consult Specialty:: Cardiology Referred by:: Clinton Reason for Consultation:: Mental status changes and falls - History of Present Illness Chief Complaint: Mental status changes and falls History of Present Illness: The patient is an 79-year-old female, with a history of hypertension, hyperlipidemia, diabetes, persistent atrial fibrillation, not anticoagulated because of frequent falls, coronary artery disease, CHF EF 25%, severe mitral valve regurgitation on echo 11/22/2018, severe mid RCA disease was stented 11/27/2018, recent GI bleed, now readmitted with mental status changes and falls. The patient was supine in no apparent distress at the time of my exam. She was breathing normally. No chest pains. 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) Cardio/Vascular: Yes: AFIB, CHF, HTN, Hyperlipdemia, Mitral Insufficiency, Murmur Pulmonary: Yes: COPD, Other (Acute Respiratory Failure with Hypoxia) Gastrointestinal: Yes: Gastritis, GERD Renal/: Yes: Neurogenic Bladder, UTI Musculoskeletal: Yes: Other (Spinal Stenosis) Endocrine: Yes: Diabetes Mellitus - Alcohol/Substance Use Hx Alcohol Use: No History of Substance Use: reports: None - Smoking History Smoking history: Never smoked Have you smoked in the past 12 months: No - Social History Usual Living Arrangement: With Spouse ADL: Support Services History of Recent Travel: No Home Medications - Allergies Allergies/Adverse Reactions: Allergies Allergy/AdvReac Type Severity Reaction Status Date / Time aspirin Allergy Severe Swelling Verified 05/18/20 03:58 - Home Medications Home Medications: Ambulatory Orders Glimepiride [Amaryl] 4 mg PO DAILY 07/19/17 Furosemide [Lasix] 40 mg PO DAILY 12/18/18 Carvedilol 6.25 mg PO DAILY 12/04/19 Hydralazine HCl 25 mg PO TID 12/04/19 Isosorbide Mononitrate [Isosorbide Mononitrate ER] 30 mg PO DAILY 12/04/19 Mirabegron [Myrbetriq] 50 mg PO DAILY 12/04/19 Pantoprazole Sodium 40 mg PO DAILY 12/04/19 Simvastatin 20 mg PO DAILY 12/04/19 Spironolactone 25 mg PO DAILY 12/04/19 Trospium Chloride [Trospium Chloride ER] 20 mg PO BID 12/04/19 Review of Systems - Review of Systems Constitutional: reports: Lethargy, Weakness Eyes: reports: No Symptoms HENT: reports: No Symptoms Neck: reports: No Symptoms Cardiovascular: reports: No Symptoms Respiratory: reports: No Symptoms Gastrointestinal: reports: No Symptoms Genitourinary: reports: No Symptoms Breasts: reports: No Symptoms Reported Musculoskeletal: reports: No Symptoms Integumentary: reports: No Symptoms Neurological: reports: Confusion, Dizziness Endocrine: reports: No Symptoms Hematology/Lymphatic: reports: No Symptoms Psychiatric: reports: No Symptoms Vital Signs: Vital Signs Temperature 98.1 F 05/18/20 07:20 Pulse Rate 76 05/18/20 09:00 Respiratory Rate 18 05/18/20 07:20 Blood Pressure 143/51 L 05/18/20 09:00 O2 Sat by Pulse Oximetry (%) 99 05/18/20 06:03 Constitutional: Yes: Well Nourished, No Distress, Calm Eyes: Yes: WNL, Conjunctiva Clear HENT: Yes: WNL, Atraumatic, Normocephalic Neck: Yes: WNL, Supple, Trachea Midline Respiratory: Yes: WNL, Regular, CTA Bilaterally Gastrointestinal: Yes: WNL, Normal Bowel Sounds, Soft Cardiovascular: Yes: Pulse Irregular JVD: No Carotid Bruit: No PMI: Non-Displaced Heart Sounds: Yes: S1, S2 Murmur: Yes: Systolic Murmur, Grade 2 Musculoskeletal: Yes: Muscle Pain Extremities: Yes: WNL Edema: No Peripheral Pulses: 1+ Left Doralis Pedis, 1+ Right Dorsalis Pedis Integumentary: Yes: WNL Neurological: Yes: Alert, Confusion - Other Data Labs, Other Data: CBC, BMP 05/18/20 09:20 05/18/20 09:20 Troponin, BNP 05/17/20 05/18/20 16:55 09:20 Troponin I < 0.02 0.02 Troponin, BNP 05/17/20 05/18/20 16:55 09:20 Troponin I < 0.02 0.02 Assessment/Plan The patient is an 79-year-old female, with a history of hypertension, hyper lipidemia, diabetes, persistent atrial fibrillation, not anticoagulated because of frequent falls, coronary artery disease, CHF EF 25%, severe mitral valve regurgitation on echo 11/22/2018, severe mid RCA disease was stented 11/27/2018, recent GI bleed, now readmitted with mental status changes and falls. The patient was supine in no apparent distress at the time of my exam. She was breathing normally. No chest pains. There is no evidence of ischemia nor acute coronary syndrome. The patient is euvolemic. No pulmonary congestion. Please resume home medications. Obtain orthostatics. Strict salt and fluid restrictions. Would monitor for 24 hours. No need for further cardiac testing at this point. Considering ICD evaluation. Cardiac stable.
--- NOTE | 2020-05-18 13:31 | PN ---
Progress Note (short form) - Note Progress Note: ID CONSULT DICTATED UTI R/O SEPSIS SECONDARY TO UTI TOXIC METABOLIC ENCEPHALOPATHY S/P FALLS SHAW PENDING SEPSIS W/U EMPIRIC [id number]
[2020-05-18] MEDS ORDERED: hydrALAZINE HCL 25 MG TABLET (FP) PO SCH (14:00)
--- NOTE | 2020-05-18 14:26 | CONS ---
DATE OF CONSULTATION: DATE OF DICTATION: 05/18/2020 The patient is an 79-year-old female evaluated for urinary tract infection, possible urosepsis. History was obtained from the chart, as she is Croatian speaking. She was admitted to the hospital on May 17, 2020, after family reported altered mental status and recurrent falls. She was evaluated in the emergency room, where a CAT scan of the head was performed, results of which are pending. At the present time, she is awake, she is supine on a stretcher in the emergency room. She offers no complaints. She is in no acute distress and is not acutely toxic appearing. Her last hospitalization was in December 2019 for rectal bleeding. PAST MEDICAL HISTORY: Positive for coronary artery disease, congestive heart failure, diabetes mellitus, hypertension, hyperlipidemia, atrial fibrillation, COPD. ALLERGIES: To ASPIRIN, nature of the allergy not documented. Medications include ceftriaxone, heparin, Lipitor, Coreg, Apresoline, Imdur, Amaryl. SOCIAL HISTORY: She resides in the community with her family. She is a nonsmoker, nondrinker. SYSTEMS REVIEW: Neurologic: As per HPI. No reported loss of consciousness, seizure activity, or focal weakness. Cardiac: Negative chest pain or palpitations. Respiratory: Negative cough or sputum production. Gastrointestinal: Negative vomiting or diarrhea. Genitourinary: As per HPI. LABORATORY DATA: White count 8.8, hematocrit 37.9, platelet count 174. Creatinine on admission 2.7, creatinine 1.8. Urinalysis: 26,000 white cells. COVID-19 PCR negative. Chest x-ray negative. PHYSICAL EXAMINATION: General: She is awake and alert, supine on the stretcher, in no acute distress. Vital Signs: Temperature 98.1. Blood pressure 128/54. Pulse 74, regular. Respirations 18 per minute. Eyes: Sclerae anicteric. Heart Sounds: S1, S2. Lungs: Clear. Abdomen: Obese, soft. No suprapubic or flank tenderness. Extremities: Negative for edema. IMPRESSION: 1. Urinary tract infection. Rule out sepsis secondary to urinary tract infection. 2. Toxic metabolic encephalopathy. 3. Altered mental status. 4. Status post falls. 5. Acute kidney injury. Pending sepsis workup, empiric antibiotic coverage with ceftriaxone. Obtain blood cultures. Further recommendations pending culture results. Thank you for the kind referral. LORENA BALBUENA M.D. [id number]
--- NOTE | 2020-05-18 15:16 | CONSULT ---
Consult Consult Specialty:: Nephrology Reason for Consultation:: MOON - History of Present Illness Chief Complaint: altered mental status History of Present Illness: Pt is a 78 year old female with pmhx of cad, chf, a-fib, ckd, dm, copd, hld who presents with altered mental status and multiple falls. She has been unlike herself. She is known to me from the past. She is confused. She only speaks Faroese. SHe was found to have a UTI. She denies fevers or chills. SHe denies shortness of breath. 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, Other (AMS) Cardio/Vascular: Yes: AFIB, CHF, HTN, Hyperlipdemia, Mitral Insufficiency, Murmur Pulmonary: Yes: COPD, Other (Acute Respiratory Failure with Hypoxia) Gastrointestinal: Yes: Gastritis, GERD Renal/: Yes: Neurogenic Bladder, UTI Musculoskeletal: Yes: Other (Spinal Stenosis) Endocrine: Yes: Diabetes Mellitus - Alcohol/Substance Use Hx Alcohol Use: No History of Substance Use: reports: None - Smoking History Smoking history: Never smoked Have you smoked in the past 12 months: No - Social History Usual Living Arrangement: With Spouse ADL: Support Services History of Recent Travel: No Home Medications - Allergies Allergies/Adverse Reactions: Allergies Allergy/AdvReac Type Severity Reaction Status Date / Time aspirin Allergy Severe Swelling Verified 05/18/20 03:58 - Home Medications Home Medications: Ambulatory Orders Glimepiride [Amaryl] 4 mg PO DAILY 07/19/17 Furosemide [Lasix] 40 mg PO DAILY 12/18/18 Carvedilol 6.25 mg PO DAILY 12/04/19 Hydralazine HCl 25 mg PO TID 12/04/19 Isosorbide Mononitrate [Isosorbide Mononitrate ER] 30 mg PO DAILY 12/04/19 Mirabegron [Myrbetriq] 50 mg PO DAILY 12/04/19 Pantoprazole Sodium 40 mg PO DAILY 12/04/19 Simvastatin 20 mg PO DAILY 12/04/19 Spironolactone 25 mg PO DAILY 12/04/19 Trospium Chloride [Trospium Chloride ER] 20 mg PO BID 12/04/19 Family Medical History Family History: Denies Review of Systems Unable to obtain ROS, reason: confused Physical Exam Vital Signs: Vital Signs Temperature 98.1 F 05/18/20 07:20 Pulse Rate 76 05/18/20 09:00 Respiratory Rate 18 05/18/20 07:20 Blood Pressure 143/51 L 05/18/20 09:00 O2 Sat by Pulse Oximetry (%) 99 05/18/20 09:00 Constitutional: Yes: Calm Eyes: Yes: Conjunctiva Clear HENT: Yes: Atraumatic Neck: Yes: Supple Cardiovascular: Yes: S1, S2 Respiratory: Yes: CTA Bilaterally Gastrointestinal: Yes: Normal Bowel Sounds, Soft Renal/: Yes: Incontinence Musculoskeletal: Yes: Muscle Weakness Edema: No Neurological: Yes: Confusion Labs: CBC, BMP 05/18/20 09:20 05/18/20 09:20 Imaging - Results Chest X-ray: Report Reviewed Problem List - Problems (1) MOON (acute kidney injury) Code(s): N17.9 - ACUTE KIDNEY FAILURE, UNSPECIFIED Assessment/Plan Current Medications Generic Name Dose Route Start Last Admin Trade Name Freq PRN Reason Stop Dose Admin Atorvastatin Calcium 10 mg 05/18/20 22:00 Lipitor - PO HS CARMELINA Carvedilol 6.25 mg 05/18/20 10:00 05/18/20 10:36 Coreg - PO 6.25 mg BID CARMELINA Administration Glimepiride 4 mg 05/18/20 07:45 Amaryl - PO ACBK CARMELINA Heparin Sodium (Porcine) 5,000 unit 05/18/20 10:00 05/18/20 10:36 Heparin - SQ 5,000 unit BID CARMELINA Administration Hydralazine HCl 25 mg 05/18/20 14:00 Apresoline - PO TID CARMELINA Ceftriaxone Sodium 1 gm/ 50 mls @ 100 mls/hr 05/18/20 10:00 05/18/20 10:37 Dextrose IVPB 100 mls/hr DAILY CARMELINA Administration Protocol Lactated Ringer's 1,000 mls @ 50 mls/hr 05/18/20 09:15 05/18/20 10:36 Lactated Ringers Solution IV 50 mls/hr ASDIR CARMELINA Administration Insulin Aspart 1 units 05/18/20 11:00 05/18/20 12:28 Novolog Vial SQ Not Given TIDAC CARMELINA Protocol Isosorbide Mononitrate 30 mg 05/18/20 10:00 05/18/20 10:37 Imdur - PO 30 mg DAILY CARMELINA Administration Pantoprazole Sodium 40 mg 05/18/20 07:00 05/18/20 10:35 Protonix - PO 40 mg ACBK CARMELINA Administration Laboratory Tests 05/17/20 05/17/20 05/17/20 16:55 17:15 17:15 Creatinine 2.7 H Ur Leukocyte Esterase 3+ H Urine WBC (Auto) [id number] COVID-19 (DENISE) Not detected 05/18/20 09:20 Creatinine 1.8 H Ur Leukocyte Esterase Urine WBC (Auto) COVID-19 (DENISE) Impression 1. MOON 2. UTI 3. chf 4. htn 5. hld 6. dm 7. altered mental status 8. 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
--- NOTE | 2020-05-18 18:14 | EKG ---
Test Reason : Blood Pressure : / mmHG Vent. Rate : 072 BPM Atrial Rate : 072 BPM P-R Int : 000 ms QRS Dur : 078 ms QT Int : 416 ms P-R-T Axes : 000 006 123 degrees QTc Int : 455 ms POOR DATA QUALITY, INTERPRETATION MAY BE ADVERSELY AFFECTED ATRIAL FIBRILLATION NONSPECIFIC ST AND T WAVE ABNORMALITY ABNORMAL ECG WHEN COMPARED WITH ECG OF 07-DEC-2019 08:52, NO SIGNIFICANT CHANGE WAS FOUND Confirmed by MD TOMLINSON MOYSES ([id number]) on 05/18/2020 6:13:49 PM Referred By: Confirmed By:ARIADNE TOMLINSON MD
[2020-05-18] MEDS ORDERED: ATORVASTATIN CA 10 MG TABLET (FP) ONE (22:05)
[2020-05-18] MEDS: ATORVASTATIN CA 10 MG TABLET (FP) PO SCH (22:10)
[2020-05-18] MEDS: CARVEDILOL 3.125 MG TABLET (FP) PO SCH (22:10)
--- NOTE | 2020-05-19 00:38 | CONSULT ---
Consult - text type - Consultation Consultation Note: NEUROLOGY CONSULTATION is greatly appreciated: Events reviewed. Patient examined in ED upon return from ultrasound. his 79 yo Greek speaking woman is maintained at home. PMH sig for DM, HTN, Chol, ASHD, Incontinence, GERD. Walks with walker at home. Maintained on: Glimepiride; Furosemide; Carvedilol 6.25; Hydralazine HCl 25 mg PO TID; Isosorbide; Myrbetriq; pantoprazole; Simvastatin; and Spironolactone. Now admitted after few days of worsening cognition and gait. Unable to walk x [address] of fhead (reviewed): Moderately severe, diffuse atrophy. Cavum septum pellucidum and diffuse microvascular changes. Cr/BUN=2.7/39.3 -> 1.8/34.2 A1= 8.2% Urine [id number] CHASTITY: BP= 100/52. No head trauma. No bruits. Cor reg. NEURO: ++Glabella, snout, grasps (symmetrical) and palmomentals. Full mistry and EOM's. No facial weakness. Gag OK No drift. Rigid tone. Normal reflexes. Toes downgoing. No obvious dystaxia Withdraws all 4's briskly IMP: Non-focal neurological exam sig for Moderately severe, B/L cerebral dysfunc tion (OMS, chronic features). Most likely Alzheimer's. Subacutely worsened by infection (Toxic metabolic encephalopathy, dehydration). Presyncope/ syncope. SUGGEST: Continue antibiotics and hydration Reduce BP meds and follow orthostaic BP's. Check B12, TSH, RPR. Consider donepezil 5 mg PO q AM PT for gait with walker...should continue as out patient. Thank you very much, Destin Hooker MD
[2020-05-19] MEDS: GLIMEPIRIDE 4 MG TABLET PO SCH (08:27)
[2020-05-19] MEDS: PANTOPRAZOLE 40 MG TABLET PO SCH (08:27)
[2020-05-19] MEDS: INSULIN (NOVOLOG) ASPART 100 UNITS/ML 10ML VIAL SQ SCH ×3 (08:33→16:23)
[2020-05-19 09:13] LABS: ALBUMIN 3.3 g/dl (3.4-5.0); BILIRUBIN,TOTAL 0.4 mg/dL (0.2-1); CREATININE 1.5 mg/dL (0.55-1.3); POTASSIUM 4.5 mmol/L (3.5-5.1); TOT PROT 6.7 g/dl (6.4-8.2)
[2020-05-19] MEDS ORDERED: CARVEDILOL 3.125 MG TABLET (FP) ONE (09:18)
[2020-05-19] MEDS ORDERED: CEFTRIAXONE 1 GM/50 ML BAG ONE (09:18)
[2020-05-19] MEDS ORDERED: HEPARIN NA (PORCINE) 5,000 UNITS/ML 1ML VIAL ONE (09:18)
[2020-05-19] MEDS ORDERED: PANTOPRAZOLE 40 MG TABLET ONE (09:18)
--- NOTE | 2020-05-19 09:22 | PN ---
Progress Note, Physician - Current Medication List Current Medications: Active Medications Atorvastatin Calcium (Lipitor -) 10 mg PO HS [facility] Last Admin: 05/18/20 22:10 Dose: 10 mg Documented by: Carvedilol (Coreg -) 3.125 mg PO BID [facility] Last Admin: 05/18/20 22:10 Dose: 3.125 mg Documented by: Glimepiride (Amaryl -) 4 mg PO ACBK [facility] Last Admin: 05/19/20 08:27 Dose: 4 mg Documented by: Heparin Sodium (Porcine) (Heparin -) 5,000 unit SQ BID [facility] Last Admin: 05/18/20 22:10 Dose: 5,000 unit Documented by: Ceftriaxone Sodium 1 gm/ (Dextrose) 50 mls @ 100 mls/hr IVPB DAILY [facility]; Protocol Last Admin: 05/18/20 10:37 Dose: 100 mls/hr Documented by: Lactated Ringer's (Lactated Ringers Solution) 1,000 mls @ 50 mls/hr IV ASDIR [facility] Last Admin: 05/18/20 10:36 Dose: 50 mls/hr Documented by: Insulin Aspart (Novolog Vial) 1 units SQ TIDAC [facility]; Protocol Last Admin: 05/19/20 08:33 Dose: Not Given Documented by: Isosorbide Mononitrate (Imdur -) 30 mg PO DAILY [facility] Last Admin: 05/18/20 10:37 Dose: 30 mg Documented by: Pantoprazole Sodium (Protonix -) 40 mg PO ACBK [facility] Last Admin: 05/19/20 08:27 Dose: 40 mg Documented by: - Objective Vital Signs: Vital Signs Temperature 98.2 F 05/18/20 18:00 Pulse Rate 66 05/18/20 22:03 Respiratory Rate 20 05/18/20 22:03 Blood Pressure 136/49 L 05/18/20 22:03 O2 Sat by Pulse Oximetry (%) 98 05/18/20 23:44 Cardiovascular: Yes: S1, S2 Respiratory: Yes: Regular, CTA Bilaterally Gastrointestinal: Yes: Normal Bowel Sounds, Soft Neurological: Yes: Alert, Confusion Labs: CBC, BMP 05/18/20 09:20 05/19/20 07:40 Assessment/Plan - Problems (1) SHAW (acute kidney injury) Assessment/Plan: likely 2/2 to UTI -Nephrology consult -Continue IVF -Monitor trend Problems reviewed: Yes Code(s): N17.9 - ACUTE KIDNEY FAILURE, UNSPECIFIED (2) Acute metabolic encephalopathy Problems reviewed: Yes Code(s): G93.41 - METABOLIC ENCEPHALOPATHY (3) Change in mental state Assessment/Plan: -CT head unremarkable -Fall precautions Problems reviewed: Yes Code(s): R41.82 - ALTERED MENTAL STATUS, UNSPECIFIED Qualifiers: Altered mental status type: unspecified Qualified Code(s): R41.82 - Altered mental status, unspecified (4) Diabetes mellitus Assessment/Plan: -Recheck A1c -Continue Glimeperide -BGM AC HS -ISS -Diabetic low sodium diet Problems reviewed: Yes Code(s): E11.9 - TYPE 2 DIABETES MELLITUS WITHOUT COMPLICATIONS (5) Falls frequently Assessment/Plan: -CT head unremarkable -Fall precautions -PT -Eval for SNF Problems reviewed: Yes Code(s): R29.6 - REPEATED FALLS (6) Paroxysmal A-fib Assessment/Plan: -Chronic -rate controlled -Not on AC 2/2 to frequent falls -Cardiology consult Problems reviewed: Yes Code(s): I48.0 - PAROXYSMAL ATRIAL FIBRILLATION (7) UTI (urinary tract infection) Assessment/Plan: -Received IV rocephin, continue -UA/UC -ID consult -afebrile -no leukocytosis Problems reviewed: Yes Code(s): N39.0 - URINARY TRACT INFECTION, SITE NOT SPECIFIED
[2020-05-19] MEDS: CEFTRIAXONE 1 GM in DEXTROSE 5%-WATER - 50 ML IVPB SCH (09:56)
[2020-05-19] MEDS: ISOSORBIDE MONONITRATE 30 MG TAB.SR.24H (FP) PO SCH (09:56)
[2020-05-19] MEDS: CARVEDILOL 3.125 MG TABLET (FP) PO SCH ×2 (09:56→22:03)
[2020-05-19] MEDS: HEPARIN NA (PORCINE) 5,000 UNITS/ML 1ML VIAL SQ SCH ×2 (09:56→22:03)
[2020-05-19] MEDS: LACTATED RINGERS SOLUTION 1,000 ML IV SCH (09:56)
--- NOTE | 2020-05-19 11:12 | PN ---
Progress Note, Physician Chief Complaint: confused tele neg History of Present Illness: The patient is an 79-year-old female, with a history of hypertension, hyperlipidemia, diabetes, persistent atrial fibrillation, not anticoagulated because of frequent falls, coronary artery disease, CHF EF 25%, severe mitral valve regurgitation on echo 11/22/2018, severe mid RCA disease was stented 11/27/2018, recent GI bleed, now readmitted with mental status changes and falls. The patient was supine in no apparent distress at the time of my exam. She was breathing normally. No chest pains. - Current Medication List Current Medications: Active Medications Atorvastatin Calcium (Lipitor -) 10 mg PO HS [facility] Last Admin: 05/18/20 22:10 Dose: 10 mg Documented by: Carvedilol (Coreg -) 3.125 mg PO BID [facility] Last Admin: 05/19/20 09:56 Dose: 3.125 mg Documented by: Glimepiride (Amaryl -) 4 mg PO ACBK [facility] Last Admin: 05/19/20 08:27 Dose: 4 mg Documented by: Heparin Sodium (Porcine) (Heparin -) 5,000 unit SQ BID [facility] Last Admin: 05/19/20 09:56 Dose: 5,000 unit Documented by: Ceftriaxone Sodium 1 gm/ (Dextrose) 50 mls @ 100 mls/hr IVPB DAILY [facility]; Protocol Last Admin: 05/19/20 09:56 Dose: 100 mls/hr Documented by: Lactated Ringer's (Lactated Ringers Solution) 1,000 mls @ 50 mls/hr IV ASDIR [facility] Last Admin: 05/19/20 09:56 Dose: 50 mls/hr Documented by: Insulin Aspart (Novolog Vial) 1 units SQ TIDAC [facility]; Protocol Last Admin: 05/19/20 08:33 Dose: Not Given Documented by: Isosorbide Mononitrate (Imdur -) 30 mg PO DAILY [facility] Last Admin: 05/19/20 09:56 Dose: 30 mg Documented by: Pantoprazole Sodium (Protonix -) 40 mg PO ACBK [facility] Last Admin: 05/19/20 08:27 Dose: 40 mg Documented by: - Objective Vital Signs: Vital Signs Temperature 97.7 F 05/19/20 09:43 Pulse Rate 80 05/19/20 09:43 Respiratory Rate 20 05/18/20 22:03 Blood Pressure 146/73 05/19/20 09:43 O2 Sat by Pulse Oximetry (%) 99 05/19/20 09:43 Constitutional: Yes: No Distress, Calm Eyes: Yes: Conjunctiva Clear, EOM Intact HENT: Yes: Atraumatic, Normocephalic Neck: Yes: Supple, Trachea Midline Cardiovascular: Yes: Regular Rate and Rhythm Respiratory: Yes: CTA Bilaterally Gastrointestinal: Yes: Normal Bowel Sounds, Soft Musculoskeletal: Yes: WNL Extremities: Yes: WNL Edema: No Labs: CBC, BMP 05/18/20 09:20 05/19/20 07:40 Assessment/Plan The patient is an 79-year-old female, with a history of hypertension, hyperlipidemia, diabetes, persistent atrial fibrillation, not anticoagulated because of frequent falls, coronary artery disease, CHF EF 25%, severe mitral valve regurgitation on echo 11/22/2018, severe mid RCA disease was stented 11/27/2018, recent GI bleed, now readmitted with mental status changes and falls. The patient was supine in no apparent distress at the time of my exam. She was breathing normally. No chest pains. IMP: fall due to UTI and sepsis. There is no evidence of ischemia nor acute coronary syndrome. The patient is e uvolemic. No pulmonary congestion. Please resume home medications. Obtain orthostatics if possible. Strict salt and fluid restrictions. No need for further telemetry monitoring. Can go to non monitored floor. No need for further cardiac testing at this point. Considering ICD evaluation, but this is an outpatient issue to be addressed when she is stable. will follow
--- NOTE | 2020-05-19 11:29 | PN ---
Progress Note, Physician History of Present Illness: Pt seen and examined at bedside. She is awake but remains confused. - Current Medication List Current Medications: Active Medications Atorvastatin Calcium (Lipitor -) 10 mg PO HS [facility] Last Admin: 05/18/20 22:10 Dose: 10 mg Documented by: Carvedilol (Coreg -) 3.125 mg PO BID [facility] Last Admin: 05/19/20 09:56 Dose: 3.125 mg Documented by: Glimepiride (Amaryl -) 4 mg PO ACBK [facility] Last Admin: 05/19/20 08:27 Dose: 4 mg Documented by: Heparin Sodium (Porcine) (Heparin -) 5,000 unit SQ BID [facility] Last Admin: 05/19/20 09:56 Dose: 5,000 unit Documented by: Ceftriaxone Sodium 1 gm/ (Dextrose) 50 mls @ 100 mls/hr IVPB DAILY [facility]; Protocol Last Admin: 05/19/20 09:56 Dose: 100 mls/hr Documented by: Lactated Ringer's (Lactated Ringers Solution) 1,000 mls @ 50 mls/hr IV ASDIR [facility] Last Admin: 05/19/20 09:56 Dose: 50 mls/hr Documented by: Insulin Aspart (Novolog Vial) 1 units SQ TIDAC [facility]; Protocol Last Admin: 05/19/20 08:33 Dose: Not Given Documented by: Isosorbide Mononitrate (Imdur -) 30 mg PO DAILY [facility] Last Admin: 05/19/20 09:56 Dose: 30 mg Documented by: Pantoprazole Sodium (Protonix -) 40 mg PO ACBK [facility] Last Admin: 05/19/20 08:27 Dose: 40 mg Documented by: - Objective Vital Signs: Vital Signs Temperature 97.7 F 05/19/20 09:43 Pulse Rate 80 05/19/20 09:43 Respiratory Rate 20 05/18/20 22:03 Blood Pressure 146/73 05/19/20 09:43 O2 Sat by Pulse Oximetry (%) 99 05/19/20 09:43 Constitutional: Yes: Calm Eyes: Yes: Conjunctiva Clear HENT: Yes: Atraumatic Neck: Yes: Supple Cardiovascular: Yes: S1, S2 Respiratory: Yes: CTA Bilaterally Gastrointestinal: Yes: Normal Bowel Sounds, Soft Genitourinary: Yes: WNL Musculoskeletal: Yes: WNL Edema: No Neurological: Yes: Confusion Labs: CBC, BMP 05/18/20 09:20 05/19/20 07:40 Problem List - Problems (1) MOON (acute kidney injury) Code(s): N17.9 - ACUTE KIDNEY FAILURE, UNSPECIFIED Assessment/Plan Current Medications Generic Name Dose Route Start Last Admin Trade Name Edita PRN Reason Stop Dose Admin Atorvastatin Calcium 10 mg 05/18/20 22:00 05/18/20 22:10 Lipitor - PO 10 mg HS CARMELINA Administration Carvedilol 3.125 mg 05/18/20 22:00 05/19/20 09:56 Coreg - PO 3.125 mg BID CARMELINA Administration Glimepiride 4 mg 05/18/20 07:45 05/19/20 08:27 Amaryl - PO 4 mg ACBK CARMELINA Administration Heparin Sodium (Porcine) 5,000 unit 05/18/20 10:00 05/19/20 09:56 Heparin - SQ 5,000 unit BID CARMELINA Administration Ceftriaxone Sodium 1 gm/ 50 mls @ 100 mls/hr 05/18/20 10:00 05/19/20 09:56 Dextrose IVPB 100 mls/hr DAILY CARMELINA Administration Protocol Lactated Ringer's 1,000 mls @ 50 mls/hr 05/18/20 09:15 05/19/20 09:56 Lactated Ringers Solution IV 50 mls/hr ASDIR CARMELINA Administration Insulin Aspart 1 units 05/18/20 11:00 05/19/20 08:33 Novolog Vial SQ Not Given TIDAC CARMELINA Protocol Isosorbide Mononitrate 30 mg 05/18/20 10:00 05/19/20 09:56 Imdur - PO 30 mg DAILY CARMELINA Administration Pantoprazole Sodium 40 mg 05/18/20 07:00 05/19/20 08:27 Protonix - PO 40 mg ACBK CARMELINA Administration Impression 1. MOON 2. UTI 3. chf 4. htn 5. hld 6. dm 7. altered mental status 8. sepsis 9. CKD with atrophic kidneys on ultrasound Plan - repeat labs in am - roller gold leaf is improving - cont gentle hydration - change IV as it is infiltrated, spoke to nurse - cont abx - monitor mental status - renal ultrasound reviewed - reviewed ct head report - moon likely from pre-renal disease
--- NOTE | 2020-05-19 16:00 | PN ---
Progress Note, Physician History of Present Illness: AWAKE IN BED NO ACUTE DISTRESS AFEBRILE WBC WNL BC (-) URINE C/S NLF,LF - Current Medication List Current Medications: Active Medications Atorvastatin Calcium (Lipitor -) 10 mg PO HS [facility] Last Admin: 05/18/20 22:10 Dose: 10 mg Documented by: Carvedilol (Coreg -) 3.125 mg PO BID [facility] Last Admin: 05/19/20 09:56 Dose: 3.125 mg Documented by: Glimepiride (Amaryl -) 4 mg PO ACBK [facility] Last Admin: 05/19/20 08:27 Dose: 4 mg Documented by: Heparin Sodium (Porcine) (Heparin -) 5,000 unit SQ BID [facility] Last Admin: 05/19/20 09:56 Dose: 5,000 unit Documented by: Ceftriaxone Sodium 1 gm/ (Dextrose) 50 mls @ 100 mls/hr IVPB DAILY [facility]; Earline col Last Admin: 05/19/20 09:56 Dose: 100 mls/hr Documented by: Lactated Ringer's (Lactated Ringers Solution) 1,000 mls @ 50 mls/hr IV ASDIR [facility] Last Admin: 05/19/20 09:56 Dose: 50 mls/hr Documented by: Insulin Aspart (Novolog Vial) 1 units SQ TIDAC [facility]; Protocol Last Admin: 05/19/20 12:17 Dose: Not Given Documented by: Isosorbide Mononitrate (Imdur -) 30 mg PO DAILY [facility] Last Admin: 05/19/20 09:56 Dose: 30 mg Documented by: Pantoprazole Sodium (Protonix -) 40 mg PO ACBK [facility] Last Admin: 05/19/20 08:27 Dose: 40 mg Documented by: - Objective Vital Signs: Vital Signs Temperature 98 F 05/19/20 15:13 Pulse Rate 74 05/19/20 15:13 Respiratory Rate 18 05/19/20 15:13 Blood Pressure 122/65 05/19/20 15:13 O2 Sat by Pulse Oximetry (%) 97 05/19/20 15:13 Constitutional: Yes: No Distress, Obese Cardiovascular: Yes: Regular Rate and Rhythm Respiratory: Yes: Diminished Gastrointestinal: Yes: Normal Bowel Sounds, Soft. No: Tenderness Edema: No Labs: CBC, BMP 05/18/20 09:20 05/19/20 07:40 Assessment/Plan UTI R/O SEPSIS SECONDARY TO UTI TOXIC METABOLIC ENCEPHALOPATHY DIABETES MELLITUS AWAIT C/S CONTINUE CEFTRIAXONE
[2020-05-19] MEDS: ATORVASTATIN CA 10 MG TABLET (FP) PO SCH (22:03)
[2020-05-20] MEDS: LACTATED RINGERS SOLUTION 1,000 ML IV SCH ×2 (02:54→09:31)
[2020-05-20] MEDS: INSULIN (NOVOLOG) ASPART 100 UNITS/ML 10ML VIAL SQ SCH ×3 (07:06→16:56)
[2020-05-20] MEDS: PANTOPRAZOLE 40 MG TABLET PO SCH (07:10)
[2020-05-20] MEDS ORDERED: GLIMEPIRIDE 2 MG TABLET PO SCH (07:11)
[2020-05-20] MEDS ORDERED: GLIMEPIRIDE 4 MG TABLET PO SCH (07:12)
[2020-05-20] MEDS: GLIMEPIRIDE 4 MG TABLET PO SCH (08:00)
--- NOTE | 2020-05-20 08:30 | DS ---
Physical Examination Vital Signs: Vital Signs Temperature 98.4 F 05/20/20 05:36 Pulse Rate 74 05/20/20 05:36 Respiratory Rate 18 05/20/20 05:36 Blood Pressure 136/63 05/20/20 05:36 O2 Sat by Pulse Oximetry (%) 97 05/20/20 05:36 Constitutional: Yes: No Distress Cardiovascular: Yes: Regular Rate and Rhythm Respiratory: Yes: WNL Gastrointestinal: Yes: WNL Musculoskeletal: Yes: Muscle Weakness Edema: No ...Motor Strength: WNL Labs: CBC, BMP 05/18/20 09:20 05/19/20 07:40 Discharge Summary Problems reviewed: Yes Reason For Visit: URINARY TRACT INFECTION Current Active Problems SHAW (acute kidney injury) (Acute) Acute metabolic encephalopathy (Acute) Change in mental state (Acute) Syncope (Acute) Procedures: Principal: ADMITTED ARF/WEAKNESS, TREATED IVF, IV ABX, PT EVAL Hospital Course: IV ABX, IV FLUIDS, PT EVAL Goals: SNF PLACEMENT, SEE YOUR DOCTOR IN 1 WEEK AFTER SNF Condition: Improved - Instructions Referrals: Dieter Quintero MD [Primary Care Provider] - [facility] - Home Medications Comprehensive Discharge Medication List: Ambulatory Orders Glimepiride [Amaryl] 4 mg PO DAILY 07/19/17 Furosemide [Lasix] 40 mg PO DAILY 12/18/18 Carvedilol 6.25 mg PO DAILY 12/04/19 Hydralazine HCl 25 mg PO TID 12/04/19 Isosorbide Mononitrate [Isosorbide Mononitrate ER] 30 mg PO DAILY 12/04/19 Mirabegron [Myrbetriq] 50 mg PO DAILY 12/04/19 Pantoprazole Sodium 40 mg PO DAILY 12/04/19 Simvastatin 20 mg PO DAILY 12/04/19 Spironolactone 25 mg PO DAILY 12/04/19 Trospium Chloride [Trospium Chloride ER] 20 mg PO BID 12/04/19
[2020-05-20] MEDS ORDERED: cefTRIAXone SODIUM 1 GM VIAL ONE (09:16)
[2020-05-20] MEDS ORDERED: DEXTROSE 5%-WATER - 50 ML IVPB ONE (09:16)
--- NOTE | 2020-05-20 09:26 | PN ---
Progress Note, Physician Chief Complaint: confused tele neg History of Present Illness: The patient is an 79-year-old female, with a history of hypertension, hyperlipidemia, diabetes, persistent atrial fibrillation, not anticoagulated because of frequent falls, coronary artery disease, CHF EF 25%, severe mitral valve regurgitation on echo 11/22/2018, severe mid RCA disease was stented 11/27/2018, recent GI bleed, now readmitted with mental status changes and falls. The patient was supine in no apparent distress at the time of my exam. She was breathing normally. No chest pains. - Current Medication List Current Medications: Active Medications Atorvastatin Calcium (Lipitor -) 10 mg PO HS [facility] Last Admin: 05/19/20 22:03 Dose: 10 mg Documented by: Carvedilol (Coreg -) 3.125 mg PO BID [facility] Last Admin: 05/19/20 22:03 Dose: 3.125 mg Documented by: Glimepiride (Amaryl -) 4 mg PO ACBK [facility] Heparin Sodium (Porcine) (Heparin -) 5,000 unit SQ BID [facility] Last Admin: 05/19/20 22:03 Dose: 5,000 unit Documented by: Ceftriaxone Sodium 1 gm/ (Dextrose) 50 mls @ 100 mls/hr IVPB DAILY [facility]; Protocol Last Admin: 05/19/20 09:56 Dose: 100 mls/hr Documented by: Lactated Ringer's (Lactated Ringers Solution) 1,000 mls @ 50 mls/hr IV ASDIR [facility] Last Admin: 05/20/20 02:54 Dose: 50 mls/hr Documented by: Insulin Aspart (Novolog Vial) 1 units SQ TIDAC [facility]; Protocol Last Admin: 05/20/20 07:06 Dose: Not Given Documented by: Isosorbide Mononitrate (Imdur -) 30 mg PO DAILY [facility] Last Admin: 05/19/20 09:56 Dose: 30 mg Documented by: Pantoprazole Sodium (Protonix -) 40 mg PO ACBK [facility] Last Admin: 05/20/20 07:10 Dose: 40 mg Documented by: - Objective Vital Signs: Vital Signs Temperature 98.4 F 05/20/20 05:36 Pulse Rate 74 05/20/20 05:36 Respiratory Rate 18 05/20/20 05:36 Blood Pressure 136/63 05/20/20 05:36 O2 Sat by Pulse Oximetry (%) 97 05/20/20 05:36 Constitutional: Yes: No Distress, Calm Eyes: Yes: Conjunctiva Clear, EOM Intact HENT: Yes: Normocephalic Neck: Yes: Trachea Midline Cardiovascular: Yes: Regular Rate and Rhythm Respiratory: Yes: CTA Bilaterally Gastrointestinal: Yes: Normal Bowel Sounds, Soft Extremities: Yes: WNL Edema: No Labs: CBC, BMP 05/18/20 09:20 05/19/20 07:40 Assessment/Plan The patient is an 79-year-old female, with a history of hypertension, hyperlipidemia, diabetes, persistent atrial fibrillation, not anticoagulated because of frequent falls, coronary artery disease, CHF EF 25%, severe mitral valve regurgitation on echo 11/22/2018, severe mid RCA disease was stented 11/27/2018, recent GI bleed, now readmitted with mental status changes and falls. The patient was supine in no apparent distress at the time of my exam. She was breathing normally. No chest pains. IMP: fall due to UTI and sepsis. There is no evidence of ischemia nor acute coronary syndrome. The patient is euvolemic. No pulmonary congestion. Please resume home medications. Obtain orthostatics if possible. Strict salt and fluid restrictions. No need for further telemetry monitoring. Can go to non monitored floor. No need for further cardiac testing at this point. Considering ICD evaluation, but this is an outpatient issue to be addressed when she is stable. will follow
[2020-05-20] MEDS: CARVEDILOL 3.125 MG TABLET (FP) PO SCH ×2 (09:30→22:17)
[2020-05-20] MEDS: ISOSORBIDE MONONITRATE 30 MG TAB.SR.24H (FP) PO SCH (09:30)
[2020-05-20] MEDS: CEFTRIAXONE 1 GM in DEXTROSE 5%-WATER - 50 ML IVPB SCH (09:31)
[2020-05-20] MEDS: HEPARIN NA (PORCINE) 5,000 UNITS/ML 1ML VIAL SQ SCH ×2 (09:31→22:17)
--- NOTE | 2020-05-20 14:04 | PN ---
Progress Note, Physician History of Present Illness: Pt seen and examined at bedside. She is awake but confused. - Current Medication List Current Medications: Active Medications Atorvastatin Calcium (Lipitor -) 10 mg PO HS [facility] Last Admin: 05/19/20 22:03 Dose: 10 mg Documented by: Carvedilol (Coreg -) 3.125 mg PO BID [facility] Last Admin: 05/20/20 09:30 Dose: 3.125 mg Documented by: Glimepiride (Amaryl -) 4 mg PO ACBK [facility] Heparin Sodium (Porcine) (Heparin -) 5,000 unit SQ BID [facility] Last Admin: 05/20/20 09:31 Dose: 5,000 unit Documented by: Ceftriaxone Sodium 1 gm/ (Dextrose) 50 mls @ 100 mls/hr IVPB DAILY [facility]; Protocol Last Admin: 05/20/20 09:31 Dose: 100 mls/hr Documented by: Lactated Ringer's (Lactated Ringers Solution) 1,000 mls @ 50 mls/hr IV ASDIR [facility] Last Admin: 05/20/20 09:31 Dose: Not Given Documented by: Insulin Aspart (Novolog Vial) 1 units SQ TIDAC [facility]; Protocol Last Admin: 05/20/20 12:08 Dose: Not Given Documented by: Isosorbide Mononitrate (Imdur -) 30 mg PO DAILY [facility] Last Admin: 05/20/20 09:30 Dose: 30 mg Documented by: Pantoprazole [facility] -) [facility] Admin: 05/20/20 07:10 Dose: 40 mg Documented by: - Objective Vital Signs: Vital Signs Temperature 97.4 F L 05/20/20 09:38 Pulse Rate 72 05/20/20 09:38 Respiratory Rate 18 05/20/20 09:38 Blood Pressure 137/65 05/20/20 09:38 O2 Sat by Pulse Oximetry (%) 96 05/20/20 09:38 Constitutional: Yes: Calm Eyes: Yes: Conjunctiva Clear HENT: Yes: Atraumatic Cardiovascular: Yes: S1, S2 Respiratory: Yes: CTA Bilaterally Gastrointestinal: Yes: Normal Bowel Sounds, Soft Genitourinary: Yes: WNL Musculoskeletal: Yes: WNL Edema: No Integumentary: Yes: WNL Neurological: Yes: Confusion Labs: CBC, BMP 05/18/20 09:20 05/19/20 07:40 Problem List - Problems (1) MOON (acute kidney injury) Code(s): N17.9 - ACUTE KIDNEY FAILURE, UNSPECIFIED Assessment/Plan Current Medications Generic Name Dose Route Start Last Admin Trade Name Edita PRN Reason Stop Dose Admin Atorvastatin Calcium 10 mg 05/18/20 22:00 05/19/20 22:03 Lipitor - PO 10 mg HS CARMELINA Administration Carvedilol 3.125 mg 05/18/20 22:00 05/20/20 09:30 Coreg - PO 3.125 mg BID CARMELINA Administration Glimepiride 4 mg 05/20/20 07:12 Amaryl - PO ACBK CARMEL[facility] Heparin Sodium (Porcine) 5,000 unit 05/18/20 10:00 05/20/20 09:31 Heparin - SQ 5,000 unit BID [facility] Administration Ceftriaxone Sodium 1 gm/ 50 mls @ 100 mls/hr 05/18/20 10:00 05/20/20 09:31 Dextrose IVPB 100 mls/hr DAILY CARMELINA Administration Protocol Lactated Ringer's 1,000 mls @ 50 mls/hr 05/18/20 09:15 05/20/20 09:31 Lactated Ringers Solution IV Not Given ASDIR [facility] Insulin Aspart 1 units 05/18/20 11:00 05/20/20 12:08 Novolog Vial SQ Not Given TIDAC [facility] Protocol Isosorbide Mononitrate 30 mg 05/18/20 10:00 05/20/20 09:30 Imdur - PO 30 mg DAILY CARMELINA Administration Pantoprazole Sodium 40 mg 05/18/20 07:00 05/20/20 07:10 Protonix - PO 40 mg ACBK CARMELINA Administration Impression 1. MOON 2. UTI 3. chf 4. htn 5. hld 6. dm 7. altered mental status 8. sepsis 9. CKD with atrophic kidneys on ultrasound Plan - cont to monitor renal function - sole stainer had improved - po intake remains poor, cont one to one feeds - pending placement - cont abx - monitor mental status - moon likely from pre-renal disease
--- NOTE | 2020-05-20 20:37 | HOSP ---
Subjective - Review of Symptoms Events since last encounter: Hospitalist Encounter Notified by the RN that the patient reports right upper extremity weakness since early this afternoon, was asked to assess. Arrived to bedside patient is alert, awake oriented to name- at baseline. Patient is Italian speaking [employer] used Kevin #[id number]. Per the home energy consultant patient was not understanding him. Patient examined at bedside- weakness to RUE noted. NIHSS 1 Plan: Brain CT- stat Oxygen 2L Neurochecks Neurological: Yes: Weakness Physical Examination Vital Signs: Vital Signs Temperature 97.5 F L 05/20/20 18:00 Pulse Rate 77 05/20/20 18:00 Respiratory Rate 18 05/20/20 18:00 Blood Pressure 120/48 L 05/20/20 18:00 O2 Sat by Pulse Oximetry (%) 95 05/20/20 18:00 Constitutional: Yes: Well Nourished, No Distress, Calm Eyes: Yes: Conjunctiva Clear, EOM Intact, PERRL HENT: Yes: Atraumatic, Normocephalic Neck: Yes: Supple, Trachea Midline Cardiovascular: Yes: Regular Rate and Rhythm, S1, S2 Respiratory: Yes: Regular, CTA Bilaterally Gastrointestinal: Yes: Normal Bowel Sounds, Soft ...Rectal Exam: Yes: Deferred Renal/: Yes: WNL Breast(s): Yes: WNL Musculoskeletal: Yes: Muscle Weakness Extremities: Yes: WNL Edema: No Peripheral Pulses WNL: Yes Neurological: Yes: Alert, Confusion (at baseline), Weakness (RUE) ...Motor Strength: LUE (5/5), LLE (5/5), RUE (4/5), RLE (5/5) Psychiatric: Yes: Alert Labs: CBC, BMP 05/18/20 09:20 05/19/20 07:40 Laboratory Results - last 24 hr 05/20/20 05/20/20 05/20/20 07:04 12:07 16:54 POC Glucometer 60 88 56 CBCD WBC 8.8 K/mm3 (4.0-10.0) 05/18/20 09:20 RBC 4.33 M/mm3 (3.60-5.2) 05/18/20 09:20 Hgb 12.5 GM/dL (10.7-15.3) 05/18/20 09:20 Hct 37.9 % (32.4-45.2) 05/18/20 09:20 MCV 87.6 fl (80-96) 05/18/20 09:20 MCHC 33.0 g/dl (32.0-36.0) 05/18/20 09:20 RDW 13.9 % (11.6-15.6) 05/18/20 09:20 Plt Count 174 K/MM3 (134-434) 05/18/20 09:20 MPV 8.8 fl (7.5-11.1) 05/18/20 09:20 CMP Sodium 138 mmol/L (136-145) 05/19/20 07:40 Potassium 4.5 mmol/L (3.5-5.1) 05/19/20 07:40 Chloride 104 mmol/L (98-107) 05/19/20 07:40 Carbon Dioxide 27 mmol/L (21-32) 05/19/20 07:40 Anion Gap 7 MMOL/L (8-16) L 05/19/20 07:40 BUN 31.0 mg/dL (7-18) H 05/19/20 07:40 Creatinine 1.5 mg/dL (0.55-1.3) H 05/19/20 07:40 Random Glucose 76 mg/dL (74-106) 05/19/20 07:40 Calcium 9.0 mg/dL (8.5-10.1) 05/19/20 07:40 Total Bilirubin 0.4 mg/dL (0.2-1) 05/19/20 07:40 AST 22 U/L (15-37) 05/19/20 07:40 ALT 13 U/L (13-61) 05/19/20 07:40 Alkaline Phosphatase 71 U/L (45-117) 05/19/20 07:40 Total Protein 6.7 g/dl (6.4-8.2) 05/19/20 07:40 Albumin 3.3 g/dl (3.4-5.0) L 05/19/20 07:40 CARDIAC ENZYMES Troponin I 0.02 ng/ml (0.00-0.05) 05/18/20 09:20 Last Vital Signs Temp Pulse Resp BP Pulse Ox 97.2 F L 79 18 137/62 98 05/20/20 20:24 05/20/20 20:24 05/20/20 20:24 05/20/20 20:24 05/20/20 20:24 Hospitalist Encounter Assessment: The patient is a 78 year old female with a significant past medical history of CAD, CHF, mitral regurgitation, Afib, DM, COPD, HTN, HLD. Admitted for Syncope, Acute Metabolic Encephalopathy, UTI Frequent Falls, Unsteady Gait Outcome: Brain CT image, report reviewed- no CT evidence of acute intracranial pathology, small chronic bilateral cerebral infarcts are seen. moderate to marked periventricular and subcortical chronic microvascular changes are noted. No definite interval change is identified in comparison to prior CT exam (05/18/20) Continue current regimen d/w results with RN Will continue to monitor, PMD to resume care in am. Critical Care Total Critical Care Time (in minutes): 35 Critical Care Statement: The care of this patient involved high complexity decision making to prevent further life threatening deterioration of the patient's condition and/or to evaluate & treat vital organ system(s) failure or risk of failure.
[2020-05-20] MEDS: ATORVASTATIN CA 10 MG TABLET (FP) PO SCH (22:17)
[2020-05-20 23:05] VITALS: BMI 26.2
[2020-05-21] MEDS: LACTATED RINGERS SOLUTION 1,000 ML IV SCH ×2 (04:23→10:02)
[2020-05-21] MEDS: INSULIN (NOVOLOG) ASPART 100 UNITS/ML 10ML VIAL SQ SCH ×3 (06:34→16:27)
[2020-05-21] MEDS: PANTOPRAZOLE 40 MG TABLET PO SCH (06:47)
[2020-05-21 09:04] LABS: BILIRUBIN,TOTAL 0.4 mg/dL (0.2-1); BLOOD UREA NITROGEN 22.2 mg/dL (7-18); CALCIUM 8.9 mg/dL (8.5-10.1); CREATININE 1.1 mg/dL (0.55-1.3); POTASSIUM 4.2 mmol/L (3.5-5.1)
--- NOTE | 2020-05-21 10:01 | PN ---
Progress Note, Physician Chief Complaint: comfortable. Arm weakness last night CTH negative. History of Present Illness: The patient is an 79-year-old female, with a history of hypertension, hyperlipidemia, diabetes, persistent atrial fibrillation, not anticoagulated because of frequent falls, coronary artery disease, CHF EF 25%, severe mitral valve regurgitation on echo 11/22/2018, severe mid RCA disease was stented 11/27/2018, recent GI bleed, now readmitted with mental status changes and falls. The patient was supine in no apparent distress at the time of my exam. She was breathing normally. No chest pains. Arm weakness 05/20/20 CTH negative. - Current Medication List Current Medications: Active Medications Atorvastatin Calcium (Lipitor -) 10 mg PO HS [facility] Last Admin: 05/20/20 22:17 Dose: 10 mg Documented by: Carvedilol (Coreg -) 3.125 mg PO BID [facility] Last Admin: 05/20/20 22:17 Dose: 3.125 mg Documented by: Glimepiride (Amaryl -) 4 mg PO ACBK [facility] Last Admin: 05/21/20 06:47 Dose: 4 mg Documented by: Heparin Sodium (Porcine) (Heparin -) 5,000 unit SQ BID [facility] Last Admin: 05/20/20 22:17 Dose: 5,000 unit Documented by: Ceftriaxone Sodium 1 gm/ (Dextrose) 50 mls @ 100 mls/hr IVPB DAILY [facility]; Protocol Last Admin: 05/20/20 09:31 Dose: 100 mls/hr Documented by: Lactated Ringer's (Lactated Ringers Solution) 1,000 mls @ 50 mls/hr IV ASDIR S Last Admin: 05/21/20 04:23 Dose: 50 mls/hr Documented by: Insulin Aspart (Novolog Vial) 1 units SQ TIDAC [facility]; Protocol Last Admin: 05/21/20 06:34 Dose: Not Given Documented by: Isosorbide Mononitrate (Imdur -) 30 mg PO DAILY [facility] Last Admin: 05/20/20 09:30 Dose: 30 mg Documented by: Pantoprazole Sodium (Protonix -) 40 mg PO ACBK [facility] Last Admin: 05/21/20 06:47 Dose: 40 mg Documented by: - Objective Vital Signs: Vital Signs Temperature 97.2 F L 05/20/20 20:24 Pulse Rate 79 05/20/20 20:24 Respiratory Rate 18 05/20/20 21:00 Blood Pressure 137/62 05/20/20 20:24 O2 Sat by Pulse Oximetry (%) 98 05/20/20 21:00 Constitutional: Yes: No Distress, Calm Eyes: Yes: EOM Intact HENT: Yes: Normocephalic Neck: Yes: Trachea Midline Cardiovascular: Yes: Regular Rate and Rhythm Respiratory: Yes: CTA Bilaterally Gastrointestinal: Yes: Normal Bowel Sounds, Soft Musculoskeletal: Yes: WNL Extremities: Yes: WNL Edema: No Labs: CBC, BMP 05/18/20 09:20 05/21/20 07:45 Assessment/Plan The patient is an 79-year-old female, with a history of hypertension, hyperlipidemia, diabetes, persistent atrial fibrillation, not anticoagulated because of frequent falls, coronary artery disease, CHF EF 25%, severe mitral valve regurgitation on echo 11/22/2018, severe mid RCA disease was stented 11/27/2018, recent GI bleed, now readmitted with mental status changes and falls. The patient was supine in no apparent distress at the time of my exam. She was breathing normally. No chest pains. IMP: fall due to UTI and sepsis. There is no evidence of ischemia nor acute coronary syndrome. The patient is euvolemic. No pulmonary congestion. Please resume home medications. Obtain orthostatics if possible. Strict salt and fluid restrictions. No need for further cardiac testing at this point. Considering ICD evaluation, but this is an outpatient issue to be addressed when she is stable. will follow.
[2020-05-21] MEDS: HEPARIN NA (PORCINE) 5,000 UNITS/ML 1ML VIAL SQ SCH (10:02)
[2020-05-21] MEDS: ISOSORBIDE MONONITRATE 30 MG TAB.SR.24H (FP) PO SCH (10:02)
[2020-05-21] MEDS: CARVEDILOL 3.125 MG TABLET (FP) PO SCH (10:02)
[2020-05-21] MEDS ORDERED: cefTRIAXone SODIUM 1 GM VIAL ONE (10:04)
[2020-05-21] MEDS ORDERED: DEXTROSE 5%-WATER - 50 ML IVPB ONE (10:04)
[2020-05-21] MEDS: CEFTRIAXONE 1 GM in DEXTROSE 5%-WATER - 50 ML IVPB SCH (10:05)
--- NOTE | 2020-05-21 10:44 | PN ---
Progress Note, Physician History of Present Illness: AWAKE IN BED NO ACUTE DISTRESS EVENTS NOTED R UE WEAKNESS CT HEAD NO ACUTE CHANGE AFEBRILE WBC WNL BC (-) URINE C/S CONTAMINATED SHAW IMPROVED - Current Medication List Current Medications: Active Medications Atorvastatin Calcium (Lipitor -) 10 mg PO HS [facility] Last Admin: 05/20/20 22:17 Dose: 10 mg Documented by: Carvedilol (Coreg -) 3.125 mg PO BID [facility] Last Admin: 05/21/20 10:02 Dose: 3.125 mg Documented by: Glimepiride (Amaryl -) 4 mg PO ACBK [facility] Last Admin: 05/21/20 06:47 Dose: 4 mg Documented by: Heparin Sodium (Porcine) (Heparin -) 5,000 unit SQ BID [facility] Last Admin: 05/21/20 10:02 Dose: 5,000 unit Documented by: Ceftriaxone Sodium 1 gm/ (Dextrose) 50 mls @ 100 mls/hr IVPB DAILY [facility]; Protocol Last Admin: 05/21/20 10:05 Dose: 100 mls/hr Documented by: Lactated Ringer's (Lactated Ringers Solution) 1,000 mls @ 50 mls/hr IV ASDIR [facility] Last Admin: 05/21/20 10:02 Dose: Not Given Documented by: Insulin Aspart (Novolog Vial) 1 units SQ TIDAC [facility]; Protocol Last Admin: 05/21/20 06:34 Dose: Not Given Documented by: Isosorbide Mononitrate (Imdur -) 30 mg PO DAILY [facility] Last Admin: 05/21/20 10:02 Dose: 30 mg Documented by: Pantoprazole Sodium (Protonix -) 40 mg PO ACBK [facility] Last Admin: 05/21/20 06:47 Dose: 40 mg Documented by: - Objective Vital Signs: Vital Signs Temperature 97.2 F L 05/20/20 20:24 Pulse Rate 79 05/20/20 20:24 Respiratory Rate 18 05/20/20 21:00 Blood Pressure 137/62 05/20/20 20:24 O2 Sat by Pulse Oximetry (%) 98 05/20/20 21:00 Constitutional: Yes: No Distress, Obese Cardiovascular: Yes: Regular Rate and Rhythm, S1, S2 Respiratory: Yes: Diminished Gastrointestinal: Yes: Normal Bowel Sounds, Soft, Abdomen, Obese. No: Tenderness Labs: CBC, BMP 05/18/20 09:20 05/21/20 07:45 Assessment/Plan UTI R/O SEPSIS SECONDARY TO UTI TOXIC METABOLIC ENCEPHALOPATHY DIABETES MELLITUS SHAW IMPROVED SUBSTITUTE CEFTIN 500MG PO BID X 7D
--- NOTE | 2020-05-21 11:05 | PN ---
Progress Note, Physician Chief Complaint: UTI AMS Metabolic encephalopthy SHAW History of Present Illness: NAD pleasantly confused - Current Medication List Current Medications: Active Medications Atorvastatin Calcium (Lipitor -) 10 mg PO HS [facility] Last Admin: 05/20/20 22:17 Dose: 10 mg Documented by: Carvedilol (Coreg -) 3.125 mg PO BID [facility] Last Admin: 05/21/20 10:02 Dose: 3.125 mg Documented by: Cefuroxime Axetil (Ceftin -) 500 mg PO BID [facility] Glimepiride (Amaryl -) 4 mg PO ACBK [facility] Last Admin: 05/21/20 06:47 Dose: 4 mg Documented by: Heparin Sodium (Porcine) (Heparin -) 5,000 unit SQ BID [facility] Last Admin: 05/21/20 10:02 Dose: 5,000 unit Documented by: Lactated Ringer's (Lactated Ringers Solution) 1,000 mls @ 50 mls/hr IV ASDIR [facility] Last Admin: 05/21/20 10:02 Dose: Not Given Documented by: Insulin Aspart (Novolog Vial) 1 units SQ TIDAC [facility]; Protocol Last Admin: 05/21/20 06:34 Dose: Not Given Documented by: Isosorbide Mononitrate (Imdur -) 30 mg PO DAILY [facility] Last Admin: 05/21/20 10:02 Dose: 30 mg Documented by: Pantoprazole Sodium (Protonix -) 40 mg PO ACBK [facility] Last Admin: 05/21/20 06:47 Dose: 40 mg Documented by: - Objective Vital Signs: Vital Signs Temperature 97.2 F L 05/20/20 20:24 Pulse Rate 79 05/20/20 20:24 Respiratory Rate 18 05/20/20 21:00 Blood Pressure 137/62 05/20/20 20:24 O2 Sat by Pulse Oximetry (%) 98 05/20/20 21:00 Labs: CBC, BMP 05/18/20 09:20 05/21/20 07:45 Problem List - Problems (1) SHAW (acute kidney injury) Code(s): N17.9 - ACUTE KIDNEY FAILURE, UNSPECIFIED (2) Acute metabolic encephalopathy Code(s): G93.41 - METABOLIC ENCEPHALOPATHY (3) Change in mental state Code(s): R41.82 - ALTERED MENTAL STATUS, UNSPECIFIED Qualifiers: Altered mental status type: unspecified Qualified Code(s): R41.82 - Altered mental status, unspecified (4) Diabetes mellitus Code(s): E11.9 - TYPE 2 DIABETES MELLITUS WITHOUT COMPLICATIONS (5) Falls frequently Code(s): R29.6 - REPEATED FALLS (6) Paroxysmal A-fib Code(s): I48.0 - PAROXYSMAL ATRIAL FIBRILLATION (7) UTI (urinary tract infection) Code(s): N39.0 - URINARY TRACT INFECTION, SITE NOT SPECIFIED
--- NOTE | 2020-05-21 11:53 | PN ---
Progress Note, Physician History of Present Illness: Pt seen and examined at bedside. She has right arm and right leg weakness. - Current Medication List Current Medications: Active Medications Atorvastatin Calcium (Lipitor -) 10 mg PO HS [facility] Last Admin: 05/20/20 22:17 Dose: 10 mg Documented by: Carvedilol (Coreg -) 3.125 mg PO BID [facility] Last Admin: 05/21/20 10:02 Dose: 3.125 mg Documented by: Cefuroxime Axetil (Ceftin -) 500 mg PO BID [facility] Glimepiride (Amaryl -) 4 mg PO ACBK [facility] Last Admin: 05/21/20 06:47 Dose: 4 mg Documented by: Heparin Sodium (Porcine) (Heparin -) 5,000 unit SQ BID [facility] Last Admin: 05/21/20 10:02 Dose: 5,000 unit Documented by: Lactated Ringer's (Lactated Ringers Solution) 1,000 mls @ 50 mls/hr IV ASDIR [facility] Last Admin: 05/21/20 10:02 Dose: Not Given Documented by: Insulin Aspart (Novolog Vial) 1 units SQ TIDAC [facility]; Protocol Last Admin: 05/21/20 11:45 Dose: Not Given Documented by: Isosorbide Mononitrate (Imdur -) 30 mg PO DAILY [facility] Last Admin: 05/21/20 10:02 Dose: 30 mg Documented by: Pantoprazole [facility]odium (Protonix -) [facility] Last Admin: 05/21/20 06:47 Dose: 40 mg Documented by: - Objective Vital Signs: Vital Signs Temperature 97.2 F L 05/20/20 20:24 Pulse Rate 79 05/20/20 20:24 Respiratory Rate 18 05/20/20 21:00 Blood Pressure 137/62 05/20/20 20:24 O2 Sat by Pulse Oximetry (%) 98 05/20/20 21:00 Constitutional: Yes: Calm Eyes: Yes: Conjunctiva Clear HENT: Yes: Atraumatic Cardiovascular: Yes: S1, S2 Respiratory: Yes: CTA Bilaterally Gastrointestinal: Yes: Soft Genitourinary: Yes: Incontinence Musculoskeletal: Yes: Muscle Weakness Edema: No Neurological: Yes: Other (right side weakness) Labs: CBC, BMP 05/18/20 09:20 05/21/20 07:45 Problem List - Problems (1) MOON (acute kidney injury) Code(s): N17.9 - ACUTE KIDNEY FAILURE, UNSPECIFIED Assessment/Plan Current Medications Generic Name Dose Route Start Last Admin Trade Name Edita PRN Reason Stop Dose Admin Atorvastatin Calcium 10 mg 05/18/20 22:00 05/20/20 22:17 Lipitor - PO 10 mg HS CARMELIAN Administration Carvedilol 3.125 mg 05/18/20 22:00 05/21/20 10:02 Coreg - PO 3.125 mg BID CARMELINA Administration Cefuroxime Axetil 500 mg 05/21/20 22:00 Ceftin - PO BID [facility] Glimepiride 4 mg 05/20/20 07:12 05/21/20 06:47 Amaryl - PO 4 mg ACBK CARMELINA Administration Heparin Sodium (Porcine) 5,000 unit 05/18/20 10:00 05/21/20 10:02 Heparin - SQ 5,000 unit BID CARMELINA Administration Lactated Ringer's 1,000 mls @ 50 mls/hr 05/18/20 09:15 05/21/20 10:02 Lactated Ringers Solution IV Not Given ASDIR [facility] Insulin Aspart 1 units 05/18/20 11:00 05/21/20 11:45 Novolog Vial SQ Not Given TIDAC [facility] Protocol Isosorbide Mononitrate 30 mg 05/18/20 10:00 05/21/20 10:02 Imdur - PO 30 mg DAILY CARMELINA Administration Pantoprazole Sodium 40 mg 05/18/20 07:00 05/21/20 06:47 Protonix - PO 40 mg ACBK CARMELINA Administration Impression 1. MOON 2. UTI 3. chf 4. htn 5. hld 6. dm 7. altered mental status 8. sepsis 9. CKD with atrophic kidneys on ultrasound Plan - renal function is improved - repeat labs in am - neuro follow up - po intake remains poor, cont one to one feeds - cont abx - monitor mental status - moon likely from pre-renal disease - renal function is improved
[2020-05-21 15:11] VITALS: BP 141/55; PULSE 80; TEMP 97.7
[2020-05-21] MEDS ORDERED: CEFUROXIME AXETIL 500 MG TABLET PO SCH (22:00)
== END 2020-05-21 17:20 | DRG 682 ==
LOC: JER 16:42 → SUPCPDRO 16:42 → JERBED 23:02 → J6S 05-19 14:45
PROVIDERS: ADMIT Internal Medicine; ATTEND Family Medicine
DX: N17.9 Acute kidney failure, unspecified (principal); G93.41 Metabolic encephalopathy; A41.89 Other specified sepsis; N39.0 Urinary tract infection, site not specified; I42.8 Other cardiomyopathies; I13.0 Hypertensive heart and chronic kidney disease with heart failure and stage 1 through stage 4 chronic kidney disease, or unspecified chronic kidney disease; I25.10 Atherosclerotic heart disease of native coronary artery without angina pectoris; I48.91 Unspecified atrial fibrillation; J44.9 Chronic obstructive pulmonary disease, unspecified; E78.5 Hyperlipidemia, unspecified; E11.9 Type 2 diabetes mellitus without complications; K21.9 Gastro-esophageal reflux disease without esophagitis; I34.0 Nonrheumatic mitral (valve) insufficiency; N31.9 Neuromuscular dysfunction of bladder, unspecified; I48.0 Paroxysmal atrial fibrillation; R29.6 Repeated falls; M48.00 Spinal stenosis, site unspecified; R55 Syncope and collapse; E86.0 Dehydration; R41.82 Altered mental status, unspecified; E11.22 Type 2 diabetes mellitus with diabetic chronic kidney disease; N18.9 Chronic kidney disease, unspecified; I50.9 Heart failure, unspecified
CPT/HCPCS: 36415; 70450-TC; 71045-TC-FY; 72125-TC; 72170-TC-FY; 76775-TC; 80053; 81003; 82607; 82962; 83036; 83735; 84439; 84443; 84484; 85025; 87040; 87077; 87086; 93005; 93010; 97116-GP; 97162-GP; 99285-25; J1644; U0003

== ENCOUNTER 2020-06-29 11:49 | Inpatient (IN) | payer OTHER ==
--- OUTSIDE RECORDS SUMMARY | 2020-06-29 12:13 | XMS ---
:1940 Author Organization [facility] Care Team Providers Name Role Phone NICHOLE REIS Unavailable Unavailable CATRACHITO PORTER Unavailable Unavailable ED STAFF PHYSICIAN Unavailable Unavailable ED STAFF PHYSICIAN, STAFF Unavailable Unavailable PARIS ARANA Unavailable Unavailable Re-disclosure Warning The records that you are about to access may contain information from federally- assisted alcohol or drug abuse programs. If such information is present, then the following federally mandated warning applies: This information has been disclosed to you from records protected by federal confidentiality rules (42 CFR part 2). The federal rules prohibit you from making any further disclosure of this information unless further disclosure is expressly permitted by the written consent of the person to whom it pertains or as otherwise permitted by 42 CFR part 2. A general authorization for the release of medical or other information is NOT sufficient for this purpose. The Federal rules restrict any use of the information to criminally investigate or prosecute any alcohol or drug abuse patient.The records that you are about to access may contain highly sensitive health information, the redisclosure of which is protected by Article 27-F of the [facility] Public Health law. If you continue you may haveaccess to information: Regarding HIV / AIDS; Provided by facilities licensed or operated by the [facility] Office of Mental Health; or Provided by the [facility] Office for People With Developmental Disabilities. If such information is present, then the following [facility] mandated warning applies: This information has been disclosed to you from confidential records which are protected by state law. State law prohibits you from making any further disclosure of this information without the specific written consent of the person to whom it pertains, or as otherwise permitted by law. Any unauthorized further disclosure in violation of state law may result in a fine or prison sentence or both. A general authorization for the release of medical or other information is NOT sufficient authorization for further disclosure. Encounters Encounter Providers Location Date Indications Data Source(s ) Outpatient Attender: PARIS [facility] Medical Almaz SAENZMIAdmitter: EDT PARIS DUMONTReferrer: PARIS DUMONT Outpatient 05/02/2020 [facility] [facility] 02:19:00 PM [facility]T Development) Outpatient 05/02/2020 [facility] 02:19:00 PM [facility] EDT Development) Outpatient 05/02/2020 [facility] 02:19:00 PM [facility] EDT Development) Outpatient 05/02/2020 [facility] 02:19:00 PM [facility] EDT Development) Outpatient 05/02/2020 [facility] 02:19:00 PM [facility] EDT Development) Emergency Attender: ED STAFF H 12/25/2019 [facility] PHYSICIANAttender: 02:26:00 PM [facility] STAFF ED STAFF EDT - PHYSICIANAdmitter: 12/26/2019 ED STAFF PHYSICIAN 11:26:00 PM EDT Patient discharged. Inpatient Attender: CATRACHITO GLIL H-HAL6 09/18/2019 09:14:00 [facility] MIGUELERAttender: STAFF ED STAFF AM EST - 09/23/[address] [place] [address] PHYSICIANAdmitter: CATRACHITO 01:40:00 PM EST JAIRO GALEeferrer: CATRACHITO WINSTON Patient discharged. Inpatient Attender: NICHOLE H-HAL6 06/10/2019 04:43[facility] - [facility]2019 [facility] OAdmitter: NICHOLE 06:45:00 PM EDT REMY VARELA OReferrer: NICHOLE MURRAYKE O Patient discharged. Medications Medication Brand Start Product Dose Route Administrative Pharmacy [facility] Indications Reaction Description Data Name Date Form Instructions Instructions Source(s) pantoprazol pantop 1 complet Dustin nt e 40 MG razole ed S[place] Delayed 40 mg Medical Release tablet Center Oral Tablet ,delay pantoprazol ed e 40 mg releas tablet,josiah e yed release (/EC (/EC), ), Ordered By: Sharmin munoz By: Shannon Rayo MDDirection Anatoliy s: 1 tablet Rowena, oral daily MDDire before ctions breakfast : 1 tablet oral daily before breakf ast Spironolact spiron 1 complet Dustin nt one 25 MG olacto ed Sonia Oral Tablet ne 25 Medical spironolact mg Center one 25 mg Tablet Tablet, , Ordered By: Sharmin munoz By: Shannon Rayo MDDirection Anatoliy s: 1 tablet Rowena, oral daily MDDire ctions : 1 tablet oral daily 24 HR tolter 1 complet [facility] tolterodine odine ed [place]onia tartrate 4 4 mg Medical MG Extended capsul Center Release e,exte Oral nded Capsule releas tolterodine e 4 mg 24hr, capsule,ext Ordere ended d By: release Persio 24hrAnatoliy Ordered By: Shannon Guaman MDDire Anatoliy Rowena, ctions MDDirection : 1 s: 1 capsul capsule e oral oral daily daily clopidogrel clopid 1 complet Plavix S aint 75 MG Oral ogrel ed Sonia Tablet (Plavi Medical [Plavix] x) 75 Center clopidogrel mg (Plavix) 75 Tablet mg Tablet, , Ordered By: Sharmin munoz By: Ad Galindo FNPDirectio r ns: 1 Ostine tablet oral , daily FNPDir ection s: 1 tablet oral daily Clobetasol clobet 1 complet Manan t Propionate asol ed Sonia 0.5 MG/ML 0.05 % Medical Topical Cream, Center Cream Sharmin clobetasol d By: 0.05 % Anteno Cream, r Ordered By: Mateo Jarvis, FNPDir FNPDirectio ection ns: 1 s: 1 application applic topical ation twice a day topica l twice a day latanoprost latano 1 complet Dustin nt 0.05 MG/ML prost ed [facility] Ophthalmic 0.005 Medical Solution % Center latanoprost Drops, 0.005 % Ordere Drops, d By: Ordered By: Mateo Robins , ns: 1 drop FNPDir ophthalmic, ection both eyes s: 1 daily at drop bedtime ophtha lmic, both eyes daily at bedtim e meloxicam 1 complet Saint 15 mg ed Sonia TabletDirec Medical tions: 1 Center tablet oral daily glimepiride glimep 1 complet Dustin nt 4 MG Oral iride ed [facility] Tablet 4 mg Medical glimepiride Tablet Center 4 mg , Tablet, Ordere Ordered By: d By: prasanna Terrell Ostine ns: 1 , tablet oral FNPDir daily ection before s: 1 breakfast tablet oral daily before breakf ast metoprolol 1 complet [facility] succinate ed Sonia 25 mg Medical Tablet Center Extended Release 24 hrDirection s: 1 tablet oral daily apixaban 5 apixab 1 complet Eliquis S aint MG Oral an ed Sonia Tablet (Eliqu Medical [Eliquis] is) 5 Center apixaban mg (Eliquis) 5 Tablet mg Tablet, , Ordered By: Sharmin munoz By: Ad Galindo ns: 1 Ostine tablet oral , twice a day FNPDir ection s: 1 tablet oral twice a day carvedilol carved 1 complet Manan t 6.25 MG ilol ed Sonia Oral Tablet 6.25 Medical carvedilol mg Center 6.25 mg Tablet Tablet, , Ordered By: Sharmin munoz By: Ad Galindo ns: 1 Ostine tablet oral , twice a day FNPDir ection s: 1 tablet oral twice a day Amoxicillin amoxic 1 complet Dustin nt 875 MG / illin- ed Sonia Clavulanate pot Medical 125 MG Oral clavul Center Tablet anate amoxicillin 875 -pot mg-125 clavulanate mg 875 mg-125 Tablet mg Tablet, , Ordered By: Sharmin munoz By: Ad Galindo ns: 1 Ostine tablet oral , every FNPDir twelve ection hours with s: 1 or after tablet food oral every twelve hours with or after food pantoprazol pantop 1 complet Dustin nt e 40 MG razole ed Sonia Delayed 40 mg Medical Release tablet Center Oral Tablet ,delay pantoprazol ed e 40 mg releas tablet,josiah e yed release (/EC (/EC), ), Ordered By: Sharmin munoz By: Ad Galindoirectdemetris r ns: 1 Ostine tablet oral , daily FNPDir before ection breakfast s: 1 tablet oral daily before breakf ast Acetaminoph oxyCOD 1 complet Dustin nt en 325 MG / ONE-ac ed Artie s Oxycodone etamin Medical Hydrochlori ophen Center de 5 MG 5 Oral Tablet mg-325 oxyCODONE-a mg cetaminophe Tablet n 5 mg-325 , mg Tablet, Ordere Ordered By: d By: Anatoliy Brand MDDirection Rowena, s: 1 tablet MDDire oral every ctions six hours : 1 PRN tablet pain-severe oral every six hours PRN pain-s evere Spironolact spiron 1 complet Dustin nt one 25 MG olacto ed Sonia Oral Tablet ne 25 Medical spironolact mg Center one 25 mg Tablet Tablet, , Ordered By: Sharmin munoz By: Ad Galindo ns: 1 Ostine tablet oral , daily FNPDir ection s: 1 tablet oral daily Hydralazine hydrAL 1 complet Dustin nt Hydrochlori AZINE ed Sonia de 25 MG 25 mg Medical Oral Tablet Tablet Center hydrALAZINE , 25 mg Ordere Tablet, d By: Ordered By: Mateo Robins FNPDirectio , ns: 1 FNPDir tablet oral ection three times s: 1 a day tablet oral three times a day 24 HR isosor 1 complet Saint Isosorbide bide ed Sonia Mononitrate mononi Medica l 30 MG trate Center Extended 30 mg Release Tablet Oral Tablet Extend isosorbide ed mononitrate Releas 30 mg e 24 Tablet hr, Extended Ordere Release 24 d By: hr, Ordered Anteno By: Mateo Bray FNPDirectio , ns: 1 FNPDir tablet oral ection daily s: 1 tablet oral daily Furosemide furose 1 complet Manan t 40 MG Oral mide ed Sonia Tablet 40 mg Medical furosemide Tablet Center 40 mg , Tablet, Ordere Ordered By: d By: Tay Galindo r FNPDirectio Ostine ns: 1 , tablet oral FNPDir daily ection s: 1 tablet oral daily losartan 1 complet [facility] 100 mg ed Sonia TabletDirec Medical tions: 1 Center tablet oral daily furosemide 1 complet [facility] 40 mg ed Sonia TabletDirec Medical tions: 1 Center tablet oral daily carvedilol carved 1 complet Manan t 6.25 MG ilol ed Sonia Oral Tablet 6.25 Medical carvedilol mg Center 6.25 mg Tablet Tablet, , Ordered By: Sharmin munoz By: Shannon Rayo s: 1 tablet Rowena, oral daily MDDire ctions : 1 tablet oral daily apixaban apixab 1 complet Eliquis Dustin nt 2.5 MG Oral an ed Sonia Tablet (Eliqu Medical [Eliquis] is) Center apixaban 2.5 mg (Eliquis) Tablet 2.5 mg , Tablet, Ordere Ordered By: d By: Anatoliy Brand MDDirection Rowena, s: 1 tablet MDDire oral twice ctions a day : 1 tablet oral twice a day glimepiride glimep 1 complet Dustin nt 4 MG Oral iride ed Sonia Tablet 4 mg Medical glimepiride Tablet Center 4 mg , Tablet, Ordere Ordered By: d By: Anatoliy Brandirection Rowena, s: 1 tablet MDDire oral daily ctions before : 1 breakfast tablet oral daily before breakf ast clopidogrel clopid 1 complet Plavix S aint 75 MG Oral ogrel ed Sonia Tablet (Plavi Medical [Plavix] x) 75 Center clopidogrel mg (Plavix) 75 Tablet mg Tablet, , Ordered By: Sharmin munoz By: Shannon Rayo s: 1 tablet Rowena, oral daily MDDire ctions : 1 tablet oral daily 24 HR isosor 1 complet [facility] Isosorbide bide ed Sonia Mononitrate mononi Medica l 30 MG trate Center Extended 30 mg Release Tablet Oral Tablet Extend isosorbide ed mononitrate Releas 30 mg e 24 Tablet hr, Extended Ordere Release 24 d By: hr, Ordered Persio By: Rowena Cortez, MDDirection MDDire s: 1 tablet ctions oral daily : 1 tablet oral daily Hydralazine hydrAL 1 complet Dustin nt Hydrochlori AZINE ed Sonia de 25 MG 25 mg Medical Oral Tablet Tablet Center hydrALAZINE , 25 mg Ordere Tablet, d By: Ordered By: Rowena Lo, MDDirection MDDire s: 1 tablet ctions oral three : 1 times a day tablet oral three times a day Insurance Providers Payer name Policy type Policy ID Covered Covered alliance party's Policy P codie / Coverage alliance party ID relationship to Joyce Inf ormation type joyce VINH [id number] SP [id number] HEALTH NON CAP MEDICARE [id number] SP [id number] MEDICAID [id number] SP [id number] M [id number] 01 [id number] W [id number] 01 [id number] VINH F 18 F MEDICARE PT F 18 F B O/P M [id number] 01 [id number] M [id number] 01 [id number] W [id number] 01 [id number] 01 [id number] B M [id number] 01 [id number] R66 [id number] 01 [id number] R66 M [id number] 01 [id number] B M [id number] 01 [id number] B MEDICARE [id number] SP [id number] R66 MEDICARE [id number] SP [id number] R66 Problems, Conditions, and Diagnoses Code Display Name Description Problem Type Effective Data Dates Source(s) R13.10 Dysphagia, DYSPHAGIA, Diagnosis 06/12/2020 [facility] Sonia unspecified UNSPECIFIED 12:30:00 PM Medical EDT Center I10 Essential (primary) ESSENTIAL Diagnosis 12/25/2019 [facility] hypertension (PRIMARY) 02:26:00 PM Medical HYPERTENSION EDT Center E11.9 Type 2 diabetes TYPE 2 DIABETES Diagnosis 12/25/2019 [facility]an [facility] mellitus without MELLITUS WITHOUT 02:26:00 PM edical complications COMPLICATIONS EDT Center I50.9 Heart failure, HEART FAILURE, Diagnosis 12/25/2019 [facility] unspecified UNSPECIFIED 02:26:00 PM Medical EDT Center 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 12/25/2019 [facility] heart disease of DISEASE OF [place] 02:26:00 PM Medical [facility] coronary CORONARY ARTERY EDT Cent er artery without W/O ANG PCTRS angina pectoris M54.9 Dorsalgia, DORSALGIA, Diagnosis 12/25/2019 [facility] unspecified UNSPECIFIED 02:26:00 PM Medical EDT Center F43.20 Adjustment ADJUSTMENT Diagnosis 12/25/2019 [facility] disorder, DISORDER, 02:26:00 PM Medical unspecified UNSPECIFIED EDT Center R45.851 Suicidal ideations SUICIDAL IDEATIONS Diagnosis 0 [facility] 02:26:00 PM Medical EDT Center E11.22 Type 2 diabetes TYPE 2 DIABETES Diagnosis 09/23/2019 Manan gu[place]ito Sonia mellitus with MELLITUS W 01:40:00 PM Medical diabetic chronic DIABETIC CHRONIC EST Ce nter kidney disease KIDNEY DISEASE N18.9 Chronic kidney CHRONIC KIDNEY Diagnosis 09/23/2019 [facility] disease, DISEASE, 01:40:00 PM Medical unspecified UNSPECIFIED EST Center I48.91 Unspecified atrial UNSPECIFIED ATRIAL Diagnosis 9 [facility] fibrillation FIBRILLATION 01:40:00 PM Medical EST Center I50.22 Chronic systolic CHRONIC SYSTOLIC Diagnosis 09/23/2019 [place] (congestive) heart (CONGESTIVE) HEART 01:40:00 PM Medical failure FAILURE EST Center I13.0 Hypertensive heart HYP HRT and CHR Diagnosis 09/23/2019 [place] and chronic kidney KDNY DIS W HRT 01:40:00 PM M edical disease with heart FAIL AND STG EST Cent er failure and stage 1 1-4/UNSP CHR KDNY through stage 4 chronic kidney disease, or unspecified chronic kidney disease N17.9 Acute kidney ACUTE KIDNEY Diagnosis 09/23/2019 [facility] Leal phs failure, FAILURE, 01:40:00 PM Medical unspecified UNSPECIFIED EST Center 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 Diagnosis 09/23/2019 [facility] use of oral (CURRENT) USE OF 01:40:00 PM Medica l hypoglycemic drugs ORAL HYPOGLYCEMIC EST Center DRUGS Z79.01 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) RETIREMENT Diagnosis 09/23/2019 [facility] use of (CURRENT) USE OF 01:40:00 PM Medical anticoagulants ANTICOAGULANTS EST Center M48.56XA Collapsed vertebra, COLLAPSED Diagnosis 09/18/2019 [facility] not elsewhere VERTEBRA, NEC, 09:14:00 AM Medica l classified, lumbar LUMBAR REGION, EST Ce nter region, initial INIT encounter for fracture I27.20 Pulmonary PULMONARY Diagnosis 06/15/2019 [facility] hypertension, HYPERTENSION, 06:45:00 PM Medical unspecified UNSPECIFIED EDT Center H40.9 Unspecified UNSPECIFIED Diagnosis 06/15/2019 [facility] Artie huynh glaucoma GLAUCOMA 06:45:00 PM Medical EDT Center Z79.82 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 06/15/2019 [facility] use of aspirin (CURRENT) USE OF 06:45:00 PM Med ical ASPIRIN EDT Center R00.1 Bradycardia, BRADYCARDIA, Diagnosis 06/15/2019 [facility] unspecified UNSPECIFIED 06:45:00 PM Medical EDT Center J15.7 Pneumonia due to PNEUMONIA DUE TO Diagnosis 06/15/2019 int [facility] Mycoplasma MYCOPLASMA 06:45:00 PM Medical pneumoniae PNEUMONIAE EDT Center I50.43 Acute on chronic ACUTE ON CHRONIC Diagnosis 06/15/2019 int [facility] combined systolic COMBINED SYSTOLIC 06:45:00 PM Medical (congestive) and AND DIASTOLIC HRT EDT C enter diastolic FAIL (congestive) heart failure M80.08XA Age-related AGE-REL OSTEOPOR W Diagnosis 06/15/2019 [facility] osteoporosis with CURRENT PATH 06:45:00 PM Medi diogenes current FRACTURE, EDT Center pathological VERTEBRA(E), INIT fracture, vertebra(e), initial encounter for fracture L89.152 Pressure ulcer of PRESSURE ULCER OF Diagnosis 06/15/2019 [facility] sacral region, SACRAL REGION, 06:45:00 PM Medic al stage 2 STAGE 2 EDT Center K80.20 Calculus of CALCULUS OF Diagnosis 06/15/2019 [facility] Artie huynh gallbladder without GALLBLADDER W/O 06:45:00 PM Medical cholecystitis CHOLECYSTITIS W/O EDT Cent er without obstruction OBSTRUCTION Z66 Do not resuscitate DO NOT RESUSCITATE Diagnosis 9 [facility] 06:45:00 PM Medical EDT Center I12.9 Hypertensive HYPERTENSIVE Diagnosis 06/15/2019 [facility] chronic kidney CHRONIC KIDNEY 06:45:00 PM Medic al disease with stage DISEASE W STG EDT [facility] 1 through stage 4 1-4/UNSP CHR KDNY chronic kidney disease, or unspecified chronic kidney disease E87.1 Hypo-osmolality and HYPO-OSMOLALITY Diagnosis 06/15/2019 [facility] hyponatremia AND HYPONATREMIA 06:45:00 PM Medic al EDT Center J96.10 Chronic respiratory CHRONIC Diagnosis 06/15/2019 [facility] failure, RESPIRATORY 06:45:00 PM Medical unspecified whether FAILURE, UNSP W EDT Center with hypoxia or HYPOXIA OR hypercapnia HYPERCAPNIA J18.9 Pneumonia, PNEUMONIA, Diagnosis 06/15/2019 [facility] unspecified UNSPECIFIED 06:45:00 PM Medical organism ORGANISM EDT Center Z93.0 Tracheostomy status TRACHEOSTOMY Diagnosis 06/15/2019 Dustin nt [place] STATUS 06:45:00 PM Medical EDT Center Z93.1 Gastrostomy status GASTROSTOMY STATUS Diagnosis 9 [facility] 06:45:00 PM Medical EDT Center D63.8 Anemia in other ANEMIA IN OTHER Diagnosis 06/15/2019 Manan Scott chronic diseases CHRONIC DISEASES 06:45:00 PM M edical classified CLASSIFIED EDT Center elsewhere ELSEWHERE M54.5 Low back pain LOW BACK PAIN Diagnosis 06/10/2019 [facility] Gal[facility] sephlino 04:43:00 PM Medical EDT Center D64.9 Anemia, unspecified ANEMIA, Diagnosis 06/10/2019 [facility] Sctot UNSPECIFIED 04:43:00 PM Medical EDT Center 401.9 UNSPECIFIED HYPERTENSION NOS Diagnosis 06/10/2019 [facility] Choudhary osephs ESSENTIAL 04:43:00 PM Medical HYPERTENSION EDT Center Results ID Date Data Source [id number] 05/17/2020 05:15:00 PM EDT [facility] Name Value Range Interpretation Description Data Sup porting Code Source(s) Document(s ) SARS [facility] coronavirus 2 RNA This lab was ordered by [facility] and reported by [facility]. ID Date Data Source Liver 12/26/2019 09:38:00 AM EDT [facility] Profile.[id number] Name Value Range Interpretation Description Data Sup porting Code Source(s) Document(s ) Aspartate 14-36 <content Saint aminotransferase styleCode="Bold"> Quintin hs [Enzymatic Aspartate Medical activity/volume] Aminotransferase Center in Serum or Plasma (AST) </content>29 IU/L<content styleCode="Italic s"> (14-36 IU/L)</content> Bilirubin.total 0.2-1.3 <content Saint [Mass/volume] in styleCode="Bold"> Quintin hs Serum or Plasma Bilirubin Total Medical </content>0.5 Center MG/DL<content styleCode="Italic s"> (0.2-1.3 MG/DL)</content> Alkaline 38-126 <content Saint phosphatase styleCode="Bold"> Sonia [Enzymatic Alkaline Medical activity/volume] Phosphatase (ALP) Cente r in Serum or Plasma </content>69 IU/L<content styleCode="Italic s"> (38-126 IU/L)</content> Alanine 7-30 <content Saint aminotransferase styleCode="Bold"> Quintin hs [Enzymatic Alanine Medical activity/volume] Aminotransferase Center in Serum or Plasma (ALT) </content>15 IU/L<content styleCode="Italic s"> (7-30 IU/L)</content> UNK 0.0-0.3 <content Saint styleCode="Bold"> Sonia Bilirubin, Direct Medical </content>< 0.2 Center MG/DL<content styleCode="Italic s"> (0.0-0.3 MG/DL)</content> Albumin 3.5-5.0 <content Saint [Mass/volume] in styleCode="Bold"> Quintin hs Serum or Plasma Albumin Medical </content>4.2 Center G/DL<content styleCode="Italic s"> (3.5-5.0 G/DL)</content> ID Date Data Source HematologyRou.[id number] 12/26/2019 09:38:00 AM EDT Dustin nt [facility] 0400 Name Value Range Interpretation Description Data Sup porting Code Source(s) Document(s ) Hematocrit 36.0-46. <content Saint [Volume 0 styleCode="Bold Sonia Fraction] of ">Hematocrit Medical Blood by </content>42.0 Center Automated count %<content styleCode="Ital ics"> (36.0-46.0 %)</content> Hemoglobin 12.3-16. <content Saint [Mass/volume] in 0 styleCode="Bold Sonia Blood ">Hemoglobin Medical </content>13.1 Center G/DL<content styleCode="Ital ics"> (12.3-16.0 G/DL)</content> Leukocytes 4.4-11.0 <content Saint [#/volume] in styleCode="Bold Sonia Blood by ">White Blood Medical Automated count Cell Count Center </content>8.61 KCUMM<content styleCode="Ital ics"> (4.4-11.0 KCUMM)</content > Erythrocytes 4.0-5.1 <content Saint [#/volume] in styleCode="Bold Sonia Blood by ">Red Blood Medical Automated count Cell Count Center </content>4.60 MCUMM<content styleCode="Ital ics"> (4.0-5.1 MCUMM)</content > Erythrocyte 11.5-14. <content Saint distribution 5 styleCode="Bold Sonia width [Ratio] by ">Red Cell Medical Automated count Distribution Center Width </content>13.8 %<content styleCode="Ital ics"> (11.5-14.5 %)</content> Erythrocyte mean 26.0-34. <content Saint corpuscular 0 styleCode="Bold Sonia hemoglobin ">Mean Medical [Entitic mass] Corposcular Center by Automated Hemoglobin count </content>28.5 PG<content styleCode="Ital ics"> (26.0-34.0 PG)</content> Erythrocyte mean 32.0-37. Below low normal <content [facility] corpuscular 0 styleCode="Bold Sonia hemoglobin ">Mean Corpus. Medical concentration Hgb Center [Mass/volume] by Concentration Automated count (MCHC) </content>31.2 G/DL L<content styleCode="Ital ics"> (32.0-37.0 G/DL)</content> Erythrocyte mean 80.0-100 <content Saint corpuscular .0 styleCode="Bold Sonia volume [Entitic ">Mean Medical volume] by Corpuscular Center Automated count Volume </content>91.3 FL<content styleCode="Ital ics"> (80.0-100.0 FL)</content> UNK 0.0 <content Saint styleCode="Bold Sonia ">Nucleated Red Medical Blood Cell Center Count </content>0.00 KCUMM<content styleCode="Ital ics"> (0.0 KCUMM)</content > UNK 0 <content Saint styleCode="Bold S[place] ">Nucleated Red Medical Blood Cell Center </content>0.0 /100<content styleCode="Ital ics"> (0 /100)</content> Platelet mean 8.0-11.0 <content Saint volume [Entitic styleCode="Bold Sonia volume] in Blood ">Mean Platelet Medical by Automated Volume Center count </content>10.6 FL<content styleCode="Ital ics"> (8.0-11.0 FL)</content> Platelets 130-400 <content Saint [#/volume] in styleCode="Bold Sonia Blood by ">Platelet Medical Automated count Count Center </content>238 KCUMM<content styleCode="Ital ics"> (130-400 KCUMM)</content > ID Date Data Source GFR(Creatinine).[id number] 12/26/2019 09:38:00 AM EDT [facility] 0-0400 Name Value Range Interpretation Code Description Data Emilia rce(s) Supporting Document(s ) UNK > 60 Below low normal <content [facility] styleCode="Bold"> Medical Cent er EGFR </content>38 GFR L<content styleCode="Italic s"> (> 60 GFR)</content> ID Date Data Source [facility].[id number] 12/26/2019 09:38:[address] [facility] Name Value Range Interpretation Description Data Sup porting Code Source(s) Document(s ) Sodium 137-145 Below low <content Saint [Moles/volume] in normal styleCode="Bold"> [facility] Serum or Plasma Sodium Medical </content>136 Center MEQ/L L<content styleCode="Italic s"> (137-145 MEQ/L)</content> Potassium 3.5-5.3 <content Saint [Moles/volume] in styleCode="Bold"> Elvis phs Serum or Plasma Potassium Medical </content>4.6 Center MEQ/L<content styleCode="Italic s"> (3.5-5.3 MEQ/L)</content> Chloride 98-107 <content Saint [Moles/volume] in styleCode="Bold"> Elvis phs Serum or Plasma Chloride Medical </content>99 Center MEQ/L<content styleCode="Italic s"> (98-107 MEQ/L)</content> Carbon dioxide, 22-30 <content Saint total styleCode="Bold"> Sonia [Moles/volume] in Carbon Dioxide Medical Serum or Plasma </content>28 Center MEQ/L<content styleCode="Italic s"> (22-30 MEQ/L)</content> UNK 7-17 Above high <content Saint normal styleCode="Bold"> Sonia BUN </content>37 Medical MG/DL H<content Center styleCode="Italic s"> (7-17 MG/DL)</content> Aspartate 14-36 <content [facility] aminotransferase styleCode="Bold"> [facility] [Enzymatic Aspartate Medical activity/volume] Aminotransferase Center in Serum or Plasma (AST) </content>29 IU/L<content styleCode="Italic s"> (14-36 IU/L)</content> Creatinine 0.5-1.3 Above high <content [facility] [Mass/volume] in normal styleCode="Bold"> [facility] hs Serum or Plasma Creatinine Medical </content>1.4 Center MG/DL H<content styleCode="Italic s"> (0.5-1.3 MG/DL)</content> Glucose 74-106 Above high <content [facility] [Mass/volume] in normal styleCode="Bold"> [facility] hs Serum or Plasma Glucose Medical </content>187 Center MG/DL H<content styleCode="Italic s"> (74-106 MG/DL)</content> UNK > 60 Below low <content [facility] normal styleCode="Bold"> [facility]onia EGFR </content>38 Medical GFR L<content Center styleCode="Italic s"> (> 60 GFR)</content> Calcium 8.4-10. <content [facility] [Mass/volume] in 2 styleCode="Bold"> [facility] hs Serum or Plasma Calcium Medical </content>9.8 Center MG/DL<content styleCode="Italic s"> (8.4-10.2 MG/DL)</content> Bilirubin.total 0.2-1.3 <content [facility] [Mass/volume] in styleCode="Bold"> [facility] hs Serum or Plasma Bilirubin Total Medical </content>0.5 Center MG/DL<content styleCode="Italic s"> (0.2-1.3 MG/DL)</content> Albumin 3.5-5.0 <content [facility] [Mass/volume] in styleCode="Bold"> [facility] hs Serum or Plasma Albumin Medical </content>4.2 Center G/DL<content styleCode="Italic s"> (3.5-5.0 G/DL)</content> Alkaline 38-126 <content [facility] phosphatase styleCode="Bold"> [facility] [Enzymatic Alkaline Medical activity/volume] Phosphatase (ALP) Cente r in Serum or Plasma </content>69 IU/L<content styleCode="Italic s"> (38-126 IU/L)</content> Alanine 7-30 <content [facility] aminotransferase styleCode="Bold"> [facility] [Enzymatic Alanine Medical activity/volume] Aminotransferase Center in Serum or Plasma (ALT) </content>15 IU/L<content styleCode="Italic s"> (7-30 IU/L)</content> ID Date Data Source GFR(Creatinine).[id number] 09/23/2019 06:07:00 AM [facility] 0-0500 Name Value Range Interpretation Code Description Data Emilia rce(s) Supporting Document(s ) UNK > 60 Below low normal <content [facility] styleCode="Bold"> Medical Cent er EGFR </content>36 GFR L<content styleCode="Italic s"> (> 60 GFR)</content> ID Date Data Source CHMROUTINECCDA.[id number] 09/23/2019 06:07:00 AM [facility] -0500 Name Value Range Interpretation Description Data Sup porting Code Source(s) Document(s ) Magnesium 1.6-2.3 <content [facility] [Mass/volume] styleCode="Iftikhar Alvas in Serum or d">Magnesium Medical Plasma </content>2.3 Center MG/DL<content styleCode="Kim lics"> (1.6-2.3 MG/DL)</conten t> ID Date Data Source [facility].[id number] 09/23/2019 06:07:00 AM EST [facility] Center Name Value Range Interpretation Description Data Sup porting Code Source(s) Document(s ) Sodium 137-145 <content [facility] [Moles/volume] styleCode="Iftikhar Sonia in Serum or d">Sodium Medical Plasma </content>137 Center MEQ/L<content styleCode="Kim lics"> (137-145 MEQ/L)</conten t> Potassium 3.5-5.3 <content [facility] [Moles/volume] styleCode="Iftikhar Sonia in Serum or d">Potassium Medical Plasma </content>5.1 Center MEQ/L<content styleCode="Kim lics"> (3.5-5.3 MEQ/L)</conten t> UNK 7-17 Above high normal <content [facility] styleCode="Iftikhar Sonia d">BUN Medical </content>60 Center MG/DL H<content styleCode="Kim lics"> (7-17 MG/DL)</conten t> Glucose 74-106 Above high normal <content [facility] [Mass/volume] styleCode="Iftikhar Sonia in Serum or d">Glucose Medical Plasma </content>162 Center MG/DL H<content styleCode="Kim lics"> (74-106 MG/DL)</conten t> Chloride 98-107 <content [facility] [Moles/volume] styleCode="Iftikhar Sonia in Serum or d">Chloride Medical Plasma </content>102 Center MEQ/L<content styleCode="Kim lics"> (98-107 MEQ/L)</conten t> Carbon 22-30 <content [facility] dioxide, total styleCode="Iftikhar Sonia [Moles/volume] d">Carbon Medical in Serum or Dioxide Center Plasma </content>25 MEQ/L<content styleCode="Kim lics"> (22-30 MEQ/L)</conten t> Creatinine 0.5-1.3 Above high normal <content [facility] [Mass/volume] styleCode="Iftikhar Sonia in Serum or d">Creatinine Medical Plasma </content>1.5 Center MG/DL H<content styleCode="Kim lics"> (0.5-1.3 MG/DL)</conten t> Calcium 8.4-10.2 <content [facility] [Mass/volume] styleCode="Iftikhar Sonia in Serum or d">Calcium Medical Plasma </content>9.3 Center MG/DL<content styleCode="Kim lics"> (8.4-10.2 MG/DL)</conten t> UNK > 60 Below low normal <content [facility] styleCode="Iftikhar Scott d">EGFR Medical </content>36 Center GFR L<content styleCode="Kim lics"> (> 60 GFR)</content> ID Date Data Source GFR(Creatinine).[id number] 09/22/2019 06:31:00 AM [facility] 0-0500 Name Value Range Interpretation Code Description Data Emilia rce(s) Supporting Document(s ) UNK > 60 Below low normal <content [facility] styleCode="Bold"> Medical Cent er EGFR </content>33 GFR L<content styleCode="Italic s"> (> 60 GFR)</content> ID Date Data Source CHMROUTINECCDA.[id number] 09/22/2019 06:31:00 AM [facility] -0500 Name Value Range Interpretation Description Data Sup porting Code Source(s) Document(s ) Magnesium 1.6-2.3 Above high normal <content [facility] [Mass/volume] styleCode="Iftikhar Alvas in Serum or d">Magnesium Medical Plasma </content>2.4 Center MG/DL H<content styleCode="Kim lics"> (1.6-2.3 MG/DL)</conten t> ID Date Data Source [facility].[id number] 09/22/2019 06:31:00 AM EST [facility] Center Name Value Range Interpretation Description Data Sup porting Code Source(s) Document(s ) Chloride 98-107 <content [facility] [Moles/volume] styleCode="Iftikhar Sonia in Serum or d">Chloride Medical Plasma </content>99 Center MEQ/L<content styleCode="Kim lics"> (98-107 MEQ/L)</conten t> UNK 7-17 Above high normal <content [facility] styleCode="Iftikhar Sonia d">BUN Medical </content>66 Center MG/DL H<content styleCode="Kim lics"> (7-17 MG/DL)</conten t> Creatinine 0.5-1.3 Above high normal <content [facility] [Mass/volume] styleCode="Iftikhar Sonia in Serum or d">Creatinine Medical Plasma </content>1.6 Center MG/DL H<content styleCode="Kim lics"> (0.5-1.3 MG/DL)</conten t> Carbon 22-30 <content [facility] dioxide, total styleCode="Iftikhar Sonia [Moles/volume] d">Carbon Medical in Serum or Dioxide Center Plasma </content>28 MEQ/L<content styleCode="Kim lics"> (22-30 MEQ/L)</conten t> Sodium 137-145 Below low normal <content [facility] [Moles/volume] styleCode="Iftikhar Sonia in Serum or d">Sodium Medical Plasma </content>136 Center MEQ/L L<content styleCode="Kim lics"> (137-145 MEQ/L)</conten t> Potassium 3.5-5.3 <content [facility] [Moles/volume] styleCode="Iftikhar Sonia in Serum or d">Potassium Medical Plasma </content>4.7 Center MEQ/L<content styleCode="Kim lics"> (3.5-5.3 MEQ/L)</conten t> Glucose 74-106 Above high normal <content [facility] [Mass/volume] styleCode="Iftikhar Sonia in Serum or d">Glucose Medical Plasma </content>162 Center MG/DL H<content styleCode="Kim lics"> (74-106 MG/DL)</conten t> Calcium 8.4-10.2 <content [facility] [Mass/volume] styleCode="Iftikhar Sonia in Serum or d">Calcium Medical Plasma </content>9.4 Center MG/DL<content styleCode="Kim lics"> (8.4-10.2 MG/DL)</conten t> UNK > 60 Below low normal <content [facility] styleCode="Iftikhar Sonia d">EGFR Medical </content>33 Center GFR L<content styleCode="Kim lics"> (> 60 GFR)</content> ID Date Data Source GFR(Creatinine).[id number] 09/21/2019 05:02:00 AM [facility] 0-0500 Name Value Range Interpretation Code Description Data Emilia rce(s) Supporting Document(s ) UNK > 60 Below low normal <content [facility] styleCode="Bold"> Medical Cent er EGFR </content>36 GFR L<content styleCode="Italic s"> (> 60 GFR)</content> ID Date Data Source CHMROUTINECCDA.[id number] 09/21/2019 05:02:00 AM [facility] -0500 Name Value Range Interpretation Description Data Sup porting Code Source(s) Document(s ) Magnesium 1.6-2.3 <content [facility] [Mass/volume] styleCode="Iftikhar Sonia in Serum or d">Magnesium Medical Plasma </content>2.2 Center MG/DL<content styleCode="Kim lics"> (1.6-2.3 MG/DL)</conten t> ID Date Data Source [facility].[id number] 09/21/2019 05:02:00 AM [facility] Name Value Range Interpretation Description Data Sup porting Code Source(s) Document(s ) Sodium 137-145 Below low normal <content [facility] [Moles/volume] styleCode="Iftikhar Sonia in Serum or d">Sodium Medical Plasma </content>136 Center MEQ/L L<content styleCode="Kim lics"> (137-145 MEQ/L)</conten t> Carbon 22-30 <content [facility] dioxide, total styleCode="Iftikhar Alvas [Moles/volume] d">Carbon Medical in Serum or Dioxide Center Plasma </content>25 MEQ/L<content styleCode="Kim lics"> (22-30 MEQ/L)</conten t> Chloride 98-107 <content [facility] [Moles/volume] styleCode="Iftikhar Sonia in Serum or d">Chloride Medical Plasma </content>102 Center MEQ/L<content styleCode="Kim lics"> (98-107 MEQ/L)</conten t> Potassium 3.5-5.3 <content [facility] [Moles/volume] styleCode="Iftikhar Sonia in Serum or d">Potassium Medical Plasma </content>4.5 Center MEQ/L<content styleCode="Kim lics"> (3.5-5.3 MEQ/L)</conten t> Calcium 8.4-10.2 <content [facility] [Mass/volume] styleCode="Iftikhar Sonia in Serum or d">Calcium Medical Plasma </content>9.2 Center MG/DL<content styleCode="Kim lics"> (8.4-10.2 MG/DL)</conten t> UNK 7-17 Above high normal <content [facility] styleCode="Iftikhar Sonia d">BUN Medical </content>53 Center MG/DL H<content styleCode="Kim lics"> (7-17 MG/DL)</conten t> Creatinine 0.5-1.3 Above high normal <content [facility] [Mass/volume] styleCode="Iftikhar Sonia in Serum or d">Creatinine Medical Plasma </content>1.5 Center MG/DL H<content styleCode="Kim lics"> (0.5-1.3 MG/DL)</conten t> UNK > 60 Below low normal <content [facility] styleCode="Iftikhar Sonia d">EGFR Medical </content>36 Center GFR L<content styleCode="Kim lics"> (> 60 GFR)</content> Glucose 74-106 Above high normal <content [facility] [Mass/volume] styleCode="Iftikhar Sonia in Serum or d">Glucose Medical Plasma </content>107 Center MG/DL H<content styleCode="Kim lics"> (74-106 MG/DL)</conten t> ID Date Data Source HematologyRou.[id number] 09/20/2019 05:47:00 AM [facility] 0500 Name Value Range Interpretation Description Data Sup porting Code Source(s) Document(s ) Erythrocytes 4.0-5.1 <content [facility] [#/volume] in styleCode="Bold Sonia Blood by ">Red Blood Medical Automated count Cell Count Center </content>4.42 MCUMM<content styleCode="Ital ics"> (4.0-5.1 MCUMM)</content > Leukocytes 4.4-11.0 <content [facility] [#/volume] in styleCode="Bold Sonia Blood by ">White Blood Medical Automated count Cell Count Center </content>9.49 KCUMM<content styleCode="Ital ics"> (4.4-11.0 KCUMM)</content > Hemoglobin 12.3-16. <content [facility] [Mass/volume] in 0 styleCode="Bold Sonia Blood ">Hemoglobin Medical </content>12.8 Center G/DL<content styleCode="Ital ics"> (12.3-16.0 G/DL)</content> Erythrocyte mean 80.0-100 <content [facility] corpuscular .0 styleCode="Bold Sonia volume [Entitic ">Mean Medical volume] by Corpuscular Center Automated count Volume </content>88.9 FL<content styleCode="Ital ics"> (80.0-100.0 FL)</content> Erythrocyte mean 32.0-37. <content [facility] corpuscular 0 styleCode="Bold Sonia hemoglobin ">Mean Corpus. Medical concentration Hgb Center [Mass/volume] by Concentration Automated count (MCHC) </content>32.6 G/DL<content styleCode="Ital ics"> (32.0-37.0 G/DL)</content> Erythrocyte mean 26.0-34. <content [facility] corpuscular 0 styleCode="Bold Sonia hemoglobin ">Mean Medical [Entitic mass] Corposcular Center by Automated Hemoglobin count </content>29.0 PG<content styleCode="Ital ics"> (26.0-34.0 PG)</content> Erythrocyte 11.5-14. <content [facility] distribution 5 styleCode="Bold Sonia width [Ratio] by ">Red Cell Medical Automated count Distribution Center Width </content>14.3 %<content styleCode="Ital ics"> (11.5-14.5 %)</content> Hematocrit 36.0-46. <content [facility] [Volume 0 styleCode="Bold Sonia Fraction] of ">Hematocrit Medical Blood by </content>39.3 Center Automated count %<content styleCode="Ital ics"> (36.0-46.0 %)</content> Platelets 130-400 <content [facility] [#/volume] in styleCode="Bold Sonia Blood by ">Platelet Medical Automated count Count Center </content>203 KCUMM<content styleCode="Ital ics"> (130-400 KCUMM)</content > Platelet mean 8.0-11.0 <content [facility] volume [Entitic styleCode="Bold Sonia volume] in Blood ">Mean Platelet Medical by Automated Volume Center count </content>10.4 FL<content styleCode="Ital ics"> (8.0-11.0 FL)</content> UNK 0 <content [facility] styleCode="Bold Sonia ">Nucleated Red Medical Blood Cell Center </content>0.0 /100<content styleCode="Ital ics"> (0 /100)</content> UNK 0.0 <content [facility] styleCode="Bold Sonia ">Nucleated Red Medical Blood Cell Center Count </content>0.00 KCUMM<content styleCode="Ital ics"> (0.0 KCUMM)</content > ID Date Data Source GFR(Creatinine).[id number] 09/20/2019 05:47:00 AM EST [facility] 0-0500 Name Value Range Interpretation Code Description Data Emilia rce(s) Supporting Document(s ) UNK > 60 Below low normal <content [facility] styleCode="Bold"> Medical Cent er EGFR </content>42 GFR L<content styleCode="Italic s"> (> 60 GFR)</content> ID Date Data Source [id number] 09/20/2019 05:47:00 AM EST [facility] Center Name Value Range Interpretation Description Data Sup porting Code Source(s) Document(s ) Potassium 3.5-5.3 <content [facility] [Moles/volume] styleCode="Iftikhar Sonia in Serum or d">Potassium Medical Plasma </content>4.7 Center MEQ/L<content styleCode="Kim lics"> (3.5-5.3 MEQ/L)</conten t> Sodium 137-145 <content [facility] [Moles/volume] styleCode="Iftikhar Sonia in Serum or d">Sodium Medical Plasma </content>138 Center MEQ/L<content styleCode="Kim lics"> (137-145 MEQ/L)</conten t> Chloride 98-107 <content [facility] [Moles/volume] styleCode="Iftikhar Sonia in Serum or d">Chloride Medical Plasma </content>102 Center MEQ/L<content styleCode="Kim lics"> (98-107 MEQ/L)</conten t> Carbon 22-30 <content [facility] dioxide, total styleCode="Iftikhar Sonia [Moles/volume] d">Carbon Medical in Serum or Dioxide Center Plasma </content>27 MEQ/L<content styleCode="Kim lics"> (22-30 MEQ/L)</conten t> Glucose 74-106 Above high normal <content [facility] [Mass/volume] styleCode="Iftikhar Sonia in Serum or d">Glucose Medical Plasma </content>166 Center MG/DL H<content styleCode="Kim lics"> (74-106 MG/DL)</conten t> Creatinine 0.5-1.3 <content [facility] [Mass/volume] styleCode="Iftikhar Sonia in Serum or d">Creatinine Medical Plasma </content>1.3 Center MG/DL<content styleCode="Kim lics"> (0.5-1.3 MG/DL)</conten t> Calcium 8.4-10.2 <content [facility] [Mass/volume] styleCode="Iftikhar Scott in Serum or d">Calcium Medical Plasma </content>9.6 Center MG/DL<content styleCode="Kim lics"> (8.4-10.2 MG/DL)</conten t> UNK 7-17 Above high normal <content [facility] styleCode="Iftikhar Alvas d">BUN Medical </content>42 Center MG/DL H<content styleCode="Kim lics"> (7-17 MG/DL)</conten t> UNK > 60 Below low normal <content [facility] styleCode="Iftikhar Alvas d">EGFR Medical </content>42 Center GFR L<content styleCode="Kim lics"> (> 60 GFR)</content> ID Date Data Source HematologyRou.[id number] 09/19/2019 05:25:00 AM [facility] 0500 Name Value Range Interpretation Description Data Sup porting Code Source(s) Document(s ) Leukocytes 4.4-11.0 <content [facility] [#/volume] in styleCode="Bold Sonia Blood by ">White Blood Medical Automated count Cell Count Center </content>9.48 KCUMM<content styleCode="Ital ics"> (4.4-11.0 KCUMM)</content > Erythrocyte mean 80.0-100 <content [facility] corpuscular .0 styleCode="Bold Sonia volume [Entitic ">Mean Medical volume] by Corpuscular Center Automated count Volume </content>89.9 FL<content styleCode="Ital ics"> (80.0-100.0 FL)</content> Erythrocytes 4.0-5.1 <content [facility] [#/volume] in styleCode="Bold Sonia Blood by ">Red Blood Medical Automated count Cell Count Center </content>4.34 MCUMM<content styleCode="Ital ics"> (4.0-5.1 MCUMM)</content > Hemoglobin 12.3-16. <content [facility] [Mass/volume] in 0 styleCode="Bold Sonia Blood ">Hemoglobin Medical </content>12.3 Center G/DL<content styleCode="Ital ics"> (12.3-16.0 G/DL)</content> Erythrocyte mean 26.0-34. <content [facility] corpuscular 0 styleCode="Bold Sonia hemoglobin ">Mean Medical [Entitic mass] Corposcular Center by Automated Hemoglobin count </content>28.3 PG<content styleCode="Ital ics"> (26.0-34.0 PG)</content> Hematocrit 36.0-46. <content [facility] [Volume 0 styleCode="Bold Sonia Fraction] of ">Hematocrit Medical Blood by </content>39.0 Center Automated count %<content styleCode="Ital ics"> (36.0-46.0 %)</content> Erythrocyte mean 32.0-37. Below low normal <content [facility] corpuscular 0 styleCode="Bold Sonia hemoglobin ">Mean Corpus. Medical concentration Hgb Center [Mass/volume] by Concentration Automated count (MCHC) </content>31.5 G/DL L<content styleCode="Ital ics"> (32.0-37.0 G/DL)</content> Platelets 130-400 <content [facility] [#/volume] in styleCode="Bold Sonia Blood by ">Platelet Medical Automated count Count Center </content>186 KCUMM<content styleCode="Ital ics"> (130-400 KCUMM)</content > Erythrocyte 11.5-14. <content [facility] distribution 5 styleCode="Bold Sonia width [Ratio] by ">Red Cell Medical Automated count Distribution Center Width </content>14.5 %<content styleCode="Ital ics"> (11.5-14.5 %)</content> Platelet mean 8.0-11.0 <content [facility] volume [Entitic styleCode="Bold Sonia volume] in Blood ">Mean Platelet Medical by Automated Volume Center count </content>10.3 FL<content styleCode="Ital ics"> (8.0-11.0 FL)</content> UNK 0 <content [facility] styleCode="Bold Sonia ">Nucleated Red Medical Blood Cell Center </content>0.0 /100<content styleCode="Ital ics"> (0 /100)</content> UNK 0.0 <content [facility] styleCode="Bold Sonia ">Nucleated Red Medical Blood Cell Center Count </content>0.00 KCUMM<content styleCode="Ital ics"> (0.0 KCUMM)</content > ID Date Data Source GFR(Creatinine).[id number] 09/19/2019 05:25:00 AM EST [facility] 0-0500 Name Value Range Interpretation Code Description Data Emilia rce(s) Supporting Document(s ) UNK > 60 Below low normal <content [facility] styleCode="Bold"> Medical Cent er EGFR </content>51 GFR L<content styleCode="Italic s"> (> 60 GFR)</content> ID Date Data Source Coagulation 09/19/2019 05:25:00 AM [facility] Center Rout.[id number] EST Name Value Range Interpretation Description Data Sup porting Code Source(s) Document(s ) UNK 9.0-13.0 Above high normal <content [facility] styleCode="Bold" Sonia >Protime Medical </content>15.2 Center SEC H<content styleCode="Itali cs"> (9.0-13.0 SEC)</content> aPTT in 25.1-36. <content [facility] Platelet poor 5 styleCode="Bold" Sonia plasma by >Partial Medical Coagulation Thromboplastin Center assay Time </content>31.8 SEC<content styleCode="Itali cs"> (25.1-36.5 SEC)</content> INR in 0.80-1.2 Above high normal <content [facility] Platelet poor 0 styleCode="Bold" Sonia plasma by >INR Medical Coagulation </content>1.37 # Center assay H<content styleCode="Itali cs"> (0.80-1.20 #)</content> ID Date Data Source BMP.[id number] 09/19/2019 05:25:00 AM EST [facility] Name Value Range Interpretation Description Data Sup porting Code Source(s) Document(s ) Sodium 137-145 <content [facility] [Moles/volume] styleCode="Iftikhar Alvas in Serum or d">Sodium Medical Plasma </content>138 Center MEQ/L<content styleCode="Kim lics"> (137-145 MEQ/L)</conten t> Carbon 22-30 <content [facility] dioxide, total styleCode="Iftikhar Alvas [Moles/volume] d">Carbon Medical in Serum or Dioxide Center Plasma </content>26 MEQ/L<content styleCode="Kim lics"> (22-30 MEQ/L)</conten t> Chloride 98-107 <content [facility] [Moles/volume] styleCode="Iftikhar Sonia in Serum or d">Chloride Medical Plasma </content>105 Center MEQ/L<content styleCode="Kim lics"> (98-107 MEQ/L)</conten t> Creatinine 0.5-1.3 <content [facility] [Mass/volume] styleCode="Iftikhar Sonia in Serum or d">Creatinine Medical Plasma </content>1.1 Center MG/DL<content styleCode="Kim lics"> (0.5-1.3 MG/DL)</conten t> UNK 7-17 Above high normal <content [facility] styleCode="Iftikhar Sonia d">BUN Medical </content>35 Center MG/DL H<content styleCode="Kim lics"> (7-17 MG/DL)</conten t> Potassium 3.5-5.3 <content [facility] [Moles/volume] styleCode="Iftikhar Sonia in Serum or d">Potassium Medical Plasma </content>5.0 Center MEQ/L<content styleCode="Kim lics"> (3.5-5.3 MEQ/L)</conten t> Glucose 74-106 <content [facility] [Mass/volume] styleCode="Iftikhar Sonia in Serum or d">Glucose Medical Plasma </content>106 Center MG/DL<content styleCode="Kim lics"> (74-106 MG/DL)</conten t> UNK > 60 Below low normal <content [facility] styleCode="Iftikhar Alvas d">EGFR Medical </content>51 Center GFR L<content styleCode="Kim lics"> (> 60 GFR)</content> Calcium 8.4-10.2 <content [facility] [Mass/volume] styleCode="Iftikhar Scott in Serum or d">Calcium Medical Plasma </content>9.5 Center MG/DL<content styleCode="Kim lics"> (8.4-10.2 MG/DL)</conten t> ID Date Data Source Urinalysis.[id number] 09/18/2019 10:24:00 AM [facility] 0 Name Value Range Interpretation Description Data Sup porting Code Source(s) Document(s ) Color of Urine YELLOW <content [facility] styleCode="Iftikhar Alvas d">Color, Medical Urine Center </content>YELL OW <content styleCode="Kim lics"> (YELLOW )</content> Ketones NEGATIVE <content [facility] [Mass/volume] styleCode="Iftikhar Scott in Urine by d">Urine Medical Test strip Ketone Center </content>NEGA TIVE MG/DL<content styleCode="Kim lics"> (NEGATIVE MG/DL)</conten t> UNK NEGATIVE <content [facility] styleCode="Iftikhar Alvas d">Urine Medical Bilirubin Center </content>NEGA TIVE <content styleCode="Kim lics"> (NEGATIVE )</content> Glucose NEGATIVE <content [facility] [Mass/volume] styleCode="Iftikhar Scott in Urine by d">Urine Medical Test strip Glucose Center </content>NEGA TIVE MG/DL<content styleCode="Kim lics"> (NEGATIVE MG/DL)</conten t> UNK CLEAR <content [facility] styleCode="Iftikhar Alvas d">Urine Medical Clarity Center </content>ADOLPH R <content styleCode="Kim lics"> (CLEAR )</content> Hemoglobin NEGATIVE <content Saint [Presence] in styleCode="Iftikhar Scott Urine by Test d">Urine Blood Medical strip </content>TRAC Center E <content styleCode="Kim lics"> (NEGATIVE )</content> Specific 1.015-1.02 Below low normal <content [facility] gravity of 5 styleCode="Iftikhar Sonia Urine by Test d">Urine Medical strip Specific Center [place] </content>1.01 0 L<content styleCode="Kim lics"> (1.015-1.025 )</content> pH of Urine by 4.5-8.0 <content [facility] Test strip styleCode="Iftikhar Sonia d">Urine pH Medical </content>6.0 Center <content styleCode="Kim lics"> (4.5-8.0 )</content> Protein NEGATIVE <content [facility] [Mass/volume] styleCode="Iftikhar Sonia in Urine by d">Urine Medical Test strip Protein Center </content>NEGA TIVE MG/DL<content styleCode="Kim lics"> (NEGATIVE MG/DL)</conten t> Urobilinogen 0.2-1.0 <content [facility] [Units/volume] styleCode="Iftikhar Sonia in Urine by d">Urine Medical Test strip Urobilinogen Center </content>0.2 MG/DL<content styleCode="Kim lics"> (0.2-1.0 MG/DL)</conten t> UNK 0-3 <content [facility] styleCode="Iftikhar Sonia d">Urine Red Medical Blood Cell Center </content>10 - 20 HPF<content styleCode="Kim lics"> (0-3 HPF)</content> Leukocyte NEGATIVE <content [facility] esterase styleCode="Iftikhar Sonia [Presence] in d">Urine Medical Urine by Test Leukocyte Center strip </content>NEGA TIVE <content styleCode="Kim lics"> (NEGATIVE )</content> UNK 0-3 <content [facility] styleCode="Iftikhar Sonia d">Urine White Medical Blood Cell Center </content>0-3 HPF<content styleCode="Kim lics"> (0-3 HPF)</content> Nitrite NEGATIVE <content [facility] [Presence] in styleCode="Iftikhar Sonia Urine by Test d">Urine Medical strip Nitrite Center </content>NEGA TIVE <content styleCode="Kim lics"> (NEGATIVE )</content> UNK NONE SEEN <content [facility] styleCode="Iftikhar Scott d">Epithelial Medical Cell Center </content>5 - 10 HPF<content styleCode="Kim lics"> (NONE SEEN HPF)</content> UNK NONE SEEN <content [facility] styleCode="Iftikhar Scott d">Urine Mucus Medical </content>FEW Center HPF<content styleCode="Kim lics"> (NONE SEEN HPF)</content> UNK NEGATIVE <content [facility] styleCode="Iftikhar Alvas d">Urine Medical Bacteria Center </content>FEW HPF<content styleCode="Kim lics"> (NEGATIVE HPF)</content> ID Date Data Source Liver 09/18/2019 10:24:00 AM EST [facility] Profile.[id number] Name Value Range Interpretation Description Data Sup porting Code Source(s) Document(s ) Aspartate 14-36 <content [facility] aminotransferase styleCode="Bold"> Quintin hs [Enzymatic Aspartate Medical activity/volume] Aminotransferase Center in Serum or Plasma (AST) </content>29 IU/L<content styleCode="Italic s"> (14-36 IU/L)</content> Alanine 7-30 <content [facility] aminotransferase styleCode="Bold"> Quintin hs [Enzymatic Alanine Medical activity/volume] Aminotransferase Center in Serum or Plasma (ALT) </content>24 IU/L<content styleCode="Italic s"> (7-30 IU/L)</content> Alkaline 38-126 <content [facility] phosphatase styleCode="Bold"> Sonia [Enzymatic Alkaline Medical activity/volume] Phosphatase (ALP) Cente r in Serum or Plasma </content>102 IU/L<content styleCode="Italic s"> (38-126 IU/L)</content> Albumin 3.5-5.0 <content [facility] [Mass/volume] in styleCode="Bold"> Quintin hs Serum or Plasma Albumin Medical </content>4.5 Center G/DL<content styleCode="Italic s"> (3.5-5.0 G/DL)</content> Bilirubin.total 0.2-1.3 <content [facility] [Mass/volume] in styleCode="Bold"> Quintin hs Serum or Plasma Bilirubin Total Medical </content>0.5 Center MG/DL<content styleCode="Italic s"> (0.2-1.3 MG/DL)</content> ID Date Data Source HematologyRou.[id number] 09/18/2019 10:24:00 AM [facility] 0500 Name Value Range Interpretation Description Data Sup porting Code Source(s) Document(s ) Hemoglobin 12.3-16. <content [facility] [Mass/volume] in 0 styleCode="Bold Sonia Blood ">Hemoglobin Medical </content>13.1 Center G/DL<content styleCode="Ital ics"> (12.3-16.0 G/DL)</content> Erythrocytes 4.0-5.1 <content [facility] [#/volume] in styleCode="Bold Sonia Blood by ">Red Blood Medical Automated count Cell Count Center </content>4.57 MCUMM<content styleCode="Ital ics"> (4.0-5.1 MCUMM)</content > Leukocytes 4.4-11.0 <content [facility] [#/volume] in styleCode="Bold Sonia Blood by ">White Blood Medical Automated count Cell Count Center </content>10.39 KCUMM<content styleCode="Ital ics"> (4.4-11.0 KCUMM)</content > Erythrocyte 11.5-14. <content [facility] distribution 5 styleCode="Bold Sonia width [Ratio] by ">Red Cell Medical Automated count Distribution Center Width </content>14.4 %<content styleCode="Ital ics"> (11.5-14.5 %)</content> Hematocrit 36.0-46. <content [facility] [Volume 0 styleCode="Bold Sonia Fraction] of ">Hematocrit Medical Blood by </content>41.0 Center Automated count %<content styleCode="Ital ics"> (36.0-46.0 %)</content> Erythrocyte mean 80.0-100 <content [facility] corpuscular .0 styleCode="Bold Sonia volume [Entitic ">Mean Medical volume] by Corpuscular Center Automated count Volume </content>89.7 FL<content styleCode="Ital ics"> (80.0-100.0 FL)</content> Erythrocyte mean 32.0-37. <content [facility] corpuscular 0 styleCode="Bold Sonia hemoglobin ">Mean Corpus. Medical concentration Hgb Center [Mass/volume] by Concentration Automated count (MCHC) </content>32.0 G/DL<content styleCode="Ital ics"> (32.0-37.0 G/DL)</content> Erythrocyte mean 26.0-34. <content [facility] corpuscular 0 styleCode="Bold Sonia hemoglobin ">Mean Medical [Entitic mass] Corposcular Center by Automated Hemoglobin count </content>28.7 PG<content styleCode="Ital ics"> (26.0-34.0 PG)</content> Platelet mean 8.0-11.0 <content [facility] volume [Entitic styleCode="Bold Sonia volume] in Blood ">Mean Platelet Medical by Automated Volume Center count </content>10.3 FL<content styleCode="Ital ics"> (8.0-11.0 FL)</content> UNK 0.0 <content [facility] styleCode="Bold Sonia ">Nucleated Red Medical Blood Cell Center Count </content>0.00 KCUMM<content styleCode="Ital ics"> (0.0 KCUMM)</content > Platelets 130-400 <content [facility] [#/volume] in styleCode="Bold Sonia Blood by ">Platelet Medical Automated count Count Center </content>209 KCUMM<content styleCode="Ital ics"> (130-400 KCUMM)</content > UNK 0 <content [facility] styleCode="Bold Sonia ">Nucleated Red Medical Blood Cell Center </content>0.0 /100<content styleCode="Ital ics"> (0 /100)</content> ID Date Data Source CHMROUTINECCDA.[id number] 09/18/2019 10:24:00 AM [facility] -0500 Name Value Range Interpretation Description Data Sup porting Code Source(s) Document(s ) UNK >= 1.0 <content [facility] styleCode="Bold Medical ">AG Ratio Center </content>1.4 <content styleCode="Ital ics"> (>= 1.0 )</content> UNK 2.3-3.5 <content [facility] styleCode="Bold Medical ">Globulin Center </content>3.3 G/DL<content styleCode="Ital ics"> (2.3-3.5 G/DL)</content> Protein 6.3-8.2 <content [facility] [Mass/volum styleCode="Bold Medical e] in Serum ">Total Protein Center or Plasma </content>7.8 G/DL<content styleCode="Ital ics"> (6.3-8.2 G/DL)</content> ID Date Data Source GFR(Creatinine).[id number] 09/18/2019 10:24:00 AM HEID[facility] 0-0500 Name Value Range Interpretation Code Description Data Emilia rce(s) Supporting Document(s ) UNK > 60 Below low normal <content [facility] styleCode="Bold"> Medical Cent er EGFR </content>46 GFR L<content styleCode="Italic s"> (> 60 GFR)</content> ID Date Data Source [facility].[id number] 09/18/2019 10:24:[address] [facility] Name Value Range Interpretation Description Data Sup porting Code Source(s) Document(s ) Sodium 137-145 <content [facility] [Moles/volume] in styleCode="Bold"> Elvis phs Serum or Plasma Sodium Medical </content>138 Center MEQ/L<content styleCode="Italic s"> (137-145 MEQ/L)</content> Carbon dioxide, 22-30 <content [facility] total styleCode="Bold"> Sonia [Moles/volume] in Carbon Dioxide Medical Serum or Plasma </content>25 Center MEQ/L<content styleCode="Italic s"> (22-30 MEQ/L)</content> Potassium 3.5-5.3 <content [facility] [Moles/volume] in styleCode="Bold"> Elvis phs Serum or Plasma Potassium Medical </content>5.3 Center MEQ/L<content styleCode="Italic s"> (3.5-5.3 MEQ/L)</content> Chloride 98-107 <content [facility] [Moles/volume] in styleCode="Bold"> Elvis phs Serum or Plasma Chloride Medical </content>103 Center MEQ/L<content styleCode="Italic s"> (98-107 MEQ/L)</content> UNK 7-17 Above high <content [facility] normal styleCode="Bold"> Sonia BUN </content>40 Medical MG/DL H<content Center styleCode="Italic s"> (7-17 MG/DL)</content> UNK > 60 Below low <content [facility] normal styleCode="Bold"> Snoia EGFR </content>46 Medical GFR L<content Center styleCode="Italic s"> (> 60 GFR)</content> Aspartate 14-36 <content [facility] aminotransferase styleCode="Bold"> Quintin hs [Enzymatic Aspartate Medical activity/volume] Aminotransferase Center in Serum or Plasma (AST) </content>29 IU/L<content styleCode="Italic s"> (14-36 IU/L)</content> Creatinine 0.5-1.3 <content [facility] [Mass/volume] in styleCode="Bold"> Quintin hs Serum or Plasma Creatinine Medical </content>1.2 Center MG/DL<content styleCode="Italic s"> (0.5-1.3 MG/DL)</content> Glucose 74-106 Above high <content [facility] [Mass/volume] in normal styleCode="Bold"> Quintin hs Serum or Plasma Glucose Medical </content>127 Center MG/DL H<content styleCode="Italic s"> (74-106 MG/DL)</content> Calcium 8.4-10. <content [facility] [Mass/volume] in 2 styleCode="Bold"> Quintin hs Serum or Plasma Calcium Medical </content>10.0 Center MG/DL<content styleCode="Italic s"> (8.4-10.2 MG/DL)</content> Bilirubin.total 0.2-1.3 <content [facility] [Mass/volume] in styleCode="Bold"> Quintin hs Serum or Plasma Bilirubin Total Medical </content>0.5 Center MG/DL<content styleCode="Italic s"> (0.2-1.3 MG/DL)</content> Albumin 3.5-5.0 <content [facility] [Mass/volume] in styleCode="Bold"> Quintin hs Serum or Plasma Albumin Medical </content>4.5 Center G/DL<content styleCode="Italic s"> (3.5-5.0 G/DL)</content> Alkaline 38-126 <content [facility] phosphatase styleCode="Bold"> Sonia [Enzymatic Alkaline Medical activity/volume] Phosphatase (ALP) Cente r in Serum or Plasma </content>102 IU/L<content styleCode="Italic s"> (38-126 IU/L)</content> Alanine 7-30 <content [facility] aminotransferase styleCode="Bold"> Quintin hs [Enzymatic Alanine Medical activity/volume] Aminotransferase Center in Serum or Plasma (ALT) </content>24 IU/L<content styleCode="Italic s"> (7-30 IU/L)</content> ID Date Data Source HematologyRou.[id number] 06/15/2019 05:32:00 AM EDT [facility] 0400 Name Value Range Interpretation Description Data Sup porting Code Source(s) Document(s ) Leukocytes 4.4-11.0 <content [facility] [#/volume] in styleCode="Bold Sonia Blood by ">White Blood Medical Automated count Cell Count Center </content>8.09 KCUMM<content styleCode="Ital ics"> (4.4-11.0 KCUMM)</content > Erythrocytes 4.0-5.1 <content [facility] [#/volume] in styleCode="Bold Sonia Blood by ">Red Blood Medical Automated count Cell Count Center </content>4.62 MCUMM<content styleCode="Ital ics"> (4.0-5.1 MCUMM)</content > Hematocrit 36.0-46. <content [facility] [Volume 0 styleCode="Bold Sonia Fraction] of ">Hematocrit Medical Blood by </content>39.1 Center Automated count %<content styleCode="Ital ics"> (36.0-46.0 %)</content> Hemoglobin 12.3-16. Below low normal <content [facility] [Mass/volume] in 0 styleCode="Bold Sonia Blood ">Hemoglobin Medical </content>12.0 Center G/DL L<content styleCode="Ital ics"> (12.3-16.0 G/DL)</content> Erythrocyte mean 32.0-37. Below low normal <content [facility] corpuscular 0 styleCode="Bold Sonia hemoglobin ">Mean Corpus. Medical concentration Hgb Center [Mass/volume] by Concentration Automated count (MCHC) </content>30.7 G/DL L<content styleCode="Ital ics"> (32.0-37.0 G/DL)</content> Erythrocyte mean 80.0-100 <content [facility] corpuscular .0 styleCode="Bold Sonia volume [Entitic ">Mean Medical volume] by Corpuscular Center Automated count Volume </content>84.6 FL<content styleCode="Ital ics"> (80.0-100.0 FL)</content> Erythrocyte mean 26.0-34. <content [facility] corpuscular 0 styleCode="Bold Sonia hemoglobin ">Mean Medical [Entitic mass] Corposcular Center by Automated Hemoglobin count </content>26.0 PG<content styleCode="Ital ics"> (26.0-34.0 PG)</content> Platelets 130-400 <content [facility] [#/volume] in styleCode="Bold Sonia Blood by ">Platelet Medical Automated count Count Center </content>189 KCUMM<content styleCode="Ital ics"> (130-400 KCUMM)</content > Erythrocyte 11.5-14. Above high <content [facility] distribution 5 normal styleCode="Bold Sonia width [Ratio] by ">Red Cell Medical Automated count Distribution Center Width </content>18.6 % H<content styleCode="Ital ics"> (11.5-14.5 %)</content> UNK 0 <content [facility] styleCode="Bold Sonia ">Nucleated Red Medical Blood Cell Center </content>0.0 /100<content styleCode="Ital ics"> (0 /100)</content> Platelet mean 8.0-11.0 <content [facility] volume [Entitic styleCode="Bold Sonia volume] in Blood ">Mean Platelet Medical by Automated Volume Center count </content>10.4 FL<content styleCode="Ital ics"> (8.0-11.0 FL)</content> UNK 0.0 <content [facility] styleCode="Bold Sonia ">Nucleated Red Medical Blood Cell Center Count </content>0.00 KCUMM<content styleCode="Ital ics"> (0.0 KCUMM)</content > ID Date Data Source GFR(Creatinine).[id number] 06/15/2019 05:32:00 AM EDT [facility] 0-0400 Name Value Range Interpretation Code Description Data Emilia rce(s) Supporting Document(s ) UNK > 60 Below low normal <content [facility] styleCode="Bold"> Medical Cent er EGFR </content>42 GFR L<content styleCode="Italic s"> (> 60 GFR)</content> ID Date Data Source CHMROUTINECCDA.[id number] 06/15/2019 05:32:00 AM EDT [facility] -0400 Name Value Range Interpretation Description Data Sup porting Code Source(s) Document(s ) Magnesium 1.6-2.3 <content [facility] [Mass/volume] styleCode="Iftikhar Sonia in Serum or d">Magnesium Medical Plasma </content>1.7 Center MG/DL<content styleCode="Kim lics"> (1.6-2.3 MG/DL)</conten t> Phosphate 2.5-4.5 Above high normal <content [facility] [Mass/volume] styleCode="Iftikhar Sonia in Serum or d">Phosphorus Medical Plasma </content>5.2 Center MG/DL H<content styleCode="Kim lics"> (2.5-4.5 MG/DL)</conten t> ID Date Data Source BMP.[id number] 06/15/2019 05:32:00 AM EDT [facility] Name Value Range Interpretation Description Data Sup porting Code Source(s) Document(s ) Sodium 137-145 <content [facility] [Moles/volume] styleCode="Iftikhar Alvas in Serum or d">Sodium Medical Plasma </content>140 Center MEQ/L<content styleCode="Kim lics"> (137-145 MEQ/L)</conten t> Chloride 98-107 <content [facility] [Moles/volume] styleCode="Iftikhar Sonia in Serum or d">Chloride Medical Plasma </content>99 Center MEQ/L<content styleCode="Kim lics"> (98-107 MEQ/L)</conten t> Potassium 3.5-5.3 <content [facility] [Moles/volume] styleCode="Iftikhar Sonia in Serum or d">Potassium Medical Plasma </content>3.7 Center MEQ/L<content styleCode="Kim lics"> (3.5-5.3 MEQ/L)</conten t> Glucose 74-106 <content [facility] [Mass/volume] styleCode="Iftikhar Sonia in Serum or d">Glucose Medical Plasma </content>91 Center MG/DL<content styleCode="Kim lics"> (74-106 MG/DL)</conten t> UNK 7-17 Above high normal <content [facility] styleCode="Iftikhar Sonia d">BUN Medical </content>39 Center MG/DL H<content styleCode="Kim lics"> (7-17 MG/DL)</conten t> Carbon 22-30 Above high normal <content [facility] dioxide, total styleCode="Iftikhar Sonia [Moles/volume] d">Carbon Medical in Serum or Dioxide Center Plasma </content>31 MEQ/L H<content styleCode="Kim lics"> (22-30 MEQ/L)</conten t> Creatinine 0.5-1.3 <content [facility] [Mass/volume] styleCode="Iftikhar Sonia in Serum or d">Creatinine Medical Plasma </content>1.3 Center MG/DL<content styleCode="Kim lics"> (0.5-1.3 MG/DL)</conten t> Calcium 8.4-10.2 <content [facility] [Mass/volume] styleCode="Iftikhar Scott in Serum or d">Calcium Medical Plasma </content>9.4 Center MG/DL<content styleCode="Kim lics"> (8.4-10.2 MG/DL)</conten t> UNK > 60 Below low normal <content [facility] styleCode="Iftikhar Sonia d">EGFR Medical </content>42 Center GFR L<content styleCode="Kim lics"> (> 60 GFR)</content> ID Date Data Source HematologyRou.[id number] 06/14/2019 05:45:00 AM EDT [facility] 0400 Name Value Range Interpretation Description Data Sup porting Code Source(s) Document(s ) Leukocytes 4.4-11.0 <content [facility] [#/volume] in styleCode="Bold Sonia Blood by ">White Blood Medical Automated count Cell Count Center </content>7.56 KCUMM<content styleCode="Ital ics"> (4.4-11.0 KCUMM)</content > Erythrocytes 4.0-5.1 <content [facility] [#/volume] in styleCode="Bold Sonia Blood by ">Red Blood Medical Automated count Cell Count Center </content>4.49 MCUMM<content styleCode="Ital ics"> (4.0-5.1 MCUMM)</content > Hematocrit 36.0-46. <content [facility] [Volume 0 styleCode="Bold Sonia Fraction] of ">Hematocrit Medical Blood by </content>37.9 Center Automated count %<content styleCode="Ital ics"> (36.0-46.0 %)</content> Hemoglobin 12.3-16. Below low normal <content [facility] [Mass/volume] in 0 styleCode="Bold Sonia Blood ">Hemoglobin Medical </content>11.6 Center G/DL L<content styleCode="Ital ics"> (12.3-16.0 G/DL)</content> Erythrocyte mean 80.0-100 <content [facility] corpuscular .0 styleCode="Bold Sonia volume [Entitic ">Mean Medical volume] by Corpuscular Center Automated count Volume </content>84.4 FL<content styleCode="Ital ics"> (80.0-100.0 FL)</content> Erythrocyte mean 26.0-34. Below low normal <content [facility] corpuscular 0 styleCode="Bold Sonia hemoglobin ">Mean Medical [Entitic mass] Corposcular Center by Automated Hemoglobin count </content>25.8 PG L<content styleCode="Ital ics"> (26.0-34.0 PG)</content> Erythrocyte 11.5-14. Above high <content [facility] distribution 5 normal styleCode="Bold Sonia width [Ratio] by ">Red Cell Medical Automated count Distribution Center Width </content>18.6 % H<content styleCode="Ital ics"> (11.5-14.5 %)</content> Platelets 130-400 <content [facility] [#/volume] in styleCode="Bold Sonia Blood by ">Platelet Medical Automated count Count Center </content>191 KCUMM<content styleCode="Ital ics"> (130-400 KCUMM)</content > Erythrocyte mean 32.0-37. Below low normal <content [facility] corpuscular 0 styleCode="Bold Sonia hemoglobin ">Mean Corpus. Medical concentration Hgb Center [Mass/volume] by Concentration Automated count (MCHC) </content>30.6 G/DL L<content styleCode="Ital ics"> (32.0-37.0 G/DL)</content> Platelet mean 8.0-11.0 <content [facility] volume [Entitic styleCode="Bold Sonia volume] in Blood ">Mean Platelet Medical by Automated Volume Center count </content>10.6 FL<content styleCode="Ital ics"> (8.0-11.0 FL)</content> UNK 0.0 <content [facility] styleCode="Bold Sonia ">Nucleated Red Medical Blood Cell Center Count </content>0.00 KCUMM<content styleCode="Ital ics"> (0.0 KCUMM)</content > UNK 0 <content [facility] styleCode="Bold Sonia ">Nucleated Red Medical Blood Cell Center </content>0.0 /100<content styleCode="Ital ics"> (0 /100)</content> ID Date Data Source GFR(Creatinine).[id number] 06/14/2019 05:45:00 AM EDT [facility] 0-0400 Name Value Range Interpretation Code Description Data Emilia rce(s) Supporting Document(s ) UNK > 60 Below low normal <content [facility] styleCode="Bold"> Medical Cent er EGFR </content>46 GFR L<content styleCode="Italic s"> (> 60 GFR)</content> ID Date Data Source MROUTINECCDA.[id number] 06/14/2019 05:45:00 AM EDT [facility] -0400 Name Value Range Interpretation Description Data Sup porting Code Source(s) Document(s ) Phosphate 2.5-4.5 Above high normal <content [facility] [Mass/volume] styleCode="Iftikhar Sonia in Serum or d">Phosphorus Medical Plasma </content>4.8 Center MG/DL H<content styleCode="Kim lics"> (2.5-4.5 MG/DL)</conten t> Magnesium 1.6-2.3 <content [facility] [Mass/volume] styleCode="Iftikhar Sonia in Serum or d">Magnesium Medical Plasma </content>1.7 Center MG/DL<content styleCode="Kim lics"> (1.6-2.3 MG/DL)</conten t> ID Date Data Source [facility].[id number] 06/14/2019 05:45:[address] [facility] Name Value Range Interpretation Description Data Sup porting Code Source(s) Document(s ) Chloride 98-107 <content [facility] [Moles/volume] styleCode="Iftikhar Sonia in Serum or d">Chloride Medical Plasma </content>99 Center MEQ/L<content styleCode="Kim lics"> (98-107 MEQ/L)</conten t> Potassium 3.5-5.3 <content [facility] [Moles/volume] styleCode="Iftikhar Sonia in Serum or d">Potassium Medical Plasma </content>3.8 Center MEQ/L<content styleCode="Kim lics"> (3.5-5.3 MEQ/L)</conten t> Sodium 137-145 <content [facility] [Moles/volume] styleCode="Iftikhar Sonia in Serum or d">Sodium Medical Plasma </content>141 Center MEQ/L<content styleCode="Kim lics"> (137-145 MEQ/L)</conten t> UNK 7-17 Above high normal <content [facility] styleCode="Iftikhar Sonia d">BUN Medical </content>33 Center MG/DL H<content styleCode="Kim lics"> (7-17 MG/DL)</conten t> Carbon 22-30 Above high normal <content [facility] dioxide, total styleCode="Iftikhar Sonia [Moles/volume] d">Carbon Medical in Serum or Dioxide Center Plasma </content>32 MEQ/L H<content styleCode="Kim lics"> (22-30 MEQ/L)</conten t> Creatinine 0.5-1.3 <content [facility] [Mass/volume] styleCode="Iftikhar Alvas in Serum or d">Creatinine Medical Plasma </content>1.2 Center MG/DL<content styleCode="Kim lics"> (0.5-1.3 MG/DL)</conten t> UNK > 60 Below low normal <content [facility] styleCode="Iftikhar Sonia d">EGFR Medical </content>46 Center GFR L<content styleCode="Kim lics"> (> 60 GFR)</content> Calcium 8.4-10.2 <content [facility] [Mass/volume] styleCode="Iftikhar Sonia in Serum or d">Calcium Medical Plasma </content>9.3 Center MG/DL<content styleCode="Kim lics"> (8.4-10.2 MG/DL)</conten t> Glucose 74-106 <content [facility] [Mass/volume] styleCode="Iftikhar Sonia in Serum or d">Glucose Medical Plasma </content>102 Center MG/DL<content styleCode="Kim lics"> (74-106 MG/DL)</conten t> ID Date Data Source Urinalysis.[id number] 06/13/2019 06:00:00 PM [facility] Value Range Interpretation Description Data Sup porting Code Source(s) Document(s ) Color of Urine YELLOW <content [facility] styleCode="Iftikhar Sonia d">Color, Medical Urine Center </content>YELL OW <content styleCode="Kim lics"> (YELLOW )</content> UNK CLEAR <content [facility] styleCode="Iftikhar Alvas d">Urine Medical Clarity Center </content>ADOLPH R <content styleCode="Kim lics"> (CLEAR )</content> Glucose NEGATIVE <content [facility] [Mass/volume] styleCode="Iftikhar Scott in Urine by d">Urine Medical Test strip Glucose Center </content>NEGA TIVE MG/DL<content styleCode="Kim lics"> (NEGATIVE MG/DL)</conten t> UNK NEGATIVE <content [facility] styleCode="Iftikhar Alvas d">Urine Medical Bilirubin Center </content>NEGA TIVE <content styleCode="Kim lics"> (NEGATIVE )</content> Ketones NEGATIVE <content [facility] [Mass/volume] styleCode="Iftikhar Scott in Urine by d">Urine Medical Test strip Ketone Center </content>NEGA TIVE MG/DL<content styleCode="Kim lics"> (NEGATIVE MG/DL)</conten t> Specific 1.015-1.02 Below low normal <content [facility] gravity of 5 styleCode="Iftikhar Scott Urine by Test d">Urine Medical strip Specific Center [place] </content><= 1.005 L<content styleCode="Kim lics"> (1.015-1.025 )</content> Hemoglobin NEGATIVE <content [facility] [Presence] in styleCode="Iftikhar Scott Urine by Test d">Urine Blood Medical strip </content>TRAC Center E <content styleCode="Kim lics"> (NEGATIVE )</content> pH of Urine by 4.5-8.0 <content [facility] Test strip styleCode="Iftikhar Sonia d">Urine pH Medical </content>5.5 Center <content styleCode="Kim lics"> (4.5-8.0 )</content> Protein NEGATIVE <content [facility] [Mass/volume] styleCode="Iftikhar Alvas in Urine by d">Urine Medical Test strip Protein Center </content>NEGA TIVE MG/DL<content styleCode="Kim lics"> (NEGATIVE MG/DL)</conten t> Urobilinogen 0.2-1.0 <content [facility] [Units/volume] styleCode="Iftikhar Alvas in Urine by d">Urine Medical Test strip Urobilinogen Center </content>0.2 MG/DL<content styleCode="Kim lics"> (0.2-1.0 MG/DL)</conten t> Nitrite NEGATIVE <content [facility] [Presence] in styleCode="Iftikhar Alvas Urine by Test d">Urine Medical strip Nitrite Center </content>NEGA TIVE <content styleCode="Kim lics"> (NEGATIVE )</content> Leukocyte NEGATIVE <content [facility] esterase styleCode="Iftikhar Alvas [Presence] in d">Urine Medical Urine by Test Leukocyte Center strip </content>NEGA TIVE <content styleCode="Kim lics"> (NEGATIVE )</content> UNK 0-3 <content [facility] styleCode="Iftikhar Sonia d">Urine Red Medical Blood Cell Center </content>3-5 HPF<content styleCode="Kim lics"> (0-3 HPF)</content> UNK 0-3 <content [facility] styleCode="Iftikhar Sonia d">Urine White Medical Blood Cell Center </content>0-3 HPF<content styleCode="Kim lics"> (0-3 HPF)</content> UNK NEGATIVE <content [facility] styleCode="Iftikhar Sonia d">Urine Medical Bacteria Center </content>FEW HPF<content styleCode="Kim lics"> (NEGATIVE HPF)</content> UNK <content [facility] styleCode="Iftikhar Sonia d">Epithelial Medical Cell Center </content>5 - 10 LPF (Reference Range: not available)<br/ > UNK NONE SEEN <content [facility] styleCode="Iftikhar Sonia d">Urine Mucus Medical </content>MODE Center RATE LPF<content styleCode="Kim lics"> (NONE SEEN LPF)</content> ID Date Data Source HematologyRou.[id number] 06/13/2019 05:45:00 AM EDT [facility] 0400 Name Value Range Interpretation Description Data Sup porting Code Source(s) Document(s ) Hematocrit 36.0-46. Below low normal <content [facility] [Volume 0 styleCode="Iftikhar Sonia Fraction] of d">Hematocrit Medical Blood by </content>35.8 Center Automated % L<content count styleCode="Kim lics"> (36.0-46.0 %)</content> Hemoglobin 12.3-16. Below low normal <content [facility] [Mass/volume] 0 styleCode="Iftikhar Alvas in Blood d">Hemoglobin Medical </content>11.2 Center G/DL L<content styleCode="Kim lics"> (12.3-16.0 G/DL)</content > ID Date Data Source GFR(Creatinine).[id number] 06/13/2019 05:45:00 AM EDT [facility] 0-0400 Name Value Range Interpretation Code Description Data Emilia rce(s) Supporting Document(s ) UNK > 60 Below low normal <content [facility] styleCode="Bold"> Medical Cent er EGFR </content>46 GFR L<content styleCode="Italic s"> (> 60 GFR)</content> ID Date Data Source Coagulation 06/13/2019 05:45:00 AM [facility] ical Center Rout.[id number] EDT Name Value Range Interpretation Description Data Sup porting Code Source(s) Document(s ) INR in 0.80-1.2 Above high normal <content [facility] Platelet poor 0 styleCode="Bold" [facility] plasma by >INR Medical Coagulation </content>1.76 # Center assay H<content styleCode="Itali cs"> (0.80-1.20 #)</content> UNK 9.0-13.0 Above high normal <content [facility] styleCode="Bold" Sonia >Protime Medical </content>19.5 Center SEC H<content styleCode="Itali cs"> (9.0-13.0 SEC)</content> aPTT in 25.1-36. <content [facility] Platelet poor 5 styleCode="Bold" Sonia plasma by >Partial Medical Coagulation Thromboplastin Center assay Time </content>33.0 SEC<content styleCode="Itali cs"> (25.1-36.5 SEC)</content> ID Date Data Source CHMROUTINECCDA.[id number] 06/13/2019 05:45:00 AM EDT [facility] -0400 Name Value Range Interpretation Description Data Sup porting Code Source(s) Document(s ) Magnesium 1.6-2.3 <content [facility] [Mass/volume] styleCode="Iftikhar Alvas in Serum or d">Magnesium Medical Plasma </content>1.7 Center MG/DL<content styleCode="Kim lics"> (1.6-2.3 MG/DL)</conten t> Urate 3.8-8.5 <content [facility] [Mass/volume] styleCode="Iftikhar Alvas in Serum or d">Uric Acid Medical Plasma </content>5.5 Center MG/DL<content styleCode="Kim lics"> (3.8-8.5 MG/DL)</conten t> Phosphate 2.5-4.5 Above high normal <content [facility] [Mass/volume] styleCode="Iftikhar Sonia in Serum or d">Phosphorus Medical Plasma </content>4.8 Center MG/DL H<content styleCode="Kim lics"> (2.5-4.5 MG/DL)</conten t> ID Date Data Source [facility].[id number] 06/13/2019 05:45:[address] [facility] Name Value Range Interpretation Description Data Sup porting Code Source(s) Document(s ) Sodium 137-145 <content [facility] [Moles/volume] styleCode="Iftikhar Sonia in Serum or d">Sodium Medical Plasma </content>141 Center MEQ/L<content styleCode="Kim lics"> (137-145 MEQ/L)</conten t> Potassium 3.5-5.3 <content [facility] [Moles/volume] styleCode="Iftikhar Sonia in Serum or d">Potassium Medical Plasma </content>3.6 Center MEQ/L<content styleCode="Kim lics"> (3.5-5.3 MEQ/L)</conten t> Chloride 98-107 <content [facility] [Moles/volume] styleCode="Iftikhar Sonia in Serum or d">Chloride Medical Plasma </content>102 Center MEQ/L<content styleCode="Kim lics"> (98-107 MEQ/L)</conten t> UNK 7-17 Above high normal <content [facility] styleCode="Iftikhar Sonia d">BUN Medical </content>28 Center MG/DL H<content styleCode="Kim lics"> (7-17 MG/DL)</conten t> Carbon 22-30 <content [facility] dioxide, total styleCode="Iftikhar Sonia [Moles/volume] d">Carbon Medical in Serum or Dioxide Center Plasma </content>29 MEQ/L<content styleCode="Kim lics"> (22-30 MEQ/L)</conten t> Calcium 8.4-10.2 <content [facility] [Mass/volume] styleCode="Iftikhar Sonia in Serum or d">Calcium Medical Plasma </content>9.3 Center MG/DL<content styleCode="Kim lics"> (8.4-10.2 MG/DL)</conten t> Glucose 74-106 <content [facility] [Mass/volume] styleCode="Iftikhar Sonia in Serum or d">Glucose Medical Plasma </content>80 Center MG/DL<content styleCode="Kim lics"> (74-106 MG/DL)</conten t> Creatinine 0.5-1.3 <content [facility] [Mass/volume] styleCode="Iftikhar Sonia in Serum or d">Creatinine Medical Plasma </content>1.2 Center MG/DL<content styleCode="Kim lics"> (0.5-1.3 MG/DL)</conten t> UNK > 60 Below low normal <content [facility] styleCode="Iftikhar Scott d">EGFR Medical </content>46 Center GFR L<content styleCode="Kim lics"> (> 60 GFR)</content> ID Date Data Source Liver 06/12/2019 05:15:00 AM EDT [facility] Profile.[id number] Name Value Range Interpretation Description Data Sup porting Code Source(s) Document(s ) Alanine 7-30 <content [facility] aminotransferase styleCode="Bold"> Quintin hs [Enzymatic Alanine Medical activity/volume] Aminotransferase Center in Serum or Plasma (ALT) </content>22 IU/L<content styleCode="Italic s"> (7-30 IU/L)</content> Alkaline 38-126 <content [facility] phosphatase styleCode="Bold"> Sonia [Enzymatic Alkaline Medical activity/volume] Phosphatase (ALP) Cente r in Serum or Plasma </content>76 IU/L<content styleCode="Italic s"> (38-126 IU/L)</content> Aspartate 14-36 <content [facility] aminotransferase styleCode="Bold"> Quintin hs [Enzymatic Aspartate Medical activity/volume] Aminotransferase Center in Serum or Plasma (AST) </content>24 IU/L<content styleCode="Italic s"> (14-36 IU/L)</content> Bilirubin.total 0.2-1.3 <content [facility] [Mass/volume] in styleCode="Bold"> Quintin hs Serum or Plasma Bilirubin Total Medical </content>0.8 Center MG/DL<content styleCode="Italic s"> (0.2-1.3 MG/DL)</content> Albumin 3.5-5.0 Below low <content [facility] [Mass/volume] in normal styleCode="Bold"> Quintin hs Serum or Plasma Albumin Medical </content>3.3 Center G/DL L<content styleCode="Italic s"> (3.5-5.0 G/DL)</content> ID Date Data Source HematologyRou.[id number] 06/12/2019 05:15:00 AM EDT [facility] 0400 Name Value Range Interpretation Description Data Sup porting Code Source(s) Document(s ) Hemoglobin 12.3-16. Below low normal <content [facility] [Mass/volume] in 0 styleCode="Bold Sonia Blood ">Hemoglobin Medical </content>10.8 Center G/DL L<content styleCode="Ital ics"> (12.3-16.0 G/DL)</content> Leukocytes 4.4-11.0 <content [facility] [#/volume] in styleCode="Bold Sonia Blood by ">White Blood Medical Automated count Cell Count Center </content>6.28 KCUMM<content styleCode="Ital ics"> (4.4-11.0 KCUMM)</content > Erythrocytes 4.0-5.1 <content [facility] [#/volume] in styleCode="Bold Sonia Blood by ">Red Blood Medical Automated count Cell Count Center </content>4.14 MCUMM<content styleCode="Ital ics"> (4.0-5.1 MCUMM)</content > Erythrocyte mean 32.0-37. Below low normal <content [facility] corpuscular 0 styleCode="Bold Sonia hemoglobin ">Mean Corpus. Medical concentration Hgb Center [Mass/volume] by Concentration Automated count (MCHC) </content>30.6 G/DL L<content styleCode="Ital ics"> (32.0-37.0 G/DL)</content> Erythrocyte mean 80.0-100 <content [facility] corpuscular .0 styleCode="Bold Sonia volume [Entitic ">Mean Medical volume] by Corpuscular Center Automated count Volume </content>85.3 FL<content styleCode="Ital ics"> (80.0-100.0 FL)</content> Hematocrit 36.0-46. Below low normal <content [facility] [Volume 0 styleCode="Bold Sonia Fraction] of ">Hematocrit Medical Blood by </content>35.3 Center Automated count % L<content styleCode="Ital ics"> (36.0-46.0 %)</content> Erythrocyte mean 26.0-34. <content [facility] corpuscular 0 styleCode="Bold Sonia hemoglobin ">Mean Medical [Entitic mass] Corposcular Center by Automated Hemoglobin count </content>26.1 PG<content styleCode="Ital ics"> (26.0-34.0 PG)</content> Platelets 130-400 <content [facility] [#/volume] in styleCode="Bold Sonia Blood by ">Platelet Medical Automated count Count Center </content>156 KCUMM<content styleCode="Ital ics"> (130-400 KCUMM)</content > Platelet mean 8.0-11.0 <content [facility] volume [Entitic styleCode="Bold Sonia volume] in Blood ">Mean Platelet Medical by Automated Volume Center count </content>10.8 FL<content styleCode="Ital ics"> (8.0-11.0 FL)</content> Erythrocyte 11.5-14. Above high <content [facility] distribution 5 normal styleCode="Bold Sonia width [Ratio] by ">Red Cell Medical Automated count Distribution Center Width </content>19.0 % H<content styleCode="Ital ics"> (11.5-14.5 %)</content> Neutrophils 36-66 <content [facility] [#/volume] in styleCode="Bold Sonia Blood by ">Neutrophil Medical Automated count </content>60.7 Center %<content styleCode="Ital ics"> (36-66 %)</content> Lymphocytes 24.0-44. <content [facility] [#/volume] in 0 styleCode="Bold Sonia Blood by ">Lymphocyte Medical Automated count </content>28.8 Center %<content styleCode="Ital ics"> (24.0-44.0 %)</content> UNK 1.0-4.8 <content [facility] styleCode="Bold Sonia ">Lymphocyte Medical Count Center </content>1.81 KCUMM<content styleCode="Ital ics"> (1.0-4.8 KCUMM)</content > Monocytes 3.0-10.0 <content [facility] [#/volume] in styleCode="Bold Sonia Blood by ">Monocyte Medical Automated count </content>6.2 Center %<content styleCode="Ital ics"> (3.0-10.0 %)</content> UNK 1.6-7.3 <content [facility] styleCode="Bold Sonia ">Neutrophil Medical Count Center </content>3.81 KCUMM<content styleCode="Ital ics"> (1.6-7.3 KCUMM)</content > Basophils 0.0-1.0 <content [facility] [#/volume] in styleCode="Bold Sonia Blood by ">Basophil Medical Automated count </content>0.3 Center %<content styleCode="Ital ics"> (0.0-1.0 %)</content> Eosinophils 0-5.0 <content [facility] [#/volume] in styleCode="Bold Sonia Blood by ">Eosinophil Medical Automated count </content>3.7 Center %<content styleCode="Ital ics"> (0-5.0 %)</content> UNK 0.2-0.9 <content [facility] styleCode="Bold Sonia ">Monocyte Medical Count Center </content>0.39 KCUMM<content styleCode="Ital ics"> (0.2-0.9 KCUMM)</content > UNK 0.0-0.6 <content [facility] styleCode="Bold Sonia ">Eosinophil Medical Count Center </content>0.23 KCUMM<content styleCode="Ital ics"> (0.0-0.6 KCUMM)</content > UNK 0 <content [facility] styleCode="Bold Sonia ">Nucleated Red Medical Blood Cell Center </content>0.0 /100<content styleCode="Ital ics"> (0 /100)</content> UNK 0.0-0.3 <content [facility] styleCode="Bold Sonia ">Basophil Medical Count Center </content>0.02 KCUMM<content styleCode="Ital ics"> (0.0-0.3 KCUMM)</content > UNK 0-0.1 <content [facility] styleCode="Bold Sonia ">Immature Medical Granulocyte Center Count </content>0.02 KCUMM<content styleCode="Ital ics"> (0-0.1 KCUMM)</content > UNK 0.0 <content [facility] styleCode="Bold Sonia ">Nucleated Red Medical Blood Cell Center Count </content>0.00 KCUMM<content styleCode="Ital ics"> (0.0 KCUMM)</content > UNK NORMAL <content [facility] styleCode="Bold Sonia ">Target Cell Medical </content>SLIGH Center T <content styleCode="Ital ics"> (NORMAL )</content> UNK NORMAL <content [facility] styleCode="Bold Sonia ">RBC Medical Morphology Center </content>ABNOR MAL <content styleCode="Ital ics"> (NORMAL )</content> UNK < 1 <content [facility] styleCode="Bold Sonia ">Immature Medical Granulocyte Center Ratio </content>0.3 %<content styleCode="Ital ics"> (< 1 %)</content> UNK NORMAL <content [facility] styleCode="Bold Sonia ">Macrocyte Medical </content>SLIGH Center T <content styleCode="Ital ics"> (NORMAL )</content> UNK NORMAL <content [facility] styleCode="Bold Sonia ">Hypochromia Medical </content>IGH Center T <content styleCode="Ital ics"> (NORMAL )</content> ID Date Data Source GFR(Creatinine).[id number] 06/12/2019 05:15:00 AM EDT [facility] 0-0400 Name Value Range Interpretation Code Description Data Emilia rce(s) Supporting Document(s ) UNK > 60 Below low normal <content [facility] styleCode="Bold"> Medical Cent er EGFR </content>42 GFR L<content styleCode="Italic s"> (> 60 GFR)</content> ID Date Data Source Coagulation 06/12/2019 05:15:00 AM [facility] ical Center Rout.[id number] EDT Name Value Range Interpretation Description Data Sup porting Code Source(s) Document(s ) UNK 9.0-13.0 Above high normal <content [facility] styleCode="Bold" Sonia >Protime Medical </content>16.0 Center SEC H<content styleCode="Itali cs"> (9.0-13.0 SEC)</content> INR in 0.80-1.2 Above high normal <content [facility] Platelet poor 0 styleCode="Bold" Sonia plasma by >INR Medical Coagulation </content>1.44 # Center assay H<content styleCode="Itali cs"> (0.80-1.20 #)</content> aPTT in 25.1-36. Above high normal <content [facility] Platelet poor 5 styleCode="Bold" Sonia plasma by >Partial Medical Coagulation Thromboplastin Center assay Time </content>57.7 SEC H<content styleCode="Itali cs"> (25.1-36.5 SEC)</content> ID Date Data Source VIOLET.[id number] 06/12/2019 05:15:00 AM EDT [facility] -0400 Name Value Range Interpretation Description Data Sup porting Code Source(s) Document(s ) UNK 2.3-3.5 <content [facility] styleCode="Bold Medical ">Globulin Center </content>2.7 G/DL<content styleCode="Ital ics"> (2.3-3.5 G/DL)</content> UNK >= 1.0 <content [facility] styleCode="Bold Medical ">AG Ratio Center </content>1.2 <content styleCode="Ital ics"> (>= 1.0 )</content> Protein 6.3-8.2 Below low normal <content [facility] [Mass/volum styleCode="Bold Medical e] in Serum ">Total Protein Center or Plasma </content>6.0 G/DL L<content styleCode="Ital ics"> (6.3-8.2 G/DL)</content> ID Date Data Source CardiacMarkers.[id number] 06/12/2019 05:15:00 AM EDT [facility] -0400 Name Value Range Interpretation Description Data Sup porting Code Source(s) Document(s ) Troponin < 0.034 <content [facility] I.cardiac styleCode="Bold Sonia [Mass/volume ">Troponin I Medical ] in Serum </content>0.022 Center or Plasma NG/ML<content styleCode="Ital ics"> (< 0.034 NG/ML)</content > ID Date Data Source [facility].[id number] 06/12/2019 05:15:00 AM EDT [facility] Name Value Range Interpretation Description Data Sup porting Code Source(s) Document(s ) Sodium 137-145 <content [facility] [Moles/volume] in styleCode="Bold"> Elvis phs Serum or Plasma Sodium Medical </content>139 Center MEQ/L<content styleCode="Italic s"> (137-145 MEQ/L)</content> Chloride 98-107 <content [facility] [Moles/volume] in styleCode="Bold"> Elvis phs Serum or Plasma Chloride Medical </content>106 Center MEQ/L<content styleCode="Italic s"> (98-107 MEQ/L)</content> Potassium 3.5-5.3 <content [facility] [Moles/volume] in styleCode="Bold"> Elvis phs Serum or Plasma Potassium Medical </content>3.9 Center MEQ/L<content styleCode="Italic s"> (3.5-5.3 MEQ/L)</content> Carbon dioxide, 22-30 <content [facility] total styleCode="Bold"> Sonia [Moles/volume] in Carbon Dioxide Medical Serum or Plasma </content>26 Center MEQ/L<content styleCode="Italic s"> (22-30 MEQ/L)</content> UNK 7-17 Above high <content [facility] normal styleCode="Bold"> Sonia BUN </content>31 Medical MG/DL H<content Center styleCode="Italic s"> (7-17 MG/DL)</content> Creatinine 0.5-1.3 <content [facility] [Mass/volume] in styleCode="Bold"> Quintin hs Serum or Plasma Creatinine Medical </content>1.3 Center MG/DL<content styleCode="Italic s"> (0.5-1.3 MG/DL)</content> Calcium 8.4-10. <content [facility] [Mass/volume] in 2 styleCode="Bold"> Quintin hs Serum or Plasma Calcium Medical </content>8.6 Center MG/DL<content styleCode="Italic s"> (8.4-10.2 MG/DL)</content> UNK > 60 Below low <content [facility] normal styleCode="Bold"> Sonia EGFR </content>42 Medical GFR L<content Center styleCode="Italic s"> (> 60 GFR)</content> Glucose 74-106 <content [facility] [Mass/volume] in styleCode="Bold"> Quintin hs Serum or Plasma Glucose Medical </content>86 Center MG/DL<content styleCode="Italic s"> (74-106 MG/DL)</content> Alkaline 38-126 <content [facility] phosphatase styleCode="Bold"> Sonia [Enzymatic Alkaline Medical activity/volume] Phosphatase (ALP) Cente r in Serum or Plasma </content>76 IU/L<content styleCode="Italic s"> (38-126 IU/L)</content> Alanine 7-30 <content [facility] aminotransferase styleCode="Bold"> Quintin hs [Enzymatic Alanine Medical activity/volume] Aminotransferase Center in Serum or Plasma (ALT) </content>22 IU/L<content styleCode="Italic s"> (7-30 IU/L)</content> Aspartate 14-36 <content [facility] aminotransferase styleCode="Bold"> Quintin hs [Enzymatic Aspartate Medical activity/volume] Aminotransferase Center in Serum or Plasma (AST) </content>24 IU/L<content styleCode="Italic s"> (14-36 IU/L)</content> Bilirubin.total 0.2-1.3 <content [facility] [Mass/volume] in styleCode="Bold"> Quintin hs Serum or Plasma Bilirubin Total Medical </content>0.8 Center MG/DL<content styleCode="Italic s"> (0.2-1.3 MG/DL)</content> Albumin 3.5-5.0 Below low <content [facility] [Mass/volume] in normal styleCode="Bold"> Quintin hs Serum or Plasma Albumin Medical </content>3.3 Center G/DL L<content styleCode="Italic s"> (3.5-5.0 G/DL)</content> ID Date Data Source Coagulation 06/11/2019 12:47:[facility] Rout.[id number] EDT Name Value Range Interpretation Description Data Sup porting Code Source(s) Document(s ) aPTT in 25.1-36. Above high normal <content [facility] Platelet poor 5 styleCode="Bold" Sonia plasma by >Partial Medical Coagulation Thromboplastin Center assay Time </content>54.0 SEC H<content styleCode="Itali cs"> (25.1-36.5 SEC)</content> INR in 0.80-1.2 Above high normal <content [facility] Platelet poor 0 styleCode="Bold" Sonia plasma by >INR Medical Coagulation </content>1.50 # Center assay H<content styleCode="Itali cs"> (0.80-1.20 #)</content> UNK 9.0-13.0 Above high normal <content [facility] styleCode="Bold" Sonia >Protime Medical </content>16.7 Center SEC H<content styleCode="Itali cs"> (9.0-13.0 SEC)</content> ID Date Data Source Liver 06/11/2019 05:37:00 AM EDT [facility] Profile.[id number] Name Value Range Interpretation Description Data Sup porting Code Source(s) Document(s ) Aspartate 14-36 <content aminotransferase styleCode="Bold"> Quintin hs [Enzymatic Aspartate Medical activity/volume] Aminotransferase Center in Serum or Plasma (AST) </content>32 IU/L<content styleCode="Italic s"> (14-36 IU/L)</content> Alanine 7-30 <content [facility] aminotransferase styleCode="Bold"> Quintin hs [Enzymatic Alanine Medical activity/volume] Aminotransferase Center in Serum or Plasma (ALT) </content>29 IU/L<content styleCode="Italic s"> (7-30 IU/L)</content> Albumin 3.5-5.0 <content [facility] [Mass/volume] in styleCode="Bold"> Quintin hs Serum or Plasma Albumin Medical </content>4.0 Center G/DL<content styleCode="Italic s"> (3.5-5.0 G/DL)</content> Alkaline 38-126 <content [facility] phosphatase styleCode="Bold"> Sonia [Enzymatic Alkaline Medical activity/volume] Phosphatase (ALP) Cente r in Serum or Plasma </content>98 IU/L<content styleCode="Italic s"> (38-126 IU/L)</content> Bilirubin.total 0.2-1.3 <content [facility] [Mass/volume] in styleCode="Bold"> Quintin hs Serum or Plasma Bilirubin Total Medical </content>0.7 Center MG/DL<content styleCode="Italic s"> (0.2-1.3 MG/DL)</content> ID Date Data Source Hormones.[id number] 06/11/2019 05:37:00 AM EDT [facility] Name Value Range Interpretation Description Data Sup porting Code Source(s) Document(s ) Triiodothyronine 76-181 <content [facility] (T3) [Moles/volume] styleCode="Binh Alva s in Serum or Plasma ld">T3 Total Medical </content>95 Center ng/dL<content styleCode="It alics"> (76-181 ng/dL)</yuni nt> UNK 5.53-11 <content [facility] .0 styleCode="Binh Scott ld">Thyroxine Medical (T4) Center </content>9.7 7 UG/DL<content styleCode="It alics"> (5.53-11.0 UG/DL)</yuni nt> Thyrotropin 0.465-4 <content [facility] [Units/volume] in .68 styleCode="Binh Scott Serum or Plasma by ld">Thyroid Medical Detection limit <= Stimulating Center 0.05 mIU/L Hormone </content>1.9 9 MIU/L<content styleCode="It alics"> (0.465-4.68 MIU/L)</yuni nt> ID Date Data Source HematologyRou.[id number] 06/11/2019 05:37:00 AM EDT [facility] 0400 Name Value Range Interpretation Description Data Sup porting Code Source(s) Document(s ) Leukocytes 4.4-11.0 <content [facility] [#/volume] in styleCode="Bold Sonia Blood by ">White Blood Medical Automated count Cell Count Center </content>7.88 KCUMM<content styleCode="Ital ics"> (4.4-11.0 KCUMM)</content > Erythrocytes 4.0-5.1 <content [facility] [#/volume] in styleCode="Bold Sonia Blood by ">Red Blood Medical Automated count Cell Count Center </content>4.46 MCUMM<content styleCode="Ital ics"> (4.0-5.1 MCUMM)</content > Hemoglobin 12.3-16. Below low normal <content [facility] [Mass/volume] in 0 styleCode="Bold Sonia Blood ">Hemoglobin Medical </content>11.6 Center G/DL L<content styleCode="Ital ics"> (12.3-16.0 G/DL)</content> Hematocrit 36.0-46. <content [facility] [Volume 0 styleCode="Bold Sonia Fraction] of ">Hematocrit Medical Blood by </content>38.7 Center Automated count %<content styleCode="Ital ics"> (36.0-46.0 %)</content> Erythrocyte mean 80.0-100 <content [facility] corpuscular .0 styleCode="Bold Sonia volume [Entitic ">Mean Medical volume] by Corpuscular Center Automated count Volume </content>86.8 FL<content styleCode="Ital ics"> (80.0-100.0 FL)</content> Erythrocyte 11.5-14. Above high <content [facility] distribution 5 normal styleCode="Bold Sonia width [Ratio] by ">Red Cell Medical Automated count Distribution Center Width </content>19.4 % H<content styleCode="Ital ics"> (11.5-14.5 %)</content> Erythrocyte mean 32.0-37. Below low normal <content [facility] corpuscular 0 styleCode="Bold Sonia hemoglobin ">Mean Corpus. Medical concentration Hgb Center [Mass/volume] by Concentration Automated count (MCHC) </content>30.0 G/DL L<content styleCode="Ital ics"> (32.0-37.0 G/DL)</content> Erythrocyte mean 26.0-34. <content [facility] corpuscular 0 styleCode="Bold Sonia hemoglobin ">Mean Medical [Entitic mass] Corposcular Center by Automated Hemoglobin count </content>26.0 PG<content styleCode="Ital ics"> (26.0-34.0 PG)</content> Neutrophils 36-66 <content [facility] [#/volume] in styleCode="Bold Sonia Blood by ">Neutrophil Medical Automated count </content>58.8 Center %<content styleCode="Ital ics"> (36-66 %)</content> Platelet mean 8.0-11.0 <content [facility] volume [Entitic styleCode="Bold Sonia volume] in Blood ">Mean Platelet Medical by Automated Volume Center count </content>10.3 FL<content styleCode="Ital ics"> (8.0-11.0 FL)</content> Platelets 130-400 <content [facility] [#/volume] in styleCode="Bold Sonia Blood by ">Platelet Medical Automated count Count Center </content>169 KCUMM<content styleCode="Ital ics"> (130-400 KCUMM)</content > UNK 1.6-7.3 <content [facility] styleCode="Bold Sonia ">Neutrophil Medical Count Center </content>4.63 KCUMM<content styleCode="Ital ics"> (1.6-7.3 KCUMM)</content > UNK 1.0-4.8 <content [facility] styleCode="Bold Sonia ">Lymphocyte Medical Count Center </content>2.51 KCUMM<content styleCode="Ital ics"> (1.0-4.8 KCUMM)</content > Lymphocytes 24.0-44. <content [facility] [#/volume] in 0 styleCode="Bold Sonia Blood by ">Lymphocyte Medical Automated count </content>31.9 Center %<content styleCode="Ital ics"> (24.0-44.0 %)</content> Monocytes 3.0-10.0 <content [facility] [#/volume] in styleCode="Bold Sonia Blood by ">Monocyte Medical Automated count </content>5.8 Center %<content styleCode="Ital ics"> (3.0-10.0 %)</content> UNK 0.0-0.6 <content [facility] styleCode="Bold Sonia ">Eosinophil Medical Count Center </content>0.20 KCUMM<content styleCode="Ital ics"> (0.0-0.6 KCUMM)</content > Eosinophils 0-5.0 <content [facility] [#/volume] in styleCode="Bold Sonia Blood by ">Eosinophil Medical Automated count </content>2.5 Center %<content styleCode="Ital ics"> (0-5.0 %)</content> Basophils 0.0-1.0 <content [facility] [#/volume] in styleCode="Bold Sonia Blood by ">Basophil Medical Automated count </content>0.5 Center %<content styleCode="Ital ics"> (0.0-1.0 %)</content> UNK 0.2-0.9 <content [facility] styleCode="Bold Sonia ">Monocyte Medical Count Center </content>0.46 KCUMM<content styleCode="Ital ics"> (0.2-0.9 KCUMM)</content > UNK 0.0-0.3 <content [facility] styleCode="Bold Sonia ">Basophil Medical Count Center </content>0.04 KCUMM<content styleCode="Ital ics"> (0.0-0.3 KCUMM)</content > UNK 0 <content [facility] styleCode="Bold Sonia ">Nucleated Red Medical Blood Cell Center </content>0.0 /100<content styleCode="Ital ics"> (0 /100)</content> UNK 0.0 <content [facility] styleCode="Bold Sonia ">Nucleated Red Medical Blood Cell Center Count </content>0.00 KCUMM<content styleCode="Ital ics"> (0.0 KCUMM)</content > UNK < 1 <content [facility] styleCode="Bold Sonia ">Immature Medical Granulocyte Center Ratio </content>0.5 %<content styleCode="Ital ics"> (< 1 %)</content> UNK 0-0.1 <content [facility] styleCode="Bold Sonia ">Immature Medical Granulocyte Center Count </content>0.04 KCUMM<content styleCode="Ital ics"> (0-0.1 KCUMM)</content > ID Date Data Source GFR(Creatinine).[id number] 06/11/2019 05:37:00 AM EDT [facility] 0-0400 Name Value Range Interpretation Code Description Data Emilia rce(s) Supporting Document(s ) UNK > 60 Below low normal <content Sonia styleCode="Bold"> Medical Cent er EGFR </content>33 GFR L<content styleCode="Italic s"> (> 60 GFR)</content> ID Date Data Source CHMROUTINECCDA.[id number] 06/11/2019 05:37:00 AM EDT [facility] -0400 Name Value Range Interpretation Description Data Sup porting Code Source(s) Document(s ) UNK 2.3-3.5 <content [facility] styleCode="Binh Sonia ld">Globulin Medical </content>3.2 Center G/DL<content styleCode="It alics"> (2.3-3.5 G/DL)</conten t> UNK 4.2-5.8 Above high <content [facility] normal styleCode="Binh Sonia ld">Hemoglobi Medical n A1C Center </content>7.3 % H<content styleCode="It alics"> (4.2-5.8 %)</content> UNK >= 1.0 <content Saint styleCode="Binh Sonia ld">AG Ratio Medical </content>1.2 Center <content styleCode="It alics"> (>= 1.0 )</content> Magnesium 1.6-2.3 <content Saint [Mass/volume] in styleCode="Binh Sonia Serum or Plasma ld">Magnesium Medical </content>2.0 Center MG/DL<content styleCode="It alics"> (1.6-2.3 MG/DL)</yuni nt> Phosphate 2.5-4.5 <content [facility] [Mass/volume] in styleCode="Binh Sonia Serum or Plasma ld">Phosphoru Medical s Center </content>4.4 MG/DL<content styleCode="It alics"> (2.5-4.5 MG/DL)</yuni nt> Protein 6.3-8.2 <content [facility] [Mass/volume] in styleCode="Binh Sonia Serum or Plasma ld">Total Medical Protein Center </content>7.2 G/DL<content styleCode="It alics"> (6.3-8.2 G/DL)</conten t> Triiodothyronine 76-181 <content Saint (T3) [Moles/volume] styleCode="Binh Artie s in Serum or Plasma ld">T3 Total Medical </content>95 Center ng/dL<content styleCode="It alics"> (76-181 ng/dL)</yuni nt> ID Date Data Source CardiacMarkers.[id number] 06/11/2019 05:37:00 AM EDT [facility] -0400 Name Value Range Interpretation Code Description Data Emilia rce(s) Supporting Document(s ) UNK 0-0.034 <content [facility] styleCode="Bold" Medical Cente r >Troponin 4HR </content>0.022 NG/ML<content styleCode="Itali cs"> (0-0.034 NG/ML)</content> ID Date Data Source BMP.[id number] 06/11/2019 05:37:[address] [facility] Name Value Range Interpretation Description Data Sup porting Code Source(s) Document(s ) Potassium 3.5-5.3 <content Saint [Moles/volume] in styleCode="Bold"> Elvis phs Serum or Plasma Potassium Medical </content>4.1 Center MEQ/L<content styleCode="Italic s"> (3.5-5.3 MEQ/L)</content> Sodium 137-145 <content [facility] [Moles/volume] in styleCode="Bold"> Elvis phs Serum or Plasma Sodium Medical </content>145 Center MEQ/L<content styleCode="Italic s"> (137-145 MEQ/L)</content> Creatinine 0.5-1.3 Above high <content Saint [Mass/volume] in normal styleCode="Bold"> Quintin hs Serum or Plasma Creatinine Medical </content>1.6 Center MG/DL H<content styleCode="Italic s"> (0.5-1.3 MG/DL)</content> Carbon dioxide, 22-30 <content Saint total styleCode="Bold"> Sonia [Moles/volume] in Carbon Dioxide Medical Serum or Plasma </content>26 Center MEQ/L<content styleCode="Italic s"> (22-30 MEQ/L)</content> Glucose 74-106 Above high <content Saint [Mass/volume] in normal styleCode="Bold"> Quintin hs Serum or Plasma Glucose Medical </content>119 Center MG/DL H<content styleCode="Italic s"> (74-106 MG/DL)</content> Chloride 98-107 Above high <content Saint [Moles/volume] in normal styleCode="Bold"> Elvis phs Serum or Plasma Chloride Medical </content>108 Center MEQ/L H<content styleCode="Italic s"> (98-107 MEQ/L)</content> UNK 7-17 Above high <content [facility] normal styleCode="Bold"> Sonia BUN </content>35 Medical MG/DL H<content Center styleCode="Italic s"> (7-17 MG/DL)</content> Aspartate 14-36 <content [facility] aminotransferase styleCode="Bold"> Quintin hs [Enzymatic Aspartate Medical activity/volume] Aminotransferase Center in Serum or Plasma (AST) </content>32 IU/L<content styleCode="Italic s"> (14-36 IU/L)</content> Calcium 8.4-10. <content [facility] [Mass/volume] in 2 styleCode="Bold"> Quintin hs Serum or Plasma Calcium Medical </content>9.4 Center MG/DL<content styleCode="Italic s"> (8.4-10.2 MG/DL)</content> UNK > 60 Below low <content [facility] normal styleCode="Bold"> Sonia EGFR </content>33 Medical GFR L<content Center styleCode="Italic s"> (> 60 GFR)</content> Alanine 7-30 <content [facility] aminotransferase styleCode="Bold"> Quintin hs [Enzymatic Alanine Medical activity/volume] Aminotransferase Center in Serum or Plasma (ALT) </content>29 IU/L<content styleCode="Italic s"> (7-30 IU/L)</content> Albumin 3.5-5.0 <content [facility] [Mass/volume] in styleCode="Bold"> Quintin hs Serum or Plasma Albumin Medical </content>4.0 Center G/DL<content styleCode="Italic s"> (3.5-5.0 G/DL)</content> Alkaline 38-126 <content [facility] phosphatase styleCode="Bold"> Sonia [Enzymatic Alkaline Medical activity/volume] Phosphatase (ALP) Cente r in Serum or Plasma </content>98 IU/L<content styleCode="Italic s"> (38-126 IU/L)</content> Bilirubin.total 0.2-1.3 <content [facility] [Mass/volume] in styleCode="Bold"> Quintin hs Serum or Plasma Bilirubin Total Medical </content>0.7 Center MG/DL<content styleCode="Italic s"> (0.2-1.3 MG/DL)</content> ID Date Data Source Liver 06/10/2019 11:00:00 PM EDT [facility] Profile.[id number] Name Value Range Interpretation Description Data Sup porting Code Source(s) Document(s ) Aspartate 14-36 <content [facility] aminotransferase styleCode="Bold"> Quintin hs [Enzymatic Aspartate Medical activity/volume] Aminotransferase Center in Serum or Plasma (AST) </content>32 IU/L<content styleCode="Italic s"> (14-36 IU/L)</content> Bilirubin.total 0.2-1.3 <content [facility] [Mass/volume] in styleCode="Bold"> Quintin hs Serum or Plasma Bilirubin Total Medical </content>0.5 Center MG/DL<content styleCode="Italic s"> (0.2-1.3 MG/DL)</content> Alkaline 38-126 <content [facility] phosphatase styleCode="Bold"> Sonia [Enzymatic Alkaline Medical activity/volume] Phosphatase (ALP) Cente r in Serum or Plasma </content>92 IU/L<content styleCode="Italic s"> (38-126 IU/L)</content> Alanine 7-30 <content [facility] aminotransferase styleCode="Bold"> Quintin hs [Enzymatic Alanine Medical activity/volume] Aminotransferase Center in Serum or Plasma (ALT) </content>28 IU/L<content styleCode="Italic s"> (7-30 IU/L)</content> Albumin 3.5-5.0 <content [facility] [Mass/volume] in styleCode="Bold"> Quintin hs Serum or Plasma Albumin Medical </content>3.5 Center G/DL<content styleCode="Italic s"> (3.5-5.0 G/DL)</content> UNK 0.0-0.3 <content [facility] styleCode="Bold"> Sonia Bilirubin, Direct Medical </content>< 0.2 Center MG/DL<content styleCode="Italic s"> (0.0-0.3 MG/DL)</content> ID Date Data Source Coagulation 06/10/2019 11:00:00 PM [facility] Rout.[id number] EDT Name Value Range Interpretation Description Data Sup porting Code Source(s) Document(s ) UNK 9.0-13.0 Above high normal <content Saint styleCode="Bold" Sonia >Protime Medical </content>16.6 Center SEC H<content styleCode="Itali cs"> (9.0-13.0 SEC)</content> INR in 0.80-1.2 Above high normal <content [facility] Platelet poor 0 styleCode="Bold" Sonia plasma by >INR Medical Coagulation </content>1.50 # Center assay H<content styleCode="Itali cs"> (0.80-1.20 #)</content> aPTT in 25.1-36. <content [facility] Platelet poor 5 styleCode="Bold" Sonia plasma by >Partial Medical Coagulation Thromboplastin Center assay Time </content>29.3 SEC<content styleCode="Itali cs"> (25.1-36.5 SEC)</content> ID Date Data Source CardiacMarkers.[id number] 06/10/2019 11:00:00 PM EDT [facility] -0400 Name Value Range Interpretation Description Data Sup porting Code Source(s) Document(s ) Troponin < 0.034 <content [facility] I.cardiac styleCode="Bold Sonia [Mass/volume ">Troponin I Medical ] in Serum </content>0.016 Center or Plasma NG/ML<content styleCode="Ital ics"> (< 0.034 NG/ML)</content > ID Date Data Source GFR(Creatinine).[id number] 06/10/2019 11:00:00 PM EDT [facility] 0-0400 Name Value Range Interpretation Code Description Data Emilia rce(s) Supporting Document(s ) UNK > 60 Below low normal <content [facility] styleCode="Bold"> Medical Cent er EGFR </content>39 GFR L<content styleCode="Italic s"> (> 60 GFR)</content> ID Date Data Source CHMROUTINECCDA.[id number] 06/10/2019 11:00:00 PM EDT [facility] -0400 Name Value Range Interpretation Description Data Sup porting Code Source(s) Document(s ) Natriuretic < 450 Above high normal <content Saint peptide.B styleCode="Iftikhar Sonia prohormone d">NT Pro BNP Medical N-Terminal </content>1860 Center [Mass/volume] 0 PG/ML in Serum or H<content Plasma styleCode="Kim lics"> (< 450 PG/ML)</conten t> ID Date Data Source [id number] 06/10/2019 11:00:00 PM EDT [facility] Name Value Range Interpretation Description Data Sup porting Code Source(s) Document(s ) Sodium 137-145 <content [facility] [Moles/volume] in styleCode="Bold"> Elvis phs Serum or Plasma Sodium Medical </content>141 Center MEQ/L<content styleCode="Italic s"> (137-145 MEQ/L)</content> Creatinine 0.5-1.3 Above high <content [facility] [Mass/volume] in normal styleCode="Bold"> Quintin hs Serum or Plasma Creatinine Medical </content>1.4 Center MG/DL H<content styleCode="Italic s"> (0.5-1.3 MG/DL)</content> Carbon dioxide, 22-30 Below low <content [facility] total normal styleCode="Bold"> Sonia [Moles/volume] in Carbon Dioxide Medical Serum or Plasma </content>20 Center MEQ/L L<content styleCode="Italic s"> (22-30 MEQ/L)</content> Glucose 74-106 Above high <content [facility] [Mass/volume] in normal styleCode="Bold"> Quintin hs Serum or Plasma Glucose Medical </content>170 Center MG/DL H<content styleCode="Italic s"> (74-106 MG/DL)</content> Chloride 98-107 Above high <content [facility] [Moles/volume] in normal styleCode="Bold"> Elvis phs Serum or Plasma Chloride Medical </content>110 Center MEQ/L H<content styleCode="Italic s"> (98-107 MEQ/L)</content> UNK 7-17 Above high <content [facility] normal styleCode="Bold"> Sonia BUN </content>36 Medical MG/DL H<content Center styleCode="Italic s"> (7-17 MG/DL)</content> Potassium 3.5-5.3 <content [facility] [Moles/volume] in styleCode="Bold"> Elvis phs Serum or Plasma Potassium Medical </content>4.4 Center MEQ/L<content styleCode="Italic s"> (3.5-5.3 MEQ/L)</content> Alanine 7-30 <content [facility] aminotransferase styleCode="Bold"> Quintin hs [Enzymatic Alanine Medical activity/volume] Aminotransferase Center in Serum or Plasma (ALT) </content>28 IU/L<content styleCode="Italic s"> (7-30 IU/L)</content> Alkaline 38-126 <content [facility] phosphatase styleCode="Bold"> Sonia [Enzymatic Alkaline Medical activity/volume] Phosphatase (ALP) Cente r in Serum or Plasma </content>92 IU/L<content styleCode="Italic s"> (38-126 IU/L)</content> UNK > 60 Below low <content [facility] normal styleCode="Bold"> Sonia EGFR </content>39 Medical GFR L<content Center styleCode="Italic s"> (> 60 GFR)</content> Aspartate 14-36 <content [facility] aminotransferase styleCode="Bold"> Quintin hs [Enzymatic Aspartate Medical activity/volume] Aminotransferase Center in Serum or Plasma (AST) </content>32 IU/L<content styleCode="Italic s"> (14-36 IU/L)</content> Calcium 8.4-10. <content [facility] [Mass/volume] in 2 styleCode="Bold"> Quinitn hs Serum or Plasma Calcium Medical </content>8.9 Center MG/DL<content styleCode="Italic s"> (8.4-10.2 MG/DL)</content> Bilirubin.total 0.2-1.3 <content [facility] [Mass/volume] in styleCode="Bold"> Quintin hs Serum or Plasma Bilirubin Total Medical </content>0.5 Center MG/DL<content styleCode="Italic s"> (0.2-1.3 MG/DL)</content> Albumin 3.5-5.0 <content [facility] [Mass/volume] in styleCode="Bold"> Quintin hs Serum or Plasma Albumin Medical </content>3.5 Center G/DL<content styleCode="Italic s"> (3.5-5.0 G/DL)</content> ID Date Data Source Urinalysis.[id number] 06/10/2019 09:00:00 PM EDT [facility] 0 Name Value Range Interpretation Description Data Sup porting Code Source(s) Document(s ) UNK CLEAR <content Saint styleCode="Iftikhar Sonia d">Urine Medical Clarity Center </content>Sl CLOUDY <content styleCode="Kim lics"> (CLEAR )</content> Color of Urine YELLOW <content Saint styleCode="Iftikhar Sonia d">Color, Medical Urine Center </content>YELL OW <content styleCode="Kim lics"> (YELLOW )</content> UNK NEGATIVE <content [facility]">Urine Medical Bilirubin Center </content>NEGA TIVE <content styleCode="Kim lics"> (NEGATIVE )</content> Glucose NEGATIVE <content Saint [Mass/volume] styleCode="Iftikhar Alvas in Urine by d">Urine Medical Test strip Glucose Center </content>NEGA TIVE MG/DL<content styleCode="Kim lics"> (NEGATIVE MG/DL)</conten t> Ketones NEGATIVE <content Saint [Mass/volume] styleCode="Iftikhar Alvas in Urine by d">Urine Medical Test strip Ketone Center </content>NEGA TIVE MG/DL<content styleCode="Kim lics"> (NEGATIVE MG/DL)</conten t> Specific 1.015-1.02 <content [facility] gravity of 5 styleCode="Iftikhar Alvas Urine by Test d">Urine Medical strip Specific Center [place] </content>1.02 5 <content styleCode="Kim lics"> (1.015-1.025 )</content> pH of Urine by 4.5-8.0 <content Saint Test strip styleCode="Iftikhar Alvas d">Urine pH Medical </content>5.5 Center <content styleCode="Kim lics"> (4.5-8.0 )</content> Hemoglobin NEGATIVE <content Saint [Presence] in styleCode="Iftikhar Alvas Urine by Test d">Urine Blood Medical strip </content>MODE Center RATE <content styleCode="Kim lics"> (NEGATIVE )</content> Urobilinogen 0.2-1.0 <content Saint [Units/volume] styleCode="Iftikhar Alvas in Urine by d">Urine Medical Test strip Urobilinogen Center </content>0.2 MG/DL<content styleCode="Kim lics"> (0.2-1.0 MG/DL)</conten t> Protein NEGATIVE <content Saint [Mass/volume] styleCode="Iftikhar Sonia in Urine by d">Urine Medical Test strip Protein Center </content>100 MG/DL<content styleCode="Kim lics"> (NEGATIVE MG/DL)</conten t> Leukocyte NEGATIVE <content Saint esterase styleCode="Iftikhar Alvas [Presence] in d">Urine Medical Urine by Test Leukocyte Center strip </content>NEGA TIVE <content styleCode="Kim lics"> (NEGATIVE )</content> Nitrite NEGATIVE <content Saint [Presence] in styleCode="Iftikhar Alvas Urine by Test d">Urine Medical strip Nitrite Center </content>NEGA TIVE <content styleCode="Kim lics"> (NEGATIVE )</content> UNK 0-3 <content Saint styleCode="Iftikhar Sonia d">Urine White Medical Blood Cell Center </content>3-5 HPF<content styleCode="Kim lics"> (0-3 HPF)</content> UNK 0-3 <content Saint styleCode="Iftikhar Sonia d">Urine Red Medical Blood Cell Center </content>10 - 20 HPF<content styleCode="Kim lics"> (0-3 HPF)</content> UNK NEGATIVE <content Saint styleCode="Iftikhar Sonia d">Urine Medical Bacteria Center </content>FEW HPF<content styleCode="Kim lics"> (NEGATIVE HPF)</content> UNK <content [facility] styleCode="Iftikhar Sonia d">Epithelial Medical Cell Center </content>5 - 10 LPF (Reference Range: not available)<br/ > UNK <content [facility] styleCode="Iftikhar Sonia d">Uric Acid Medical Crystal Center </content>MODE RATE LPF (Reference Range: not available)<br/ > UNK NONE SEEN <content Saint styleCode="Iftikhar Sonia d">Urine Mucus Medical </content>FEW Center LPF<content styleCode="Kim lics"> (NONE SEEN LPF)</content> ID Date Data Source Coagulation 06/10/2019 08:00:00 PM [facility] ical Center Rout.[id number] EDT Name Value Range Interpretation Description Data Sup porting Code Source(s) Document(s ) UNK 9.0-13.0 Above high normal <content Saint styleCode="Bold" Sonia >Protime Medical </content>15.8 Center SEC H<content styleCode="Itali cs"> (9.0-13.0 SEC)</content> aPTT in 25.1-36. <content Saint Platelet poor 5 styleCode="Bold" Sonia plasma by >Partial Medical Coagulation Thromboplastin Center assay Time </content>28.5 SEC<content styleCode="Itali cs"> (25.1-36.5 SEC)</content> INR in 0.80-1.2 Above high normal <content [facility] Platelet poor 0 styleCode="Bold" Sonia plasma by >INR Medical Coagulation </content>1.42 # Center assay H<content styleCode="Itali cs"> (0.80-1.20 #)</content> ID Date Data Source CardiacMarkers.[id number] 06/10/2019 08:00:00 PM EDT [facility] -0400 Name Value Range Interpretation Description Data Sup porting Code Source(s) Document(s ) Troponin <content [facility] I.cardiac styleCode="Bold Medical [Mass/volume ">Troponin I Center ] in Serum </content>Test or Plasma not performed. NG/ML (Reference Range: not available)
ID Date Data Source HematologyRou.[id number] 06/10/2019 08:00:00 PM EDT [facility] 0400 Name Value Range Interpretation Description Data Sup porting Code Source(s) Document(s ) Erythrocytes 4.0-5.1 <content Saint [#/volume] in styleCode="Bold Sonia Blood by ">Red Blood Medical Automated count Cell Count Center </content>4.50 MCUMM<content styleCode="Ital ics"> (4.0-5.1 MCUMM)</content > Hemoglobin 12.3-16. Below low normal <content Saint [Mass/volume] in 0 styleCode="Bold Sonia Blood ">Hemoglobin Medical </content>11.8 Center G/DL L<content styleCode="Ital ics"> (12.3-16.0 G/DL)</content> Leukocytes 4.4-11.0 <content Saint [#/volume] in styleCode="Bold Sonia Blood by ">White Blood Medical Automated count Cell Count Center </content>8.76 KCUMM<content styleCode="Ital ics"> (4.4-11.0 KCUMM)</content > Erythrocyte mean 32.0-37. Below low normal <content [facility] corpuscular 0 styleCode="Bold Sonia hemoglobin ">Mean Corpus. Medical concentration Hgb Center [Mass/volume] by Concentration Automated count (MCHC) </content>30.4 G/DL L<content styleCode="Ital ics"> (32.0-37.0 G/DL)</content> Hematocrit 36.0-46. <content Saint [Volume 0 styleCode="Bold Sonia Fraction] of ">Hematocrit Medical Blood by </content>38.8 Center Automated count %<content styleCode="Ital ics"> (36.0-46.0 %)</content> Erythrocyte mean 26.0-34. <content [facility] corpuscular 0 styleCode="Bold Sonia hemoglobin ">Mean Medical [Entitic mass] Corposcular Center by Automated Hemoglobin count </content>26.2 PG<content styleCode="Ital ics"> (26.0-34.0 PG)</content> Erythrocyte 11.5-14. Above high <content [facility] distribution 5 normal styleCode="Bold Sonia width [Ratio] by ">Red Cell Medical Automated count Distribution Center Width </content>19.5 % H<content styleCode="Ital ics"> (11.5-14.5 %)</content> Erythrocyte mean 80.0-100 <content [facility] corpuscular .0 styleCode="Bold Sonia volume [Entitic ">Mean Medical volume] by Corpuscular Center Automated count Volume </content>86.2 FL<content styleCode="Ital ics"> (80.0-100.0 FL)</content> UNK 0 <content Saint styleCode="Bold Sonia ">Nucleated Red Medical Blood Cell Center </content>0.0 /100<content styleCode="Ital ics"> (0 /100)</content> Platelets 130-400 <content Saint [#/volume] in styleCode="Bold Sonia Blood by ">Platelet Medical Automated count Count Center </content>176 KCUMM<content styleCode="Ital ics"> (130-400 KCUMM)</content > UNK 0.0 <content Saint styleCode="Bold Sonia ">Nucleated Red Medical Blood Cell Center Count </content>0.00 KCUMM<content styleCode="Ital ics"> (0.0 KCUMM)</content > Platelet mean 8.0-11.0 <content [facility] volume [Entitic styleCode="Bold Sonia volume] in Blood ">Mean Platelet Medical by Automated Volume Center count </content>10.1 FL<content styleCode="Ital ics"> (8.0-11.0 FL)</content> ID Date Data Source GFR(Creatinine).[id number] 06/10/2019 08:00:00 PM EDT [facility] 0-0400 Name Value Range Interpretation Code Description Data Emilia rce(s) Supporting Document(s ) UNK <content [facility] styleCode="Bold"> Medical Cent er EGFR </content>Test not performed. GFR (Reference Range: not available)
ID Date Data Source CHMROUTFAIZANCCDA.[id number] 06/10/2019 08:00:00 PM EDT [facility] -0400 Name Value Range Interpretation Description Data Sup porting Code Source(s) Document(s ) Natriuretic <content [facility] peptide.B styleCode="Iftikhar Sonia prohormone d">NT Pro BNP Medical N-Terminal </content>Test Center [Mass/volume] not performed. in Serum or PG/ML Plasma (Reference Range: not available)<br/ > ID Date Data Source [facility].[id number] 06/10/2019 08:00:00 PM EDT [facility] Name Value Range Interpretation Description Data Sup porting Code Source(s) Document(s ) Chloride <content Saint [Moles/volume] styleCode="Bold Sonia in Serum or ">Chloride Medical Plasma </content>Test Center not performed. MEQ/L (Reference Range: not available)
Sodium <content Saint [Moles/volume] styleCode="Bold Sonia in Serum or ">Sodium Medical Plasma </content>Test Center not performed. MEQ/L (Reference Range: not available)
Potassium <content Saint [Moles/volume] styleCode="Bold Sonia in Serum or ">Potassium Medical Plasma </content>Test Center not performed. MEQ/L (Reference Range: not available)
UNK <content Saint styleCode="Bold Sonia ">BUN Medical </content>Test Center not performed. MG/DL (Reference Range: not available)
Carbon <content Saint dioxide, total styleCode="Bold Sonia [Moles/volume] ">Carbon Medical in Serum or Dioxide Center Plasma </content>Test not performed. MEQ/L (Reference Range: not available)
Glucose <content Saint [Mass/volume] styleCode="Bold Sonia in Serum or ">Glucose Medical Plasma </content>Test Center not performed. MG/DL (Reference Range: not available)
Creatinine <content Saint [Mass/volume] styleCode="Bold Sonia in Serum or ">Creatinine Medical Plasma </content>Test Center not performed. MG/DL (Reference Range: not available)
Calcium <content Saint [Mass/volume] styleCode="Bold Sonia in Serum or ">Calcium Medical Plasma </content>Test Center not performed. MG/DL (Reference Range: not available)
UNK <content Saint styleCode="Bold Sonia ">EGFR Medical </content>Test Center not performed. GFR (Reference Range: not available)
Procedure Social History Code Duration Value Status Description Data Source(s ) Smoking 12/26/2019 Denies Ever completed Denies Ever Smoked [facility] 06:00:00 PM EDT Smoked Medical C enter Smoking 12/26/2019 Denies Ever completed Denies Ever Smoked [facility] 08:47:00 AM EDT Smoked Medical C enter Smoking 12/25/2019 Denies Ever completed Denies Ever Smoked [facility] 07:02:00 PM EDT Smoked Medical C enter Smoking 12/25/2019 Denies Ever completed Denies Ever Smoked [facility] 02:50:00 PM EDT Smoked Medical C enter Smoking 09/18/2019 Not Known completed Not Known [facility] 05:42:00 PM EST Medical C enter Smoking 09/18/2019 Not Known completed Not Known [facility] 01:44:00 PM EST Medical C enter Smoking 09/18/2019 Denies Ever completed Denies Ever Smoked [facility] 09:44:00 AM EST Smoked Medical C enter Smoking 09/18/2019 Denies Ever completed Denies Ever Smoked [facility] 09:38:00 AM EST Smoked Medical C enter Smoking 09/18/2019 Denies Ever completed Denies Ever Smoked [facility] 09:22:00 AM EST Smoked Medical C enter Smoking 06/11/2019 Not Known completed Not Known [facility] 01:35:00 AM EDT Medical C enter Smoking 06/11/2019 Not Known completed Not Known [facility] 01:27:00 AM EDT Medical C enter Smoking 06/10/2019 Denies Ever completed Denies Ever Smoked [facility] 08:03:00 PM EDT Smoked Medical C enter Smoking 06/10/2019 Denies Ever completed Denies Ever Smoked [facility] 04:58:00 PM EDT Smoked Medical C enter Smoking Unknown if ever completed Unknown if ever Manan t Sonia smoked smoked Medical Center Vital Signs ID Date Data Source UNK Name Value Range Interpretation Code Description Data Source(s) Body temperature 36.703209 36.035717 [facility] Respiratory rate 19 /min 19 /min [facility] Oxygen saturation 97 % 97 % [facility] in Arterial blood [facility] Center by Pulse oximetry Heart rate 88 /min 88 /min [facility] Diastolic blood 64 mm[Hg] 64 mm[Hg] [facility] Systolic blood 132 mm[Hg] 132 mm[Hg] [facility] Body temperature 36.747407 36.593316 [facility] Respiratory rate 19 /min 19 /min [facility] Oxygen saturation 99 % 99 % [facility] Arterial blood [facility] by Pulse oximetry Heart rate 92 /min 92 /min [facility] Diastolic blood 59 mm[Hg] 59 mm[Hg] [facility] [place] Systolic blood 120 mm[Hg] 120 mm[Hg] [facility] Body temperature 36.093622 36.265084 [facility] Respiratory rate 18 /min 18 /min [facility] Heart rate 94 /min 94 /min [facility] Diastolic blood 55 mm[Hg] 55 mm[Hg] [facility] Systolic blood 142 mm[Hg] 142 mm[Hg] [facility] Body temperature 37.244750 37.848239 [facility] Respiratory rate 18 /min 18 /min [facility] Oxygen saturation 99 % 99 % [facility] Arterial blood [facility] by Pulse oximetry Heart rate 97 /min 97 /min [facility] Diastolic blood 68 mm[Hg] 68 mm[Hg] [facility] Systolic blood 124 mm[Hg] 124 mm[Hg] [facility] Body temperature 36.189180 36.456141 [facility] Respiratory rate 18 /min 18 /min [facility] Oxygen saturation 97 % 97 % [facility] Arterial blood [facility] by Pulse oximetry Heart rate 87 /min 87 /min [facility] Diastolic blood 63 mm[Hg] 63 mm[Hg] [facility] Systolic blood 116 mm[Hg] 116 mm[Hg] [facility] Oxygen saturation 97 % 97 % [facility] Arterial blood Medical [place] by Pulse oximetry Body temperature 36.439479 36.017382 [facility] Respiratory rate 18 /min 18 /min [facility] Heart rate 89 /min 89 /min [facility] Diastolic blood 64 mm[Hg] 64 mm[Hg] [facility] Systolic blood 141 mm[Hg] 141 mm[Hg] [facility] Body temperature 36.476518 36.109181 [facility] Respiratory rate 19 /min 19 /min [facility] Oxygen saturation 98 % 98 % [facility] Arter[facility] blood [facility] by Pulse oximetry Heart rate 86 /min 86 /min [facility] Diastolic blood 59 mm[Hg] 59 mm[Hg] [facility] pressure Medical Center Systolic blood 126 mm[Hg] 126 mm[Hg] [facility] [place] Oxygen saturation 97 % 97 % [facility] Arterial blood [facility] by Pulse oximetry Body temperature 36.726692 36.930582 [facility] Respiratory rate 20 /min 20 /min [facility] Heart rate 78 /min 78 /min [facility] Diastolic blood 60 mm[Hg] 60 mm[Hg] [facility] [place] Systolic blood 117 mm[Hg] 117 mm[Hg] [facility] Oxygen saturation 96 % 96 % [facility] Arter[facility] blood [facility] by Pulse oximetry Body temperature 36.428487 36.785685 [facility] Respiratory rate 20 /min 20 /min [facility] Heart rate 80 /min 80 /min [facility] Diastolic blood 48 mm[Hg] 48 mm[Hg] [facility] [place] Systolic blood 113 mm[Hg] 113 mm[Hg] [facility] [place] Body temperature 36.504661 36.307807 [facility] Respiratory rate 18 /min 18 /min [facility] Heart rate 71 /min 71 /min [facility] Diastolic blood 57 mm[Hg] 57 mm[Hg] [facility] Systolic blood 150 mm[Hg] 150 mm[Hg] [facility] Body temperature 36.579091 36.339419 [facility] Respiratory rate 18 /min 18 /min [facility] Heart rate 55 /min 55 /min [facility] Diastolic blood 72 mm[Hg] 72 mm[Hg] [facility] pressure Medical Center Systolic blood 141 mm[Hg] 141 mm[Hg] [facility] Body temperature 36.842259 36.637403 [facility] Respiratory rate 20 /min 20 /min [facility] Heart rate 88 /min 88 /min [facility] Diastolic blood 56 mm[Hg] 56 mm[Hg] [facility] Systolic blood 112 mm[Hg] 112 mm[Hg] [facility] Body temperature 36.901866 36.727166 [facility] Respiratory rate 20 /min 20 /min [facility] Heart rate 105 /min 105 /min [facility] Diastolic blood 75 mm[Hg] 75 mm[Hg] [facility] Systolic blood 129 mm[Hg] 129 mm[Hg] [facility] Body temperature 36.520437 36.071021 [facility] Respiratory rate 20 /min 20 /min [facility] Heart rate 89 /min 89 /min [facility] Diastolic blood 53 mm[Hg] 53 mm[Hg] [facility] Systolic blood 152 mm[Hg] 152 mm[Hg] [facility] [place] Body temperature 36.454549 36.689208 [facility] Respiratory rate 20 /min 20 /min [facility] Heart rate 83 /min 83 /min [facility] Diastolic blood 64 mm[Hg] 64 mm[Hg] [facility] Systolic blood 132 mm[Hg] 132 mm[Hg] [facility] [place] Body temperature 36.812467 36.157714 [facility] Respiratory rate 20 /min 20 /min [facility] Heart rate 74 /min 74 /min [facility] Diastolic blood 67 mm[Hg] 67 mm[Hg] [facility] Center Systolic blood 144 mm[Hg] 144 mm[Hg] [facility] Body temperature 36.915531 36.606023 [facility] Respiratory rate 20 /min 20 /min [facility] Heart rate 83 /min 83 /min [facility] Diastolic blood 64 mm[Hg] 64 mm[Hg] [facility] Systolic blood 149 mm[Hg] 149 mm[Hg] [facility] Body weight 67.870171 kg 67.187881 kg [facility] Body height 157.679458 157.177681 cm [facility] Body mass index 27.25 kg/m2 27.25 kg/m2 [facility] (BMI) [Ratio] [facility] [address] [facility] Oxygen saturation 97 % 97 % [facility] Arterial blood [facility] Center by Pulse oximetry Oxygen saturation 100 % 100 % [facility] in Arterial blood [facility] by Pulse oximetry Body temperature 37.693263 37.577796 [facility] Respiratory rate 20 /min 20 /min [facility] Heart rate 79 /min 79 /min [facility] Diastolic blood 53 mm[Hg] 53 mm[Hg] [facility] Systolic blood 110 mm[Hg] 110 mm[Hg] [facility] Body temperature 36.077978 36.977409 [facility] Respiratory rate 20 /min 20 /min [facility] Heart rate 101 /min 101 /min [facility] Diastolic blood 78 mm[Hg] 78 mm[Hg] [facility] Center Systolic blood 146 mm[Hg] 146 mm[Hg] [facility] Body weight 60.754466 kg 60.963766 kg [facility]asured [facility] Body temperature 37.582131 37.921100 [facility] Respiratory rate 20 /min 20 /min [facility] Heart rate 74 /min 74 /min [facility] Diastolic blood 77 mm[Hg] 77 mm[Hg] [facility] Center Systolic blood 142 mm[Hg] 142 mm[Hg] [facility] Body temperature 36.247148 36.979380 [facility] Respiratory rate 18 /min 18 /min [facility] Heart rate 76 /min 76 /min [facility] Diastolic blood 56 mm[Hg] 56 mm[Hg] [facility] Center Systolic blood 115 mm[Hg] 115 mm[Hg] [facility] Body temperature 36.026349 36.149750 [facility] Respiratory rate 20 /min 20 /min [facility] Heart rate 75 /min 75 /min [facility] Diastolic blood 57 mm[Hg] 57 mm[Hg] [facility] Center Systolic blood 141 mm[Hg] 141 mm[Hg] [facility] Body weight 61.845390 kg 61.191590 kg [facility] Body weight 61.939929 kg 61.058831 kg [facility] Body weight 74.932677 kg 74.587167 kg [facility] Body height 152.172608 152.870595 cm [facility] Body mass index 31.95 kg/m2 31.95 kg/m2 [facility] for[facility] (BMI) [Ratio] Medical [facility] ter Body temperature 36.002144 36.014279 [facility] Respiratory rate 20 /min 20 /min [facility] Heart rate 87 /min 87 /min [facility] Diastolic blood 89 mm[Hg] 89 mm[Hg] [facility] Center Systolic blood 128 mm[Hg] 128 mm[Hg] [facility] Body temperature 36.571031 36.097946 [facility] Respiratory rate 20 /min 20 /min [facility] Heart rate 70 /min 70 /min [facility] Diastolic blood 78 mm[Hg] 78 mm[Hg] [facility] Center Systolic blood 146 mm[Hg] 146 mm[Hg] [facility] Body weight 74.862746 kg 74.160404 kg [facility]asured [facility] Body height 152.389235 152.164976 cm [facility] Body mass index 31.95 kg/m2 31.95 kg/m2 [facility] jaffe (BMI) [Ratio] Medical [facility] ter Body height 152.456966 152.440555 cm [facility] Body temperature 36.739253 36.117594 [facility] Respiratory rate 18 /min 18 /min [facility] Heart rate 57 /min 57 /min [facility] Diastolic blood 80 mm[Hg] 80 mm[Hg] [facility] Center Systolic blood 159 mm[Hg] 159 mm[Hg] [facility] Oxygen saturation 98 % 98 % [facility] Arterial blood Medical Center by Pulse oximetry Body temperature 36.262730 36.009107 [facility] Respiratory rate 19 /min 19 /min [facility] Heart rate 72 /min 72 /min [facility] Diastolic blood 86 mm[Hg] 86 mm[Hg] [facility] Systolic blood 164 mm[Hg] 164 mm[Hg] [facility] Oxygen saturation 97 % 97 % [facility] Arterial blood [facility] Center by Pulse oximetry Body temperature 36.898043 36.928634 [facility] Respiratory rate 18 /min 18 /min [facility] Heart rate 74 /min 74 /min [facility] Diastolic blood 86 mm[Hg] 86 mm[Hg] [facility] Systolic blood 151 mm[Hg] 151 mm[Hg] [facility] Oxygen saturation 96 % 96 % [facility] in Arterial blood [facility] Center by Pulse oximetry Oxygen saturation 97 % 97 % [facility] in Arterial blood Medical Center by Pulse oximetry Oxygen saturation 97 % 97 % [facility] J [facility] in Arterial blood [facility] Center by Pulse oximetry Patient Treatment Plan of Care Planned Activity Planned Date Details Description Data Source (s) furosemide 40 mg [facility] TabletDirections: 1 tablet C enter oral daily Acetaminophen 325 MG / [facility] Oxycodone Hydrochloride 5 MG Center Oral Tablet 24 HR tolterodine tartrate 4 [facility] Medical MG Extended Release Oral [facility] Caps[facility] Spironolactone 25 MG Oral [facility] pantoprazole 40 MG Delayed S [facility] Release Oral Tablet Center 24 HR Isosorbide Mononitrate [facility] 30 MG Extended Release Oral Center Tablet Hydralazine Hydrochloride 25 [facility] Medical Oral Tablet Center glimepiride 4 MG Oral Tablet [facility] clopidogrel 75 MG Oral Tablet [facility] [Plavix] [place] carvedilol 6.25 MG Oral [facility] apixaban 2.5 MG Oral Tablet [facility] [Eliquis] [place] losartan 100 mg [facility] TabletDirections: 1 tablet C enter oral daily metoprolol succinate 25 mg [facility] Tablet Extended Release 24 C enter hrDirections: 1 tablet oral daily meloxicam 15 mg [facility] TabletDirections: 1 tablet C enter oral daily pantoprazole 40 [facility] Center Amoxicillin 875 MG / [facility] Clavulanate 125 MG Oral Cent er Tablet Spironolactone 25 MG Oral [facility] Tablet [place] 24 HR Isosorbide Mononitrate [facility] 30 MG Extended Release Oral Center Tablet Hydralazine Hydrochloride 25 [facility] Oral Tablet Center Furosemide 40 MG Oral Tablet [facility] carvedilol 6.25 MG [address] [facility] Tablet [place] apixaban 5 MG Oral Tablet [facility] [Eliquis] [place] glimepiride 4 MG Oral Tablet [facility] latanoprost 0.05 MG/ML [facility] Ophthalmic Solution [place] Clobetasol Propionate 0.5 [facility] MG/ML Topical [facility] Center clopidogrel 75 MG Oral Tablet [facility] [Plavix] [place]
[2020-06-29 12:17] VITALS: BMI 22.6
--- NOTE | 2020-06-29 12:23 | PDOC ---
History of Present Illness - General Chief Complaint: SIRS, Suspected/Possible Stated Complaint: FAILURE TO THRIVE/WEAKNESS Time Seen by Provider: 06/29/20 12:10 Past History - Medical History Allergies/Adverse Reactions: Allergies Allergy/AdvReac Type Severity Reaction Status Date / Time aspirin Allergy Severe Swelling Verified 05/18/20 03:58 Home Medications: Ambulatory Orders Glimepiride [Amaryl] 4 mg PO DAILY 07/19/17 Carvedilol 6.25 mg PO DAILY 12/04/19 Hydralazine HCl 25 mg PO TID 12/04/19 Isosorbide Mononitrate [Isosorbide Mononitrate ER] 30 mg PO DAILY 12/04/19 Simvastatin 20 mg PO DAILY 12/04/19 Trospium Chloride [Trospium Chloride ER] 20 mg PO BID 12/04/19 Acetaminophen [Tylenol] 650 mg PO DAILY 06/29/20 Escitalopram Oxalate [Lexapro -] 20 mg PO DAILY 06/29/20 Insulin Lispro [Humalog] 8 unit SQ DAILY 06/29/20 Piperacillin/Tazob 2.25 gm [Zosyn 2.25GM Ivpb (Pre-Docked)] 2.25 gm IVPB DAILY 06/29/20 Vancomycin 1 Gram (Pre-Docked) [Vancomycin (Pre-Docked)] 1,000 mg IVPB DAILY 06/29/20 Anemia: No Asthma: No Cancer: No Cardiac Disorders: Yes (PAF, NON ISCHEMIC CARDIOMYOPATHY) CVA: No COPD: Yes CHF: Yes Dementia: No Diabetes: Yes GI Disorders: Yes (GERD, gastritis) Disorders: Yes (UTI, neurogenic bladder) HTN: Yes Hypercholesterolemia: Yes Liver Disease: No Seizures: No Thyroid Disease: No Other medical history: INDWELLING CATH, MID LINE JACOBO CATH - Surgical History Abdominal Surgery: No Appendectomy: No Cardiac Surgery: No Cholecystectomy: No Lung Surgery: No Neurologic Surgery: No Orthopedic Surgery: Yes (Right SHOULDER) - Immunization History Immunization Up to Date: No (Unknown) - Psycho-Social/Smoking History Smoking History: Unknown if ever smoked Have you smoked in the past 12 months: No *Physical Exam - Vital Signs Last Vital Signs Temp Pulse Resp BP Pulse Ox 101.7 F H 104 H 34 H 118/45 L 88 L 06/29/20 12:12 06/29/20 12:12 06/29/20 12:12 06/29/20 12:12 06/29/20 12:12 ED Treatment Course - LABORATORY CBC & Chemistry Diagram: 07/05/20 06:26 07/05/20 06:26 Medical Decision Making - Medical Decision Making 06/29/20 12:19 HPI: 79yo F hx COPD, T2DM, paroxysmal Afib (not on AC due to falls), metabolic encephalopathy, HTN, CHF, and urosepsis on IV Zosyn and Vanc since 06/25 sent from [place] for progressive deterioration/lethargy x 1 week. Baseline lethargic, but worsening, and sepsis not improving despite antibiotics. BCx no growth 06/23. MOLST form DNR/DNI. Called [facility]/ at [phone] - confirmed DNR/DNI Called NH for story and information. Code status - DNR/DNI ROS: unable to assess 2/2 AMS PE: Gen: Lethargic, unresponsive, nonverbal (baseline), NAD HEENT: PERRL, MMM, NCAT. No conjunctival pallor. Sclera are non-icteric. O ropharynx is clear. CV: Irregularly irregular rate and rhythm. No murmurs, rubs, or gallops. PULM: No resp distress. Diminished BS at bases; no wheezes, rales, or rhonchi. ABD: soft, NT/ND, no rebound tenderness or guarding. Valle in place w/o e/o infection. BACK: No TTP of c/t/l-spine. No step-offs or deformities. MSK: No bony deformities. 2+ pulses in all extremities. NEURO: Lethargic, unresponsive. PERRL. EXTREMITIES: No cyanosis. No clubbing. No edema. No calf tenderness. Midline RUE in place w/o e/o infection. PSYCH: Unable to assess SKIN: Warm and dry. Normal capillary refill. No rashes. No jaundice. MDM: 79yo F hx COPD, T2DM, paroxysmal Afib (not on AC due to falls), metabolic encephalopathy, HTN, CHF, and urosepsis on IV Zosyn and Vanc since 06/25 sent fro [facility] for progressive deterioration/lethargy x 1 week. Febrile, tachycardic, tachypneic, hypoxic to 88%, normotensive. Likely urosepsis that failed vanc/zosyn. Ddx: sepsis, UTI, PNA, infection, COVID, uremia/CKD, ICH, metabolic derangement, anemia -EKG: Afib w/RVR, vent rate 116bpm, atrial rate 174bpm, QTc 453ms, compared to 05/17/20 vent rate has increased by 44bpm and T wave variation -CXR: cardiomegaly w/prominent pulmonary vascularity likely representing venous congestion. Patchy bibasilar opacities may also represent sequela of venous congestion, however superimposed PNA cannot be exclused. -Sepsis labs: notable for leukocytosis, elevated lact, severely elevated BUN/Cr, elevated Na, and elevated troponin -CTH/chest/abdomen/pelvis: no acute intracranial pathology. Bilateral predominantly perihilar and basilar patchy airspace opacities suggest developing edema. Superimposed infectious consolidation cannot be excluded. Narrowing of L mainstem bronchus with associated focal wall thickening. Cardiomegaly. Asymmetric enlargement of R hemithyroid with peripherally calcified nodule. Large hyperdense rectal stool burden with slight perirectal fat stranding suggesting constipation with possible stercoral colitis. Mild fat stranding is demonstrated circumferentially around bladder which could reflect underlying cystitis. Chronic appearing L4 compression fx. Calcified 1.0cm splenic artery aneurysm unchanged. -IVF: 250ml NS due to 2019 EF 25% -Tylenol -ID consult for abx: call placed, discussed with Dr Rivas - add meropenem and azithro -COVID -Admit Discharge - Discharge Information Problems reviewed: Yes Clinical Impression/Diagnosis: Severe sepsis, Elevated BUN, Hypernatremia, UTI (urinary tract infection), Uremic encephalopathy Change in mental state Qualifiers: Altered mental status type: unspecified Qualified Code(s): R41.82 - Altered mental status, unspecified - Follow up/Referral - Patient Discharge Instructions - Post Discharge Activity
[2020-06-29] MEDS ORDERED: SODIUM CHLORIDE 0.9% 500 ML INFUS.BAG IV ONE (12:43)
[2020-06-29] MEDS ORDERED: ACETAMINOPHEN 1000 MG/100 ML VIAL (NON FORMULARY) IVPB ONE (13:05)
[2020-06-29] MEDS ORDERED: ACETAMINOPHEN INJECTION 100 ML IVPB ONE (13:06)
[2020-06-29 13:16] LABS: INR 1.51 (0.83-1.09); PROTHROMBIN TIME (PATIENT) 17.9 SEC (9.7-13.0)
[2020-06-29 13:18] LABS: ACTIVATED PTT 24.9 SECONDS (25.2-36.5)
[2020-06-29 13:23] LABS: BASO % 0.2 % (0-2.0); HEMATOCRIT 44.7 % (32.4-45.2); HEMOGLOBIN 14.2 GM/dL (10.7-15.3); LYMPH % 12.2 % (8-40); MCH 29.3 pg (25.7-33.7); MCHC 31.7 g/dl (32.0-36.0); MEAN CELL VOLUME 92.7 fl (80-96); MEAN PLT VOLUME 11.6 fl (7.5-11.1); MONO % 4.6 % (3.8-10.2); PLATELET COUNT 188 K/MM3 (134-434); RBC 4.83 M/mm3 (3.60-5.2); RDW 16.5 % (11.6-15.6); WHITE BLOOD COUNT 13.5 K/mm3 (4.0-10.0)
[2020-06-29 13:24] LABS: VENOUS BASE EXCESS -3.7 mmol/L (-2-2); VENOUS O2 SATURATION 68.4 % (70-80); VENOUS PCO2 43.2 mmHg (38-52); VENOUS PH 7.329 (7.310-7.410)
--- NOTE | 2020-06-29 13:24 | PDOC ---
Documentation entered by Ela George SCRIBE, acting as scribe for Dottie Cheng MD. Dottie Cheng MD: This documentation has been prepared by the shainaibe, Ela George SCRIBE, under my direction and personally reviewed by me in its entirety. I confirm that the documentation accurately reflects all work, treatment, procedures, and medical decision making performed by me. Attending Attestation - Resident Resident Name: Dariana Lucas - ED Attending Attestation I have performed the following: I have examined & evaluated the patient, The case was reviewed & discussed with the resident, I agree w/resident's findings & plan, Exceptions are as noted - HPI HPI: 06/29/20 13:31 The patient is an 79-year-old female with a past medical history significant for COPD, DM Type II, Paroxysmal Afib, Metabolic encephalopathy, HTN, CHF, and Urosepsis (dx on 06/25) who presents to the emergency department from [facility] via EMS for altered mental status. Patient at baseline is non-conversant. The NE reports the patient has been more lethargic in the past few days and was noted to be less responsive this morning. The patient was recently diagnosed with Urospesis on 06/25 and started on Vancomycin and Zosyn, the last dose this morning. The patients culture from 06/25 didnt grow any bacteria. The patient tested negative for COVID on 06/25. Patient is DNR/DNI, confirmed with the patient's ([facility]inter[facility]). - Physicial Exam PE: 06/29/20 13:31 Agree with resident exam. - Medical Decision Making 06/29/20 12:43 79yo F MMP presents to the ED from [facility] with ams - per NH staff, pt is less responsive than usual. On arrival, pt is tachycardic, febrile, tachypneic, and hypoxic to 88%. Pt has been on vanc/zosyn for ~1wk for urosepsis. Concern for sepsis despite broad spectrum abx, plan for sepsis w/u, CTH, ID c/s to broaden abx, COVID swab, tele monitoring, admit 06/29/20 16:20 Likely urospesis that failed vanc/zosyn, per Dr. Rivas broadened to joel and azithro Labs with leukocytosis, elevated lactic, elevated BUN/valve lapper, hypernatremia and trop Possibly pt received multiple liters of NS causing hypernatremia, hyperchloride and subsequent acute on chronic renal failure Per family, pt has not been talking for 1 week and has been lethargic - likely uremic 2/2 elevated BUN CTh negative elevated trop likely demand 2/2 infection and not getting cleared due to renal failure Pt admitted to [facility]/Dr. Guallpa's service. Call placed to nephro c/s [employer], pending call back Case discussed in detail with admitting physician including history, physical exam and ancillary studies. Admitting physician has assumed care for the patient, will follow all pending diagnostics and will complete the evaluation and treatment. Discharge - Discharge Information Problems reviewed: Yes Clinical Impression/Diagnosis: Severe sepsis, Elevated BUN, Hypernatremia, UTI (urinary tract infection), Uremic encephalopathy Change in mental state Qualifiers: Altered mental status type: unspecified Qualified Code(s): R41.82 - Altered mental status, unspecified - Follow up/Referral - Patient Discharge Instructions - Post Discharge Activity
[2020-06-29 13:40] LABS: EPI CELLS 12 /uL (0-25.1); HYALINE CASTS 4 /uL (0-3.1); URINE APPEARANCE TURBID; URINE BACTERIA 19 /uL (0-1359); URINE BILIRUBIN NEGATIVE (NEGATIVE); URINE COLOR YELLOW; URINE GLUCOSE (UA) NEGATIVE (NEGATIVE); URINE KETONE NEGATIVE (NEGATIVE); URINE LEUK ESTERASE 3+ (NEGATIVE); URINE NITRITE NEGATIVE (NEGATIVE); URINE PROTEIN 2+ (NEGATIVE); URINE WBC 3046 /uL (0-25.8)
[2020-06-29 13:41] LABS: URINE RBC 1904.4 /uL (0-23.9); YEAST NON SEEN (NEGATIVE)
[2020-06-29 13:55] LABS: BILIRUBIN,TOTAL 0.7 mg/dL (0.2-1); CALCIUM 8.9 mg/dL (8.5-10.1); CREATININE 3.5 mg/dL (0.55-1.3); POTASSIUM 4.2 mmol/L (3.5-5.1); TOT PROT 6.2 g/dl (6.4-8.2)
[2020-06-29] MEDS ORDERED: MEROPENEM 1 GM in DEXTROSE 5%-WATER 100 ML IVPB ONE (13:59)
[2020-06-29] MEDS ORDERED: AZITHROMYCIN IVPB 500 MG in DEXTROSE 5%-WATER - 250 ML IVPB ONE (13:59)
[2020-06-29] MEDS ORDERED: MEROPENEM 1 GM VIAL (RESTRICTED TO ID) IVPB ONE ×2 (14:17→16:16)
[2020-06-29 14:18] LABS: BLOOD UREA NITROGEN 140.8 mg/dL (7-18)
[2020-06-29] MEDS ORDERED: AZITHROMYCIN IVPB 500 MG/250 ML BAG IVPB ONE ×2 (14:18→16:16)
--- NOTE | 2020-06-29 16:49 | HP ---
Admitting History and Physical - Primary Care Physician PCP: Bernadette Guallpa - Admission Chief Complaint: change in mental status History of Present Illness: Patient is an 79 y/o female with past medical history of COPD, Type 2 DM, Paroxysmal Afib, Metabolic Encephalopathy, HTN, CHF, Urosepsis. She presented from [facility] via EMS for AMS. As per fpc patient has been lethargic the past couple of days but is noted to be less responsive today. At the [facility] she was diagnosed with Urosepsis and was started on Vancomycin and Zosyn. She tested negative for Covid-19 on 06/25/20. On exam patient is unresponsive and unable to answer question. She is breathing on own with aid from O2 NC. 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, Other (AMS) Cardiovascular: Yes: AFIB, CHF, HTN, Hyperlipdemia, Mitral Insufficiency, Murmur Pulmonary: Yes: COPD, Other (Acute Respiratory Failure with Hypoxia) Gastrointestinal: Yes: Gastritis, GERD Renal/: Yes: Neurogenic Bladder, UTI Musculoskeletal: Yes: Other (Spinal Stenosis) Endocrine: Yes: Diabetes Mellitus - Advance Directives Advance Directives: Yes: DNR - Smoking History Smoking history: Unknown if ever smoked Have you smoked in the past 12 months: No - Alcohol/Substance Use Hx Alcohol Use: No History of Substance Use: reports: None - Social History Usual Living Arrangement: Yes: Senior Care ADL: Support Services History of Recent Travel: No Home Medications - Allergies Allergies/Adverse Reactions: Allergies Allergy/AdvReac Type Severity Reaction Status Date / Time aspirin Allergy Severe Swelling Verified 05/18/20 03:58 - Home Medications Home Medications: Ambulatory Orders Glimepiride [Amaryl] 4 mg PO DAILY 07/19/17 Carvedilol 6.25 mg PO DAILY 12/04/19 Hydralazine HCl 25 mg PO TID 12/04/19 Isosorbide Mononitrate [Isosorbide Mononitrate ER] 30 mg PO DAILY 12/04/19 Simvastatin 20 mg PO DAILY 12/04/19 Trospium Chloride [Trospium Chloride ER] 20 mg PO BID 12/04/19 Acetaminophen [Tylenol] 650 mg PO DAILY 06/29/20 Escitalopram Oxalate [Lexapro -] 20 mg PO DAILY 06/29/20 Insulin Lispro [Humalog] 8 unit SQ DAILY 06/29/20 Piperacillin/Tazob 2.25 gm [Zosyn 2.25GM Ivpb (Pre-Docked)] 2.25 gm IVPB DAILY 06/29/20 Vancomycin 1 Gram (Pre-Docked) [Vancomycin (Pre-Docked)] 1,000 mg IVPB DAILY 06/29/20 Review of Systems Unable to obtain ROS, reason: due to mental status Physical Examination Vital Signs: Vital Signs Temperature 98.9 F 06/29/20 14:00 Pulse Rate 86 06/29/20 16:15 Respiratory Rate 06/29/20 16:15 Blood Pressure 101/63 06/29/20 16:15 O2 Sat by Pulse Oximetry (%) 100 06/29/20 16:15 Constitutional: Yes: Well Nourished Eyes: Yes: Conjunctiva Clear HENT: Yes: Atraumatic Cardiovascular: Yes: Regular Rate and Rhythm Respiratory: Yes: Regular, Diminished, On Nasal O2 Gastrointestinal: Yes: Normal Bowel Sounds, Soft Musculoskeletal: Yes: Muscle Weakness Extremities: Yes: WNL Edema: No Neurological: Yes: Unresponsive, Other Labs: CBC, BMP 06/29/20 12:41 06/29/20 13:03 Imaging - Results Chest X-ray: Report Reviewed Cat Scan: Pending Problem List - Problems (1) Acute metabolic encephalopathy Assessment/Plan: Head CT scan pending possibly due to infection Leukocytosis wbc 13.5 LA 2.4 ID consult received Meropenem and Azithromycin Code(s): G93.41 - METABOLIC ENCEPHALOPATHY (2) CHF (congestive heart failure) Assessment/Plan: PO medication on hold due to change in mental status Code(s): I50.9 - HEART FAILURE, UNSPECIFIED (3) COPD (chronic obstructive pulmonary disease) Assessment/Plan: Pulmonary consult Keep SpO2 >90% O2 via NC Code(s): J44.9 - CHRONIC OBSTRUCTIVE PULMONARY DISEASE, UNSPECIFIED (4) Change in mental state Assessment/Plan: due to infection Code(s): R41.82 - ALTERED MENTAL STATUS, UNSPECIFIED Qualifiers: Altered mental status type: unspecified Qualified Code(s): R41.82 - Altered mental status, unspecified (5) Diabetes mellitus Assessment/Plan: BGM q4h D5 1/2NS at 42cc/hr Amaryl on hold due to mental status Code(s): E11.9 - TYPE 2 DIABETES MELLITUS WITHOUT COMPLICATIONS (6) HTN (hypertension) Assessment/Plan: Isosorbide, Carvedilol, Hydralazine on hold due to mental status Lopressor 10mg IVP PRN for SBP >170 DBP>90 HR >110bpm Code(s): I10 - ESSENTIAL (PRIMARY) HYPERTENSION Qualifiers: (7) Paroxysmal A-fib Assessment/Plan: Cardiology consult Code(s): I48.0 - PAROXYSMAL ATRIAL FIBRILLATION (8) Sepsis Assessment/Plan: ID consult received Meropenem and Azithromycin in ER LA 2.4 WBC 13.5 CXR shows cardiomegaly with prominent pulmonary vascularity,likely representing venous congestion, patchy bibasilar opacities may also represent sequela of venous congestion, superimposed pneumonia cannot be excluded Chest CT and CTAP pending official read BC and UC pending Urine Legionella Code(s): A41.9 - SEPSIS, UNSPECIFIED ORGANISM (9) Elevated BUN Assessment/Plan: BUN/Cr 140.8/3.5 Nephrology consult monitor BUN/Cr Code(s): R79.9 - ABNORMAL FINDING OF BLOOD CHEMISTRY, UNSPECIFIED (10) Hypernatremia Assessment/Plan: Na 160 Nephrology consult monitor Na daily Code(s): E87.0 - HYPEROSMOLALITY AND HYPERNATREMIA Assessment/Plan see problem list
--- OUTSIDE RECORDS SUMMARY | 2020-06-29 16:53 | XMS ---
[...] is protected by Article 27-F of the [facility] Public Health law. If you continue you may haveaccess to information: Regarding HIV / AIDS; Provided by facilities licensed or operated by the [facility] Office of Mental Health; or Provided by the [facility] Office for People With Developmental Disabilities. If such information is present, then the following [facility] mandated warning applies: This information has been [...] law may result in a fine or snf sentence or both. A general authorization for the release of medical or other information is NOT sufficient authorization for further disclosure. Encounters Encounter Providers Location Date Indications Data Source(s ) Outpatient Attender: [facility]IS [facility]00 PM Medical Almaz SAENZMIAdmitter: EDT PARIS DUMONTReferrer: PARIS DUMONT Outpatient 05/02/2020 [facility] [facility] 02:19:00 PM [facility]T Development) Outpatient 05/02/2020 [facility] [facility] 02:19:00 PM [facility] EDT Development) Outpatient 05/02/2020 [facility] ([place] [facility] 02:19:00 PM [facility] EDT Development) Outpatient 05/02/2020 [facility] ([place] [facility] 02:19:00 PM [facility] EDT Development) Outpatient 05/02/2020 [facility] [facility] 02:19:00 PM [facility] EDT Development) Emergency Attender: ED STAFF H 12/25/2019 [facility] PHYSICIANAttender: 02:26:00 PM [facility] STAFF ED STAFF EDT - PHYSICIANAdmitter: 12/26/2019 ED STAFF PHYSICIAN 11:26:00 PM EDT Patient discharged. Inpatient Attender: CATRACHITO GILL H-HAL6 09/18/2019 09:14:00 [facility] MIGUELERAttender: STAFF ED STAFF AM EST - 09/23/[address] [place] [address] PHYSICIANAdmitter: CATRACHITO 01:40:00 PM EST JAIRO GALEeferrer: CATRACHITO WINSTON Patient discharged. Inpatient Attender: NICHOLE H-HAL6 [facility] OAdmitter: NICHOLE 06:45:00 PM EDT REMY VARELA OReferrer: NICHOLE MURRAYKE O Patient discharged. Medications Medication Brand Start Product Dose Route Administrative Pharmacy [facility] Indications Reaction Description Data Name Date Form [...] complet Dustin nt 0.05 MG/ML prost ed [facility] Ophthalmic 0.005 Medical Solution % Center latanoprost [...] Dustin nt 4 MG Oral iride ed [facility] Tablet 4 mg Medical glimepiride Tablet Center [...] to [facility] ormation type joyce VINH [id number] SP [id number] HEALTH NON CAP MEDICARE [id number] SP [id number] W16 MEDICAID [id number] SP [id number] M [id number] 01 [id number] W16 W [id number] 01 [id number] VINH F 18 F MEDICARE PT F 18 F B O/P M [id number] 01 [id number] W16 M [id number] 01 [id number] W16 W [id number] 01 [id number] M [id number] 01 [id number] B M [id number] 01 [id number] R66 M [id number] 01 [id number] R66 M [id number] 01 [id number] B M [id number] 01 [id number] B MEDICARE [id number] SP [id number] R66 MEDICARE [id number] SP [id number] R66 Problems, Conditions, and Diagnoses Code Display Name Description Problem Type Effective Data Dates Source(s) R13.10 Dysphagia, DYSPHAGIA, Diagnosis 06/12/2020 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 12/25/2019 [facility] heart disease of DISEASE OF [place] 02:26:00 PM Medical [place] coronary CORONARY ARTERY EDT Cent er artery [...] PM Medical unspecified UNSPECIFIED EST Center Z79.84 investigations director (current) SHELTER Diagnosis 09/23/2019 [facility] use of oral (CURRENT) USE OF 01:40:00 PM Medica l hypoglycemic drugs ORAL HYPOGLYCEMIC EST Center DRUGS Z79.01 investigations director (current) SHELTER Diagnosis 09/23/2019 [facility] use of (CURRENT) [...] GLAUCOMA 06:45:00 PM Medical EDT Center Z79.82 investigations director (current) TREAD CUTTER Diagnosis 06/15/2019 [facility] use of aspirin (CURRENT) USE OF 06:45:00 PM Med ical ASPIRIN EDT Center R00.1 Bradycardia, BRADYCARDIA, Diagnosis 06/15/2019 [facility] unspecified UNSPECIFIED 06:45:00 PM Medical EDT Center J15.7 Pneumonia due to PNEUMONIA DUE TO Diagnosis 06/15/2019 int [facility] Mycoplasma MYCOPLASMA 06:45:00 PM Medical pneumoniae PNEUMONIAE EDT Center I50.43 Acute on chronic ACUTE ON CHRONIC Diagnosis 06/15/2019 int [facility] combined systolic COMBINED SYSTOLIC 06:45:00 PM Medical [...] I12.9 Hypertensive HYPERTENSIVE Diagnosis 06/15/2019 [facility] chronic kidney CHRONIC KIDNEY 06:45:00 PM Medic [...] D64.9 Anemia, unspecified ANEMIA, Diagnosis 06/10/2019 [facility] UNSPECIFIED 04:43:00 PM Medical EDT Center 401.9 UNSPECIFIED HYPERTENSION NOS Diagnosis 06/10/2019 [facility] oseph[facility] ESSENTIAL 04:43:00 PM Medical HYPERTENSION EDT Center Results ID Date Data Source [id number] 05/17/2020 05:15:00 PM EDT [facility] Name Value Range Interpretation Description Data Sup porting Code Source(s) Document(s ) SARS [facility] coronavirus 2 RNA This lab was ordered by [facility] and reported by [facility]. ID Date Data Source Liver 12/26/2019 09:38:00 AM EDT [facility] Profile.[id number] Name Value Range Interpretation Description Data Sup [...] s"> (3.5-5.0 G/DL)</content> ID Date Data Source HematologyRou.[id number] 12/26/2019 09:38:00 AM EDT Dustin nt [facility] 0400 Name Value Range Interpretation Description [...] (130-400 KCUMM)</content > ID Date Data Source GFR(Creatinine).[id number] 12/26/2019 09:38:[address] [facility] 0-0400 Name Value Range Interpretation Code Description Data Emilia rce(s) Supporting Document(s ) UNK > 60 Below low normal <content [facility] styleCode="Bold"> Medical Cent er EGFR </content>38 GFR L<content styleCode="Italic s"> (> 60 GFR)</content> ID Date Data Source [facility].[id number] 12/26/2019 09:38:00 AM EDT [facility] Name Value Range Interpretation Description Data Sup porting Code Source(s) Document(s ) Sodium 137-145 Below low <content Saint [Moles/volume] in normal styleCode="Bold"> [facility] Serum or Plasma Sodium Medical </content>136 Center [...] G/DL)</content> Alkaline 38-126 <content [facility] phosphatase styleCode="Bold"> [facility] [Enzymatic Alkaline Medical activity/volume] Phosphatase (ALP) Cente r in Serum or Plasma </content>69 IU/L<content styleCode="Italic s"> (38-126 IU/L)</content> Alanine 7-30 <content [facility] aminotransferase styleCode="Bold"> [facility] [Enzymatic Alanine Medical activity/volume] Aminotransferase Center in Serum or Plasma (ALT) </content>15 IU/L<content styleCode="Italic s"> (7-30 IU/L)</content> ID Date Data Source GFR(Creatinine).[id number] 09/23/2019 06:07:[address] [facility] 0-0500 Name Value Range Interpretation Code Description Data Emilia rce(s) Supporting Document(s ) UNK > 60 Below low normal <content [facility] styleCode="Bold"> Medical Cent er EGFR </content>36 GFR L<content styleCode="Italic s"> (> 60 GFR)</content> ID Date Data Source CHMROUTINECCDA.[id number] 09/23/2019 06:07:00 AM [facility] -0500 Name Value Range Interpretation Description Data Sup porting Code Source(s) Document(s ) Magnesium 1.6-2.3 <content [facility] [Mass/volume] styleCode="Iftikhar Alvas in Serum or d">Magnesium Medical Plasma </content>2.3 Center MG/DL<content styleCode="Kim lics"> (1.6-2.3 MG/DL)</conten t> ID Date Data Source [facility].[id number] 09/23/2019 06:07:00 AM EST [facility] Name Value Range Interpretation Description Data [...] (> 60 GFR)</content> ID Date Data Source GFR(Creatinine).[id number] 09/22/2019 06:31:00 AM [facility] 0-0500 Name Value Range Interpretation Code Description Data Emilia rce(s) Supporting Document(s ) UNK > 60 Below low normal <content [facility] styleCode="Bold"> Medical Cent er EGFR </content>33 GFR L<content styleCode="Italic s"> (> 60 GFR)</content> ID Date Data Source CHMROUTINECCDA.[id number] 09/22/2019 06:31:[address] [facility] -0500 Name Value Range Interpretation Description Data Sup porting Code Source(s) Document(s ) Magnesium 1.6-2.3 Above high normal <content [facility] [Mass/volume] styleCode="Iftikhar Alvas in Serum or d">Magnesium Medical Plasma </content>2.4 Center MG/DL H<content styleCode="Kim lics"> (1.6-2.3 MG/DL)</conten t> ID Date Data Source [facility].[id number] 09/22/2019 06:31:00 AM EST [facility] Name Value Range Interpretation [...] (> 60 GFR)</content> ID Date Data Source GFR(Creatinine).[id number] 09/21/2019 05:02:00 AM [facility] 0-0500 Name Value Range Interpretation Code Description Data Emilia rce(s) Supporting Document(s ) UNK > 60 Below low normal <content [facility] styleCode="Bold"> Medical Cent er EGFR </content>36 GFR L<content styleCode="Italic s"> (> 60 GFR)</content> ID Date Data Source CHMROUTINECCDA.[id number] 09/21/2019 05:02:00 AM [facility] -0500 Name Value Range Interpretation Description Data Sup porting Code Source(s) Document(s ) Magnesium 1.6-2.3 <content [facility] [Mass/volume] styleCode="Iftikhar Sonia in Serum or d">Magnesium Medical Plasma </content>2.2 Center MG/DL<content styleCode="Kim lics"> (1.6-2.3 MG/DL)</conten t> ID Date Data Source [facility].[id number] 09/21/2019 05:02:00 AM [facility] Name Value Range Interpretation Description [...] (74-106 MG/DL)</conten t> ID Date Data Source HematologyRou.[id number] 09/20/2019 05:47:00 AM HEIDY [facility] 0500 Name Value Range Interpretation Description [...] (0.0 KCUMM)</content > ID Date Data Source GFR(Creatinine).[id number] 09/20/2019 05:47:00 AM EST Dustin [facility] 0-0500 Name Value Range Interpretation Code Description Data Emilia rce(s) Supporting Document(s ) UNK > 60 Below low normal <content [facility] [place] styleCode="Bold"> Medical Cent er EGFR </content>42 GFR L<content styleCode="Italic s"> (> 60 GFR)</content> ID Date Data Source [id number] 09/20/2019 05:47:00 AM EST [facility] Name Value Range Interpretation [...] (> 60 GFR)</content> ID Date Data Source HematologyRou.[id number] 09/19/2019 05:25:00 AM HEIDY Chan [facility] 0500 Name Value Range Interpretation Description Data [...] (0.0 KCUMM)</content > ID Date Data Source GFR(Creatinine).[id number] 09/19/2019 05:25:00 AM EST Dustin [facility] 0-0500 Name Value Range Interpretation Code Description Data Emilia rce(s) Supporting Document(s ) UNK > 60 Below low normal <content [facility] styleCode="Bold"> Medical Cent er EGFR </content>51 GFR L<content styleCode="Italic s"> (> 60 GFR)</content> ID Date Data Source Coagulation 09/19/2019 05:25:00 AM [facility] Center Rout.[id number] EST Name Value Range Interpretation Description Data [...] cs"> (0.80-1.20 #)</content> ID Date Data Source BMP.[id number] 09/19/2019 05:25:00 AM EST [facility] [...] (8.4-10.2 MG/DL)</conten t> ID Date Data Source Urinalysis.[id number] 09/18/2019 10:24:00 AM HEIDY [facility] 0 Name Value Range Interpretation Description Data [...] by Test d">Urine Medical strip Specific Center Java Center </content>1.01 0 L<content styleCode="Kim lics"> (1.015-1.025 )</content> [...] Data Source Liver 09/18/2019 10:24:00 AM EST [facility] Profile.[id number] Name Value Range Interpretation Description Data Sup [...] s"> (0.2-1.3 MG/DL)</content> ID Date Data Source HematologyRou.[id number] 09/18/2019 10:24:00 AM HEIDY [facility] 0500 Name Value Range Interpretation Description Data [...] ics"> (0 /100)</content> ID Date Data Source CHMROUTINECCDA.[id number] 09/18/2019 10:24:00 AM HEIDY [facility] -0500 Name Value Range Interpretation Description Data Sup porting Code Source(s) Document(s ) UNK >= 1.0 <content [facility] styleCode="Bold Medical ">AG Ratio Center </content>1.4 <content styleCode="Ital ics"> (>= 1.0 )</content> UNK 2.3-3.5 <content [facility] styleCode="Bold Medical ">Globulin Center </content>3.3 G/DL<content styleCode="Ital ics"> (2.3-3.5 G/DL)</content> Protein 6.3-8.2 <content [facility] [Mass/volum styleCode="Bold Medical e] in Serum ">Total Protein Center or Plasma </content>7.8 G/DL<content styleCode="Ital ics"> (6.3-8.2 G/DL)</content> ID Date Data Source GFR(Creatinine).[id number] 09/18/2019 10:24:00 AM HEIDY [facility] 0-0500 Name Value Range Interpretation Code Description Data Emilia rce(s) Supporting Document(s ) UNK > 60 Below low normal <content [facility] styleCode="Bold"> Medical Cent er EGFR </content>46 GFR L<content styleCode="Italic s"> (> 60 GFR)</content> ID Date Data Source [facility].[id number] 09/18/2019 10:24:00 AM EST [facility] Name Value Range Interpretation Description Data [...] low <content [facility] normal styleCode="Bold"> Sonia EGFR </content>46 Medical GFR L<content Center styleCode="Italic [...] s"> (7-30 IU/L)</content> ID Date Data Source HematologyRou.[id number] 06/15/2019 05:32:00 AM EDT Dustin nt [facility] 0400 Name Value Range Interpretation Description [...] (0.0 KCUMM)</content > ID Date Data Source GFR(Creatinine).[id number] 06/15/2019 05:32:[address] [facility] 0-0400 Name Value Range Interpretation Code Description Data Emilia rce(s) Supporting Document(s ) UNK > 60 Below low normal <content [facility] styleCode="Bold"> Medical Cent er EGFR </content>42 GFR L<content styleCode="Italic s"> (> 60 GFR)</content> ID Date Data Source CHMROUTINECCDA.[id number] 06/15/2019 05:32:[address] [facility] -0400 Name Value Range Interpretation Description Data Sup porting Code Source(s) Document(s ) Magnesium 1.6-2.3 <content [facility] [Mass/volume] styleCode="Iftikhar Sonia in Serum or d">Magnesium Medical Plasma </content>1.7 Center MG/DL<content styleCode="Kim lics"> (1.6-2.3 MG/DL)</conten t> Phosphate 2.5-4.5 Above high normal <content [facility] [Mass/volume] styleCode="Iftikhar Sonia in Serum or d">Phosphorus Medical Plasma </content>5.2 Center MG/DL H<content styleCode="Kim lics"> (2.5-4.5 MG/DL)</conten t> ID Date Data Source BMP.[id number] 06/15/2019 05:32:00 AM EDT [facility] Name Value Range Interpretation [...] UNK 7-17 Above high normal <content [facility] styleCode="Iftkihar Sonia d">BUN Medical </content>39 Center MG/DL H<content [...] (> 60 GFR)</content> ID Date Data Source HematologyRou.[id number] 06/14/2019 05:45:00 AM EDT Dustin [facility] 0400 Name Value Range Interpretation Description Data [...] ics"> (0 /100)</content> ID Date Data Source GFR(Creatinine).[id number] 06/14/2019 05:45:[address] [facility] 0-0400 Name Value Range Interpretation Code Description Data Emilia rce(s) Supporting Document(s ) UNK > 60 Below low normal <content [facility] styleCode="Bold"> Medical Cent er EGFR </content>46 GFR L<content styleCode="Italic s"> (> 60 GFR)</content> ID Date Data Source MROUTINECCDA.[id number] 06/14/2019 05:45:[address] [facility] -0400 Name Value Range Interpretation Description Data Sup porting Code Source(s) Document(s ) Phosphate 2.5-4.5 Above high normal <content [facility] [Mass/volume] styleCode="Iftikhar Sonia in Serum or d">Phosphorus Medical Plasma </content>4.8 Center MG/DL H<content styleCode="Kim lics"> (2.5-4.5 MG/DL)</conten t> Magnesium 1.6-2.3 <content [facility] [Mass/volume] styleCode="Iftikhar Sonia in Serum or d">Magnesium Medical Plasma </content>1.7 Center MG/DL<content styleCode="Kim lics"> (1.6-2.3 MG/DL)</conten t> ID Date Data Source [facility].[id number] 06/14/2019 05:45:00 AM EDT [facility] Name Value Range Interpretation Description Data [...] > 60 Below low normal <content [facility] styleCode="Itfikhar Sonia d">EGFR Medical </content>46 Center GFR L<content styleCode="Kim lics"> (> 60 GFR)</content> Calcium 8.4-10.2 <content [facility] [Mass/volume] styleCode="Iftikhar Sonia in Serum or d">Calcium Medical Plasma </content>9.3 Center MG/DL<content styleCode="Kim lics"> (8.4-10.2 MG/DL)</conten t> Glucose 74-106 <content [facility] [Mass/volume] styleCode="Iftikhar Sonia in Serum or d">Glucose Medical Plasma </content>102 Center MG/DL<content styleCode="Kim lics"> (74-106 MG/DL)</conten t> ID Date Data Source Urinalysis.[id number] 06/13/2019 06:00:00 PM [facility] Name Value Range Interpretation Description Data [...] (NEGATIVE MG/DL)</conten t> UNK NEGATIVE <content Saint styleCode="Iftikhra Alvas d">Urine Medical Bilirubin Center </content>NEGA TIVE <content styleCode="Kim lics"> (NEGATIVE )</content> Ketones NEGATIVE <content [facility] [Mass/volume] styleCode="Iftikhar Scott in Urine by d">Urine Medical Test strip Ketone Center </content>NEGA TIVE MG/DL<content styleCode="Kim lics"> (NEGATIVE MG/DL)</conten t> Specific 1.015-1.02 Below low normal <content [facility] gravity of 5 styleCode="Iftikhar Scott Urine by Test d">Urine Medical strip Specific Center Java Center </content><= 1.005 L<content styleCode="Kim lics"> (1.015-1.025 )</content> [...] (NONE SEEN LPF)</content> ID Date Data Source HematologyRou.[id number] 06/13/2019 05:45:[address] [facility] 0400 Name Value Range Interpretation Description Data [...] (12.3-16.0 G/DL)</content > ID Date Data Source GFR(Creatinine).[id number] 06/13/2019 05:45:[address] [facility] 0-0400 Name Value Range Interpretation Code Description Data Emilia rce(s) Supporting Document(s ) UNK > 60 Below low normal <content [facility] styleCode="Bold"> Medical Cent er EGFR </content>46 GFR L<content styleCode="Italic s"> (> 60 GFR)</content> ID Date Data Source Coagulation 06/13/2019 05:45:00 AM [facility] ical Center Rout.[id number] EDT Name Value Range Interpretation Description Data Sup porting Code Source(s) Document(s ) INR in 0.80-1.2 Above high normal <content Saint Platelet poor 0 styleCode="Bold" [facility] plasma by >INR Medical Coagulation </content>1.76 # Center assay H<content styleCode="Itali cs"> (0.80-1.20 #)</content> UNK 9.0-13.0 Above high normal <content [facility] styleCode="Bold" Sonia >Protime Medical </content>19.5 Center SEC H<content styleCode="Itali cs"> (9.0-13.0 SEC)</content> aPTT in 25.1-36. <content [facility] Platelet poor 5 styleCode="Bold" Sonia plasma by >Partial Medical Coagulation Thromboplastin Center assay Time </content>33.0 SEC<content styleCode="Itali cs"> (25.1-36.5 SEC)</content> ID Date Data Source CHMROUTINECCDA.[id number] 06/13/2019 05:45:[address] [facility] -0400 Name Value Range Interpretation Description Data [...] (2.5-4.5 MG/DL)</conten t> ID Date Data Source [facility].[id number] 06/13/2019 05:45:00 AM EDT [facility] Name Value Range Interpretation Description Data [...] Data Source Liver 06/12/2019 05:15:00 AM EDT [facility] Profile.[id number] Name Value Range Interpretation Description Data Sup [...] s"> (3.5-5.0 G/DL)</content> ID Date Data Source HematologyRou.[id number] 06/12/2019 05:15:[address] [facility] 0400 Name Value Range Interpretation Description Data Sup porting Code Source(s) Document(s ) Hemoglobin 12.3-16. Below low normal <content [facility] [Mass/volume] in 0 styleCode="Bold Sonia Blood ">Hemoglobin Medical </content>10.8 Center G/DL L<content styleCode="Ital ics"> (12.3-16.0 G/DL)</content> Leukocytes 4.4-11.0 <content [facility] [#/volume] in styleCode="Bold Soina Blood by ">White Blood Medical Automated count [...] Monocytes 3.0-10.0 <content [facility] [#/volume] in styleCode="Bold Sonai Blood by ">Monocyte Medical Automated count </content>6.2 Center %<content styleCode="Ital ics"> (3.0-10.0 %)</content> UNK 1.6-7.3 <content [facility] styleCode="Bold Soina ">Neutrophil Medical Count Center </content>3.81 KCUMM<content styleCode="Ital [...] ics"> (NORMAL )</content> ID Date Data Source GFR(Creatinine).[id number] 06/12/2019 05:15:00 AM EDT Dustin [facility] 0-0400 Name Value Range Interpretation Code Description Data Emilia rce(s) Supporting Document(s ) UNK > 60 Below low normal <content [facility] styleCode="Bold"> Medical Cent er EGFR </content>42 GFR L<content styleCode="Italic s"> (> 60 GFR)</content> ID Date Data Source Coagulation 06/12/2019 05:15:00 AM [facility] ical Center Rout.[id number] EDT Name Value Range Interpretation Description Data [...] cs"> (25.1-36.5 SEC)</content> ID Date Data Source VIOLET.[id number] 06/12/2019 05:15:[address] [facility] -0400 Name Value Range Interpretation Description Data [...] ics"> (6.3-8.2 G/DL)</content> ID Date Data Source CardiacMarkers.[id number] 06/12/2019 05:15:[address] [facility] -0400 Name Value Range Interpretation Description Data Sup porting Code Source(s) Document(s ) Troponin < 0.034 <content [facility] I.cardiac styleCode="Bold Sonia [Mass/volume ">Troponin I Medical ] in Serum </content>0.022 Center or Plasma NG/ML<content styleCode="Ital ics"> (< 0.034 NG/ML)</content > ID Date Data Source [facility].[id number] 06/12/2019 05:15:00 AM EDT [facility] Name Value Range Interpretation [...] Date Data Source Coagulation 06/11/2019 12:47:00 PM [facility] Rout.[id number] EDT Name Value Range Interpretation Description Data [...] Data Source Liver 06/11/2019 05:37:00 AM EDT [facility] Profile.[id number] Name Value Range Interpretation Description Data Sup [...] s"> (0.2-1.3 MG/DL)</content> ID Date Data Source Hormones.[id number] 06/11/2019 05:37:00 AM EDT Manan calabrese [facility] Name Value Range Interpretation Description Data [...] (0.465-4.68 MIU/L)</yuni nt> ID Date Data Source HematologyRou.[id number] 06/11/2019 05:37:[address] [facility] 0400 Name Value Range Interpretation Description Data [...] (0-0.1 KCUMM)</content > ID Date Data Source GFR(Creatinine).[id number] 06/11/2019 05:37:[address] [facility] 0-0400 Name Value Range Interpretation Code Description Data Emilia rce(s) Supporting Document(s ) UNK > 60 Below low normal <content Sonia styleCode="Bold"> Medical Cent er EGFR </content>33 GFR L<content styleCode="Italic s"> (> 60 GFR)</content> ID Date Data Source CHMROUTINECCDA.[id number] 06/11/2019 05:37:[address] [facility] -0400 Name Value Range Interpretation Description Data Sup porting Code Source(s) Document(s ) UNK 2.3-3.5 <content [facility] styleCode="Binh Sonia ld">Globulin Medical </content>3.2 Center G/DL<content styleCode="It alics"> (2.3-3.5 G/DL)</conten t> UNK 4.2-5.8 Above high <content Saint normal styleCode="Binh Soina ld">Hemoglobi Medical n A1C Center </content>7.3 % [...] (76-181 ng/dL)</yuni nt> ID Date Data Source CardiacMarkers.[id number] 06/11/2019 05:37:[address] [facility] -0400 Name Value Range Interpretation Code Description Data Emilia rce(s) Supporting Document(s ) UNK 0-0.034 <content [facility] styleCode="Bold" Medical Cente r >Troponin 4HR </content>0.022 NG/ML<content styleCode="Itali cs"> (0-0.034 NG/ML)</content> ID Date Data Source [id number] 06/11/2019 05:37:00 AM EDT [facility] Name Value Range Interpretation Description Data [...] Data Source Liver 06/10/2019 11:00:00 PM EDT [facility] Profile.[id number] Name Value Range Interpretation Description Data Sup [...] Date Data Source Coagulation 06/10/2019 11:00:00 PM [facility] Rout.[id number] EDT Name Value Range Interpretation Description Data [...] cs"> (25.1-36.5 SEC)</content> ID Date Data Source CardiacMarkers.[id number] 06/10/2019 11:00:[address] [facility] -0400 Name Value Range Interpretation Description Data Sup porting Code Source(s) Document(s ) Troponin < 0.034 <content [facility] I.cardiac styleCode="Bold Sonia [Mass/volume ">Troponin I Medical ] in Serum </content>0.016 Center or Plasma NG/ML<content styleCode="Ital ics"> (< 0.034 NG/ML)</content > ID Date Data Source GFR(Creatinine).[id number] 06/10/2019 11:00:[address] [facility] 0-0400 Name Value Range Interpretation Code Description Data Emilia rce(s) Supporting Document(s ) UNK > 60 Below low normal <content [facility] styleCode="Bold"> Medical Cent er EGFR </content>39 GFR L<content styleCode="Italic s"> (> 60 GFR)</content> ID Date Data Source CHMROUTINECCDA.[id number] 06/10/2019 11:00:[address] [facility] -0400 Name Value Range Interpretation Description Data Sup porting Code Source(s) Document(s ) Natriuretic < 450 Above high normal <content [facility] peptide.B styleCode="Iftikhar Sonia prohormone d">NT Pro BNP Medical N-Terminal </content>1860 Center [Mass/volume] 0 PG/ML in Serum or H<content Plasma styleCode="Kim lics"> (< 450 PG/ML)</conten t> ID Date Data Source [id number] 06/10/2019 11:00:00 PM EDT [facility] Name Value Range Interpretation [...] Quintin hs Serum or Plasma Calcium Medical </content>8.9 Center MG/DL<content styleCode="Italic s"> (8.4-10.2 MG/DL)</content> Bilirubin.total 0.2-1.3 <content [facility] [Mass/volume] in styleCode="Bold"> Quintin hs Serum or Plasma Bilirubin Total Medical </content>0.5 Center MG/DL<content styleCode="Italic s"> (0.2-1.3 MG/DL)</content> Albumin 3.5-5.0 <content [facility] [Mass/volume] in styleCode="Bold"> Quintin hs Serum or Plasma Albumin Medical </content>3.5 Center G/DL<content styleCode="Italic s"> (3.5-5.0 G/DL)</content> ID Date Data Source Urinalysis.[id number] 06/10/2019 09:00:00 PM EDT [facility] 0 Name Value Range Interpretation Description Data Sup porting Code Source(s) Document(s ) UNK CLEAR <content [facility] styleCode="Iftikhar Sonia d">Urine Medical Clarity Center </content>Sl CLOUDY <content styleCode="Kim lics"> (CLEAR )</content> Color of Urine YELLOW <content [facility] styleCode="Iftikhar Sonia d">Color, Medical Urine Center </content>YELL OW <content styleCode="Kim lics"> (YELLOW )</content> UNK NEGATIVE <content [facility] styleCode="[facility] d">Urine Medical Bilirubin Center </content>NEGA TIVE <content [...] by Test d">Urine Medical strip Specific Center Java Center </content>1.02 5 <content styleCode="Kim lics"> (1.015-1.025 )</content> [...] Date Data Source Coagulation 06/10/2019 08:00:00 PM [facility] ical Center Rout.[id number] EDT Name Value Range Interpretation Description Data [...] cs"> (0.80-1.20 #)</content> ID Date Data Source CardiacMarkers.[id number] 06/10/2019 08:00:[address] [facility] -0400 Name Value Range Interpretation Description Data Sup porting Code Source(s) Document(s ) Troponin <content [facility] I.cardiac styleCode="Bold Medical [Mass/volume ">Troponin I Center ] in Serum </content>Test or Plasma not performed. NG/ML (Reference Range: not available)
ID Date Data Source HematologyRou.[id number] 06/10/2019 08:00:[address] [facility] 0400 Name Value Range Interpretation Description Data [...] ics"> (8.0-11.0 [place])</content> ID Date Data Source GFR(Creatinine).[id number] 06/10/2019 08:00:[address] [facility] 0-0400 Name Value Range Interpretation Code Description Data Emilia rce(s) Supporting Document(s ) UNK <content [facility] styleCode="Bold"> Medical Cent er EGFR </content>Test not performed. GFR (Reference Range: not available)
ID Date Data Source CHMROUTFAIZANCCDA.[id number] 06/10/2019 08:00:[address] [facility] -0400 Name Value Range Interpretation Description Data Sup porting Code Source(s) Document(s ) Natriuretic <content [facility] peptide.B styleCode="Iftikhar Sonia prohormone d">NT Pro BNP Medical N-Terminal </content>Test Center [Mass/volume] not performed. in Serum or PG/ML Plasma (Reference Range: not available)<br/ > ID Date Data Source [facility].[id number] 06/10/2019 08:00:00 PM EDT [facility] Name Value Range Interpretation [...] Interpretation Code Description Data Source(s) Body temperature 36.865431 36.156566 [facility] Respiratory rate 19 /min 19 /min [facility] Oxygen saturation 97 % 97 % [facility] Kenrick osephs in Arterial blood [facility] Center by Pulse oximetry Heart rate 88 /min 88 /min [facility] Diastolic blood 64 mm[Hg] 64 mm[Hg] [facility] Systolic blood 132 mm[Hg] 132 mm[Hg] [facility] Body temperature 36.879318 36.379146 [facility] Respiratory rate 19 /min 19 /min [facility] Oxygen saturation 99 % 99 % [facility] J osephs in Arterial blood Medical Center by Pulse oximetry Heart rate 92 /min 92 /min [facility] Diastolic blood 59 mm[Hg] 59 mm[Hg] [facility] Medical [facility] Systolic blood 120 mm[Hg] 120 mm[Hg] [facility] Body temperature 36.236430 36.822117 [facility] Respiratory rate 18 /min 18 /min [facility] Heart rate 94 /min 94 /min [facility] Diastolic blood 55 mm[Hg] 55 mm[Hg] [facility] Systolic blood 142 mm[Hg] 142 mm[Hg] [facility] Body temperature 37.657657 37.319191 [facility] Respiratory rate 18 /min 18 /min [facility] Oxygen saturation 99 % 99 % [facility] in Arterial blood Medical Center by Pulse oximetry Heart rate 97 /min 97 /min [facility] Diastolic blood 68 mm[Hg] 68 mm[Hg] [facility] Systolic blood 124 mm[Hg] 124 mm[Hg] [facility] Body temperature 36.750066 36.496324 [facility] Respiratory rate 18 /min 18 /min [facility] Oxygen saturation 97 % 97 % [facility] in Arterial blood Medical Center by Pulse oximetry Heart rate 87 /min 87 /min [facility] Diastolic blood 63 mm[Hg] 63 mm[Hg] [facility] Systolic blood 116 mm[Hg] 116 mm[Hg] [facility] Oxygen saturation 97 % 97 % [facility] in Arterial blood Medical [facility] by Pulse oximetry Body temperature 36.562146 36.382549 [facility] Respiratory rate 18 /min 18 /min [facility] Heart rate 89 /min 89 /min [facility] Diastolic blood 64 mm[Hg] 64 mm[Hg] [facility] Systolic blood 141 mm[Hg] 141 mm[Hg] [facility] Body temperature 36.891443 36.367038 [facility] Respiratory rate 19 /min 19 /min [facility] Oxygen saturation 98 % 98 % [facility] in Arterial blood Medical Center by Pulse oximetry Heart rate 86 /min 86 /min [facility] Diastolic blood 59 mm[Hg] 59 mm[Hg] [facility] pressure Medical Center Systolic blood 126 mm[Hg] 126 mm[Hg] [facility] Oxygen saturation 97 % 97 % [facility] in Arterial blood Medical Center by Pulse oximetry Body temperature 36.299546 36.516789 [facility] Respiratory rate 20 /min 20 /min [facility] Heart rate 78 /min 78 /min [facility] Diastolic blood 60 mm[Hg] 60 mm[Hg] [facility] Systolic blood 117 mm[Hg] 117 mm[Hg] [facility] Oxygen saturation 96 % 96 % [facility] in Arterial blood Medical Center by Pulse oximetry Body temperature 36.928850 36.088884 [facility] Respiratory rate 20 /min 20 /min [facility] Heart rate 80 /min 80 /min [facility] Diastolic blood 48 mm[Hg] 48 mm[Hg] [facility] Systolic blood 113 mm[Hg] 113 mm[Hg] [facility] Body temperature 36.157440 36.132575 [facility] Respiratory rate 18 /min 18 /min [facility] Heart rate 71 /min 71 /min [facility] Diastolic blood 57 mm[Hg] 57 mm[Hg] [facility] Center Systolic blood 150 mm[Hg] 150 mm[Hg] [facility] Body temperature 36.242564 36.577380 [facility] Respiratory rate 18 /min 18 /min [facility] Heart rate 55 /min 55 /min [facility] Diastolic blood 72 mm[Hg] 72 mm[Hg] [facility] pressure Medical Center Systolic blood 141 mm[Hg] 141 mm[Hg] [facility] Body temperature 36.900332 36.113325 [facility] Respiratory rate 20 /min 20 /min [facility] Heart rate 88 /min 88 /min [facility] Diastolic blood 56 mm[Hg] 56 mm[Hg] [facility] Center Systolic blood 112 mm[Hg] 112 mm[Hg] [facility] Body temperature 36.329575 36.757425 [facility] Respiratory rate 20 /min 20 /min [facility] Heart rate 105 /min 105 /min [facility] Diastolic blood 75 mm[Hg] 75 mm[Hg] [facility] Center Systolic blood 129 mm[Hg] 129 mm[Hg] [facility] Body temperature 36.438077 36.924652 [facility] Respiratory rate 20 /min 20 /min [facility] Heart rate 89 /min 89 /min [facility] Diastolic blood 53 mm[Hg] 53 mm[Hg] [facility] Center Systolic blood 152 mm[Hg] 152 mm[Hg] [facility] Body temperature 36.942070 36.931811 [facility] Respiratory rate 20 /min 20 /min [facility] Heart rate 83 /min 83 /min [facility] Diastolic blood 64 mm[Hg] 64 mm[Hg] [facility] Center Systolic blood 132 mm[Hg] 132 mm[Hg] [facility] Body temperature 36.853048 36.599917 [facility] Respiratory rate 20 /min 20 /min [facility] Heart rate 74 /min 74 /min [facility] Diastolic blood 67 mm[Hg] 67 mm[Hg] [facility] Center Systolic blood 144 mm[Hg] 144 mm[Hg] [facility] Body temperature 36.131650 36.447319 [facility] Respiratory rate 20 /min 20 /min [facility] Heart rate 83 /min 83 /min [facility] Diastolic blood 64 mm[Hg] 64 mm[Hg] [facility] Center Systolic blood 149 mm[Hg] 149 mm[Hg] [facility] Body weight 67.728458 kg 67.157013 kg [facility] Body height 157.181139 157.330963 cm [facility] Body mass index 27.25 kg/m2 27.25 kg/m2 [facility] Ch[facility]ary osephs (BMI) [Ratio] Medical [facility] Oxygen saturation 97 % 97 % [facility] Choudhary osephs in Arterial blood Medical Center by Pulse oximetry Oxygen saturation 100 % 100 % [facility] Kenrick osephs in Arterial blood Medical Center by Pulse oximetry Body temperature 37.748765 37.691089 [facility] Respiratory rate 20 /min 20 /min [facility] Heart rate 79 /min 79 /min [facility] Diastolic blood 53 mm[Hg] 53 mm[Hg] [facility] Center Systolic blood 110 mm[Hg] 110 mm[Hg] [facility] Body temperature 36.050883 36.631321 [facility] Respiratory rate 20 /min 20 /min [facility] Heart rate 101 /min 101 /min [facility] Diastolic blood 78 mm[Hg] 78 mm[Hg] [facility] Center Systolic blood 146 mm[Hg] 146 mm[Hg] [facility] Body weight 60.196023 kg 60.854790 kg [facility] Body temperature 37.347236 37.489926 [facility] Respiratory rate 20 /min 20 /min [facility] Heart rate 74 /min 74 /min [facility] Diastolic blood 77 mm[Hg] 77 mm[Hg] [facility] Center Systolic blood 142 mm[Hg] 142 mm[Hg] [facility] Body temperature 36.993612 36.030653 [facility] Respiratory rate 18 /min 18 /min [facility] Heart rate 76 /min 76 /min [facility] Diastolic blood 56 mm[Hg] 56 mm[Hg] [facility] Center Systolic blood 115 mm[Hg] 115 mm[Hg] [facility] Body temperature 36.883587 36.089604 [facility] Respiratory rate 20 /min 20 /min [facility] Heart rate 75 /min 75 /min [facility] Diastolic blood 57 mm[Hg] 57 mm[Hg] [facility] Center Systolic blood 141 mm[Hg] 141 mm[Hg] [facility] Body weight 61.867122 kg 61.971351 kg [facility] Body weight 61.822415 kg 61.875262 kg [facility] Body weight 74.122451 kg 74.039304 kg [facility] Body height 152.432004 152.625803 cm [facility] Body mass index 31.95 kg/m2 31.95 kg/m2 [facility] Kenrick fordep (BMI) [Ratio] Medical [facility] ter Body temperature 36.355126 36.160093 [facility] Respiratory rate 20 /min 20 /min [facility] Heart rate 87 /min 87 /min [facility] Diastolic blood 89 mm[Hg] 89 mm[Hg] [facility] Center Systolic blood 128 mm[Hg] 128 mm[Hg] [facility] Center Body temperature 36.079974 36.295320 [facility] Respiratory rate 20 /min 20 /min [facility] Heart rate 70 /min 70 /min [facility] Diastolic blood 78 mm[Hg] 78 mm[Hg] [facility] Center Systolic blood 146 mm[Hg] 146 mm[Hg] [facility] Body weight 74.522784 kg 74.316853 kg [facility] Body height 152.654931 152.312762 cm [facility] Body mass index 31.95 kg/m2 31.95 kg/m2 [facility] Kenrick jaffe (BMI) [Ratio] Medical [facility] ter Body height 152.128841 152.933153 cm [facility] Body temperature 36.275110 36.724206 [facility] Respiratory rate 18 /min 18 /min [facility] Heart rate 57 /min 57 /min [facility] Diastolic blood 80 mm[Hg] 80 mm[Hg] [facility] Center Systolic blood 159 mm[Hg] 159 mm[Hg] [facility] Oxygen saturation 98 % 98 % [facility] Kenrick jaffe in Arterial blood Medical Center by Pulse oximetry Body temperature 36.288112 36.104390 [facility] Respiratory rate 19 /min 19 /min [facility] Heart rate 72 /min 72 /min [facility] Diastolic blood 86 mm[Hg] 86 mm[Hg] [facility] Systolic blood 164 mm[Hg] 164 mm[Hg] [facility] Oxygen saturation 97 % 97 % [facility]phs in Arterial blood Medical Center by Pulse oximetry Body temperature 36.679320 36.689748 [facility] Respiratory rate 18 /min 18 /min [facility] Heart rate 74 /min 74 /min [facility] Diastolic blood 86 mm[Hg] 86 mm[Hg] [facility] Systolic blood 151 mm[Hg] 151 mm[Hg] [facility] Oxygen saturation 96 % 96 % [facility] J osephs in Arterial blood [facility] Center by Pulse oximetry Oxygen saturation 97 % 97 % [facility] J osephs in Arterial blood Medical Center by Pulse oximetry Oxygen saturation 97 % 97 % [facility] J osephs in Arterial blood [facility] Center by Pulse oximetry Patient Treatment Plan of Care Planned Activity Planned Date Details Description Data Source (s) furosemide 40 mg [facility] TabletDirections: 1 tablet C enter oral daily Acetaminophen 325 MG / [facility] Oxycodone Hydrochloride 5 MG Center Oral Tablet 24 HR tolterodine tartrate 4 [facility] Medical MG Extended Release Oral [facility] Capsule Spironolactone 25 MG Oral [facility] pantoprazole 40 MG Delayed S [facility] Release Oral Tablet Center 24 HR Isosorbide Mononitrate [facility] 30 MG Extended Release Oral Center Tablet Hydralazine Hydrochloride 25 [facility] Medical Oral Tablet Center glimepiride 4 MG Oral Tablet [facility] clopidogrel 75 MG Oral Tablet [facility] [Plavix] Cook Sta carvedilol 6.25 MG Oral [facility] apixaban 2.5 MG Oral Tablet [facility] [Eliquis] Cook Sta losartan 100 mg [facility] TabletDirections: 1 tablet C enter oral daily metoprolol succinate 25 mg [facility] Tablet Extended Release 24 C enter hrDirections: 1 tablet oral daily meloxicam 15 mg [facility] TabletDirections: 1 tablet C enter oral daily pantoprazole 40 [facility] Center Amoxicillin 875 MG / [facility] Clavulanate 125 MG Oral Cent er Tablet Spironolactone 25 MG Oral [facility] Tablet [facility] 24 HR Isosorbide Mononitrate [facility] 30 MG Extended Release Oral Center Tablet Hydralazine Hydrochloride 25 [facility] Oral Tablet Center Furosemide 40 MG Oral Tablet [facility] carvedilol 6.25 MG Oral [facility] Tablet [facility] apixaban 5 MG Oral Tablet [facility] [Eliquis] Cook Sta glimepiride 4 MG Oral Tablet [facility] latanoprost 0.05 MG/ML [facility] Ophthalmic Solution Cook Sta Clobetasol Propionate 0.5 [facility] MG/ML Topical Cream Center clopidogrel 75 MG Oral Tablet [facility] [Plavix] Cook Sta
[2020-06-29] MEDS ORDERED: METOPROLOL TARTRATE 5 MG/5 ML VIAL IVPUSH PRN (17:01)
[2020-06-29] MEDS: DEXTROSE 5%-0.45% SALINE 1,000 ML IV SCH (17:55)
[2020-06-30] MEDS ORDERED: INSULIN (NOVOLOG) ASPART 100 UNITS/ML 10ML VIAL SQ ONE ×2 (05:39→20:40)
[2020-06-30 07:51] LABS: ALBUMIN 1.7 g/dl (3.4-5.0); BILIRUBIN,TOTAL 0.6 mg/dL (0.2-1); CREATININE 3.7 mg/dL (0.55-1.3); MAGNESIUM 3.7 mg/dL (1.8-2.4); N-TERMINAL BNP 7936.6 pg/ml (5-450); PHOSPHOROUS 7.7 mg/dL (2.5-4.9); POTASSIUM 5.4 mmol/L (3.5-5.1); TOT PROT 5.5 g/dl (6.4-8.2)
[2020-06-30 08:37] LABS: BLOOD UREA NITROGEN 157.4 mg/dL (7-18)
[2020-06-30 08:42] LABS: BASO % 0.2 % (0-2.0); EOS % 0.1 % (0-4.5); HEMOGLOBIN 12.5 GM/dL (10.7-15.3); LYMPH % 6.2 % (8-40); MCH 28.6 pg (25.7-33.7); MCHC 29.8 g/dl (32.0-36.0); NEUT % 92.5 % (42.8-82.8); PLATELET COUNT 173 K/MM3 (134-434); RBC 4.37 M/mm3 (3.60-5.2); RDW 17.1 % (11.6-15.6); WHITE BLOOD COUNT 11.7 K/mm3 (4.0-10.0)
--- NOTE | 2020-06-30 09:05 | PN ---
Progress Note, Physician - Current Medication List Current Medications: Active Medications Dextrose/Sodium Chloride (D5-1/2ns -) 1,000 mls @ 42 mls/hr IV ASDIR CARMELINA Last Admin: 06/29/20 17:55 Dose: 42 mls/hr Documented by: Metoprolol Tartrate (Lopressor Injection -) 5 mg IVPUSH Q4H PRN PRN Reason: HYPERTENSION Pantoprazole Sodium (Protonix Iv) 40 mg IVPUSH DAILY [facility] - Objective Vital Signs: Vital Signs Temperature 97.2 F L 06/30/20 06:14 Pulse Rate 90 06/30/20 06:14 Respiratory Rate 22 H 06/30/20 06:14 Blood Pressure 116/60 06/30/20 06:14 O2 Sat by Pulse Oximetry (%) 92 L 06/30/20 06:14 Cardiovascular: Yes: S1, S2 Respiratory: Yes: Regular, CTA Bilaterally Gastrointestinal: Yes: Normal Bowel Sounds, Soft Labs: CBC, BMP 06/30/20 06:50 06/30/20 06:50 INR, PTT INR 1.51 (0.83-1.09) H 06/29/20 12:40 Assessment/Plan - Problems (1) Acute metabolic encephalopathy Assessment/Plan: Head CT scan pending possibly due to infection Leukocytosis wbc 13.5 LA 2.4 ID consult received Meropenem and Azithromycin Code(s): G93.41 - METABOLIC ENCEPHALOPATHY (2) CHF (congestive heart failure) Assessment/Plan: PO medication on hold due to change in mental status Code(s): I50.9 - HEART FAILURE, UNSPECIFIED (3) COPD (chronic obstructive pulmonary disease) Assessment/Plan: Pulmonary consult Keep SpO2 >90% O2 via [place] Code(s): J44.9 - CHRONIC OBSTRUCTIVE PULMONARY DISEASE, UNSPECIFIED (4) Change in mental state Assessment/Plan: due to infection Code(s): R41.82 - ALTERED MENTAL STATUS, UNSPECIFIED Qualifiers: Altered mental status type: unspecified Qualified Code(s): R41.82 - Altered mental status, unspecified (5) Diabetes mellitus Assessment/Plan: BGM q4h D5 1/2NS at 42cc/hr Amaryl on hold due to mental status Code(s): E11.9 - TYPE 2 DIABETES MELLITUS WITHOUT COMPLICATIONS (6) HTN (hypertension) Assessment/Plan: Isosorbide, Carvedilol, Hydralazine on hold due to mental status Lopressor 10mg IVP PRN for SBP >170 DBP>90 HR >110bpm Code(s): I10 - ESSENTIAL (PRIMARY) HYPERTENSION Qualifiers: (7) Paroxysmal A-fib Assessment/Plan: Cardiology consult Code(s): I48.0 - PAROXYSMAL ATRIAL FIBRILLATION (8) Sepsis Assessment/Plan: ID consult received Meropenem and Azithromycin in ER LA 2.4 WBC 13.5 CXR shows cardiomegaly with prominent pulmonary vascularity,likely representing venous congestion, patchy bibasilar opacities may also represent sequela of venous congestion, superimposed pneumonia cannot be excluded Chest CT and CTAP pending official read BC and UC pending Urine Legionella Code(s): A41.9 - SEPSIS, UNSPECIFIED ORGANISM (9) Elevated BUN Assessment/Plan: BUN/Cr 140.8/3.5 Nephrology consult monitor BUN/Cr Code(s): R79.9 - ABNORMAL FINDING OF BLOOD CHEMISTRY, UNSPECIFIED (10) Hypernatremia Assessment/Plan: Na 160 Nephrology consult monitor Na daily Code(s): E87.0 - HYPEROSMOLALITY AND HYPERNATREMIA
--- NOTE | 2020-06-30 09:08 | CON.ID ---
Consult Consult Specialty:: infectious disease Referred by:: dr sneed Reason for Consultation:: fever - History of Present Illness Chief Complaint: lethargy History of Present Illness: 79 yo [place] with worsening lethargy , fever and hypoxia she has been treated with vancomycin and zosyn at the [facility] for UTI she is DNR/DNR she was found to have fever of 101.7 on arrival to Ed with hypoxia RAoxygen sat88% ct scans were done head ct with microvascular changeds, no acute changes chest ct with bilateral perihilar changes more c/w CHF then pneumonia abd/pelvis ct withcontispation, ?stercoral colitis, ?cyctitis and chronic L$ fracture she was treated with IVF , oxygen and iv antibiotics- meropenem and zithromax cultures were sent and pending patient is nonverbal and unable to contribute to the history and physical arrived with johnson it was not changed have ordered johnson change now with repeat ua and urine culture - History Source History Provided By: Medical Record Limitations to Obtaining History: Dementia - 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, 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, Other (AMS) Cardio/Vascular: Yes: AFIB, CHF, HTN, Hyperlipdemia, Mitral Insufficiency, Murmur Pulmonary: Yes: COPD, Other (Acute Respiratory Failure with Hypoxia) Gastrointestinal: Yes: Gastritis, GERD Renal/: Yes: Neurogenic Bladder, UTI Musculoskeletal: Yes: Other (Spinal Stenosis) Endocrine: Yes: Diabetes Mellitus - Alcohol/Substance Use Hx Alcohol Use: No History of Substance Use: reports: None - Smoking History Smoking history: Unknown if ever smoked Have you smoked in the past 12 months: No - Social History Usual Living Arrangement: [facility] ADL: Support Services Place of : Other History of Recent Travel: No Home Medications - Allergies Allergies/Adverse Reactions: Allergies Allergy/AdvReac Type Severity Reaction Status Date / Time aspirin Allergy Severe Swelling Verified 05/18/20 03:58 - Home Medications Home Medications: Ambulatory Orders Glimepiride [Amaryl] 4 mg PO DAILY 07/19/17 Carvedilol 6.25 mg PO DAILY 12/04/19 Hydralazine HCl 25 mg PO TID 12/04/19 Isosorbide Mononitrate [Isosorbide Mononitrate ER] 30 mg PO DAILY 12/04/19 Simvastatin 20 mg PO DAILY 12/04/19 Trospium Chloride [Trospium Chloride ER] 20 mg PO BID 12/04/19 Acetaminophen [Tylenol] 650 mg PO DAILY 06/29/20 Escitalopram Oxalate [Lexapro -] 20 mg PO DAILY 06/29/20 Insulin Lispro [Humalog] 8 unit SQ DAILY 06/29/20 Piperacillin/Tazob 2.25 gm [Zosyn 2.25GM Ivpb (Pre-Docked)] 2.25 gm IVPB DAILY 06/29/20 Vancomycin 1 Gram (Pre-Docked) [Vancomycin (Pre-Docked)] 1,000 mg IVPB DAILY 06/29/20 Family Medical History Family History: Unable to Obtain Review of Systems Unable to obtain ROS, reason: unable to obtain Physical Exam Vital Signs: Vital Signs Temperature 97.2 F L 06/30/20 06:14 Pulse Rate 90 06/30/20 06:14 Respiratory Rate 22 H 06/30/20 06:14 Blood Pressure 116/60 06/30/20 06:14 O2 Sat by Pulse Oximetry (%) 92 L 06/30/20 06:14 Constitutional: Yes: Thin Eyes: Yes: Conjunctiva Clear HENT: Yes: Atraumatic, Normocephalic Neck: Yes: Supple Cardiovascular: Yes: Regular Rate and Rhythm Respiratory: Yes: Regular, Diminished (at bases) Gastrointestinal: Yes: Normal Bowel Sounds, Soft ...Rectal Exam: Yes: Deferred Extremities: Yes: WNL, Other (midline right arm, no erythema) Edema: No Labs: CBC, BMP 06/30/20 06:50 06/30/20 06:50 Microbiology 06/29/20 12:40 Urine - Urine Johnson Urine Culture - Final Yeast Like Organism cultures sent and pending Imaging - Results Cat Scan: Report Reviewed (per HPI) Problem List - Problems (1) Fever Code(s): R50.9 - FEVER, UNSPECIFIED (2) Acute renal failure Code(s): N17.9 - ACUTE KIDNEY FAILURE, UNSPECIFIED (3) UTI (urinary tract infection) Code(s): N39.0 - URINARY TRACT INFECTION, SITE NOT SPECIFIED (4) Constipation Code(s): K59.00 - CONSTIPATION, UNSPECIFIED (5) Elevated troponin Code(s): R79.89 - OTHER SPECIFIED ABNORMAL FINDINGS OF BLOOD CHEMISTRY Assessment/Plan fevers despite vancomycin and zosyn in [place] cultures repeated to changed johnson catheter and repeat UA and culture continue meropenem adjusted for renal failure continue zithromax (check ekg) f/u cultures f/u urinary antigen continue hydration- management of ARF per renal elevated troponina- per cardiology DNR/DNI noted
[2020-06-30] MEDS: PANTOPRAZOLE SODIUM 40 MG VIAL IVPUSH SCH (09:40)
[2020-06-30] MEDS: DEXTROSE 5%-0.45% SALINE 1,000 ML IV SCH ×2 (09:41→17:39)
[2020-06-30] MEDS: MEROPENEM 500 MG in DEXTROSE 5%-WATER 100 ML IVPB SCH ×2 (11:31→21:21)
[2020-06-30 12:07] LABS: PLATELET ESTIMATE ADEQUATE
--- NOTE | 2020-06-30 13:09 | CON.PULM ---
Consult Consult Specialty:: PULMONARY Referred by:: Dr Peck Reason for Consultation:: r/o pneumonia - History of Present Illness Chief Complaint: lethargy History of Present Illness: 79yo female with h/o HTN, DM, COPD, paroxysmal atrial fibrillation, CHF who [facility] for increasing lethargy and fevers. Pt lethargic, unable to provide further history at this time. Febrile to 101.7 in ED, urinalysis consistent with UTI. CT chest was done which showed peribronchial edema bilaterally. Pt saturating well on minimal oxygen. 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, Syncope, Other (AMS) Cardio/Vascular: Yes: AFIB, CHF, HTN, Hyperlipdemia, Mitral Insufficiency, Murmu r Pulmonary: Yes: COPD, Other (Acute Respiratory Failure with Hypoxia) Gastrointestinal: Yes: Gastritis, GERD Renal/: Yes: Neurogenic Bladder, UTI Musculoskeletal: Yes: Other (Spinal Stenosis) Endocrine: Yes: Diabetes Mellitus - Alcohol/Substance Use Hx Alcohol Use: No History of Substance Use: reports: None - Smoking History Smoking history: Unknown if ever smoked Have you smoked in the past 12 months: No - Social History Usual Living Arrangement: Assisted ADL: Support Services History of Recent Travel: No Home Medications - Allergies Allergies/Adverse Reactions: Allergies Allergy/AdvReac Type Severity Reaction Status Date / Time aspirin Allergy Severe Swelling Verified 05/18/20 03:58 - Home Medications Home Medications: Ambulatory Orders Glimepiride [Amaryl] 4 mg PO DAILY 07/19/17 Carvedilol 6.25 mg PO DAILY 12/04/19 Hydralazine HCl 25 mg PO TID 12/04/19 Isosorbide Mononitrate [Isosorbide Mononitrate ER] 30 mg PO DAILY 12/04/19 Simvastatin 20 mg PO DAILY 12/04/19 Trospium Chloride [Trospium Chloride ER] 20 mg PO BID 12/04/19 Acetaminophen [Tylenol] 650 mg PO DAILY 06/29/20 Escitalopram Oxalate [Lexapro -] 20 mg PO DAILY 06/29/20 Insulin Lispro [Humalog] 8 unit SQ DAILY 06/29/20 Piperacillin/Tazob 2.25 gm [Zosyn 2.25GM Ivpb (Pre-Docked)] 2.25 gm IVPB DAILY 06/29/20 Vancomycin 1 Gram (Pre-Docked) [Vancomycin (Pre-Docked)] 1,000 mg IVPB DAILY 06/29/20 Family Medical History Family History: Unable to Obtain Review of Systems Unable to obtain ROS, reason: pt lethargic Physical Exam Vital Sings: Vital Signs Temperature 97.2 F L 06/30/20 06:14 Pulse Rate 90 06/30/20 06:14 Respiratory Rate 22 H 06/30/20 06:14 Blood Pressure 116/60 06/30/20 06:14 O2 Sat by Pulse Oximetry (%) 92 L 06/30/20 06:14 Constitutional: Yes: Other (lethargic) Eyes: Yes: Conjunctiva Clear, EOM Intact HENT: Yes: Atraumatic, Normocephalic Neck: Yes: Supple, Trachea Midline Cardiovascular: Yes: Regular Rate and Rhythm Respiratory: Yes: Diminished (at bases) ...Clubbing: No Gastrointestinal: Yes: Normal Bowel Sounds, Soft. No: Tenderness Edema: No Neurological: Yes: Lethargy Labs: CBC, BMP 06/30/20 06:50 06/30/20 06:50 Imaging - Results Chest X-ray: Report Reviewed, Image Reviewed (mild pulmonary vascular congestion) Assessment/Plan UTI Sepsis Lactic Acidosis Acute on Chronic Renal Failure COPD LV Systolic Dysfunction Severe Mitral Regurgitation Paroxysmal Atrial Fibrillation HTN - IV antibiotics - f/u cultures - O2 to keep SpO@ >90% - monitor urine output, creatinine - inhaled bronchodilators - aspiration precautions - DVT prophylaxis Thank you for this consult Brandt Vaughn MD
--- NOTE | 2020-06-30 14:08 | EKG ---
Test Reason : Blood Pressure : / mmHG Vent. Rate : 116 BPM Atrial Rate : 174 BPM P-R Int : 000 ms QRS Dur : 072 ms QT Int : 326 ms P-R-T Axes : 000 -08 185 degrees QTc Int : 453 ms ATRIAL FIBRILLATION WITH RAPID VENTRICULAR RESPONSE ABNORMAL ECG WHEN COMPARED WITH ECG OF 17-MAY-2020 17:22, VENT. RATE HAS INCREASED BY 44 BPM T WAVE VARIATION Confirmed by KATY PAZ MD ([id number]) on 06/30/2020 2:07:42 PM Referred By: Confirmed By:KATY PAZ MD
[2020-06-30 14:21] LABS: EPI CELLS 17 /uL (0-25.1); HYALINE CASTS 6 /uL (0-3.1); URINE APPEARANCE TURBID; URINE BACTERIA 110 /uL (0-1359); URINE BILIRUBIN NEGATIVE (NEGATIVE); URINE COLOR YELLOW; URINE GLUCOSE (UA) NEGATIVE (NEGATIVE); URINE KETONE NEGATIVE (NEGATIVE); URINE LEUK ESTERASE 3+ (NEGATIVE); URINE NITRITE NEGATIVE (NEGATIVE); URINE PROTEIN 1+ (NEGATIVE); URINE UROBILINOGEN 0.2 mg/dL (0.2-1.0); URINE WBC 2303 /uL (0-25.8)
[2020-06-30 15:15] LABS: URINE CRYSTALS NEGATIVE /hpf; YEAST PRESENT (NEGATIVE)
--- NOTE | 2020-06-30 15:40 | CON.CARD ---
Consult Consult Specialty:: cardiology Referred by:: bria castellano Reason for Consultation:: troponins - History of Present Illness Chief Complaint: AMS History of Present Illness: 79 year old with a pmhx of copd, dm, pafib not on ac due to fall/bleeding risk, htn, chf with lvef 25%, cad s/p stent to RCA, severe MR, and h/o urosepsis sent for altered mental status. As per NH, patient has been more lethargic last few days, being treated for urosepsis, and febrile. Patient is nonverbal at this time. 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, Other (AMS) Cardio/Vascular: Yes: AFIB, CHF, HTN, Hyperlipdemia, Mitral Insufficiency, Murmur Pulmonary: Yes: COPD, Other (Acute Respiratory Failure with Hypoxia) Gastrointestinal: Yes: Gastritis, GERD Renal/: Yes: Neurogenic Bladder, UTI Musculoskeletal: Yes: Other (Spinal Stenosis) Endocrine: Yes: Diabetes Mellitus - Alcohol/Substance Use Hx Alcohol Use: No History of Substance Use: reports: None - Smoking History Smoking history: Unknown if ever smoked Have you smoked in the past 12 months: No - Social History Usual Living Arrangement: Long Term ADL: Support Services History of Recent Travel: No Home Medications - Allergies Allergies/Adverse Reactions: Allergies Allergy/AdvReac Type Severity Reaction Status Date / Time aspirin Allergy Severe Swelling Verified 05/18/20 03:58 - Home Medications Home Medications: Ambulatory Orders Glimepiride [Amaryl] 4 mg PO DAILY 07/19/17 Carvedilol 6.25 mg PO DAILY 12/04/19 Hydralazine HCl 25 mg PO TID 12/04/19 Isosorbide Mononitrate [Isosorbide Mononitrate ER] 30 mg PO DAILY 12/04/19 Simvastatin 20 mg PO DAILY 12/04/19 Trospium Chloride [Trospium Chloride ER] 20 mg PO BID 12/04/19 Acetaminophen [Tylenol] 650 mg PO DAILY 06/29/20 Escitalopram Oxalate [Lexapro -] 20 mg PO DAILY 06/29/20 Insulin Lispro [Humalog] 8 unit SQ DAILY 06/29/20 Piperacillin/Tazob 2.25 gm [Zosyn 2.25GM Ivpb (Pre-Docked)] 2.25 gm IVPB DAILY 06/29/20 Vancomycin 1 Gram (Pre-Docked) [Vancomycin (Pre-Docked)] 1,000 mg IVPB DAILY 06/29/20 Family Medical History Family History: Unable to Obtain Vital Signs: Vital Signs Temperature 97.5 F L 06/30/20 14:00 Pulse Rate 77 06/30/20 14:00 Respiratory Rate 06/30/20 14:00 Blood Pressure 120/71 06/30/20 14:00 O2 Sat by Pulse Oximetry (%) 96 06/30/20 14:22 Constitutional: Yes: Other (nonverbal and does not give history) Neck: Yes: Supple Respiratory: Yes: Diminished (poor respiratory effort) Gastrointestinal: Yes: Soft Cardiovascular: Yes: Pulse Irregular JVD: No Carotid Bruit: No PMI: Non-Displaced Heart Sounds: Yes: S2. No: S1 Murmur: No: Systolic Murmur (apex) Edema: No - Other Data Labs, Other Data: CBC, BMP 06/30/20 06:50 06/30/20 06:50 INR, PTT INR 1.51 (0.83-1.09) H 06/29/20 12:40 Troponin, BNP 06/29/20 06/30/20 16:26 06:50 Troponin I 0.49 H 0.20 H B-Natriuretic Peptide 7936.6 H Troponin, BNP 06/29/20 06/30/20 16:26 06:50 Troponin I 0.49 H 0.20 H B-Natriuretic Peptide 7936.6 H Imaging - Results Chest X-ray: Report Reviewed Cat Scan: Report Reviewed EKG: Image Reviewed Problem List - Problems (1) Elevated troponin Code(s): R79.89 - OTHER SPECIFIED ABNORMAL FINDINGS OF BLOOD CHEMISTRY (2) CAD (coronary artery disease) Code(s): I25.10 - ATHSCL HEART DISEASE OF [place] CORONARY ARTERY W/O ANG PCTRS (3) CHF (congestive heart failure) Code(s): I50.9 - HEART FAILURE, UNSPECIFIED Assessment/Plan 79 year old with a pmhx of copd, dm, pafib not on ac due to fall/bleeding risk, htn, chf with lvef 25%, cad s/p stent to RCA, severe MR, and h/o urosepsis sent for altered mental status. As per NH, patient has been more lethargic last few days, being treated for urosepsis, and febrile. Patient is nonverbal at this time. EKG: afib with anteroalteral TWI CT head no acute m/s/b CT chest: bibasilar opacities possibly early edema vs infectious LA 2.4 Cr 3.7 Trops 0.52 Na 160 1) Type 2 MT Patient with elevated troponins likely in setting of urosepsis and demand ischemia. no further cardiac intervention at this time. retirement upon discharge should look at chart and see if can take aspirin or plavix (aspirin listed as allergy in chart)\ -will restart carvedilol when more stable 2) Afib -rate are better controlled at this time. BP and chf meds on hold at this time. Monitor bp/hr and restart home po carvedilol when tolerates. Can give IV metoprolol if needed for rate control for now. Not on ac due to bleeding risk 3) CHF -ct chest with some early edema but exam does not seem in overt chf. furosemide on hold at this time given hypernatremia CHF meds on hold
--- NOTE | 2020-06-30 17:15 | CONSULT ---
Consult Consult Specialty:: Nephrology Reason for Consultation:: SHAW - History of Present Illness Chief Complaint: altered mental status History of Present Illness: Pt is an 79 year old female with pmhx of copd, dm, a-fib, htn, chf, urosepsis who was sent in with lethargy. She was found to be in SHAW. She has history of CKD and follows with me. She is lethargic and unable to give much history. She was found to be less responsive and sent in yesterday. She was diagnosed with sepsis secondary to UTI and started on zosyn and vanco in the [place]. 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, Other (AMS) Cardio/Vascular: Yes: AFIB, CHF, HTN, Hyperlipdemia, Mitral Insufficiency, Murmur Pulmonary: Yes: COPD, Other (Acute Respiratory Failure with Hypoxia) Gastrointestinal: Yes: Gastritis, GERD Renal/: Yes: Neurogenic Bladder, UTI Musculoskeletal: Yes: Other (Spinal Stenosis) Endocrine: Yes: Diabetes Mellitus - Alcohol/Substance Use Hx Alcohol Use: No History of Substance Use: reports: None - Smoking History Smoking history: Unknown if ever smoked Have you smoked in the past 12 months: No - Social History Usual Living Arrangement: Detention ADL: Support Services History of Recent Travel: No Home Medications - Allergies Allergies/Adverse Reactions: Allergies Allergy/AdvReac Type Severity Reaction Status Date / Time aspirin Allergy Severe Swelling Verified 05/18/20 03:58 - Home Medications Home Medications: Ambulatory Orders Glimepiride [Amaryl] 4 mg PO DAILY 07/19/17 Carvedilol 6.25 mg PO DAILY 12/04/19 Hydralazine HCl 25 mg PO TID 12/04/19 Isosorbide Mononitrate [Isosorbide Mononitrate ER] 30 mg PO DAILY 12/04/19 Simvastatin 20 mg PO DAILY 12/04/19 Trospium Chloride [Trospium Chloride ER] 20 mg PO BID 12/04/19 Acetaminophen [Tylenol] 650 mg PO DAILY 06/29/20 Escitalopram Oxalate [Lexapro -] 20 mg PO DAILY 06/29/20 Insulin Lispro [Humalog] 8 unit SQ DAILY 06/29/20 Piperacillin/Tazob 2.25 gm [Zosyn 2.25GM Ivpb (Pre-Docked)] 2.25 gm IVPB DAILY 06/29/20 Vancomycin 1 Gram (Pre-Docked) [Vancomycin (Pre-Docked)] 1,000 mg IVPB DAILY 06/29/20 Family Medical History Family History: Unable to Obtain Review of Systems Unable to obtain ROS, reason: lethargy Physical Exam Vital Signs: Vital Signs Temperature 97.5 F L 06/30/20 14:00 Pulse Rate 77 06/30/20 14:00 Respiratory Rate 20 06/30/20 14:00 Blood Pressure 120/71 06/30/20 14:00 O2 Sat by Pulse Oximetry (%) 96 06/30/20 14:22 Constitutional: Yes: Calm Eyes: Yes: Conjunctiva Clear HENT: Yes: Atraumatic Cardiovascular: Yes: S1, S2 Respiratory: Yes: On Nasal O2 Gastrointestinal: Yes: Soft, Abdomen, Obese Renal/: Yes: Johnson Present Musculoskeletal: Yes: Muscle Weakness Edema: No Integumentary: Yes: WNL Neurological: Yes: Lethargy Labs: CBC, BMP 06/30/20 06:50 06/30/20 06:50 Laboratory Tests 06/29/20 06/30/20 13:03 06:50 Sodium 160 H 155 H Potassium 4.2 5.4 H BUN 140.8 H* 157.4 H* Creatinine 3.5 H 3.7 H Random Glucose 457 H* Calcium 8.0 L Phosphorus 7.7 H Imaging - Results Cat Scan: Report Reviewed Problem List - Problems (1) Acute renal failure Code(s): N17.9 - ACUTE KIDNEY FAILURE, UNSPECIFIED (2) Change in mental state Code(s): R41.82 - ALTERED MENTAL STATUS, UNSPECIFIED Qualifiers: Altered mental status type: unspecified Qualified Code(s): R41.82 - Altered mental status, unspecified (3) Elevated BUN Code(s): R79.9 - ABNORMAL FINDING OF BLOOD CHEMISTRY, UNSPECIFIED (4) Hypernatremia Code(s): E87.0 - HYPEROSMOLALITY AND HYPERNATREMIA Assessment/Plan Current Medications Generic Name Dose Route Start Last Admin Trade Name Freq PRN Reason Stop Dose Admin Dextrose/Sodium Chloride 1,000 mls @ 42 mls/hr 06/29/20 16:45 06/30/20 09:41 D5-1/2ns - IV Not Given ASDIR CARMELINA Meropenem 500 mg/ Dextrose 100 mls @ 200 mls/hr 06/30/20 10:00 06/30/20 11:31 IVPB 200 mls/hr Q12H CARMELINA Administration Metoprolol Tartrate 5 mg 06/29/20 17:01 Lopressor Injection - IVPUSH Q4H PRN HYPERTENSION Pantoprazole Sodium 40 mg 06/30/20 10:00 06/30/20 09:40 Protonix Iv IVPUSH 40 mg DAILY CARMELINA Administration Laboratory Tests 06/30/20 12:00 U Pathogenic Cast Auto Wbc cast Impression 1. SHAW 2. UTI 3. chf 4. htn 5. hld 6. dm 7. altered mental status 8. sepsis 9. CKD 10. 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
[2020-06-30] MEDS ORDERED: SODIUM ZIRCONIUM CYCLOSILICATE (LOKELMA) 5 GM PACKET PO ONE (17:17)
[2020-06-30] MEDS ORDERED: SODIUM BICARBONATE 8.4% 50 MEQ/50 ML DISP.SYRIN IVPUSH ONE (17:17)
[2020-06-30] MEDS: SODIUM CHLORIDE 0.45% 1,000 ML IV SCH (17:27)
[2020-06-30] MEDS ORDERED: PT OWN MED DRAWER 7, Y5N ONE ×2 (18:35→21:10)
[2020-06-30] MEDS ORDERED: DEXTROSE 5%-WATER 100 ML IVPB ONE (21:10)
[2020-06-30] MEDS ORDERED: MEROPENEM 500 MG VIAL (RESTRICTED TO ID) IVPB ONE ×2 (21:10→21:18)
[2020-06-30] MEDS ORDERED: INSULIN SLIDING SCALE (NOVOLOG) 1 VIAL SQ ONE (21:10)
[2020-06-30] MEDS: MUPIROCIN 2% TOPICAL OINTMENT 22 GM TUBE TP SCH (21:22)
[2020-07-01] MEDS ORDERED: PT OWN MED DRAWER 7, Y5N ONE (03:27)
--- NOTE | 2020-07-01 07:24 | PN ---
Progress Note, Physician Chief Complaint: EVENTS AND NOTES REVIEWED PATIENT AT [facility] AND FAMILY WANTED COMFORT CARE DNR/DNI SIGNED BY FAMILY AT [facility] PATIENT LETHARGIC AND SEPTIC SENT TO [facility] - Current Medication List Current Medications: Active Medications Meropenem 500 mg/ Dextrose 100 mls @ 200 mls/hr IVPB Q12H [facility] Last Admin: 06/30/20 21:21 Dose: 200 mls/hr Documented by: Sodium Chloride (1/2 Normal Saline) 1,000 mls @ 100 mls/hr IV ASDIR [facility] Last Admin: 06/30/20 17:27 Dose: 100 mls/hr Documented by: Metoprolol Tartrate (Lopressor Injection -) 5 mg IVPUSH Q4H PRN PRN Reason: HYPERTENSION Mupirocin (Bactroban 2% Ointment -) [address] [facility] Last Admin: 06/30/20 21:22 Dose: 1 applic Documented by: Pantoprazole Sodium (Protonix Iv) [address] [facility] Last Admin: 06/30/20 09:40 Dose: 40 mg Documented by: - Objective Vital Signs: Vital Signs Temperature 97.5 F L 07/01/20 06:00 Pulse Rate 83 07/01/20 06:00 Respiratory Rate 18 07/01/20 06:00 Blood Pressure 100/44 L 07/01/20 06:00 O2 Sat by Pulse Oximetry (%) 99 07/01/20 06:00 Constitutional: Yes: Severe Distress Cardiovascular: Yes: Pulse Irregular Respiratory: Yes: Diminished, On Nasal O2 Gastrointestinal: Yes: Soft Genitourinary: Yes: Val[place] Present Musculoskeletal: Yes: Muscle Weakness Extremities: Yes: Other Integumentary: Yes: Venous Stasis Changes Wound/Incision: Yes: Other Neurological: Yes: Confusion, Pre-Existing Deficit Psychiatric: Yes: Other Labs: CBC, BMP 06/30/20 06:50 06/30/20 06:50 INR, PTT INR 1.51 (0.83-1.09) H 06/29/20 12:40 Problem List - Problems (1) Acute renal failure Code(s): N17.9 - ACUTE KIDNEY FAILURE, UNSPECIFIED (2) Change in mental state Code(s): R41.82 - ALTERED MENTAL STATUS, UNSPECIFIED Qualifiers: Altered mental status type: unspecified Qualified Code(s): R41.82 - Altered mental status, unspecified (3) Fever Code(s): R50.9 - FEVER, UNSPECIFIED (4) Hypernatremia Code(s): E87.0 - HYPEROSMOLALITY AND HYPERNATREMIA (5) Severe sepsis Code(s): A41.9 - SEPSIS, UNSPECIFIED ORGANISM; R65.20 - SEVERE SEPSIS WITHOUT SEPTIC SHOCK (6) UTI (urinary tract infection) Code(s): N39.0 - URINARY TRACT INFECTION, SITE NOT SPECIFIED (7) Uremic encephalopathy Code(s): G93.49 - OTHER ENCEPHALOPATHY; N19 - UNSPECIFIED KIDNEY FAILURE (8) Acute hypoxemic respiratory failure Code(s): J96.01 - ACUTE RESPIRATORY FAILURE WITH HYPOXIA (9) Acute metabolic encephalopathy Code(s): G93.41 - METABOLIC ENCEPHALOPATHY (10) CAD (coronary artery disease) Code(s): I25.10 - ATHSCL HEART DISEASE OF [place] CORONARY ARTERY W/O ANG PCTRS (11) CHF (congestive heart failure) Code(s): I50.9 - HEART FAILURE, UNSPECIFIED (12) COPD (chronic obstructive pulmonary disease) Code(s): J44.9 - CHRONIC OBSTRUCTIVE PULMONARY DISEASE, UNSPECIFIED (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 PALLIATIVE CARE CONSULT RENAL EVAL DR SERA SOMERSM GIOVANNY PENA
[2020-07-01] MEDS ORDERED: MEROPENEM 500 MG VIAL (RESTRICTED TO ID) IVPB ONE ×2 (09:06→21:28)
[2020-07-01] MEDS ORDERED: DEXTROSE 5%-WATER 100 ML IVPB ONE ×2 (09:07→21:28)
[2020-07-01] MEDS: PANTOPRAZOLE SODIUM 40 MG VIAL IVPUSH SCH (09:17)
[2020-07-01] MEDS: MEROPENEM 500 MG in DEXTROSE 5%-WATER 100 ML IVPB SCH ×2 (09:17→21:44)
--- NOTE | 2020-07-01 09:55 | PN ---
Progress Note, Physician Chief Complaint: rate controlled afib on tele History of Present Illness: 79 year old with a pmhx of copd, dm, pafib not on ac due to fall/bleeding risk, htn, chf with lvef 25%, cad s/p stent to RCA, severe MR, and h/o urosepsis sent for altered mental status. As per NH, patient has been more lethargic last few days, being treated for urosepsis, and febrile. Patient is nonverbal at this time. EKG: afib with anteroalteral TWI CT head no acute m/s/b CT chest: bibasilar opacities possibly early edema vs infectious LA 2.4 Cr 3.7 Trops 0.52 Na 160 - Current Medication List Current Medications: Active Medications Meropenem 500 mg/ Dextrose 100 mls @ 200 mls/hr IVPB Q12H [facility] Last Admin: 07/01/20 09:17 Dose: 200 mls/hr Documented by: Sodium Chloride (1/2 Normal Saline) 1,000 mls @ 100 mls/hr IV ASDIR [facility] Last Admin: 06/30/20 17:27 Dose: 100 mls/hr Documented by: Metoprolol Tartrate (Lopressor Injection -) 5 mg IVPUSH Q4H PRN PRN Reason: HYPERTENSION Mupirocin (Bactroban 2% Ointment -) 1 applic TP BID [facility] Last Admin: 06/30/20 21:22 Dose: 1 applic Documented by: Pantoprazole Sodium (Protonix Iv) 40 mg IVPUSH DAILY [facility] Last Admin: 07/01/20 09:17 Dose: 40 mg Documented by: - Objective Vital Signs: Vital Signs Temperature 97.5 F L 07/01/20 06:00 Pulse Rate 83 07/01/20 06:00 Respiratory Rate 18 07/01/20 06:00 Blood Pressure 100/44 L 07/01/20 06:00 O2 Sat by Pulse Oximetry (%) 99 07/01/20 06:00 Constitutional: Yes: No Distress Cardiovascular: Yes: Pulse Irregular, S1, S2. No: JVD Respiratory: Yes: Diminished Gastrointestinal: Yes: Soft Edema: No Labs: CBC, BMP 06/30/20 06:50 06/30/20 06:50 INR, PTT INR 1.51 (0.83-1.09) H 06/29/20 12:40 Problem List - Problems (1) Elevated troponin Code(s): R79.89 - OTHER SPECIFIED ABNORMAL FINDINGS OF BLOOD CHEMISTRY (2) CAD (coronary artery disease) Code(s): I25.10 - ATHSCL HEART DISEASE OF [place] CORONARY ARTERY W/O ANG PCTRS (3) CHF (congestive heart failure) Code(s): I50.9 - HEART FAILURE, UNSPECIFIED Assessment/Plan 79 year old with a pmhx of copd, dm, pafib not on ac due to fall/bleeding risk, htn, chf with lvef 25%, cad s/p stent to RCA, severe MR, and h/o urosepsis sent for altered mental status. As per NH, patient has been more lethargic last few days, being treated for urosepsis, and febrile. Patient is nonverbal at this time. EKG: afib with anteroalteral TWI CT head no acute m/s/b CT chest: bibasilar opacities possibly early edema vs infectious LA 2.4 Cr 3.7 Trops 0.52 Na 160 1) Type 2 [place] Patient with elevated troponins likely in setting of urosepsis and demand ischemia. no further cardiac intervention at this time. [facility] upon discharge should look at chart and see if can take aspirin or plavix (aspirin listed as allergy in chart)\ -will restart carvedilol when more stable 2) Afib -rates are controlled at this time. BP and chf meds on hold at this time. Monitor bp/hr and restart home po carvedilol when tolerates. Can give IV metoprolol if needed for rate control for now. Not on ac due to bleeding risk 3) CHF -ct chest with some early edema but exam does not seem in overt chf. furosemide on hold at this time given hypernatremia CHF meds on hold
[2020-07-01] MEDS: MUPIROCIN 2% TOPICAL OINTMENT 22 GM TUBE TP SCH ×2 (12:07→21:45)
--- NOTE | 2020-07-01 12:41 | PN ---
Progress Note, Physician History of Present Illness: Pt seen and examined at bedside. She remains lethargic. - Current Medication List Current Medications: Active Medications Meropenem 500 mg/ Dextrose 100 mls @ 200 mls/hr IVPB Q12H [facility] Last Admin: 07/01/20 09:17 Dose: 200 mls/hr Documented by: Sodium Chloride (1/2 Normal Saline) 1,000 mls @ 100 mls/hr IV ASDIR [facility] Last Admin: 06/30/20 17:27 Dose: 100 mls/hr Documented by: Metoprolol Tartrate (Lopressor Injection -) 5 mg IVPUSH Q4H PRN PRN Reason: HYPERTENSION Mupirocin (Bactroban 2% Ointment -) 1 applic TP BID [facility] Last Admin: 07/01/20 12:07 Dose: 1 applic Documented by: Pantoprazole Sodium (Protonix Iv) 40 mg IVPUSH DAILY [facility] Last Admin: 07/01/20 09:17 Dose: 40 mg Documented by: - Objective Vital Signs: Vital Signs Temperature 97.8 F 07/01/20 10:00 Pulse Rate 86 07/01/20 10:00 Respiratory Rate 16 07/01/20 10:00 Blood Pressure 101/52 L 07/01/20 10:00 O2 Sat by Pulse Oximetry (%) 98 07/01/20 10:00 Constitutional: Yes: Moderate Distress Neck: Yes: Supple Cardiovascular: Yes: S1, S2 Respiratory: Yes: On Nasal O2 Gastrointestinal: Yes: Soft Genitourinary: Yes: Johnson Present Musculoskeletal: Yes: Muscle Weakness Edema: Yes Edema: LLE: Trace, RLE: Trace Neurological: Yes: Oriented Psychiatric: Yes: Oriented Labs: CBC, BMP 06/30/20 06:50 06/30/20 06:50 INR, PTT INR 1.51 (0.83-1.09) H 06/29/20 12:40 Problem List - Problems (1) Acute renal failure Code(s): N17.9 - ACUTE KIDNEY FAILURE, UNSPECIFIED (2) Change in mental state Code(s): R41.82 - ALTERED MENTAL STATUS, UNSPECIFIED Qualifiers: Altered mental status type: unspecified Qualified Code(s): R41.82 - Altered mental status, unspecified (3) Elevated BUN Code(s): R79.9 - ABNORMAL FINDING OF BLOOD CHEMISTRY, UNSPECIFIED (4) Hypernatremia Code(s): E87.0 - HYPEROSMOLALITY AND HYPERNATREMIA Assessment/Plan Current Medications Generic Name Dose Route Start Last Admin Trade Name Edita PRN Reason Stop Dose Admin Meropenem 500 mg/ Dextrose 100 mls @ 200 mls/hr 06/30/20 10:00 07/01/20 09:17 IVPB 200 mls/hr Q12H CARMELINA Administration Sodium Chloride 1,000 mls @ 100 mls/hr 06/30/20 17:30 06/30/20 17:27 1/2 Normal Saline IV 100 mls/hr ASDIR CARMELINA Administration Metoprolol Tartrate 5 mg 06/29/20 17:01 Lopressor Injection - IVPUSH Q4H PRN HYPERTENSION Mupirocin 1 applic 06/30/20 22:00 07/01/20 12:07 Bactroban 2% Ointment - TP 1 applic BID CARMELINA Administration Pantoprazole Sodium 40 mg 06/30/20 10:00 07/01/20 09:17 Protonix Iv IVPUSH 40 mg DAILY CARM[facility] Administration Impression 1. SHAW 2. UTI 3. chf 4. htn 5. hld 6. dm 7. altered mental status 8. sepsis 9. CKD 10. hyperkalemia Plan - follow up repeat labs, pt is a hard stick and labs no drawn earlier - cont fluids for now - discuss GOC with family - check for urine eos - pt does have wbc casts on ua - cont to monitor renal function - maintain johnson for now - check vanco level
[2020-07-01] MEDS ORDERED: TRIPLE LUMEN FLUSH 4 ML ML IVPUSH PRN (13:37)
--- NOTE | 2020-07-01 13:59 | PN ---
Progress Note (short form) - Note Progress Note: PULMONARY Remains poorly responsive. Fever curve down. Vital Signs Period Temp Pulse Resp BP Sys/Gray Pulse Ox Last 24 Hr 97.0 F-97.9 F 77-93 16-20 96-120/40-71 96-99 Gen: lethargic Heart: RRR Lung: decreased breath sounds at the bases Abd: soft, nontender Ext: no edema CBC, BMP 06/30/20 06:50 06/30/20 06:50 Active Medications IV Flush (Triple Lumen Flush) 4 ml IVPUSH PRN PRN PRN Reason: Protocol Meropenem 500 mg/ Dextrose 100 mls @ 200 mls/hr IVPB Q12H [facility] Last Admin: 07/01/20 09:17 Dose: 200 mls/hr Documented by: Sodium Chloride (1/2 Normal Saline) 1,000 mls @ 100 mls/hr IV ASDIR [facility] Last Admin: 06/30/20 17:27 Dose: 100 mls/hr Documented by: Metoprolol Tartrate (Lopressor Injection -) 5 mg IVPUSH Q4H PRN PRN Reason: HYPERTENSION Mupirocin (Bactroban 2% Ointment -) 1 applic TP BID [facility] Last Admin: 07/01/20 12:07 Dose: 1 applic Documented by: Pantoprazole Sodium (Protonix Iv) 40 mg IVPUSH DAILY [facility] Last Admin: 07/01/20 09:17 Dose: 40 mg Documented by: A/P Toxic Metabolic Encephalopathy UTI Sepsis Lactic Acidosis Acute on Chronic Renal Failure COPD LV Systolic Dysfunction Severe Mitral Regurgitation Paroxysmal Atrial Fibrillation HTN - IV antibiotics - f/u cultures - O2 to keep SpO2 >90% - monitor urine output, creatinine - inhaled bronchodilators - aspiration precautions - DVT prophylaxis
--- NOTE | 2020-07-01 16:40 | PROC ---
Central Line Insertion - Procedure Note Midline catheter exchange Indication: Poor Venous Access Consent on Chart: No (Not needed for Midline ) Central Line: Other (Midline catheter) Position: Supine Area prepped with Chlorhexidine solution then draped using sterile barrier protection. Ultrasound Guided Assistance: No Site: Right basilic Guidewire was placed into catheter and old catheter was removed. New catheter was introduced. Guide wire removed intact. Each port aspirated then flushed with sterile normal saline and capped. Line secured to skin with secure device. Biopatch placed around base of line. Sterile occlusive dressing applied. No complications. Patient tolerated the procedure well.
--- NOTE | 2020-07-01 16:54 | PN ---
Progress Note (short form) - Note Progress Note: remains unresponsive Vital Signs Period Temp Pulse Resp BP Sys/Gray Pulse Ox Last 24 Hr 97.0 F-97.9 F 83-93 16-19 96-113/40-52 96-99 cor-rrr lungs decreased bs at bases abd soft,nt ext +edema CBC, BMP 06/30/20 06:50 06/30/20 06:50 Microbiology 06/29/20 13:03 Blood - Peripheral Venous Blood Culture - Preliminary NO GROWTH OBTAINED AFTER 48 HOURS, INCUBATION TO CONTINUE FOR 3 DAYS. 06/29/20 13:03 Blood - Peripheral Venous Blood Culture - Preliminary NO GROWTH OBTAINED AFTER 48 HOURS, INCUBATION TO CONTINUE FOR 3 DAYS. 06/30/20 12:00 Urine - Urine Clean Catch Urine Culture - Final Yeast Like Organism 06/29/20 16:30 Urine - Urine Valle Legionella Antigen - Final 06/29/20 16:30 Urine - Urine Valle Streptococcus pneumoniae Antigen (M - Final 06/29/20 12:40 Urine - Urine Valle Urine Culture - Final Yeast Like Organism a/p sepsis acute renal failure positive troponin continue meropenem Problem List - Problems (1) Fever Code(s): R50.9 - FEVER, UNSPECIFIED (2) Acute renal failure Code(s): N17.9 - ACUTE KIDNEY FAILURE, UNSPECIFIED (3) UTI (urinary tract infection) Code(s): N39.0 - URINARY TRACT INFECTION, SITE NOT SPECIFIED (4) Constipation Code(s): K59.00 - CONSTIPATION, UNSPECIFIED (5) Elevated troponin Code(s): R79.89 - OTHER SPECIFIED ABNORMAL FINDINGS OF BLOOD CHEMISTRY
[2020-07-01 18:31] LABS: ALBUMIN 1.5 g/dl (3.4-5.0); BILIRUBIN,TOTAL 0.7 mg/dL (0.2-1); CALCIUM 8.3 mg/dL (8.5-10.1); CREATININE 3.1 mg/dL (0.55-1.3); POTASSIUM 4.1 mmol/L (3.5-5.1); TOT PROT 4.6 g/dl (6.4-8.2)
[2020-07-01 18:34] LABS: BLOOD UREA NITROGEN 147.2 mg/dL (7-18)
[2020-07-01 19:00] LABS: BASO % 0.2 % (0-2.0); EOS % 0.3 % (0-4.5); HEMATOCRIT 35.5 % (32.4-45.2); HEMOGLOBIN 11.1 GM/dL (10.7-15.3); LYMPH % 5.3 % (8-40); MCH 28.8 pg (25.7-33.7); MCHC 31.3 g/dl (32.0-36.0); MEAN CELL VOLUME 91.9 fl (80-96); MEAN PLT VOLUME 11.4 fl (7.5-11.1); NEUT % 92.2 % (42.8-82.8); PLATELET COUNT 154 K/MM3 (134-434); RBC 3.86 M/mm3 (3.60-5.2); RDW 16.8 % (11.6-15.6); WHITE BLOOD COUNT 12.3 K/mm3 (4.0-10.0)
[2020-07-01 20:47] LABS: ANISOCYTOSIS 0; MACROCYTOSIS 0; PLATELET ESTIMATE DECREASED
[2020-07-01] MEDS: SODIUM CHLORIDE 0.45% 1,000 ML IV SCH (21:45)
[2020-07-01] MEDS ORDERED: INSULIN (NOVOLOG) ASPART 100 UNITS/ML 10ML VIAL SQ ONE (23:56)
--- NOTE | 2020-07-02 07:10 | PN ---
Progress Note, Physician History of Present Illness: PULMONARY LETHARGIC ON NASAL O2,COMFORTABLE,-SOB - Current Medication List Current Medications: Active Medications IV Flush (Triple Lumen Flush) 4 ml IVPUSH PRN PRN PRN Reason: Protocol Meropenem 500 mg/ Dextrose 100 mls @ 200 mls/hr IVPB Q12H [facility] Last Admin: 07/01/20 21:44 Dose: 200 mls/hr Documented by: Sodium Chloride (1/2 Normal Saline) 1,000 mls @ 100 mls/hr IV ASDIR [facility] Last Admin: 07/01/20 21:45 Dose: Not Given Documented by: Metoprolol Tartrate (Lopressor Injection -) 5 mg IVPUSH Q4H PRN PRN Reason: HYPERTENSION Mupirocin (Bactroban 2% Ointment -) 1 applic TP BID [facility] Last Admin: 07/01/20 21:45 Dose: 1 applic Documented by: Pantoprazole Sodium (Protonix Iv) 40 mg IVPUSH DAILY [facility] Last Admin: 07/01/20 09:17 Dose: 40 mg Documented by: - Objective Vital Signs: Vital Signs Temperature 97.5 F L 07/02/20 06:00 Pulse Rate 79 07/02/20 06:00 Respiratory Rate 16 07/02/20 06:00 Blood Pressure 110/70 07/02/20 06:00 O2 Sat by Pulse Oximetry (%) 96 07/02/20 06:00 Constitutional: Yes: Thin, Other (LETHARGIC) Eyes: Yes: WNL HENT: Yes: WNL Neck: Yes: WNL Cardiovascular: Yes: Regular Rate and Rhythm, S1, S2 Respiratory: Yes: Diminished, Other (POOR INSPIRATORY EFFORT) Gastrointestinal: Yes: Normal Bowel Sounds, Soft Extremities: Yes: WNL Edema: No Labs: CBC, BMP Assessment/Plan A/P Toxic Metabolic Encephalopathy UTI Sepsis Lactic Acidosis Acute on Chronic Renal Failure COPD LV Systolic Dysfunction Severe Mitral Regurgitation Paroxysmal Atrial Fibrillation HTN - IV antibiotics - O2 to keep SpO2 >90% - monitor urine output, creatinine - inhaled bronchodilators - aspiration precautions - DVT prophylaxis DR PENA
[2020-07-02] MEDS ORDERED: MEROPENEM 500 MG VIAL (RESTRICTED TO ID) IVPB ONE ×2 (08:28→21:34)
[2020-07-02] MEDS ORDERED: DEXTROSE 5%-WATER 100 ML IVPB ONE ×2 (08:28→21:34)
--- NOTE | 2020-07-02 09:05 | PN ---
Progress Note, Physician Chief Complaint: CALLED THE JODY PEACOCK I WAS ON SPEAKER PHONE WITH HIM AND HIS HOME HEALTH AID I REVIEWED GOALS OF CARE HE WANTS TO MAKE HIS DNR/DNI PATIENT IS IN BED LETHARGIC NOT RESPONDING TO VERBAL STIMULI - Current Medication List Current Medications: Active Medications IV Flush (Triple Lumen Flush) 4 ml IVPUSH PRN PRN PRN Reason: Protocol Meropenem 500 mg/ Dextrose 100 mls @ 200 mls/hr IVPB Q12H [facility] Last Admin: 07/01/20 21:44 Dose: 200 mls/hr Documented by: Sodium Chloride (1/2 Normal Saline) 1,000 mls @ 100 mls/hr IV ASDIR [facility] Last Admin: 07/01/20 21:45 Dose: Not Given Documented by: Metoprolol Tartrate (Lopressor Injection -) 5 mg IVPUSH Q4H PRN PRN Reason: HYPERTENSION Mupirocin (Bactroban 2% Ointment -) 1 applic TP BID [facility] Last Admin: 07/01/20 21:45 Dose: 1 applic Documented by: Pantoprazole Sodium (Protonix Iv) 40 mg IVPUSH DAILY [facility] Last Admin: 07/01/20 09:17 Dose: 40 mg Documented by: - Objective Vital Signs: Vital Signs Temperature 97.5 F L 07/02/20 06:00 Pulse Rate 79 07/02/20 06:00 Respiratory Rate 16 07/02/20 06:00 Blood Pressure 110/70 07/02/20 06:00 O2 Sat by Pulse Oximetry (%) 96 07/02/20 06:00 Constitutional: Yes: Other Cardiovascular: Yes: Pulse Irregular Respiratory: Yes: Diminished, On Nasal O2 Genitourinary: Yes: Valle Present Extremities: Yes: Other Edema: Yes Edema: RUE: 2+, LLE: 1+, RLE: 1+ Integumentary: Yes: Erythema Wound/Incision: Yes: Dressing Dry and Intact Neurological: Yes: Unresponsive Psychiatric: Yes: Other Labs: CBC, BMP 07/01/20 18:00 07/01/20 17:00 INR, PTT INR 1.51 (0.83-1.09) H 06/29/20 12:40 Problem List - Problems (1) Acute renal failure Code(s): N17.9 - ACUTE KIDNEY FAILURE, UNSPECIFIED (2) Change in mental state Code(s): R41.82 - ALTERED MENTAL STATUS, UNSPECIFIED Qualifiers: Altered mental status type: unspecified Qualified Code(s): R41.82 - Altered mental status, unspecified (3) Fever Code(s): R50.9 - FEVER, UNSPECIFIED (4) Hypernatremia Code(s): E87.0 - HYPEROSMOLALITY AND HYPERNATREMIA (5) Severe sepsis Code(s): A41.9 - SEPSIS, UNSPECIFIED ORGANISM; R65.20 - SEVERE SEPSIS WITHOUT SEPTIC SHOCK (6) UTI (urinary tract infection) Code(s): N39.0 - URINARY TRACT INFECTION, SITE NOT SPECIFIED (7) Uremic encephalopathy Code(s): G93.49 - OTHER ENCEPHALOPATHY; N19 - UNSPECIFIED KIDNEY FAILURE (8) Acute hypoxemic respiratory failure Code(s): J96.01 - ACUTE RESPIRATORY FAILURE WITH HYPOXIA (9) Acute metabolic encephalopathy Code(s): G93.41 - METABOLIC ENCEPHALOPATHY (10) CAD (coronary artery disease) Code(s): I25.10 - ATHSCL HEART DISEASE OF [place] CORONARY ARTERY W/O ANG PCTRS (11) CHF (congestive heart failure) Code(s): I50.9 - HEART FAILURE, UNSPECIFIED (12) COPD (chronic obstructive pulmonary disease) Code(s): J44.9 - CHRONIC OBSTRUCTIVE PULMONARY DISEASE, UNSPECIFIED (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
[2020-07-02] MEDS: PANTOPRAZOLE SODIUM 40 MG VIAL IVPUSH SCH (09:49)
[2020-07-02] MEDS: MUPIROCIN 2% TOPICAL OINTMENT 22 GM TUBE TP SCH ×2 (09:49→21:40)
[2020-07-02] MEDS: MEROPENEM 500 MG in DEXTROSE 5%-WATER 100 ML IVPB SCH ×2 (09:49→21:39)
--- NOTE | 2020-07-02 11:17 | PN ---
Progress Note, Physician History of Present Illness: Pt seen and examined at bedside. SHe remains lethargic. SHe is not responding to verbal or tactile stimuli. - Current Medication List Current Medications: Active Medications IV Flush (Triple Lumen Flush) 4 ml IVPUSH PRN PRN PRN Reason: Protocol Meropenem 500 mg/ Dextrose 100 mls @ 200 mls/hr IVPB Q12H [facility] Last Admin: 07/02/20 09:49 Dose: 200 mls/hr Documented by: Sodium Chloride (1/2 Normal Saline) 1,000 mls @ 100 mls/hr IV ASDIR [facility] Last Admin: 07/01/20 21:45 Dose: Not Given Documented by: Metoprolol Tartrate (Lopressor Injection -) 5 mg IVPUSH Q4H PRN PRN Reason: HYPERTENSION Mupirocin (Bactroban 2% Ointment -) 1 applic TP BID [facility] Last Admin: 07/02/20 09:49 Dose: 1 applic Documented by: Nystatin/Triamcinolone Acetonide (Mycolog Ii Cream -) 2 applic TP BID [facility] Pantoprazole Sodium (Protonix Iv) 40 mg IVPUSH DAILY [facility] Last Admin: 07/02/20 09:49 Dose: 40 mg Documented by: - Objective Vital Signs: Vital Signs Temperature 97.9 F 07/02/20 10:00 Pulse Rate 61 07/02/20 10:00 Respiratory Rate 18 07/02/20 10:00 Blood Pressure 110/47 L 07/02/20 10:00 O2 Sat by Pulse Oximetry (%) 96 07/02/20 10:00 Constitutional: Yes: Calm Eyes: Yes: Conjunctiva Clear HENT: Yes: Atraumatic Neck: Yes: Supple Cardiovascular: Yes: S1, S2 Respiratory: Yes: CTA Bilaterally Gastrointestinal: Yes: Soft Genitourinary: Yes: Valle Present Musculoskeletal: Yes: Muscle Weakness Edema: Yes Edema: LLE: Trace, RLE: Trace Neurological: Yes: Lethargy Labs: CBC, BMP 07/01/20 18:00 07/01/20 17:00 INR, PTT INR 1.51 (0.83-1.09) H 06/29/20 12:40 Problem List - Problems (1) Acute renal failure Code(s): N17.9 - ACUTE KIDNEY FAILURE, UNSPECIFIED (2) Change in mental state Code(s): R41.82 - ALTERED MENTAL STATUS, UNSPECIFIED Qualifiers: Altered mental status type: unspecified Qualified Code(s): R41.82 - Altered mental status, unspecified (3) Elevated BUN Code(s): R79.9 - ABNORMAL FINDING OF BLOOD CHEMISTRY, UNSPECIFIED (4) Hypernatremia Code(s): E87.0 - HYPEROSMOLALITY AND HYPERNATREMIA Assessment/Plan Current Medications Generic Name Dose Route Start Last Admin Trade Name Edita PRN Reason Stop Dose Admin IV Flush 4 ml 07/01/20 13:37 Triple Lumen Flush IVPUSH PRN PRN Protocol Meropenem 500 mg/ Dextrose 100 mls @ 200 mls/hr 06/30/20 10:00 07/02/20 09:49 IVPB 200 mls/hr Q12H CARMELINA Administration Sodium Chloride 1,000 mls @ 100 mls/hr 06/30/20 17:30 07/01/20 21:45 1/2 Normal Saline IV Not Given ASDIR CARMELINA Metoprolol Tartrate 5 mg 06/29/20 17:01 Lopressor Injection - IVPUSH Q4H PRN HYPERTENSION Mupirocin 1 applic 06/30/20 22:00 07/02/20 09:49 Bactroban 2% Ointment - TP 1 applic BID CARMELINA Administration Nystatin/Triamcinolone Acetonide 2 applic 07/02/20 10:00 Mycolog Ii Cream - TP BID [facility]MEL[facility] Pantoprazole Sodium 40 mg 06/30/20 10:00 07/02/20 09:49 Protonix Iv IVPUSH 40 mg DAILY CARMELINA Administration Impression 1. SHAW 2. UTI 3. chf 4. htn 5. hld 6. dm 7. altered mental status 8. sepsis 9. CKD 10. hyperkalemia Plan - renal function starting to improve - pt now dnr and dni - palliative care follow up - will monitor renal function for improvement - pt has very poor baseline function status - repeat vanco level in am
[2020-07-02] MEDS: NYSTATIN/TRIAMCINOLONE TOPICAL CREAM 15 GM TUBE TP SCH ×2 (11:52→21:39)
--- NOTE | 2020-07-02 12:24 | PN ---
Progress Note, Physician Chief Complaint: Remains lethargic Not responsive to verbal or tactile stimuli History of Present Illness: 79 year old with a pmhx of copd, dm, pafib not on ac due to fall/bleeding risk, htn, chf with lvef 25%, cad s/p stent to RCA, severe MR, and h/o urosepsis sent for altered mental status. As per NH, patient has been more lethargic last few days, being treated for urosepsis, and febrile. Patient is nonverbal at this time. EKG: afib with anteroalteral TWI CT head no acute m/s/b CT chest: bibasilar opacities possibly early edema vs infectious LA 2.4 Cr 3.7 Trops 0.52 Na 160 - Current Medication List Current Medications: Active Medications IV Flush (Triple Lumen Flush) 4 ml IVPUSH PRN PRN PRN Reason: Protocol Meropenem 500 mg/ Dextrose 100 mls @ 200 mls/hr IVPB Q12H [facility] Last Admin: 07/02/20 09:49 Dose: 200 mls/hr Documented by: Sodium Chloride (1/2 Normal Saline) 1,000 mls @ 100 mls/hr IV ASDIR [facility] Last Admin: 07/01/20 21:45 Dose: Not Given Documented by: Metoprolol Tartrate (Lopressor Injection -) 5 mg IVPUSH Q4H PRN PRN Reason: HYPERTENSION Mupirocin (Bactroban 2% Ointment -) 1 applic TP BID [facility] Last Admin: 07/02/20 09:49 Dose: 1 applic Documented by: Nystatin/Triamcinolone Acetonide (Mycolog Ii Cream -) 2 applic TP BID [facility] Last Admin: 07/02/20 11:52 Dose: 2 applic Documented by: Pantoprazole Sodium (Protonix Iv) 40 mg IVPUSH DAILY [facility] Last Admin: 07/02/20 09:49 Dose: 40 mg Documented by: - Objective Vital Signs: Vital Signs Temperature 97.9 F 07/02/20 10:00 Pulse Rate 61 07/02/20 10:00 Respiratory Rate 18 07/02/20 10:00 Blood Pressure 110/47 L 07/02/20 10:00 O2 Sat by Pulse Oximetry (%) 96 07/02/20 10:00 Constitutional: Yes: No Distress Neck: Yes: Supple Cardiovascular: Yes: Pulse Irregular, S1, S2. No: JVD Respiratory: Yes: Diminished Gastrointestinal: Yes: Soft Edema: No Labs: CBC, BMP 07/01/20 18:00 07/01/20 17:00 INR, PTT INR 1.51 (0.83-1.09) H 06/29/20 12:40 Problem List - Problems (1) Elevated troponin Code(s): R79.89 - OTHER SPECIFIED ABNORMAL FINDINGS OF BLOOD CHEMISTRY (2) CAD (coronary artery disease) Code(s): I25.10 - ATHSCL HEART DISEASE OF [place] CORONARY ARTERY W/O ANG PCTRS (3) CHF (congestive heart failure) Code(s): I50.9 - HEART FAILURE, UNSPECIFIED Assessment/Plan 79 year old with a pmhx of copd, dm, pafib not on ac due to fall/bleeding risk, htn, chf with lvef 25%, cad s/p stent to RCA, severe MR, and h/o urosepsis sent for altered mental status. As per NH, patient has been more lethargic last few days, being treated for urosepsis, and febrile. Patient is nonverbal at this time. EKG: afib with anteroalteral TWI CT head no acute m/s/b CT chest: bibasilar opacities possibly early edema vs infectious LA 2.4 Cr 3.7 Trops 0.52 Na 160 1) Type 2 [place] Patient with elevated troponins likely in setting of urosepsis and demand ischemia. no further cardiac intervention at this time. [facility] upon discharge should look at chart and see if can take aspirin or plavix (aspirin listed as allergy in chart)\ -will restart carvedilol when more stable 2) Afib -rates are controlled at this time. BP and chf meds on hold at this time. Monitor bp/hr and restart home po carvedilol when tolerates. Can give IV metoprolol if needed for rate control for now. Not on ac due to bleeding risk 3) CHF -ct chest with some early edema but exam does not seem in overt chf. furosemide on hold at this time given hypernatremia CHF meds on hold Renal function and Na improving. Remains lethargic and not responsive to verbal or tactile stimuli HR's remained stable Can discontinue telemetry
[2020-07-02] MEDS: SODIUM CHLORIDE 0.45% 1,000 ML IV SCH (22:57)
--- NOTE | 2020-07-03 08:57 | PN ---
Progress Note, Physician Chief Complaint: AWAKE AND LETHARGIC AROUSAL TODAY WITH VERBAL SIMULI NO ACUTE EVENTS OVER NIGHT - Current Medication List Current Medications: Active Medications IV Flush (Triple Lumen Flush) 4 ml IVPUSH PRN PRN PRN Reason: Protocol Meropenem 500 mg/ Dextrose 100 mls @ 200 mls/hr IVPB Q12H [facility] Last Admin: 07/02/20 21:39 Dose: 200 mls/hr Documented by: Sodium Chloride (1/2 Normal Saline) 1,000 mls @ 100 mls/hr IV ASDIR [facility] Last Admin: 07/02/20 22:57 Dose: 100 mls/hr Documented by: Metoprolol Tartrate (Lopressor Injection -) 5 mg IVPUSH Q4H PRN PRN Reason: HYPERTENSION Mupirocin (Bactroban 2% Ointment -) 1 applic TP BID [facility] Last Admin: 07/02/20 21:40 Dose: 1 applic Documented by: Nystatin/Triamcinolone Acetonide (Mycolog Ii Cream -) 2 applic TP BID [facility] Last Admin: 07/02/20 21:39 Dose: 2 applic Documented by: Pantoprazole Sodium (Protonix Iv) 40 mg IVPUSH DAILY [facility] Last Admin: 07/02/20 09:49 Dose: 40 mg Documented by: - Objective Vital Signs: Vital Signs Temperature 97.6 F 07/03/20 06:00 Pulse Rate 72 07/03/20 06:00 Respiratory Rate 20 07/03/20 06:00 Blood Pressure 97/57 L 07/03/20 06:00 O2 Sat by Pulse Oximetry (%) 100 07/03/20 06:00 Constitutional: Yes: Moderate Distress Cardiovascular: Yes: Pulse Irregular Respiratory: Yes: Diminished, On Nasal O2 Gastrointestinal: Yes: Soft Genitourinary: Yes: Valle Present, Incontinence Musculoskeletal: Yes: Muscle Weakness Extremities: Yes: Deformity Edema: Yes Edema: LUE: 2+, RUE: 2+, LLE: 1+, RLE: 1+ Integumentary: Yes: Venous Stasis Changes Wound/Incision: Yes: Dressing Dry and Intact Neurological: Yes: Confusion, Pre-Existing Deficit, Weakness Psychiatric: Yes: Other Labs: CBC, BMP 07/01/20 18:00 07/01/20 17:00 INR, PTT INR 1.51 (0.83-1.09) H 06/29/20 12:40 Problem List - Problems (1) Acute renal failure Code(s): N17.9 - ACUTE KIDNEY FAILURE, UNSPECIFIED (2) Change in mental state Code(s): R41.82 - ALTERED MENTAL STATUS, UNSPECIFIED Qualifiers: Altered mental status type: unspecified Qualified Code(s): R41.82 - Altered mental status, unspecified (3) Fever Code(s): R50.9 - FEVER, UNSPECIFIED (4) Hypernatremia Code(s): E87.0 - HYPEROSMOLALITY AND HYPERNATREMIA (5) Severe sepsis Code(s): A41.9 - SEPSIS, UNSPECIFIED ORGANISM; R65.20 - SEVERE SEPSIS WITHOUT SEPTIC SHOCK (6) UTI (urinary tract infection) Code(s): N39.0 - URINARY TRACT INFECTION, SITE NOT SPECIFIED (7) Uremic encephalopathy Code(s): G93.49 - OTHER ENCEPHALOPATHY; N19 - UNSPECIFIED KIDNEY FAILURE (8) Acute hypoxemic respiratory failure Code(s): J96.01 - ACUTE RESPIRATORY FAILURE WITH HYPOXIA (9) Acute metabolic encephalopathy Code(s): G93.41 - METABOLIC ENCEPHALOPATHY (10) CAD (coronary artery disease) Code(s): I25.10 - ATHSCL HEART DISEASE OF [place] CORONARY ARTERY W/O ANG PCTRS (11) CHF (congestive heart failure) Code(s): I50.9 - HEART FAILURE, UNSPECIFIED (12) COPD (chronic obstructive pulmonary disease) Code(s): J44.9 - CHRONIC OBSTRUCTIVE PULMONARY DISEASE, UNSPECIFIED (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
[2020-07-03] MEDS ORDERED: MEROPENEM 500 MG VIAL (RESTRICTED TO ID) IVPB ONE ×2 (09:57→21:53)
[2020-07-03] MEDS ORDERED: DEXTROSE 5%-WATER 100 ML IVPB ONE ×2 (09:57→21:54)
[2020-07-03] MEDS: MEROPENEM 500 MG in DEXTROSE 5%-WATER 100 ML IVPB SCH ×2 (10:15→21:57)
[2020-07-03] MEDS: PANTOPRAZOLE SODIUM 40 MG VIAL IVPUSH SCH (10:15)
[2020-07-03] MEDS: MUPIROCIN 2% TOPICAL OINTMENT 22 GM TUBE TP SCH ×2 (10:16→21:57)
[2020-07-03] MEDS: NYSTATIN/TRIAMCINOLONE TOPICAL CREAM 15 GM TUBE TP SCH ×2 (10:16→21:57)
[2020-07-03 10:18] LABS: HEMATOCRIT 36.9 % (32.4-45.2); HEMOGLOBIN 11.9 GM/dL (10.7-15.3); MCH 29.8 pg (25.7-33.7); MCHC 32.2 g/dl (32.0-36.0); MEAN CELL VOLUME 92.6 fl (80-96); MEAN PLT VOLUME 10.5 fl (7.5-11.1); RBC 3.98 M/mm3 (3.60-5.2); RDW 16.7 % (11.6-15.6); WHITE BLOOD COUNT 9.6 K/mm3 (4.0-10.0)
[2020-07-03 10:38] LABS: ALBUMIN 1.4 g/dl (3.4-5.0); BILIRUBIN,TOTAL 0.4 mg/dL (0.2-1); CALCIUM 7.5 mg/dL (8.5-10.1); MAGNESIUM 3.2 mg/dL (1.8-2.4); PHOSPHOROUS 5.3 mg/dL (2.5-4.9); POTASSIUM 4.1 mmol/L (3.5-5.1); TOT PROT 4.6 g/dl (6.4-8.2)
[2020-07-03 11:13] LABS: PLATELET COUNT 102 K/MM3 (134-434)
--- NOTE | 2020-07-03 13:20 | PN ---
Progress Note (short form) - Note Progress Note: Lethargic but in NAD. No acute events overnight.m Intake & Output 06/30/20 07/01/20 07/02/20 07/03/20 23:59 23:59 23:59 23:59 Intake Total 587 823 3866 0 Output Total 130 820 800 Balance -30 -320 400 0 Weight 120 lb 120 lb Last Vital Signs Temp Pulse Resp BP Pulse Ox 97.6 F 72 20 97/57 L 100 07/03/20 06:00 07/03/20 06:00 07/03/20 06:00 07/03/20 06:00 07/03/20 06:00 Active Medications IV Flush (Triple Lumen Flush) 4 ml IVPUSH PRN PRN PRN Reason: Protocol Meropenem 500 mg/ Dextrose 100 mls @ 200 mls/hr IVPB Q12H [facility] Last Admin: 07/03/20 10:15 Dose: 200 mls/hr Documented by: Sodium Chloride (1/2 Normal Saline) 1,000 mls @ 100 mls/hr IV ASDIR [facility] Last Admin: 07/02/20 22:57 Dose: 100 mls/hr Documented by: Metoprolol Tartrate (Lopressor Injection -) 5 mg IVPUSH Q4H PRN PRN Reason: HYPERTENSION Mupirocin (Bactroban 2% Ointment -) 1 applic TP BID [facility] Last Admin: 07/03/20 10:16 Dose: 1 applic Documented by: Nystatin/Triamcinolone Acetonide (Mycolog Ii Cream -) 2 applic TP BID [facility] Last Admin: 07/03/20 10:16 Dose: 2 applic Documented by: Pantoprazole Sodium (Protonix Iv) 40 mg IVPUSH DAILY [facility] Last Admin: 07/03/20 10:15 Dose: 40 mg Documented by: Constitutional: Yes: Thin, Other (LETHARGIC) Eyes: Yes: WNL HENT: Yes: WNL Neck: Yes: WNL Cardiovascular: Yes: Regular Rate and Rhythm, S1, S2 Respiratory: Yes: Diminished, Other (POOR INSPIRATORY EFFORT) Gastrointestinal: Yes: Normal Bowel Sounds, Soft Extremities: Yes: WNL Edema: No Labs: Laboratory Results - last 24 hr 06/30/20 07/02/20 07/03/20 20:00 21:44 01:46 WBC RBC Hgb Hct MCV MCH MCHC RDW Plt Count MPV Sodium Potassium Chloride Carbon Dioxide Anion Gap BUN Creatinine Est GFR (CKD-EPI)AfAm Est GFR (CKD-EPI)NonAf POC Glucometer 224 258 Random Glucose Calcium Phosphorus Magnesium Total Bilirubin AST ALT Alkaline Phosphatase Total Protein Albumin Urine Eosinophils None seen Random Vancomycin 07/03/20 07/03/20 07/03/20 05:42 10:04 10:04 WBC 9.6 RBC 3.98 Hgb 11.9 Hct 36.9 MCV 92.6 MCH 29.8 MCHC 32.2 RDW 16.7 H Plt Count 102 L D MPV 10.5 Sodium Potassium Chloride Carbon Dioxide Anion Gap BUN Creatinine Est GFR (CKD-EPI)AfAm Est GFR (CKD-EPI)NonAf POC Glucometer 228 Random Glucose Calcium Phosphorus Magnesium Total Bilirubin AST ALT Alkaline Phosphatase Total Protein Albumin Urine Eosinophils Random Vancomycin 34.8 H* 07/03/20 10:04 WBC RBC Hgb Hct MCV MCH MCHC RDW Plt Count MPV Sodium 150 H Potassium 4.1 Chloride 124 H Carbon Dioxide 16 L Anion Gap 11 BUN 118.0 H* Creatinine 2.0 H Est GFR (CKD-EPI)AfAm 26.65 Est GFR (CKD-EPI)NonAf 23.00 POC Glucometer Random Glucose 253 H Calcium 7.5 L Phosphorus 5.3 H Magnesium 3.2 H Total Bilirubin 0.4 AST 44 H ALT 24 Alkaline Phosphatase 62 Total Protein 4.6 L Albumin 1.4 L Urine Eosinophils Random Vancomycin Assessment/Plan Toxic Metabolic Encephalopathy UTI Sepsis Lactic Acidosis Acute on Chronic Renal Failure COPD LV Systolic Dysfunction Severe Mitral Regurgitation Paroxysmal Atrial Fibrillation HTN - ABX Per ID - O2 to keep SpO2 >90% - monitor urine output, creatinine - inhaled bronchodilators - aspiration precautions - DVT prophylaxis Dr Dunbar
--- NOTE | 2020-07-03 14:12 | PN ---
Progress Note, Physician History of Present Illness: Pt seen and examined at bedside. She remains lethargic. - Current Medication List Current Medications: Active Medications IV Flush (Triple Lumen Flush) 4 ml IVPUSH PRN PRN PRN Reason: Protocol Meropenem 500 mg/ Dextrose 100 mls @ 200 mls/hr IVPB Q12H [facility] Last Admin: 07/03/20 10:15 Dose: 200 mls/hr Documented by: Sodium Chloride (1/2 Normal Saline) 1,000 mls @ 100 mls/hr IV ASDIR [facility] Last Admin: 07/02/20 22:57 Dose: 100 mls/hr Documented by: Metoprolol Tartrate (Lopressor Injection -) 5 mg IVPUSH Q4H PRN PRN Reason: HYPERTENSION Mupirocin (Bactroban 2% Ointment -) 1 applic TP BID [facility] Last Admin: 07/03/20 10:16 Dose: 1 applic Documented by: Nystatin/Triamcinolone Acetonide (Mycolog Ii Cream -) 2 applic TP BID [facility] Last Admin: 07/03/20 10:16 Dose: 2 applic Documented by: Pantoprazole Sodium (Protonix Iv) 40 mg IVPUSH DAILY [facility] Last Admin: 07/03/20 10:15 Dose: 40 mg Documented by: - Objective Vital Signs: Vital Signs Temperature 97.5 F L 07/03/20 14:00 Pulse Rate 74 07/03/20 14:00 Respiratory Rate 20 07/03/20 14:00 Blood Pressure 137/56 L 07/03/20 14:00 O2 Sat by Pulse Oximetry (%) 100 07/03/20 06:00 Constitutional: Yes: Calm Eyes: Yes: Conjunctiva Clear HENT: Yes: Atraumatic Cardiovascular: Yes: S1, S2 Respiratory: Yes: On Nasal O2 Gastrointestinal: Yes: Normal Bowel Sounds, Soft Genitourinary: Yes: Valle Present Musculoskeletal: Yes: Muscle Weakness Edema: Yes Edema: LUE: 1+, RUE: 1+, LLE: Trace, RLE: Trace Neurological: Yes: Lethargy Labs: CBC, BMP 07/03/20 10:04 07/03/20 10:04 INR, PTT INR 1.51 (0.83-1.09) H 06/29/20 12:40 Problem List - Problems (1) Acute renal failure Code(s): N17.9 - ACUTE KIDNEY FAILURE, UNSPECIFIED (2) Change in mental state Code(s): R41.82 - ALTERED MENTAL STATUS, UNSPECIFIED Qualifiers: Altered mental status type: unspecified Qualified Code(s): R41.82 - Altered mental status, unspecified (3) Elevated BUN Code(s): R79.9 - ABNORMAL FINDING OF BLOOD CHEMISTRY, UNSPECIFIED (4) Hypernatremia Code(s): E87.0 - HYPEROSMOLALITY AND HYPERNATREMIA Assessment/Plan Current Medications Generic Name Dose Route Start Last Admin Trade Name Freq PRN Reason Stop Dose Admin IV Flush 4 ml 07/01/20 13:37 Triple Lumen Flush IVPUSH PRN PRN Protocol Meropenem 500 mg/ Dextrose 100 mls @ 200 mls/hr 06/30/20 10:00 07/03/20 10:15 IVPB 200 mls/hr Q12H [facility] Administration Sodium Chloride 1,000 mls @ 100 mls/hr 06/30/20 17:30 07/02/20 22:57 1/2 Normal Saline IV 100 mls/hr ASDIR [facility] Administration Metoprolol Tartrate 5 mg 06/29/20 17:01 Lopressor Injection - IVPUSH Q4H PRN HYPERTENSION Mupirocin 1 applic 06/30/20 22:00 07/03/20 10:16 Bactroban 2% Ointment - TP 1 applic BID [facility] Administration Nystatin/Triamcinolone Acetonide 2 applic 07/02/20 10:00 07/03/20 10:16 Mycolog Ii Cream - TP 2 applic BID [facility] Administration Pantoprazole Sodium 40 mg 06/30/20 10:00 07/03/20 10:15 Protonix Iv IVPUSH 40 mg DAILY [facility] Administration Laboratory Tests 07/03/20 10:04 Random Vancomycin 34.8 H* Impression 1. SHAW 2. UTI 3. chf 4. htn 5. hld 6. dm 7. altered mental status 8. sepsis 9. CKD 10. hyperkalemia Plan - cont hypotonic fluids - repeat labs in am - renal function is improving - mental status is not improved - vanco level improved - palliative care follow up - cont abx - pt has very poor baseline function status - repeat vanco level in am
--- NOTE | 2020-07-03 14:17 | PN ---
Progress Note, Physician Chief Complaint: Still lethargic Afib rate control on tele uneventful Cr improving History of Present Illness: 79 year old with a pmhx of copd, dm, pafib not on ac due to fall/bleeding risk, htn, chf with lvef 25%, cad s/p stent to RCA, severe MR, and h/o urosepsis sent for altered mental status. As per NH, patient has been more lethargic last few days, being treated for urosepsis, and febrile. Patient is nonverbal at this time. EKG: afib with anteroalteral TWI CT head no acute m/s/b CT chest: bibasilar opacities possibly early edema vs infectious LA 2.4 Cr 3.7 Trops 0.52 Na 160 - Current Medication List Current Medications: Active Medications IV Flush (Triple Lumen Flush) 4 ml IVPUSH PRN PRN PRN Reason: Protocol Meropenem 500 mg/ Dextrose 100 mls @ 200 mls/hr IVPB Q12H [facility] Last Admin: 07/03/20 10:15 Dose: 200 mls/hr Documented by: Sodium Chloride (1/2 Normal Saline) 1,000 mls @ 100 mls/hr IV ASDIR [facility] Last Admin: 07/02/20 22:57 Dose: 100 mls/hr Documented by: Metoprolol Tartrate (Lopressor Injection -) 5 mg IVPUSH Q4H PRN PRN Reason: HYPERTENSION Mupirocin (Bactroban 2% Ointment -) 1 applic TP BID [facility] Last Admin: 07/03/20 10:16 Dose: 1 applic Documented by: Nystatin/Triamcinolone Acetonide (Mycolog Ii Cream -) 2 applic TP BID [facility] Last Admin: 07/03/20 10:16 Dose: 2 applic Documented by: Pantoprazole Sodium (Protonix Iv) 40 mg IVPUSH DAILY [facility] Last Admin: 07/03/20 10:15 Dose: 40 mg Documented by: - Objective Vital Signs: Vital Signs Temperature 97.5 F L 07/03/20 14:00 Pulse Rate 74 07/03/20 14:00 Respiratory Rate 20 07/03/20 14:00 Blood Pressure 137/56 L 07/03/20 14:00 O2 Sat by Pulse Oximetry (%) 100 07/03/20 06:00 Constitutional: Yes: No Distress, Other (lethargic) Neck: Yes: Supple Cardiovascular: Yes: Pulse Irregular, S1, S2. No: JVD Respiratory: Yes: Other (poor effort) Gastrointestinal: Yes: Soft Edema: LLE: Trace, RLE: Trace Labs: CBC, BMP 07/03/20 10:04 07/03/20 10:04 INR, PTT INR 1.51 (0.83-1.09) H 06/29/20 12:40 Problem List - Problems (1) Elevated troponin Code(s): R79.89 - OTHER SPECIFIED ABNORMAL FINDINGS OF BLOOD CHEMISTRY (2) CAD (coronary artery disease) Code(s): I25.10 - ATHSCL HEART DISEASE OF [place] CORONARY ARTERY W/O ANG PCTRS (3) CHF (congestive heart failure) Code(s): I50.9 - HEART FAILURE, UNSPECIFIED Assessment/Plan 79 year old with a pmhx of copd, dm, pafib not on ac due to fall/bleeding risk, htn, chf with lvef 25%, cad s/p stent to RCA, severe MR, and h/o urosepsis sent for altered mental status. As per NH, patient has been more lethargic last few days, being treated for urosepsis, and febrile. Patient is nonverbal at this time. EKG: afib with anteroalteral TWI CT head no acute m/s/b CT chest: bibasilar opacities possibly early edema vs infectious LA 2.4 Cr 3.7 Trops 0.52 Na 160 1) Type 2 [place] Patient with elevated troponins likely in setting of urosepsis and demand ischemia. no further cardiac intervention plavix when taking po -when bp stable and tolerates can restart carvedilol 2) Afib -rates are controlled at this time. BP and chf meds on hold at this time. Monitor bp/hr and restart home po carv edilol when tolerates. Can give IV metoprolol if needed for rate control for now. Not on ac due to bleeding risk 3) CHF -Still getting hypotonic fluids and furosemide on hold with improvement in Na and Cr. Being followed by renal Does not appear to be significantly overloaded on exam CHF meds on hold if tolerates bp meds during admission than restart carvedilol Remains lethargic. Palliative care follow up HR's remained stable Can discontinue telemetry
--- NOTE | 2020-07-03 15:04 | PN ---
Progress Note (short form) - Note Progress Note: remains lethargic Vital Signs Period Temp Pulse Resp BP Sys/Gray Pulse Ox Last 24 Hr 97.0 F-97.6 F 72-87 17-20 97-137/43-58 95-100 cor-rrr lungs decreased bs at bases abd soft,nt ext +edema +johnson CBC, BMP 07/03/20 10:04 07/03/20 10:04 Microbiology 06/29/20 13:03 Blood - Peripheral Venous Blood Culture - Preliminary NO GROWTH OBTAINED AFTER 96 HOURS, INCUBATION TO CONTINUE FOR 1 DAYS. 06/29/20 13:03 Blood - Peripheral Venous Blood Culture - Preliminary NO GROWTH OBTAINED AFTER 96 HOURS, INCUBATION TO CONTINUE FOR 1 DAYS. 06/30/20 12:00 Urine - Urine Clean Catch Urine Culture - Final Yeast Like Organism 06/29/20 16:30 Urine - Urine Johnson Legionella Antigen - Final 06/29/20 16:30 Urine - Urine Johnson Streptococcus pneumoniae Antigen (M - Final 06/29/20 12:40 Urine - Urine Johnson Urine Culture - Final Yeast Like Organism a/p sepsis-?pneumonia acute renal failure positive troponin continue meropenem-wbc now normal, afebrile day #5 antibioitcs-will finish 7 days total overall prognosis is poor Problem List - Problems (1) Fever Code(s): R50.9 - FEVER, UNSPECIFIED (2) Acute renal failure Code(s): N17.9 - ACUTE KIDNEY FAILURE, UNSPECIFIED (3) UTI (urinary tract infection) Code(s): N39.0 - URINARY TRACT INFECTION, SITE NOT SPECIFIED (4) Constipation Code(s): K59.00 - CONSTIPATION, UNSPECIFIED (5) Elevated troponin Code(s): R79.89 - OTHER SPECIFIED ABNORMAL FINDINGS OF BLOOD CHEMISTRY
[2020-07-04] MEDS: SODIUM CHLORIDE 0.45% 1,000 ML IV SCH ×3 (06:37→18:29)
--- NOTE | 2020-07-04 08:15 | PN ---
Progress Note, Physician Chief Complaint: awake not responding to verbal stimuli today more lethargic - Current Medication List Current Medications: Active Medications IV Flush (Triple Lumen Flush) 4 ml IVPUSH PRN PRN PRN Reason: Protocol Meropenem 500 mg/ Dextrose 100 mls @ 200 mls/hr IVPB Q12H [facility] Last Admin: 07/03/20 21:57 Dose: 200 mls/hr Documented by: Sodium Chloride (1/2 Normal Saline) 1,000 mls @ 100 mls/hr IV ASDIR [facility] Last Admin: 07/04/20 06:37 Dose: 100 mls/hr Documented by: Metoprolol Tartrate (Lopressor Injection -) 5 mg IVPUSH Q4H PRN PRN Reason: HYPERTENSION Mupirocin (Bactroban 2% Ointment -) 1 applic TP BID [facility] Last Admin: 07/03/20 21:57 Dose: 1 applic Documented by: Nystatin/Triamcinolone Acetonide (Mycolog Ii Cream -) 2 applic TP BID [facility] Last Admin: 07/03/20 21:57 Dose: 2 applic Documented by: Pantoprazole Sodium (Protonix Iv) 40 mg IVPUSH DAILY [facility] Last Admin: 07/03/20 10:15 Dose: 40 mg Documented by: - Objective Vital Signs: Vital Signs Temperature 97.5 F L 07/04/20 06:00 Pulse Rate 59 L 07/04/20 06:00 Respiratory Rate 20 07/04/20 06:00 Blood Pressure 116/44 L 07/04/20 06:00 O2 Sat by Pulse Oximetry (%) 99 07/04/20 06:00 Constitutional: Yes: Moderate Distress Cardiovascular: Yes: Pulse Irregular Respiratory: Yes: Diminished, On Nasal O2 Gastrointestinal: Yes: Distention Genitourinary: Yes: Valle Present Musculoskeletal: Yes: Muscle Weakness Edema: Yes Edema: LUE: 2+, RUE: 2+ Integumentary: Yes: Erythema, Venous Stasis Changes Wound/Incision: Yes: Open to air Neurological: Yes: Pre-Existing Deficit, Weakness ...Motor Strength: LUE, RUE, RLE Psychiatric: Yes: Other Labs: CBC, BMP 07/03/20 10:04 07/03/20 10:04 INR, PTT INR 1.51 (0.83-1.09) H 06/29/20 12:40 Problem List - Problems (1) Acute renal failure Code(s): N17.9 - ACUTE KIDNEY FAILURE, UNSPECIFIED (2) Change in mental state Code(s): R41.82 - ALTERED MENTAL STATUS, UNSPECIFIED Qualifiers: Altered mental status type: unspecified Qualified Code(s): R41.82 - Altered mental status, unspecified (3) Fever Code(s): R50.9 - FEVER, UNSPECIFIED (4) Hypernatremia Code(s): E87.0 - HYPEROSMOLALITY AND HYPERNATREMIA (5) Severe sepsis Code(s): A41.9 - SEPSIS, UNSPECIFIED ORGANISM; R65.20 - SEVERE SEPSIS WITHOUT SEPTIC SHOCK (6) UTI (urinary tract infection) Code(s): N39.0 - URINARY TRACT INFECTION, SITE NOT SPECIFIED (7) Uremic encephalopathy Code(s): G93.49 - OTHER ENCEPHALOPATHY; N19 - UNSPECIFIED KIDNEY FAILURE (8) Acute hypoxemic respiratory failure Code(s): J96.01 - ACUTE RESPIRATORY FAILURE WITH HYPOXIA (9) Acute metabolic encephalopathy Code(s): G93.41 - METABOLIC ENCEPHALOPATHY (10) CAD (coronary artery disease) Code(s): I25.10 - ATHSCL HEART DISEASE OF [place] CORONARY ARTERY W/O ANG PCTRS (11) CHF (congestive heart failure) Code(s): I50.9 - HEART FAILURE, UNSPECIFIED (12) COPD (chronic obstructive pulmonary disease) Code(s): J44.9 - CHRONIC OBSTRUCTIVE PULMONARY DISEASE, UNSPECIFIED (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
[2020-07-04] MEDS ORDERED: MEROPENEM 500 MG VIAL (RESTRICTED TO ID) IVPB ONE (10:03)
[2020-07-04] MEDS ORDERED: DEXTROSE 5%-WATER 100 ML IVPB ONE (10:03)
[2020-07-04] MEDS: MUPIROCIN 2% TOPICAL OINTMENT 22 GM TUBE TP SCH ×2 (10:27→21:54)
[2020-07-04] MEDS ORDERED: morphine SULFATE 4 MG/ML VIAL IVPUSH ONE (10:51)
--- NOTE | 2020-07-04 11:59 | PN ---
Progress Note, Physician History of Present Illness: pulmonary lethargic,-resp distress - Current Medication List Current Medications: Active Medications IV Flush (Triple Lumen Flush) 4 ml IVPUSH PRN PRN PRN Reason: Protocol Meropenem 500 mg/ Dextrose 100 mls @ 200 mls/hr IVPB Q12H [facility] Last Admin: 07/03/20 21:57 Dose: 200 mls/hr Documented by: Sodium Chloride (1/2 Normal Saline) 1,000 mls @ 100 mls/hr IV ASDIR [facility] Last Admin: 07/04/20 10:18 Dose: Not Given Documented by: Metoprolol Tartrate (Lopressor Injection -) 5 mg IVPUSH Q4H PRN PRN Reason: HYPERTENSION Morphine Sulfate (Morphine Sulfate) 2 mg IVPUSH Q6H PRN PRN Reason: PAIN LEVEL 6-10 Morphine Sulfate (Morphine Injection -) 4 mg IVPUSH ONCE ONE Stop: 07/04/20 10:52 Mupirocin (Bactroban 2% Ointment -) 1 applic TP BID [facility] Last Admin: 07/04/20 10:27 Dose: 1 applic Documented by: Nystatin/Triamcinolone Acetonide (Mycolog Ii Cream -) 2 applic TP BID [facility] Last Admin: 07/03/20 21:57 Dose: 2 applic Documented by: Pantoprazole Sodium (Protonix Iv) 40 mg IVPUSH DAILY [facility] Last Admin: 07/03/20 10:15 Dose: 40 mg Documented by: - Objective Vital Signs: Vital Signs Temperature 97.7 F 07/04/20 10:00 Pulse Rate 71 07/04/20 10:00 Respiratory Rate 18 07/04/20 10:00 Blood Pressure 131/59 L 07/04/20 10:00 O2 Sat by Pulse Oximetry (%) 99 07/04/20 10:00 Constitutional: Yes: Thin, Other (lethargic) Eyes: Yes: WNL HENT: Yes: WNL Neck: Yes: WNL Cardiovascular: Yes: Regular Rate and Rhythm, S1, S2 Respiratory: Yes: Diminished Gastrointestinal: Yes: Normal Bowel Sounds, Soft Extremities: Yes: WNL Edema: No Labs: CBC, BMP 07/03/20 10:04 Assessment/Plan A/P Toxic Metabolic Encephalopathy UTI Sepsis Lactic Acidosis Acute on Chronic Renal Failure slowly improving COPD LV Systolic Dysfunction Severe Mitral Regurgitation Paroxysmal Atrial Fibrillation HTN - IV antibiotics - O2 to keep SpO2 >90% - monitor urine output, creatinine - inhaled bronchodilators - aspiration precautions - DVT prophylaxis DR PENA
--- NOTE | 2020-07-04 12:56 | PN ---
Progress Note, Physician History of Present Illness: Pt seen and examined at bedside. She is lethargic but more arousable than yesterday. - Current Medication List Current Medications: Active Medications IV Flush (Triple Lumen Flush) 4 ml IVPUSH PRN PRN PRN Reason: Protocol Meropenem 500 mg/ Dextrose 100 mls @ 200 mls/hr IVPB Q12H [facility] Last Admin: 07/03/20 21:57 Dose: 200 mls/hr Documented by: Sodium Chloride (1/2 Normal Saline) 1,000 mls @ 100 mls/hr IV ASDIR [facility] Last Admin: 07/04/20 10:18 Dose: Not Given Documented by: Metoprolol Tartrate (Lopressor Injection -) 5 mg IVPUSH Q4H PRN PRN Reason: HYPERTENSION Morphine Sulfate (Morphine Sulfate) 2 mg IVPUSH Q6H PRN PRN Reason: PAIN LEVEL 6-10 Morphine Sulfate (Morphine Injection -) 4 mg IVPUSH ONCE ONE Stop: 07/04/20 10:52 Mupirocin (Bactroban 2% Ointment -) 1 applic TP BID [facility] Last Admin: 07/04/20 10:27 Dose: 1 applic Documented by: Nystatin/Triamcinolone Acetonide (Mycolog Ii Cream -) 2 applic TP BID [facility] Last Admin: 07/03/20 21:57 Dose: 2 applic Documented by: Pantoprazole Sodium (Protonix Iv) 40 mg IVPUSH DAILY [facility] Last Admin: 07/03/20 10:15 Dose: 40 mg Documented by: - Objective Vital Signs: Vital Signs Temperature 97.7 F 07/04/20 10:00 Pulse Rate 71 07/04/20 10:00 Respiratory Rate 18 07/04/20 10:00 Blood Pressure 131/59 L 07/04/20 10:00 O2 Sat by Pulse Oximetry (%) 99 07/04/20 10:00 Constitutional: Yes: Calm Eyes: Yes: Conjunctiva Clear HENT: Yes: Atraumatic Neck: Yes: Supple Cardiovascular: Yes: S1, S2 Respiratory: Yes: CTA Bilaterally Gastrointestinal: Yes: Normal Bowel Sounds, Soft Genitourinary: Yes: Incontinence Musculoskeletal: Yes: Muscle Weakness Edema: Yes Edema: LLE: Trace, RLE: Trace Neurological: Yes: Lethargy Labs: CBC, BMP 07/03/20 10:04 07/03/20 10:04 INR, PTT INR 1.51 (0.83-1.09) H 06/29/20 12:40 Problem List - Problems (1) Acute renal failure Code(s): N17.9 - ACUTE KIDNEY FAILURE, UNSPECIFIED (2) Change in mental state Code(s): R41.82 - ALTERED MENTAL STATUS, UNSPECIFIED Qualifiers: Altered mental status type: unspecified Qualified Code(s): R41.82 - Altered mental status, unspecified (3) Elevated BUN Code(s): R79.9 - ABNORMAL FINDING OF BLOOD CHEMISTRY, UNSPECIFIED (4) Hypernatremia Code(s): E87.0 - HYPEROSMOLALITY AND HYPERNATREMIA Assessment/Plan Current Medications Generic Name Dose Route Start Last Admin Trade Name Freq PRN Reason Stop Dose Admin IV Flush 4 ml 07/01/20 13:37 Triple Lumen Flush IVPUSH PRN PRN Protocol Meropenem 500 mg/ Dextrose 100 mls @ 200 mls/hr 06/30/20 10:00 07/03/20 21:57 IVPB 200 mls/hr Q12H CARM[facility]INA Administration Sodium Chloride 1,000 mls @ 100 mls/hr 06/30/20 17:30 07/04/20 10:18 1/2 Normal Saline IV Not Given ASDIR CARMELINA Metoprolol Tartrate 5 mg 06/29/20 17:01 Lopressor Injection - IVPUSH Q4H PRN HYPERTENSION Morphine Sulfate 2 mg 07/04/20 11:18 Morphine Sulfate IVPUSH Q6H PRN PAIN LEVEL 6-10 Morphine Sulfate 4 mg 07/04/20 10:51 Morphine Injection - IVPUSH 07/04/20 10:52 ONCE ONE Mupirocin 1 applic 06/30/20 22:00 07/04/20 10:27 Bactroban 2% Ointment - TP 1 applic BID CARMELINA Administration Nystatin/Triamcinolone Acetonide 2 applic 07/02/20 10:00 07/03/20 21:57 Mycolog Ii Cream - TP 2 applic BID CARMELINA Administration Pantoprazole Sodium 40 mg 06/30/20 10:00 07/03/20 10:15 Protonix Iv IVPUSH 40 mg DAILY CARMELINA Administration Impression 1. SHAW 2. UTI 3. chf 4. htn 5. hld 6. dm 7. altered mental status 8. sepsis 9. CKD 10. hyperkalemia Plan - decrease rate of 1/2 ns - add clinimix - check labs, pt is a hard stick - renal function was improving - mental status minimally improved - palliative care follow up - cont abx - pt has very poor baseline function status - repeat vanco level in am
[2020-07-04] MEDS: MEROPENEM 500 MG in DEXTROSE 5%-WATER 100 ML IVPB SCH ×2 (12:59→21:54)
[2020-07-04] MEDS: PANTOPRAZOLE SODIUM 40 MG VIAL IVPUSH SCH (13:00)
[2020-07-04] MEDS: NYSTATIN/TRIAMCINOLONE TOPICAL CREAM 15 GM TUBE TP SCH ×2 (13:15→21:54)
--- NOTE | 2020-07-04 13:59 | PN ---
Progress Note, Physician Chief Complaint: Lethargic History of Present Illness: 79 year old with a pmhx of copd, dm, pafib not on ac due to fall/bleeding risk, htn, chf with lvef 25%, cad s/p stent to RCA, severe MR, and h/o urosepsis sent for altered mental status. As per NH, patient has been more lethargic last few days, being treated for urosepsis, and febrile. Patient is nonverbal at this time. EKG: afib with anteroalteral TWI CT head no acute m/s/b CT chest: bibasilar opacities possibly early edema vs infectious LA 2.4 Cr 3.7 Trops 0.52 Na 160 - Current Medication List Current Medications: Active Medications IV Flush (Triple Lumen Flush) 4 ml IVPUSH PRN PRN PRN Reason: Protocol Meropenem 500 mg/ Dextrose 100 mls @ 200 mls/hr IVPB Q12H [facility] Last Admin: 07/04/20 12:59 Dose: Not Given Documented by: Sodium Chloride (1/2 Normal Saline) 1,000 mls @ 100 mls/hr IV ASDIR [facility] Last Admin: 07/04/20 10:18 Dose: Not Given Documented by: Metoprolol Tartrate (Lopressor Injection -) 5 mg IVPUSH Q4H PRN PRN Reason: HYPERTENSION Morphine Sulfate (Morphine Sulfate) 2 mg IVPUSH Q6H PRN PRN Reason: PAIN LEVEL 6-10 Morphine Sulfate (Morphine Injection -) 4 mg IVPUSH ONCE ONE Stop: 07/04/20 10:52 Mupirocin (Bactroban 2% Ointment -) 1 applic TP BID [facility] Last Admin: 07/04/20 10:27 Dose: 1 applic Documented by: Nystatin/Triamcinolone Acetonide (Mycolog Ii Cream -) 2 applic TP BID [facility] Last Admin: 07/04/20 13:15 Dose: 2 applic Documented by: Pantoprazole Sodium (Protonix Iv) 40 mg IVPUSH DAILY [facility] Last Admin: 07/04/20 13:00 Dose: Not Given Documented by: - Objective Vital Signs: Vital Signs Temperature 97.7 F 07/04/20 10:00 Pulse Rate 71 07/04/20 10:00 Respiratory Rate 18 07/04/20 10:00 Blood Pressure 131/59 L 07/04/20 10:00 O2 Sat by Pulse Oximetry (%) 99 07/04/20 10:00 Constitutional: Yes: Other (lethargic) Neck: Yes: Supple Cardiovascular: Yes: Pulse Irregular, S1, S2 Respiratory: Yes: CTA Bilaterally Gastrointestinal: Yes: Soft Edema: LLE: Trace, RLE: Trace Labs: CBC, BMP 07/03/20 10:04 07/03/20 10:04 INR, PTT INR 1.51 (0.83-1.09) H 06/29/20 12:40 Problem List - Problems (1) Elevated troponin Code(s): R79.89 - OTHER SPECIFIED ABNORMAL FINDINGS OF BLOOD CHEMISTRY (2) CAD (coronary artery disease) Code(s): I25.10 - ATHSCL HEART DISEASE OF [place] CORONARY ARTERY W/O ANG PCTRS (3) CHF (congestive heart failure) Code(s): I50.9 - HEART FAILURE, UNSPECIFIED Assessment/Plan 79 year old with a pmhx of copd, dm, pafib not on ac due to fall/bleeding risk, htn, chf with lvef 25%, cad s/p stent to RCA, severe MR, and h/o urosepsis sent for altered mental status. As per NH, patient has been more lethargic last few days, being treated for urosepsis, and febrile. Patient is nonverbal at this time. EKG: afib with anteroalteral TWI CT head no acute m/s/b CT chest: bibasilar opacities possibly early edema vs infectious LA 2.4 Cr 3.7 Trops 0.52 Na 160 1) Type 2 NE Patient with elevated troponins likely in setting of urosepsis and demand ischemia. no further cardiac intervention plavix when taking po -when bp stable and tolerates can restart carvedilol 2) Afib -rates are controlled at this time. BP and chf meds on hold at this time. Monitor bp/hr and restart home po carvedilol when tolerates. Can give IV metoprolol if needed for rate control for now. Not on ac due to bleeding risk 3) CHF -Still getting hypotonic fluids and furosemide on hold with improvement in Na and Cr. Being followed by renal Does not appear to be significantly overloaded on exam CHF meds on hold if tolerates bp meds during admission than restart carvedilol Remains lethargic. Palliative care follow up HR's remained stable Can discontinue telemetry Will sign off at this time.
[2020-07-04] MEDS: MORPHINE SULFATE 2 MG/ML VIAL IVPUSH PRN (18:25)
[2020-07-05 06:52] LABS: HEMATOCRIT 37.5 % (32.4-45.2); HEMOGLOBIN 11.8 GM/dL (10.7-15.3); MCH 29.4 pg (25.7-33.7); MCHC 31.6 g/dl (32.0-36.0); MEAN CELL VOLUME 93.1 fl (80-96); MEAN PLT VOLUME 10.1 fl (7.5-11.1); PLATELET COUNT 124 K/MM3 (134-434); RBC 4.02 M/mm3 (3.60-5.2); RDW 16.6 % (11.6-15.6); WHITE BLOOD COUNT 9.9 K/mm3 (4.0-10.0)
[2020-07-05 07:23] LABS: ALBUMIN 1.5 g/dl (3.4-5.0); BILIRUBIN,TOTAL 0.6 mg/dL (0.2-1); BLOOD UREA NITROGEN 95.3 mg/dL (7-18); CALCIUM 7.9 mg/dL (8.5-10.1); CREATININE 1.4 mg/dL (0.55-1.3); MAGNESIUM 3.1 mg/dL (1.8-2.4); PHOSPHOROUS 4.9 mg/dL (2.5-4.9); POTASSIUM 4.1 mmol/L (3.5-5.1); TOT PROT 4.8 g/dl (6.4-8.2)
--- NOTE | 2020-07-05 10:08 | PN ---
Progress Note, Physician - Current Medication List Current Medications: Active Medications IV Flush (Triple Lumen Flush) 4 ml IVPUSH PRN PRN PRN Reason: Protocol Meropenem 500 mg/ Dextrose 100 mls @ 200 mls/hr IVPB Q12H [facility] Last Admin: 07/04/20 21:54 Dose: Not Given Documented by: Sodium Chloride (1/2 Normal Saline) 1,000 mls @ 100 mls/hr IV ASDIR [facility] Last Admin: 07/04/20 18:29 Dose: Not Given Documented by: Metoprolol Tartrate (Lopressor Injection -) 5 mg IVPUSH Q4H PRN PRN Reason: HYPERTENSION Morphine Sulfate (Morphine Sulfate) 2 mg IVPUSH Q6H PRN PRN Reason: PAIN LEVEL 6-10 Last Admin: 07/04/20 18:25 Dose: 2 mg Documented by: Mupirocin (Bactroban 2% Ointment -) 1 applic TP BID [facility] Last Admin: 07/04/20 21:54 Dose: 1 applic Documented by: Nystatin/Triamcinolone Acetonide (Mycolog Ii Cream -) 2 applic TP BID [facility] Last Admin: 07/04/20 21:54 Dose: 2 applic Documented by: Pantoprazole Sodium (Protonix Iv) 40 mg IVPUSH DAILY [facility] Last Admin: 07/04/20 13:00 Dose: Not Given Documented by: - Objective Vital Signs: Vital Signs Temperature 97.2 F L 07/05/20 06:00 Pulse Rate 74 07/05/20 06:00 Respiratory Rate 18 07/05/20 06:00 Blood Pressure 119/48 L 07/05/20 06:00 O2 Sat by Pulse Oximetry (%) 100 07/05/20 06:00 Cardiovascular: Yes: S1, S2 Respiratory: Yes: Regular, CTA Bilaterally Gastrointestinal: Yes: Normal Bowel Sounds, Soft Labs: CBC, BMP 07/05/20 06:26 07/05/20 06:26 INR, PTT INR 1.51 (0.83-1.09) H 06/29/20 12:40 Assessment/Plan - Problems (1) Acute metabolic encephalopathy Assessment/Plan: Head CT scan noted possibly due to infection ID consult received Meropenem and Azithromycin Code(s): G93.41 - METABOLIC ENCEPHALOPATHY (2) CHF (congestive heart failure) Assessment/Plan: PO medication on hold due to change in mental status Code(s): I50.9 - HEART FAILURE, UNSPECIFIED (3) COPD (chronic obstructive pulmonary disease) Assessment/Plan: Pulmonary consult Keep SpO2 >90% O2 via NC Code(s): J44.9 - CHRONIC OBSTRUCTIVE PULMONARY DISEASE, UNSPECIFIED (4) Change in mental state Assessment/Plan: due to infection Code(s): R41.82 - ALTERED MENTAL STATUS, UNSPECIFIED Qualifiers: Altered mental status type: unspecified Qualified Code(s): R41.82 - Altered mental status, unspecified (5) Diabetes mellitus Assessment/Plan: BGM q4h Amaryl on hold due to mental status Code(s): E11.9 - TYPE 2 DIABETES MELLITUS WITHOUT COMPLICATIONS (6) HTN (hypertension) Assessment/Plan: Isosorbide, Carvedilol, Hydralazine on hold due to mental status Lopressor 10mg IVP PRN for SBP >170 DBP>90 HR >110bpm Code(s): I10 - ESSENTIAL (PRIMARY) HYPERTENSION Qualifiers: (7) Paroxysmal A-fib Assessment/Plan: Cardiology consult noted Code(s): I48.0 - PAROXYSMAL ATRIAL FIBRILLATION (8) Sepsis Assessment/Plan: ID consult received Meropenem Code(s): A41.9 - SEPSIS, UNSPECIFIED ORGANISM (9) Elevated BUN--SHAW Assessment/Plan: Nephrology consult--ivf Code(s): R79.9 - ABNORMAL FINDING OF BLOOD CHEMISTRY, UNSPECIFIED (10) Hypernatremia Assessment/Plan: Nephrology consult-ivf Code(s): E87.0 - HYPEROSMOLALITY AND HYPERNATREMIA PALLIATIVE CARE NOTED--DNR/DNI--HOSPICE CARE
--- NOTE | 2020-07-05 10:41 | PN ---
Progress Note (short form) - Note Progress Note: PULMONARY Remains poorly responsive. No fevers recorded. Vital Signs Period Temp Pulse Resp BP Sys/Gray Pulse Ox Last 24 Hr 97.2 F-98.7 F 74-96 18-20 108-134/43-60 100-100 Gen: lethargic Heart: RRR Lung: decreased breath sounds at the bases Abd: soft, nontender Ext: no edema CBC, BMP 07/05/20 06:26 07/05/20 06:26 Active Medications IV Flush (Triple Lumen Flush) 4 ml IVPUSH PRN PRN PRN Reason: Protocol Meropenem 500 mg/ Dextrose 100 mls @ 200 mls/hr IVPB Q12H [facility] Last Admin: 07/04/20 21:54 Dose: Not Given Documented by: Sodium Chloride (1/2 Normal Saline) 1,000 mls @ 100 mls/hr IV ASDIR [facility] Last Admin: 07/04/20 18:29 Dose: Not Given Documented by: Metoprolol Tartrate (Lopressor Injection -) 5 mg IVPUSH Q4H PRN PRN Reason: HYPERTENSION Morphine Sulfate (Morphine Sulfate) 2 mg IVPUSH Q6H PRN PRN Reason: PAIN LEVEL 6-10 Last Admin: 07/04/20 18:25 Dose: 2 mg Documented by: Mupirocin (Bactroban 2% Ointment -) 1 applic TP BID [facility] Last Admin: 07/04/20 21:54 Dose: 1 applic Documented by: Nystatin/Triamcinolone Acetonide (Mycolog Ii Cream -) 2 applic TP BID [facility] Last Admin: 07/04/20 21:54 Dose: 2 applic Documented by: Pantoprazole Sodium (Protonix Iv) 40 mg IVPUSH DAILY [facility] Last Admin: 07/04/20 13:00 Dose: Not Given Documented by: A/P Toxic Metabolic Encephalopathy UTI Sepsis Lactic Acidosis Acute on Chronic Renal Failure COPD LV Systolic Dysfunction Severe Mitral Regurgitation Paroxysmal Atrial Fibrillation HTN - continue antibiotics - O2 to keep SpO2 >90% - IVF, free water replacement - monitor urine output, creatinine - inhaled bronchodilators - aspiration precautions - DVT prophylaxis
[2020-07-05] MEDS: NYSTATIN/TRIAMCINOLONE TOPICAL CREAM 15 GM TUBE TP SCH ×2 (10:44→21:09)
[2020-07-05] MEDS: MEROPENEM 500 MG in DEXTROSE 5%-WATER 100 ML IVPB SCH ×2 (10:45→21:08)
[2020-07-05] MEDS: MUPIROCIN 2% TOPICAL OINTMENT 22 GM TUBE TP SCH ×2 (10:45→21:08)
--- NOTE | 2020-07-05 13:26 | PN ---
Progress Note, Physician History of Present Illness: Pt seen and examined. She is lethargic. - Current Medication List Current Medications: Active Medications IV Flush (Triple Lumen Flush) 4 ml IVPUSH PRN PRN PRN Reason: Protocol Meropenem 500 mg/ Dextrose 100 mls @ 200 mls/hr IVPB Q12H [facility] Last Admin: 07/04/20 21:54 Dose: Not Given Documented by: Sodium Chloride (1/2 Normal Saline) 1,000 mls @ 100 mls/hr IV ASDIR [facility] Last Admin: 07/04/20 18:29 Dose: Not Given Documented by: Metoprolol Tartrate (Lopressor Injection -) 5 mg IVPUSH Q4H PRN PRN Reason: HYPERTENSION Morphine Sulfate (Morphine Sulfate) 2 mg IVPUSH Q6H PRN PRN Reason: PAIN LEVEL 6-10 Last Admin: 07/04/20 18:25 Dose: 2 mg Documented by: Mupirocin (Bactroban 2% Ointment -) 1 applic TP BID [facility] Last Admin: 07/04/20 21:54 Dose: 1 applic Documented by: Nystatin/Triamcinolone Acetonide (Mycolog Ii Cream -) 2 applic TP BID [facility] Last Admin: 07/04/20 21:54 Dose: 2 applic Documented by: Pantoprazole Sodium (Protonix Iv) 40 mg IVPUSH DAILY [facility] Last Admin: 07/04/20 13:00 Dose: Not Given Documented by: - Objective Vital Signs: Vital Signs Temperature 97.7 F 07/05/20 10:00 Pulse Rate 78 07/05/20 10:00 Respiratory Rate 18 07/05/20 10:00 Blood Pressure 128/55 L 07/05/20 10:00 O2 Sat by Pulse Oximetry (%) 99 07/05/20 10:00 Constitutional: Yes: Calm Eyes: Yes: Conjunctiva Clear HENT: Yes: Atraumatic Cardiovascular: Yes: S1, S2 Respiratory: Yes: On Nasal O2 Gastrointestinal: Yes: Soft Genitourinary: Yes: Incontinence Musculoskeletal: Yes: Muscle Weakness Edema: No Neurological: Yes: Lethargy Labs: CBC, BMP 07/05/20 06:26 07/05/20 06:26 INR, PTT INR 1.51 (0.83-1.09) H 06/29/20 12:40 Problem List - Problems (1) Acute renal failure Code(s): N17.9 - ACUTE KIDNEY FAILURE, UNSPECIFIED (2) Change in mental state Code(s): R41.82 - ALTERED MENTAL STATUS, UNSPECIFIED Qualifiers: Altered mental status type: unspecified Qualified Code(s): R41.82 - Altered mental status, unspecified (3) Elevated BUN Code(s): R79.9 - ABNORMAL FINDING OF BLOOD CHEMISTRY, UNSPECIFIED (4) Hypernatremia Code(s): E87.0 - HYPEROSMOLALITY AND HYPERNATREMIA Assessment/Plan Current Medications Generic Name Dose Route Start Last Admin Trade Name Freq PRN Reason Stop Dose Admin IV Flush 4 ml 07/01/20 13:37 Triple Lumen Flush IVPUSH PRN PRN Protocol Meropenem 500 mg/ Dextrose 100 mls @ 200 mls/hr 06/30/20 10:00 07/04/20 21:54 IVPB Not Given Q12H CARMELINA Sodium Chloride 1,000 mls @ 100 mls/hr 06/30/20 17:30 07/04/20 18:29 1/2 Normal Saline IV Not Given ASDIR CARMELINA Metoprolol Tartrate 5 mg 06/29/20 17:01 Lopressor Injection - IVPUSH Q4H PRN HYPERTENSION Morphine Sulfate 2 mg 07/04/20 11:18 07/04/20 18:25 Morphine Sulfate IVPUSH 2 mg Q6H PRN Administration PAIN LEVEL 6-10 Mupirocin 1 applic 06/30/20 22:00 07/04/20 21:54 Bactroban 2% Ointment - TP 1 applic BID CARMELINA Administration Nystatin/Triamcinolone Acetonide 2 applic 07/02/20 10:00 07/04/20 21:54 Mycolog Ii Cream - TP 2 applic BID CARMELINA Administration Pantoprazole Sodium 40 mg 06/30/20 10:00 07/04/20 13:00 Protonix Iv IVPUSH Not Given DAILY CARM[facility] Impression 1. SHAW 2. UTI 3. chf 4. htn 5. hld 6. dm 7. altered mental status 8. sepsis 9. CKD 10. hyperkalemia Plan - pt now on comfort care - cont management per primary team - pt remains lethargic - palliative care follow up
[2020-07-05] MEDS: MORPHINE SULFATE 2 MG/ML VIAL IVPUSH PRN (14:43)
[2020-07-05] MEDS: PANTOPRAZOLE SODIUM 40 MG VIAL IVPUSH SCH (14:44)
[2020-07-05] MEDS: SODIUM CHLORIDE 0.45% 1,000 ML IV SCH (18:39)
--- NOTE | 2020-07-06 08:00 | PN ---
Progress Note, Physician History of Present Illness: PULMONARY LETHARGIC,-RESP DISTRESS - Current Medication List Current Medications: Active Medications IV Flush (Triple Lumen Flush) 4 ml IVPUSH PRN PRN PRN Reason: Protocol Meropenem 500 mg/ Dextrose 100 mls @ 200 mls/hr IVPB Q12H [facility] Last Admin: 07/05/20 21:08 Dose: Not Given Documented by: Sodium Chloride (1/2 Normal Saline) 1,000 mls @ 100 mls/hr IV ASDIR [facility] Last Admin: 07/05/20 18:39 Dose: Not Given Documented by: Metoprolol Tartrate (Lopressor Injection -) 5 mg IVPUSH Q4H PRN PRN Reason: HYPERTENSION Morphine Sulfate (Morphine Sulfate) 2 mg IVPUSH Q6H PRN PRN Reason: PAIN LEVEL 6-10 Last Admin: 07/05/20 14:43 Dose: 2 mg Documented by: Mupirocin (Bactroban 2% Ointment -) 1 applic TP BID [facility] Last Admin: 07/05/20 21:08 Dose: 1 applic Documented by: Nystatin/Triamcinolone Acetonide (Mycolog Ii Cream -) 2 applic TP BID [facility] Last Admin: 07/05/20 21:09 Dose: 2 applic Documented by: Pantoprazole Sodium (Protonix Iv) 40 mg IVPUSH DAILY [facility] Last Admin: 07/05/20 14:44 Dose: Not Given Documented by: - Objective Vital Signs: Vital Signs Temperature 97.7 F 07/06/20 05:31 Pulse Rate 90 07/06/20 05:31 Respiratory Rate 16 07/06/20 05:31 Blood Pressure 130/67 07/06/20 05:31 O2 Sat by Pulse Oximetry (%) 100 07/06/20 05:31 Constitutional: Yes: Thin, Other (LETHARGIC) Eyes: Yes: WNL HENT: Yes: WNL Neck: Yes: WNL Cardiovascular: Yes: Pulse Irregular, S1, S2 Respiratory: Yes: Diminished, Other (POOR INSPIRATORY EFFORT) Gastrointestinal: Yes: Normal Bowel Sounds Extremities: Yes: WNL Edema: No Labs: CBC, BMP Assessment/Plan A/P Toxic Metabolic Encephalopathy UTI Sepsis Lactic Acidosis Acute on Chronic Renal Failure slowly improving COPD LV Systolic Dysfunction Severe Mitral Regurgitation Paroxysmal Atrial Fibrillation HTN Hypernatremia - continue IV antibiotics - O2 to keep SpO2 >90% - monitor urine output, creatinine - inhaled bronchodilators - aspiration precautions - DVT prophylaxis DR PENA
[2020-07-06] MEDS: PANTOPRAZOLE SODIUM 40 MG VIAL IVPUSH SCH (09:03)
[2020-07-06] MEDS: MEROPENEM 500 MG in DEXTROSE 5%-WATER 100 ML IVPB SCH ×2 (09:03→21:14)
[2020-07-06] MEDS: MUPIROCIN 2% TOPICAL OINTMENT 22 GM TUBE TP SCH ×2 (09:15→21:14)
[2020-07-06] MEDS: NYSTATIN/TRIAMCINOLONE TOPICAL CREAM 15 GM TUBE TP SCH ×2 (09:18→21:14)
--- NOTE | 2020-07-06 10:02 | PN ---
Progress Note, Physician - Current Medication List Current Medications: Active Medications IV Flush (Triple Lumen Flush) 4 ml IVPUSH PRN PRN PRN Reason: Protocol Meropenem 500 mg/ Dextrose 100 mls @ 200 mls/hr IVPB Q12H [facility] Last Admin: 07/06/20 09:03 Dose: Not Given Documented by: Sodium Chloride (1/2 Normal Saline) 1,000 mls @ 100 mls/hr IV ASDIR [facility] Last Admin: 07/05/20 18:39 Dose: Not Given Documented by: Metoprolol Tartrate (Lopressor Injection -) 5 mg IVPUSH Q4H PRN PRN Reason: HYPERTENSION Morphine Sulfate (Morphine Sulfate) 2 mg IVPUSH Q6H PRN PRN Reason: PAIN LEVEL 6-10 Last Admin: 07/05/20 14:43 Dose: 2 mg Documented by: Mupirocin (Bactroban 2% Ointment -) 1 applic TP BID [facility] Last Admin: 07/06/20 09:15 Dose: 1 applic Documented by: Nystatin/Triamcinolone Acetonide (Mycolog Ii Cream -) 2 applic TP BID [facility] Last Admin: 07/06/20 09:18 Dose: 2 applic Documented by: Pantoprazole Sodium (Protonix Iv) 40 mg IVPUSH DAILY [facility] Last Admin: 07/06/20 09:03 Dose: Not Given Documented by: - Objective Vital Signs: Vital Signs Temperature 96.7 F L 07/06/20 08:33 Pulse Rate 79 07/06/20 08:33 Respiratory Rate 16 07/06/20 08:33 Blood Pressure 114/43 L 07/06/20 08:33 O2 Sat by Pulse Oximetry (%) 100 07/06/20 09:00 Cardiovascular: Yes: S1, S2 Respiratory: Yes: Regular, CTA Bilaterally Labs: CBC, BMP 07/05/20 06:26 07/05/20 06:26 INR, PTT INR 1.51 (0.83-1.09) H 06/29/20 12:40 Assessment/Plan - Problems (1) Acute metabolic encephalopathy Assessment/Plan: Head CT scan noted possibly due to infection ID consult received Meropenem and Azithromycin Code(s): G93.41 - METABOLIC ENCEPHALOPATHY (2) CHF (congestive heart failure) Assessment/Plan: PO medication on hold due to change in mental status Code(s): I50.9 - HEART FAILURE, UNSPECIFIED (3) COPD (chronic obstructive pulmonary disease) Assessment/Plan: Pulmonary consult Keep SpO2 >90% O2 via NC Code(s): J44.9 - CHRONIC OBSTRUCTIVE PULMONARY DISEASE, UNSPECIFIED (4) Change in mental state Assessment/Plan: due to infection Code(s): R41.82 - ALTERED MENTAL STATUS, UNSPECIFIED Qualifiers: Altered mental status type: unspecified Qualified Code(s): R41.82 - Altered mental status, unspecified (5) Diabetes mellitus Assessment/Plan: BGM q4h Amaryl on hold due to mental status Code(s): E11.9 - TYPE 2 DIABETES MELLITUS WITHOUT COMPLICATIONS (6) HTN (hypertension) Assessment/Plan: Isosorbide, Carvedilol, Hydralazine on hold due to mental status Lopressor 10mg IVP PRN for SBP >170 DBP>90 HR >110bpm Code(s): I10 - ESSENTIAL (PRIMARY) HYPERTENSION Qualifiers: (7) Paroxysmal A-fib Assessment/Plan: Cardiology consult noted Code(s): I48.0 - PAROXYSMAL ATRIAL FIBRILLATION (8) Sepsis Assessment/Plan: ID consult received Meropenem Code(s): A41.9 - SEPSIS, UNSPECIFIED ORGANISM (9) Elevated BUN--SHAW Assessment/Plan: Nephrology consult--ivf Code(s): R79.9 - ABNORMAL FINDING OF BLOOD CHEMISTRY, UNSPECIFIED (10) Hypernatremia Assessment/Plan: Nephrology consult-ivf Code(s): E87.0 - HYPEROSMOLALITY AND HYPERNATREMIA PALLIATIVE CARE NOTED--DNR/DNI--HOSPICE CARE
--- NOTE | 2020-07-06 13:37 | PN ---
Progress Note, Physician History of Present Illness: Pt appears comfortable. No acute distress. - Current Medication List Current Medications: Active Medications IV Flush (Triple Lumen Flush) 4 ml IVPUSH PRN PRN PRN Reason: Protocol Meropenem 500 mg/ Dextrose 100 mls @ 200 mls/hr IVPB Q12H [facility] Last Admin: 07/06/20 09:03 Dose: Not Given Documented by: Sodium Chloride (1/2 Normal Saline) 1,000 mls @ 100 mls/hr IV ASDIR [facility] Last Admin: 07/05/20 18:39 Dose: Not Given Documented by: Metoprolol Tartrate (Lopressor Injection -) 5 mg IVPUSH Q4H PRN PRN Reason: HYPERTENSION Morphine Sulfate (Morphine Sulfate) 2 mg IVPUSH Q6H PRN PRN Reason: PAIN LEVEL 6-10 Last Admin: 07/05/20 14:43 Dose: 2 mg Documented by: Mupirocin (Bactroban 2% Ointment -) 1 applic TP BID [facility] Last Admin: 07/06/20 09:15 Dose: 1 applic Documented by: Nystatin/Triamcinolone Acetonide (Mycolog Ii Cream -) 2 applic TP BID [facility] Last Admin: 07/06/20 09:18 Dose: 2 applic Documented by: Pantoprazole Sodium (Protonix Iv) 40 mg IVPUSH DAILY [facility] Last Admin: 07/06/20 09:03 Dose: Not Given Documented by: - Objective Vital Signs: Vital Signs Temperature 96.7 F L 07/06/20 08:33 Pulse Rate 79 07/06/20 08:33 Respiratory Rate 16 07/06/20 08:33 Blood Pressure 114/43 L 07/06/20 08:33 O2 Sat by Pulse Oximetry (%) 100 07/06/20 09:00 Constitutional: Yes: Calm Eyes: Yes: Conjunctiva Clear Cardiovascular: Yes: S1, S2 Respiratory: Yes: On Nasal O2 Genitourinary: Yes: Incontinence Edema: Yes Neurological: Yes: Lethargy Labs: CBC, BMP 07/05/20 06:26 07/05/20 06:26 INR, PTT INR 1.51 (0.83-1.09) H 06/29/20 12:40 Problem List - Problems (1) Acute renal failure Code(s): N17.9 - ACUTE KIDNEY FAILURE, UNSPECIFIED (2) Change in mental state Code(s): R41.82 - ALTERED MENTAL STATUS, UNSPECIFIED Qualifiers: Altered mental status type: unspecified Qualified Code(s): R41.82 - Altered mental status, unspecified (3) Elevated BUN Code(s): R79.9 - ABNORMAL FINDING OF BLOOD CHEMISTRY, UNSPECIFIED (4) Hypernatremia Code(s): E87.0 - HYPEROSMOLALITY AND HYPERNATREMIA Assessment/Plan Current Medications Generic Name Dose Route Start Last Admin Trade Name Freq PRN Reason Stop Dose Admin IV Flush 4 ml 07/01/20 13:37 Triple Lumen Flush IVPUSH PRN PRN Protocol Meropenem 500 mg/ Dextrose 100 mls @ 200 mls/hr 06/30/20 10:00 07/06/20 09:03 IVPB Not Given Q12H CARMELINA Sodium Chloride 1,000 mls @ 100 mls/hr 06/30/20 17:30 07/05/20 18:39 1/2 Normal Saline IV Not Given ASDIR CARMELINA Metoprolol Tartrate 5 mg 06/29/20 17:01 Lopressor Injection - IVPUSH Q4H PRN HYPERTENSION Morphine Sulfate 2 mg 07/04/20 11:18 07/05/20 14:43 Morphine Sulfate IVPUSH 2 mg Q6H PRN Administration PAIN LEVEL 6-10 Mupirocin 1 applic 06/30/20 22:00 07/06/20 09:15 Bactroban 2% Ointment - TP 1 applic BID CARMELINA Administration Nystatin/Triamcinolone Acetonide 2 applic 07/02/20 10:00 07/06/20 09:18 Mycolog Ii Cream - TP 2 applic BID CARMELINA Administration Pantoprazole Sodium 40 mg 06/30/20 10:00 07/06/20 09:03 Protonix Iv IVPUSH Not Given DAILY [facility] Impression 1. SHAW 2. UTI 3. chf 4. htn 5. hld 6. dm 7. altered mental status 8. sepsis 9. CKD 10. hyperkalemia Plan - cont current care - pt appears comfortable - pulm input appreciated - no acute change in management
[2020-07-07] MEDS: SODIUM CHLORIDE 0.45% 1,000 ML IV SCH (07:57)
--- NOTE | 2020-07-07 08:22 | PN ---
Progress Note, Physician Chief Complaint: NO CHANGES OVER WEEKEND LETHARGIC , WEAK POOR OVERALL PROGNOSIS D/W [facility] - Current Medication List Current Medications: Active Medications IV Flush (Triple Lumen Flush) 4 ml IVPUSH PRN PRN PRN Reason: Protocol Meropenem 500 mg/ Dextrose 100 mls @ 200 mls/hr IVPB Q12H [facility] Last Admin: 07/06/20 21:14 Dose: Not Given Documented by: Sodium Chloride (1/2 Normal Saline) 1,000 mls @ 100 mls/hr IV ASDIR [facility] Last Admin: 07/07/20 07:57 Dose: Not Given Documented by: Metoprolol Tartrate (Lopressor Injection -) 5 mg IVPUSH Q4H PRN PRN Reason: HYPERTENSION Morphine Sulfate (Morphine Sulfate) 2 mg IVPUSH Q6H PRN PRN Reason: PAIN LEVEL 6-10 Last Admin: 07/05/20 14:43 Dose: 2 mg Documented by: Mupirocin (Bactroban 2% Ointment -) 1 applic TP BID [facility] Last Admin: 07/06/20 21:14 Dose: 1 applic Documented by: Nystatin/Triamcinolone Acetonide (Mycolog Ii Cream -) 2 applic TP BID [facility] Last Admin: 07/06/20 21:14 Dose: 2 applic Documented by: Pantoprazole Sodium (Protonix Iv) 40 mg IVPUSH DAILY [facility] Last Admin: 07/06/20 09:03 Dose: Not Given Documented by: - Objective Vital Signs: Vital Signs Temperature 97.2 F L 07/07/20 06:00 Pulse Rate 80 07/07/20 06:00 Respiratory Rate 18 07/07/20 06:00 Blood Pressure 128/59 L 07/07/20 06:00 O2 Sat by Pulse Oximetry (%) 100 07/07/20 06:00 Constitutional: Yes: Moderate Distress Cardiovascular: Yes: Pulse Irregular Respiratory: Yes: Diminished, On Nasal O2 Gastrointestinal: Yes: Other Musculoskeletal: Yes: Muscle Weakness Neurological: Yes: Confusion, Unresponsive, Weakness Labs: CBC, BMP 07/05/20 06:26 07/05/20 06:26 INR, PTT INR 1.51 (0.83-1.09) H 06/29/20 12:40 Problem List - Problems (1) Acute renal failure Code(s): N17.9 - ACUTE KIDNEY FAILURE, UNSPECIFIED (2) Change in mental state Code(s): R41.82 - ALTERED MENTAL STATUS, UNSPECIFIED Qualifiers: Altered mental status type: unspecified Qualified Code(s): R41.82 - Altered mental status, unspecified (3) Fever Code(s): R50.9 - FEVER, UNSPECIFIED (4) Hypernatremia Code(s): E87.0 - HYPEROSMOLALITY AND HYPERNATREMIA (5) Severe sepsis Code(s): A41.9 - SEPSIS, UNSPECIFIED ORGANISM; R65.20 - SEVERE SEPSIS WITHOUT SEPTIC SHOCK (6) UTI (urinary tract infection) Code(s): N39.0 - URINARY TRACT INFECTION, SITE NOT SPECIFIED (7) Uremic encephalopathy Code(s): G93.49 - OTHER ENCEPHALOPATHY; N19 - UNSPECIFIED KIDNEY FAILURE (8) Acute hypoxemic respiratory failure Code(s): J96.01 - ACUTE RESPIRATORY FAILURE WITH HYPOXIA (9) Acute metabolic encephalopathy Code(s): G93.41 - METABOLIC ENCEPHALOPATHY (10) CAD (coronary artery disease) Code(s): I25.10 - ATHSCL HEART DISEASE OF [place] CORONARY ARTERY W/O ANG PCTRS (11) CHF (congestive heart failure) Code(s): I50.9 - HEART FAILURE, UNSPECIFIED (12) COPD (chronic obstructive pulmonary disease) Code(s): J44.9 - CHRONIC OBSTRUCTIVE PULMONARY DISEASE, UNSPECIFIED (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 RECOMMENDING HOSPICE, CAN RETURN TO [facility] FOR COMFORT CARE NO HOSPITALIZATIONS IVF POOR APPETITE NO GTUBE PER OR ANY AGGRESSIVE INTERVENTIONS
--- NOTE | 2020-07-07 11:26 | PN ---
Progress Note (short form) - Note Progress Note: PULMONARY Remains poorly responsive. No fevers recorded. Vital Signs Period Temp Pulse Resp BP Sys/Gray Pulse Ox Last 24 Hr 97.0 F-97.9 F 70-82 13-20 121-144/43-59 100-100 Gen: lethargic Heart: RRR Lung: decreased breath sounds at the bases Abd: soft, nontender Ext: no edema CBC, BMP 07/05/20 06:26 07/05/20 06:26 Active Medications IV Flush (Triple Lumen Flush) 4 ml IVPUSH PRN PRN PRN Reason: Protocol Sodium Chloride (1/2 Normal Saline) 1,000 mls @ 100 mls/hr IV ASDIR [facility] Last Admin: 07/07/20 07:57 Dose: Not Given Documented by: Metoprolol Tartrate (Lopressor Injection -) 5 mg IVPUSH Q4H PRN PRN Reason: HYPERTENSION Morphine Sulfate (Morphine Sulfate) 2 mg IVPUSH Q6H PRN PRN Reason: PAIN LEVEL 6-10 Last Admin: 07/05/20 14:43 Dose: 2 mg Documented by: Mupirocin (Bactroban 2% Ointment -) 1 applic TP BID [facility] Last Admin: 07/06/20 21:14 Dose: 1 applic Documented by: Nystatin/Triamcinolone Acetonide (Mycolog Ii Cream -) 2 applic TP BID [facility] Last Admin: 07/06/20 21:14 Dose: 2 applic Documented by: Pantoprazole Sodium (Protonix Iv) 40 mg IVPUSH DAILY [facility] Last Admin: 07/06/20 09:03 Dose: Not Given Documented by: A/P Toxic Metabolic Encephalopathy UTI Sepsis Lactic Acidosis Acute on Chronic Renal Failure COPD LV Systolic Dysfunction Severe Mitral Regurgitation Paroxysmal Atrial Fibrillation HTN - completed antibiotics - O2 to keep SpO2 >90% - IVF, free water replacement - monitor urine output, creatinine - inhaled bronchodilators - aspiration precautions - DVT prophylaxis - for comfort care
--- NOTE | 2020-07-07 12:14 | PN ---
Progress Note, Physician History of Present Illness: Pt seen and examined. She remains lethargic. - Current Medication List Current Medications: Active Medications IV Flush (Triple Lumen Flush) 4 ml IVPUSH PRN PRN PRN Reason: Protocol Sodium Chloride (1/2 Normal Saline) 1,000 mls @ 100 mls/hr IV ASDIR [facility] Last Admin: 07/07/20 07:57 Dose: Not Given Documented by: Metoprolol Tartrate (Lopressor Injection -) 5 mg IVPUSH Q4H PRN PRN Reason: HYPERTENSION Morphine Sulfate (Morphine Sulfate) 2 mg IVPUSH Q6H PRN PRN Reason: PAIN LEVEL 6-10 Last Admin: 07/05/20 14:43 Dose: 2 mg Documented by: Mupirocin (Bactroban 2% Ointment -) 1 applic TP BID [facility] Last Admin: 07/06/20 21:14 Dose: 1 applic Documented by: Nystatin/Triamcinolone Acetonide (Mycolog Ii Cream -) 2 applic TP BID [facility] Last Admin: 07/06/20 21:14 Dose: 2 applic Documented by: Pantoprazole Sodium (Protonix Iv) 40 mg IVPUSH DAILY [facility] Last Admin: 07/06/20 09:03 Dose: Not Given Documented by: - Objective Vital Signs: Vital Signs Temperature 97.9 F 07/07/20 09:31 Pulse Rate 81 07/07/20 09:31 Respiratory Rate 18 07/07/20 09:31 Blood Pressure 144/59 L 07/07/20 09:31 O2 Sat by Pulse Oximetry (%) 100 07/07/20 09:31 Constitutional: Yes: Calm Eyes: Yes: Conjunctiva Clear HENT: Yes: Atraumatic Neck: Yes: Supple Cardiovascular: Yes: S1, S2 Gastrointestinal: Yes: Soft Genitourinary: Yes: Valle Present Musculoskeletal: Yes: Muscle Weakness Edema: Yes Neurological: Yes: Lethargy Labs: CBC, BMP 07/05/20 06:26 07/05/20 06:26 INR, PTT INR 1.51 (0.83-1.09) H 06/29/20 12:40 Problem List - Problems (1) Acute renal failure Code(s): N17.9 - ACUTE KIDNEY FAILURE, UNSPECIFIED (2) Change in mental state Code(s): R41.82 - ALTERED MENTAL STATUS, UNSPECIFIED Qualifiers: Altered mental status type: unspecified Qualified Code(s): R41.82 - Altered mental status, unspecified (3) Elevated BUN Code(s): R79.9 - ABNORMAL FINDING OF BLOOD CHEMISTRY, UNSPECIFIED (4) Hypernatremia Code(s): E87.0 - HYPEROSMOLALITY AND HYPERNATREMIA Assessment/Plan Current Medications Generic Name Dose Route Start Last Admin Trade Name Freq PRN Reason Stop Dose Admin IV Flush 4 ml 07/01/20 13:37 Triple Lumen Flush IVPUSH PRN PRN Protocol Sodium Chloride 1,000 mls @ 100 mls/hr 06/30/20 17:30 07/07/20 07:57 1/2 Normal Saline IV Not Given ASDIR CARMELINA Metoprolol Tartrate 5 mg 06/29/20 17:01 Lopressor Injection - IVPUSH Q4H PRN HYPERTENSION Morphine Sulfate 2 mg 07/04/20 11:18 07/05/20 14:43 Morphine Sulfate IVPUSH 2 mg Q6H PRN Administration PAIN LEVEL 6-10 Mupirocin 1 applic 06/30/20 22:00 07/06/20 21:14 Bactroban 2% Ointment - TP 1 applic BID [facility] Administration Nystatin/Triamcinolone Acetonide 2 applic 07/02/20 10:00 07/06/20 21:14 Mycolog Ii Cream - TP 2 applic BID [facility] Administration Pantoprazole Sodium 40 mg 06/30/20 10:00 07/06/20 09:03 Protonix Iv IVPUSH Not Given DAILY CARM[facility] Impression 1. SHAW 2. UTI 3. chf 4. htn 5. hld 6. dm 7. altered mental status 8. sepsis 9. CKD 10. hyperkalemia Plan - pt poorly responsive - pulm input appreciated - change fluids to d5 1/2 - pt on comfort measures - no acute change in management
[2020-07-07] MEDS ORDERED: DEXTROSE 5%-0.45% SALINE 1,000 ML IV SCH ×2 (12:15)
[2020-07-07] MEDS: PANTOPRAZOLE SODIUM 40 MG VIAL IVPUSH SCH (12:41)
[2020-07-07] MEDS: MUPIROCIN 2% TOPICAL OINTMENT 22 GM TUBE TP SCH ×2 (12:42→22:35)
[2020-07-07] MEDS: NYSTATIN/TRIAMCINOLONE TOPICAL CREAM 15 GM TUBE TP SCH ×2 (12:43→21:49)
[2020-07-07] MEDS ORDERED: PT OWN MED DRAWER 7, Y5N ONE (21:47)
[2020-07-08] MEDS ORDERED: PT OWN MED DRAWER 7, Y5N ONE (09:15)
--- NOTE | 2020-07-08 09:41 | PN ---
Progress Note (short form) - Note Progress Note: PULMONARY Remains poorly responsive. No fevers recorded. Vital Signs Period Temp Pulse Resp BP Sys/Gray Pulse Ox Last 24 Hr 96.5 F-97.8 F 72-91 18-20 111-132/53-59 99-100 Gen: lethargic Heart: RRR Lung: decreased breath sounds at the bases Abd: soft, nontender Ext: no edema CBC, BMP 07/05/20 06:26 07/05/20 06:26 Active Medications IV Flush (Triple Lumen Flush) 4 ml IVPUSH PRN PRN PRN Reason: Protocol Dextrose/Sodium Chloride (D5-1/2ns -) 1,000 mls @ 60 mls/hr IV ASDIR [facility] Last Admin: 07/07/20 12:42 Dose: 60 mls/hr Documented by: Metoprolol Tartrate (Lopressor Injection -) 5 mg IVPUSH Q4H PRN PRN Reason: HYPERTENSION Morphine Sulfate (Morphine Sulfate) 2 mg IVPUSH Q6H PRN PRN Reason: PAIN LEVEL 6-10 Last Admin: 07/05/20 14:43 Dose: 2 mg Documented by: Mupirocin (Bactroban 2% Ointment -) 1 applic TP BID [facility] Last Admin: 07/07/20 22:35 Dose: 1 applic Documented by: Nystatin/Triamcinolone Acetonide (Mycolog Ii Cream -) 2 applic TP BID [facility] Last Admin: 07/07/20 21:49 Dose: 2 applic Documented by: Pantoprazole Sodium (Protonix Iv) 40 mg IVPUSH DAILY [facility] Last Admin: 07/07/20 12:41 Dose: 40 mg Documented by: A/P Toxic Metabolic Encephalopathy UTI Sepsis Lactic Acidosis Acute on Chronic Renal Failure COPD LV Systolic Dysfunction Severe Mitral Regurgitation Paroxysmal Atrial Fibrillation HTN - completed antibiotics - O2 to keep SpO2 >90% - IVF, free water replacement - monitor urine output, creatinine - inhaled bronchodilators - aspiration precautions - DVT prophylaxis - d/c planning
[2020-07-08] MEDS: NYSTATIN/TRIAMCINOLONE TOPICAL CREAM 15 GM TUBE TP SCH ×2 (10:44→21:05)
[2020-07-08] MEDS: PANTOPRAZOLE SODIUM 40 MG VIAL IVPUSH SCH (10:44)
--- NOTE | 2020-07-08 11:22 | PN ---
Progress Note, Physician Chief Complaint: Toxic Metabolic Encephalopathy UTI Sepsis Lactic Acidosis Acute on Chronic Renal Failure COPD LV Systolic Dysfunction Severe Mitral Regurgitation Paroxysmal Atrial Fibrillation Failure to thrive Comfort care History of Present Illness: NAD Shallow non labored breathing On Comfort care - Current Medication List Current Medications: Active Medications IV Flush (Triple Lumen Flush) 4 ml IVPUSH PRN PRN PRN Reason: Protocol Dextrose/Sodium Chloride (D5-1/2ns -) 1,000 mls @ 60 mls/hr IV ASDIR [facility] Last Admin: 07/07/20 12:42 Dose: 60 mls/hr Documented by: Metoprolol Tartrate (Lopressor Injection -) 5 mg IVPUSH Q4H PRN PRN Reason: HYPERTENSION Morphine Sulfate (Morphine Sulfate) 2 mg IVPUSH Q6H PRN PRN Reason: PAIN LEVEL 6-10 Last Admin: 07/05/20 14:43 Dose: 2 mg Documented by: Mupirocin (Bactroban 2% Ointment -) 1 applic TP BID [facility] Last Admin: 07/07/20 22:35 Dose: 1 applic Documented by: Nystatin/Triamcinolone Acetonide (Mycolog Ii Cream -) 2 applic TP BID [facility] Last Admin: 07/08/20 10:44 Dose: 2 applic Documented by: Pantoprazole Sodium (Protonix Iv) 40 mg IVPUSH DAILY [facility] Last Admin: 07/08/20 10:44 Dose: 40 mg Documented by: - Objective Vital Signs: Vital Signs Temperature 97.5 F L 07/08/20 06:00 Pulse Rate 91 H 07/08/20 06:00 Respiratory Rate 18 07/08/20 06:00 Blood Pressure 114/56 L 07/08/20 06:00 O2 Sat by Pulse Oximetry (%) 100 07/08/20 06:00 Constitutional: Yes: No Distress, Calm, Thin Cardiovascular: Yes: Regular Rate and Rhythm Respiratory: Yes: Regular, Diminished (BLL), On Nasal O2 Gastrointestinal: Yes: Normal Bowel Sounds, Soft Genitourinary: Yes: Valle Present Musculoskeletal: Yes: Muscle Weakness Extremities: Yes: WNL Edema: No Peripheral Pulses WNL: Yes Neurological: Yes: Lethargy Labs: CBC, BMP 07/05/20 06:26 07/05/20 06:26 INR, PTT INR 1.51 (0.83-1.09) H 06/29/20 12:40 Problem List - Problems (1) Failure to thrive Assessment/Plan: -No feeding tubes as per family -On IVF -On morphine prn -DNR/DNI Problems reviewed: Yes Code(s): [id number] - (2) Comfort measures only status Problems reviewed: Yes Code(s): Z51.5 - ENCOUNTER FOR PALLIATIVE CARE (3) Acute renal failure Assessment/Plan: -Nephrology on board -Continue IVF -no lab draws Problems reviewed: Yes Code(s): N17.9 - ACUTE KIDNEY FAILURE, UNSPECIFIED (4) Change in mental state Problems reviewed: Yes Code(s): R41.82 - ALTERED MENTAL STATUS, UNSPECIFIED Qualifiers: Altered mental status type: unspecified Qualified Code(s): R41.82 - Altered mental status, unspecified (5) Severe sepsis Problems reviewed: Yes Code(s): A41.9 - SEPSIS, UNSPECIFIED ORGANISM; R65.20 - SEVERE SEPSIS WITHOUT SEPTIC SHOCK (6) UTI (urinary tract infection) Assessment/Plan: -finished IV abx -ID consult appreciated -overall poor prognosis Problems reviewed: Yes Code(s): N39.0 - URINARY TRACT INFECTION, SITE NOT SPECIFIED (7) Diabetes Assessment/Plan: -A1c at 9.4 -BGM dc'd -NPO to avoid risk for aspiration Problems reviewed: Yes Code(s): E11.9 - TYPE 2 DIABETES MELLITUS WITHOUT COMPLICATIONS Assessment/Plan See problem list Pt for Tucker jc on comfort care Maintaine Valle catheter, may continue PICC line for IVF and morphine
--- NOTE | 2020-07-08 13:45 | PN ---
Progress Note, Physician History of Present Illness: Pt appears comfortable. Called by nurse to assess fluids. Molst form states no fluids. - Current Medication List Current Medications: Active Medications IV Flush (Triple Lumen Flush) 4 ml IVPUSH PRN PRN PRN Reason: Protocol Dextrose/Sodium Chloride (D5-1/2ns -) 1,000 mls @ 60 mls/hr IV ASDIR [facility] Last Admin: 07/07/20 12:42 Dose: 60 mls/hr Documented by: Metoprolol Tartrate (Lopressor Injection -) 5 mg IVPUSH Q4H PRN PRN Reason: HYPERTENSION Morphine Sulfate (Morphine Sulfate) 2 mg IVPUSH Q6H PRN PRN Reason: PAIN LEVEL 6-10 Last Admin: 07/05/20 14:43 Dose: 2 mg Documented by: Mupirocin (Bactroban 2% Ointment -) 1 applic TP BID [facility] Last Admin: 07/07/20 22:35 Dose: 1 applic Documented by: Nystatin/Triamcinolone Acetonide (Mycolog Ii Cream -) 2 applic TP BID [facility] Last Admin: 07/08/20 10:44 Dose: 2 applic Documented by: Pantoprazole Sodium (Protonix Iv) 40 mg IVPUSH DAILY [facility] Last Admin: 07/08/20 10:44 Dose: 40 mg Documented by: - Objective Vital Signs: Vital Signs Temperature 98.3 F 07/08/20 10:00 Pulse Rate 87 07/08/20 10:00 Respiratory Rate 18 07/08/20 10:00 Blood Pressure 124/55 L 07/08/20 10:00 O2 Sat by Pulse Oximetry (%) 100 07/08/20 09:00 Constitutional: Yes: Calm Eyes: Yes: Conjunctiva Clear HENT: Yes: Atraumatic Cardiovascular: Yes: S1, S2 Respiratory: Yes: CTA Bilaterally Gastrointestinal: Yes: Soft Genitourinary: Yes: Incontinence Musculoskeletal: Yes: Muscle Weakness Labs: CBC, BMP 07/05/20 06:26 07/05/20 06:26 INR, PTT INR 1.51 (0.83-1.09) H 06/29/20 12:40 Problem List - Problems (1) Acute renal failure Code(s): N17.9 - ACUTE KIDNEY FAILURE, UNSPECIFIED (2) Change in mental state Code(s): R41.82 - ALTERED MENTAL STATUS, UNSPECIFIED Qualifiers: Altered mental status type: unspecified Qualified Code(s): R41.82 - Altered mental status, unspecified (3) Elevated BUN Code(s): R79.9 - ABNORMAL FINDING OF BLOOD CHEMISTRY, UNSPECIFIED (4) Hypernatremia Code(s): E87.0 - HYPEROSMOLALITY AND HYPERNATREMIA Assessment/Plan Current Medications Generic Name Dose Route Start Last Admin Trade Name Curtisq PRN Reason Stop Dose Admin IV Flush 4 ml 07/01/20 13:37 Triple Lumen Flush IVPUSH PRN PRN Protocol Dextrose/Sodium Chloride 1,000 mls @ 60 mls/hr 07/07/20 12:15 07/07/20 12:42 D5-1/2ns - IV 60 mls/hr ASDIR CARMELINA Administration Metoprolol Tartrate 5 mg 06/29/20 17:01 Lopressor Injection - IVPUSH Q4H PRN HYPERTENSION Morphine Sulfate 2 mg 07/04/20 11:18 07/05/20 14:43 Morphine Sulfate IVPUSH 2 mg Q6H PRN Administration PAIN LEVEL 6-10 Mupirocin 1 applic 06/30/20 22:00 07/07/20 22:35 Bactroban 2% Ointment - TP 1 applic BID [facility] Administration Nystatin/Triamcinolone Acetonide 2 applic 07/02/20 10:00 07/08/20 10:44 Mycolog Ii Cream - TP 2 applic BID CARMELINA Administration Pantoprazole Sodium 40 mg 06/30/20 10:00 07/08/20 10:44 Protonix Iv IVPUSH 40 mg DAILY [facility] Administration Impression 1. SHAW 2. UTI 3. chf 4. htn 5. hld 6. dm 7. altered mental status 8. sepsis 9. CKD 10. hyperkalemia Plan - poorly responsive - will d/c fluids per requests - cont comfort care - no acute change in management
[2020-07-08] MEDS: MUPIROCIN 2% TOPICAL OINTMENT 22 GM TUBE TP SCH (21:06)
--- NOTE | 2020-07-09 07:44 | PN ---
Progress Note, Physician History of Present Illness: PULMONARY POORLY RESPONSIVE,-RESP DISTRESS - Current Medication List Current Medications: Active Medications IV Flush (Triple Lumen Flush) 4 ml IVPUSH PRN PRN PRN Reason: Protocol Metoprolol Tartrate (Lopressor Injection -) 5 mg IVPUSH Q4H PRN PRN Reason: HYPERTENSION Morphine Sulfate (Morphine Sulfate) 2 mg IVPUSH Q6H PRN PRN Reason: PAIN LEVEL 6-10 Last Admin: 07/05/20 14:43 Dose: 2 mg Documented by: Mupirocin (Bactroban 2% Ointment -) 1 applic TP BID [facility] Last Admin: 07/08/20 21:06 Dose: 1 applic Documented by: Nystatin/Triamcinolone Acetonide (Mycolog Ii Cream -) 2 applic TP BID [facility] Last Admin: 07/08/20 21:05 Dose: 2 applic Documented by: Pantoprazole Sodium (Protonix Iv) 40 mg IVPUSH DAILY [facility] Last Admin: 07/08/20 10:44 Dose: 40 mg Documented by: - Objective Vital Signs: Vital Signs Temperature 97.8 F 07/09/20 06:00 Pulse Rate 87 07/09/20 06:00 Respiratory Rate 18 07/09/20 06:00 Blood Pressure 123/53 L 07/09/20 06:00 O2 Sat by Pulse Oximetry (%) 99 07/09/20 06:00 Constitutional: Yes: Well Nourished, Other (POORLY RESPONSIVE) Eyes: Yes: WNL HENT: Yes: WNL Neck: Yes: WNL Cardiovascular: Yes: Regular Rate and Rhythm, S1, S2 Respiratory: Yes: Diminished, Other (POOR INSPIRATORY EFFORT) Gastrointestinal: Yes: Normal Bowel Sounds, Soft Extremities: Yes: WNL Edema: No Labs: CBC, BMP 07/05/20 06:26 Assessment/Plan A/P Toxic Metabolic Encephalopathy UTI Sepsis Lactic Acidosis Acute on Chronic Renal Failure slowly improving COPD LV Systolic Dysfunction Severe Mitral Regurgitation Paroxysmal Atrial Fibrillation HTN Hypernatremia - O2 to keep SpO2 >90% - inhaled bronchodilators - DVT prophylaxis DR PENA
[2020-07-09] MEDS ORDERED: FENTANYL PATCH WASTE MC PRN (11:53)
--- NOTE | 2020-07-09 11:55 | DS ---
Physical Examination Vital Signs: Vital Signs Temperature 97.8 F 07/09/20 06:00 Pulse Rate 87 07/09/20 06:00 Respiratory Rate 18 07/09/20 06:00 Blood Pressure 123/53 L 07/09/20 06:00 O2 Sat by Pulse Oximetry (%) 99 07/09/20 06:00 Findings/Remarks: Patient is an 79 y/o female with past medical history of COPD, Type 2 DM, Paroxysmal Afib, Metabolic Encephalopathy, HTN, CHF, Urosepsis. She presented from [facility] via EMS for AMS. As per [facility] patient has been lethargic the past couple of days but is noted to be less responsive today. At the [facility] she was diagnosed with Urosepsis and was started on Vancomycin and Zosyn. She tested negative for Covid-19 on 06/25/20. Constitutional: Yes: Well Nourished, No Distress, Calm Cardiovascular: Yes: Regular Rate and Rhythm Respiratory: Yes: Regular, Diminished Gastrointestinal: Yes: Normal Bowel Sounds, Soft Renal/: Yes: Valle Present Musculoskeletal: Yes: Muscle Weakness Extremities: Yes: WNL Edema: No Peripheral Pulses WNL: Yes Neurological: Yes: Lethargy Labs: CBC, BMP 07/05/20 06:26 07/05/20 06:26 Discharge Summary Problems reviewed: Yes Reason For Visit: SEPSIS Current Active Problems Acute renal failure (Acute) Change in mental state (Acute) Comfort measures only status (Acute) Elevated BUN (Acute) Elevated troponin (Acute) Failure to thrive (Acute) Fever (Acute) Hypernatremia (Acute) Severe sepsis (Acute) UTI (urinary tract infection) (Acute) Uremic encephalopathy (Acute) Condition: Fair - Instructions Disposition: [facility] - Home Medications Comprehensive Discharge Medication List: Ambulatory Orders Glimepiride [Amaryl] 4 mg PO DAILY 07/19/17 Carvedilol 6.25 mg PO DAILY 12/04/19 Hydralazine HCl 25 mg PO TID 12/04/19 Isosorbide Mononitrate [Isosorbide Mononitrate ER] 30 mg PO DAILY 12/04/19 Simvastatin 20 mg PO DAILY 12/04/19 Trospium Chloride [Trospium Chloride ER] 20 mg PO BID 12/04/19 Acetaminophen [Tylenol] 650 mg PO DAILY 06/29/20 Escitalopram Oxalate [Lexapro -] 20 mg PO DAILY 06/29/20 Insulin Lispro [Humalog] 8 unit SQ DAILY 06/29/20 Piperacillin/Tazob 2.25 gm [Zosyn 2.25GM Ivpb (Pre-Docked)] 2.25 gm IVPB DAILY 06/29/20 Vancomycin 1 Gram (Pre-Docked) [Vancomycin (Pre-Docked)] 1,000 mg IVPB DAILY 06/29/20 Prescription Drug Monitoring Program (I-STOP) results: I-STOP reviewed and no issues identified
[2020-07-09] MEDS ORDERED: fentaNYL 25mcg/hr PATCH.TD72 TD SCH (12:00)
[2020-07-09] MEDS: NYSTATIN/TRIAMCINOLONE TOPICAL CREAM 15 GM TUBE TP SCH ×2 (12:50→23:24)
[2020-07-09] MEDS: MUPIROCIN 2% TOPICAL OINTMENT 22 GM TUBE TP SCH ×3 (12:50→23:24)
[2020-07-09] MEDS: PANTOPRAZOLE SODIUM 40 MG VIAL IVPUSH SCH (12:53)
--- NOTE | 2020-07-09 19:36 | PN ---
Progress Note, Physician History of Present Illness: Pt comfortable. - Current Medication List Current Medications: Active Medications Fentanyl (Duragesic 25mcg Patch -) 1 patch TD Q72H [facility] Stop: 07/16/20 11:53 Last Admin: 07/09/20 12:52 Dose: 1 patch Documented by: IV Flush (Triple Lumen Flush) 4 ml IVPUSH PRN PRN PRN Reason: Protocol Miscellaneous (Duragesic Patch Waste) 1 each MC PRN PRN PRN Reason: PAIN Mupirocin (Bactroban 2% Ointment -) 1 applic TP BID [facility] Last Admin: 07/09/20 15:33 Dose: Not Given Documented by: Nystatin/Triamcinolone Acetonide (Mycolog Ii Cream -) 2 applic TP BID [facility] Last Admin: 07/09/20 12:50 Dose: 2 applic Documented by: - Objective Vital Signs: Vital Signs Temperature 98 F 07/09/20 14:04 Pulse Rate 66 07/09/20 14:04 Respiratory Rate 20 07/09/20 14:04 Blood Pressure 103/71 07/09/20 14:04 O2 Sat by Pulse Oximetry (%) 99 07/09/20 14:04 Constitutional: Yes: Calm Eyes: Yes: Conjunctiva Clear HENT: Yes: Atraumatic Cardiovascular: Yes: S1, S2 Genitourinary: Yes: Incontinence Edema: No Neurological: Yes: Lethargy Labs: CBC, BMP 07/05/20 06:26 07/05/20 06:26 INR, PTT INR 1.51 (0.83-1.09) H 06/29/20 12:40 Problem List - Problems (1) Acute renal failure Code(s): N17.9 - ACUTE KIDNEY FAILURE, UNSPECIFIED (2) Change in mental state Code(s): R41.82 - ALTERED MENTAL STATUS, UNSPECIFIED Qualifiers: Altered mental status type: unspecified Qualified Code(s): R41.82 - Altered mental status, unspecified (3) Elevated BUN Code(s): R79.9 - ABNORMAL FINDING OF BLOOD CHEMISTRY, UNSPECIFIED (4) Hypernatremia Code(s): E87.0 - HYPEROSMOLALITY AND HYPERNATREMIA Assessment/Plan Current Medications Generic Name Dose Route Start Last Admin Trade Name Freq PRN Reason Stop Dose Admin Fentanyl 1 patch 07/09/20 12:00 07/09/20 12:52 Duragesic 25mcg Patch - TD 07/16/20 11:53 1 patch Q72H CARMELINA Administration IV Flush 4 ml 07/01/20 13:37 Triple Lumen Flush IVPUSH PRN PRN Protocol Miscellaneous 1 each 07/09/20 11:53 Duragesic Patch Waste MC PRN PRN PAIN Mupirocin 1 applic 06/30/20 22:00 07/09/20 15:33 Bactroban 2% Ointment - TP Not Given BID CARMELINA Nystatin/Triamcinolone Acetonide 2 applic 07/02/20 10:00 07/09/20 12:50 Mycolog Ii Cream - TP 2 applic BID CARMELINA Administration Impression 1. SHAW 2. UTI 3. chf 4. htn 5. hld 6. dm 7. altered mental status 8. sepsis 9. CKD 10. hyperkalemia Plan - cont comfort care - discussed with outpt pmd today and gave updates - no acute change in management - will follow prn
[2020-07-09 21:54] VITALS: BP 124/46; PULSE 95; TEMP 98.2
== END 2020-07-09 22:55 | DRG 698 ==
LOC: JER 11:49 → JERBED 12:36 → J4S 06-30 14:19 → J7W 07-07 13:22
PROVIDERS: ADMIT Family Medicine; ATTEND Family Medicine
PROC: 05H933Z Insertion of Infusion Device into Right Brachial Vein, Percutaneous Approach (ICD-10-PCS; principal; 2020-07-01)
DX: T83.511A Infection and inflammatory reaction due to indwelling urethral catheter, initial encounter (principal); A41.9 Sepsis, unspecified organism; G93.41 Metabolic encephalopathy; I21.A1 Myocardial infarction type 2; G92 Toxic encephalopathy; N17.9 Acute kidney failure, unspecified; E87.0 Hyperosmolality and hypernatremia; E87.2 Acidosis; I13.0 Hypertensive heart and chronic kidney disease with heart failure and stage 1 through stage 4 chronic kidney disease, or unspecified chronic kidney disease; I50.22 Chronic systolic (congestive) heart failure; N39.0 Urinary tract infection, site not specified; N18.9 Chronic kidney disease, unspecified; E87.5 Hyperkalemia; R41.82 Altered mental status, unspecified; I48.0 Paroxysmal atrial fibrillation; I34.0 Nonrheumatic mitral (valve) insufficiency; Y83.9 Surgical procedure, unspecified as the cause of abnormal reaction of the patient, or of later complication, without mention of misadventure at the time of the procedure
CPT/HCPCS: 36415; 70450-TC; 71045-TC-FY; 71250-TC; 74176-TC; 80053; 80061; 81003; 82436; 82550; 82553; 82565; 82803; 82962; 83036; 83605; 83615; 83721; 83735; 83880; 84100; 84133; 84300; 84443; 84484; 85025; 85027; 85610; 85730; 86850; 86900; 86901; 87040; 87077; 87086; 87205; 87899; 93005; 93010; 99285-25; C9803; G0480; J0131; U0003